=== PATIENT | male | born 1970 ===

== ENCOUNTER 2021-07-21 15:35 | Inpatient (IN) | payer BC ==
--- NOTE | 2021-08-03 15:07 | R.PREADM ---
PRE-ADMISSION SCREENING FORM SCREENING DATE AND TIME 08/03/2021 10:47 (CDT) ANTICIPATED REHAB ADMISSION DATE 08/03/2021 REFERRING FACILITY [facility] REFERRAL DATE AND TIME 07/19/2021 10:47 (CDT) ACUTE ADMIT DATE 07/14/2021 Previous Rehabilitation(s): No. REFERRING PHYSICIAN [facility] CLINICAL LIAISON Ghazal Helm PHYSICIAN REVIEWER Dr. Domingo Jordan M.D. MR# [id number] NAME VELIA GRESHAM ADDRESS [address] [facility] [place]IP [id number] DATE OF 1970 AGE 50 SSN# [id number] GENDER male MARITAL STATUS RACE white ADMIT FROM [facility] PRE-HOSPITAL LIVING SETTING 01 - Home (private home/apt. board/care, assisted living, detention, transitional living) HOME TYPE AND DETAILS Type of home: single family house # of levels in the residence: 1 # of steps within the residence: 0 # of steps to enter the residence: 0 PRE-HOSPITAL LIVING WITH Family/Relatives FAMILY SUPPORT Yes FAMILY SUPPORT DETAILS Patient lives with spouse PRIMARY FAMILY CONTACT NAME Yelena Gresham PRIMARY FAMILY CONTACT PHONE PRIMARY FAMILY CONTACT ALT. PHONE PRIMARY FAMILY CONTACT RELATIONSHIP Spouse PHONE PRIMARY FAMILY CONTACT ON ADM.? no IS PRIMARY FAMILY CONTACT AUTH. REP.? no 1ST EMERGENCY CONTACT Yelena Gresham 1ST CONTACT PHONE 1ST CONTACT ALT. PHONE 1ST CONTACT RELATIONSHIP Spouse PHONE 1ST CONTACT ON ADM. no IS 1ST CONTACT AUTH. REP.? no PHONE 2ND CONTACT ON ADM.? 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 No ANOTHER DEMOCRAT RESPONSIBLE? 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 INTERVENTIONS: - Pain Monitor for headaches Administer prescribed pain medications - Hypertension Monitor and treat with prescribed medications to maintain systolic blood pressure less than 160 as pe r physician recommendation Increase physical activity - Atrial Fibrillation Administer prescribed anticoagulants Vitals will be monitored regularly and medications administered as indicated by Physician - Pre Diabetes Monitor A1c levels - Hyperlipidemia Monitor LDL level and treat with prescribed statins - Sleep Apnea Respiratory management Monitor O2 Sat - Global Aphasia SUPERVISOR SEWING DEPARTMENT to assess and treat pt's communication deficits. - Small Bowel Distention Continue to monitor with serial abdominal exams and KUB's Continue bowel regimen and prescribed medications - Mitral Valve Endocarditis Administer antibiotics and cardiac medications Vital signs will be monitored regularly - GI Rest Monitor and Evaluate patient tolerance of PO intake Administer prescribed medications for GI discomfort RISK FOR COMPLICATIONS: - Pain Administer prescribed pain medication as needed Education patient on relaxation and deep breathing techniques Assist patient with frequent position changes at least every 2 hours - Stroke Monitor patient blood pressure Monitor and maintain patient pain level - Falls Provide assistive devices Educated pt on fall prevention strategies to reduce/eliminate fall risk Patient will be evaluated for Fall Precautions and will be placed on Fall Precautions as indicated pe r protocol. Maintain call light within patient reach for easy access to nursing assistance Provide assistance getting out of bed and with ambulation - DVT Active and Passive ROM exercises Administer anti-coagulants as indicated by physician and monitor for effectiveness. Assist patient with frequent position changes Elevate BLE - Aspiration Monitor for overt s/s of aspiration Will be assessed by our SUPERVISOR SEWING DEPARTMENT SUMMARY OF ACUTE HOSPITALIZATION: Pt. is a 50 yo white male. Pt. is a 50 yo Unknown dexterity white male. On 07/14/2021 Pt. presented to [facility] with sudden onset of right-side weakness. 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 His impairment category is Stroke 01 - Right Body (Left Brain) (01.2). Pre-morbidly, Pt. was independent/mod-I in Locomotion, Safety Awareness, Balance, Transfers Control, Self-Care, Endurance, Communication, Social Cognition, and Sphincter Control. Currently, he has deficits of Locomotion, Balance, Transfers Control, Communication, Self-Care, Endur ance, and Safety Awareness. Pt. is now referred to [facility] for acute in-patient rehabilitation in order to maximize patient's functional independence in activities of daily living, strength, ROM, and mobi lity. Patient has realistic goal of being discharged at assistance level 4-Kristie to reside at Home with Fam julian/Relatives. PAST MEDICAL HISTORY Prior CVA (Apr 2021) Essential (primary) hypertension (I10) Tobacco use (Z72.0) Chronic atrial fibrillation, unspecified (I48.20) Obesity, unspecified (E66.9) Obstructive sleep apnea (adult) (pediatric) (G47.33) CABG hypertrophic obstructive cardiomyopathy PAST SURGICAL HISTORY: myomectomy CABG Colonic Decompression MEDICATION ALLERGIES: No Known Drug Allergies (NKDA) ENVIRONMENTAL ALLERGIES: - Substance Allergies None Known - Other Allergies None Known CODE STATUS: Full code WEIGHT/HEIGHT/BMI: WEIGHT 266 lbs HEIGHT 5' 11" BMI 37.1 DIET: - Diet Type NPO (nothing by mouth) - Diet - Solid Texture N/A - Diet - Liquid Texture N/A - Tube Feed N/A SKIN DIAGRAM: Aching Head pain; level - 10. REVIEW OF SYSTEMS: - Gen Alert and awake Lying in bed No apparent distress Oriented to: person, time, and place - Vital Signs Temperature: 97.9 F SBP/DBP: 107/52 Pulse: 88 Resp: 4 Vital signs stable, afebrile - CVS RRR VITAL SIGNS Temperature: 97.9 F SBP/DBP: 107/52 Pulse: 88 Resp: 4 Vital signs stable, afebrile MEDICATIONS/TREATMENT: Other- See attached MAR (Medication Administration Record). CURRENT SPHINCTER CONTROL: Pre-hospital bladder status: unspecified # of bladder accidents in the last 7 days prior to screenin Pre-hospital bowel status: unspecified # of bowel accidents in the last 7 days prior to screenin Last Bowel Movement Date: 07/19/2021 CURRENT LOCOMOTION STATUS: distance walked 0 feet DETAILED CURRENT FUNCTIONAL STATUS: - Bladder accident frequency: 7-Ind - No accidents in the past 7 days - Bowel accident frequency: 7-Ind - No accidents in the past 7 days - Walking score based on distance walked: 0(N/A) - Wheelchair score based on distance traveled: 0(N/A) QI SCORES: - Self-Care A. Eating 03-Partial/moderate assistance B. Oral hygiene 03-Partial/moderate assistance C. Toileting hygiene 03-Partial/moderate assistance E. Shower/bathe self 03-Partial/moderate assistance F. Upper body dressing 03-Partial/moderate assistance G. Lower body dressing 03-Partial/moderate assistance H. Putting on/taking off footwear 03-Partial/moderate assistance - Mobility A. Roll left and right 02-Substantial/maximal assistance B. Sit to lying 03-Partial/moderate assistance C. Lying to sitting on side of bed 02-Substantial/maximal assistance D. Sit to stand 02-Substantial/maximal assistance E. Chair/[id number] transfer 02-Substantial/maximal assistance F. Toilet transfer 02-Substantial/maximal assistance G. Car transfer 02-Substantial/maximal assistance I. Walk 10 feet 88-Not attempted due to medical condition or safety concerns J. Walk 50 feet with two turns 88-Not attempted due to medical condition or safety concerns K. Walk 150 feet 88-Not attempted due to medical condition or safety concerns L. Walking 10 feet on uneven surfaces 88-Not attempted due to medical condition or safety concerns M. 1 step (curb) 88-Not attempted due to medical condition or safety concerns N. 4 steps 88-Not attempted due to medical condition or safety concerns O. 12 steps 88-Not attempted due to medical condition or safety concerns P. Picking up object 03-Partial/moderate assistance R. Wheel 50 feet with two turns 09-Not applicable S. Wheel 150 feet 09-Not applicable - Bladder and Bowel Bladder continence 0-Always continent Bowel continence 9-Not rated - Endurance Good - Balance Good - Safety Awareness Good CURRENT FUNC. DEFICITS: Self-Care and Mobility CURRENT / PREVIOUS ASSISTIVE DEVICES: Straight Cane Wheelchair CURRENT USE ASSISTIVE DEVICES: CPAP HISTORY OF FALLS. HAS THE PATIENT HAD TWO OR MORE FALLS IN THE PAST YEAR OR ANY FALL WITH INJURY IN T HE PAST YEAR?: No PRIOR SURGERY. DID THE PATIENT HAVE MAJOR SURGERY DURING THE 100 DAYS PRIOR TO ADMISSION?: Yes THERAPY NOTES FROM ACUTE CARE: [id number].pdf [id number].pdf SPECIAL NEEDS: - Safety Concerns Fall precautions needed due to Poor balance Skin breakdown precautions needed due to skin breakdown risk - Aspiration Concerns Precautions needed due avoid aspiration related infections PRECAUTIONS: - Weight Bearing Precaution WBAT right LE - Fall Precaution Bed alarm TABS alarm Wheel chair alarm PATIENT NEEDS ACTIVE AND ONGOING THERAPEUTIC INTERVENTION OF MULTIPLE THERAPY DISCIPLINES, INCLUDING: - Dietary and Nutrition Adequate Nutrition. Nutritional Education. Nutritional Supplements. Evaluate and Treat. - Occupational Therapy Cognitive Retraining. Patient needs Occupational Therapy for a daily minimum of 1.5 hours at least 5 out of 7 days, to improve Activities of Daily Living, including: Eating, Grooming, Bathing, Dressing, Toileting, Toilet Transfers, Community Reintegration, Higher functional activities, Adaptive Equipme nt, Splinting, Household Tasks, and Other activities as determined. Visual Perceptual Training. Evalu ate and Treat. Safety Awareness. UE ROM. UE Strengthening. - Speech Therapy Cognitive Training. Expressive Language Skills. Memory Strategies. Patient needs Speech Therapy for a daily minimum of 1.5 hours at least 5 out of 7 days, to improve: Swallowing, Cognition, Language Ski lls, and Compensatory Strategies. Receptive Language Skills. Speech Intelligibility Training. Evaluat e and Treat. Dysphagia Therapy. - Physical Therapy Patient needs Physical Therapy for a daily minimum of 1.5 hours at least 5 out of 7 days, to improve: Mobility, Strengthening, Transfers, Stretching, ROM, Endurance, Ability to manage stairs, Gait, and Balance. Evaluate and Treat. Wheelchair Management. Patient/Family Education. Safety Awareness. PATIENT NEEDS CLOSE MEDICAL SUPERVISION BY A REHABILITATION PHYSICIAN FOR: Coordination of Treatment Team Medical and Co-Morbidity Management Pain Management DVT Management PATIENT REQUIRES 24X7 REHAB NURSING FOR MEDICAL AND FUNCTIONAL MGT. OF THE FOLLOWING DEFICITS: Disease Management Medication Management Patient requires 24x7 Rehabilitation Nursing for: Pain Issues, Identifying and preventing risk factor s, Monitoring and reporting current medical conditions, Assisting with ambulation and transfer, Carmel ting with all ADL-s, Teaching patients about disease process and medications, Family teaching, Provid ing safe environment, Bowel and Bladder Issues, Skin Integrity, and Medication Management Providing Safe Environment Communication Transfers Pain Management PATIENT REQUIRES INTENSIVE, COORDINATED INTERDISCIPLINARY APPROACH TO REHAB: Patient needs Dietary and Nutrition Services for: Adequate Nutrition, Nutritional Supplements, and Nu tritional Education Patient needs Spring Machine Operator and/or Case Management for: Discharge Planning, Arranging Home Equipmen t or Services, and Family Interventions PATIENT REHAB POTENTIAL: Fiorella GRESHAM is able and expected to receive 3 hours of individualized therapy daily on at least 5 of every 7 days ChuckFlako YOUNGBLOODMELISSA's prognosis for significant practical improvement within a reasonable period of time nell ears Good Expected level of measurable improvement will be of a practical value to Fiorella GRESHAM's functional ca pacity or adaptations to impairments Has a viable Discharge Plan Medically appropriate; condition is sufficiently stable to participate in intensive rehab program DISCHARGE PLAN: - Estimated Length of Stay (days) 17. - Consensus on plan Discharge plan has been discussed with primary caregiver. Patient/Family is in agreement with the pushpa n. Primary caregiver is in agreement with the plan. - Patient/Family Goals Return home with assistance. - Planned Living Setting Upon Discharge Home, to live with Family/Relatives. Transitional Living. RECOMMENDED CARE LEVEL: IRF RECOMMENDATION DETAILS: Recommended Admission to Comprehensive Rehabilitation Program to Increase Functional Matheny SCREENER'S COMPLETENESS CONFIRMATION: - Screening Confirmation The patient data collection on this preadmission screening form is finished PHYSICIANS REVIEW AND ADMISSION DETERMINATION Admit - Based on my review of the Pre-Admission Screening results, in my medical judgment and experie nce, I concur with the findings and recommend admission to [facility], as this patient requires an IRF level of care. SIGNATURE PANEL: Clinical Liaison - [electronically] signed by Ghazal Helm on 08/03/2021 at 13:40 (CDT) [employer] - [electronically] signed by Olivier Allen PT on 08/03/2021 at 13:41 (CDT) Physician Reviewer - [electronically] signed by Dr. Domingo Jordan M.D. on 08/03/2021 at 15:06 (CDT )
--- OUTSIDE RECORDS SUMMARY | 2021-08-03 16:58 | XMS REPORT | Continuity of Care Document ---
:1970 Author Organization [facility] t Address [address] [place] [address] Care Team Providers Name Role Phone JUAN, Satish Primary Care Physician Unavailable Singer PIÑA Attending Clinician Yrn POST Attending Clinician Patrick POST Attending Clinician Teqwimuahilton PIÑA Attending Clinician WOODROW Attending Clinician Unavailable Satish Pringle MD Attending Clinician Trina Tierney MD Attending Clinician Lisa POST Attending Clinician Albert POST Attending Clinician Sandra Sheldon CRNA Attending Clinician YRN Admitting Clinician Unavailable Payers Payer Name Policy Type Policy Number Effective Date Expiration Date S ource Problems Condition Condition Condition Status Onset Resolution Last Treating Co mments Source Name Details Category Date Date Treatment Clinician Date Streptococ Streptococ Disease Active U nivers markus markus 4-14 ity of [place] Endocardit Endocardit Disease Active U nivers is of is of 14 ity of mitral mitral 00:00: [place] valve valve 00 Medical Branch Ileus Ileus Disease Active Overview: Univcallie s 07-14 Formattin ity of 00:00: g of this [place] 00 note Medical might be Branch different from the original. 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 ischemia CVA with a hemorrhag ic conversio n Obesity Obesity Disease Active Univers (BMI (BMI -08 ity of 30-39.9) 30-39.9) 00:00: [address] Branch Allergies, Adverse Reactions, Alerts Allergy Allergy Status Severity Reaction(s) Onset Inactive Treating Comm ents Source Name Type Date Date Clinician NO KNOWN Drug Active Univers ALLERGIE Class ity of S [facility] Family History Family Member Diagnosis Comments Start Date Stop Date Source Natural mother Hypertension [facility] Social History Social Habit Start Date Stop Date Quantity Comments Source Exposure to Not sure [facility] SARS-CoV-2 [facility] (event) [place] Alcohol intake 2021-07-21 2021-07-21 Ex-drinker [facility] 00:00:00 00:00:00 (finding) [facility] Tobacco use and 2021-07-19 2021-07-19 Former user [facility] ty of exposure 00:00:00 00:00:00 [facility] Sex Ass[birth year] At [birth year] Universit y of 00:00:00 00:00:00 [facility] Smoking Status Start Date Stop Date Source Former smoker 2021-07-19 00:00:00 2021-07-19 00:00:00 [facility] Medications Ordered Filled Start Stop Current Ordering Indication Dosage Frequency Signature Comments Components Source Medication Medication Date Date Medication? Clinician (SIG) Name Name metoprolol Yes 25mg 25 mg, Unive rs tartrate 4-15 Oral, BID, ity o f (LOPRESSOR) 01:00: First dose [place] tablet 25 00 on [facility] Medical mg 07/20/21 at Branch 1999, Until Discontinu ed, Routine ceFAZolin 0 2021- Yes 2000mg 2 g (2,000 Univers in 0.9% 4-14 04-24 mg), ity of sodium 18:15: 18:14 [place]venou [place] chloride 00 :00 s, Q8H Medical (ANCEF) 2 ABX, 30 Branch gram/100 mL doses, RTU 2 g First dose on [facility] 07/20/21 at 1315, Last dose on 07/30/21 at 0515, Administer over 30 Minutes
Reason for Anti-Infec tive: Documented Infection& lt;br>Docu mented Infection Site: Vascular<b r>Duration of Therapy: 14 days rivaroxaban 0 Yes 20mg Take 20 mg Univers (XARELTO 4-14 by mouth ity of ORAL) 17:01: daily. [address] metoprolol 0 Yes 100mg Take 100 Un marilu tartrate 4-14 mg by ity of 100 mg 17:01: mouth 2 [place] tablet (two) Medical times Branch daily. colchicine 0 Yes .6mg Take 0.6 Uni vers (MITIGARE) 4-14 mg by ity of 0.6 mg Cap 17:01: mouth 2 [place] 01 (two) Medical times Branch daily. losartan 50 2021-0 Yes 50mg Take 50 mg Univers mg tablet 4-14 by mouth ity of 17:01: daily. [address] furosemide 2021-0 Yes 40mg Take 40 mg U nivers (LASIX) 40 4-14 by mouth ity o f mg tablet 17:01: daily. [address] rivaroxaban 2021-0 Yes 20mg Take 20 mg Univers (XARELTO 4-14 by mouth ity of ORAL) 17:01: daily. [address] metoprolol 2021-0 Yes 100mg Take 100 Un marilu tartrate 4-14 mg by ity of 100 mg 17:01: mouth 2 [place] tablet 01 (two) Medical times Branch daily. colchicine 2021-0 Yes .6mg Take 0.6 Uni vers (MITIGARE) 4-14 mg by ity of 0.6 mg Cap 17:01: mouth 2 [place] 01 (two) Medical times Branch daily. losartan 50 2021-0 Yes 50mg Take 50 mg Univers mg tablet 4-14 by mouth ity of 17:01: daily. [address] furosemide 2021-0 Yes 40mg Take 40 mg U nivers (LASIX) 40 4-14 by mouth ity o f mg tablet 17:01: daily. [address] pantoprazol 0 Yes 40mg 40 mg, Univ ers e 4-14 Slow IV ity of (PROTONIX) 01:00: Push, [place] injection 00 Q12H, Medical 40 mg First dose Branch on Sat07/19/21 at 2000, Until Discontinu ed lidocaine 2021-0 Yes PRN, Univers 2% 4-13 Starting ity of (XYLOCAINE) 18:46: on Sat [place] 20 mg/mL (2 01 07/19/21 at Ia dical %) 1346, Branch injection Until Discontinu ed, Routine polyethylen 0 Yes 17g 17 g, Unive rs e glycol 4-13 Oral, BID, ity o f 3350 powder 16:30: First dose [place] 17 g 00 on Sat Medical 07/19/21 at Branch 1130, Until Discontinu ed, Routine ondansetron 0 Yes 4mg 4 mg, Slow Univers (ZOFRAN 4-13 IV Push, ity of (PF)) 06:34: Q6HPRN, [place] injection 4 43 Nausea and Me dical mg Vomiting Branch (N/V), Starting on Sat07/19/21 at 0134
Do ses of ondansetro n 16 mg and above need to be administer ed via IV piggyback. For Dose >=24mg ECG monitoring is advisable.
docusate 0 Yes 100mg 100 mg, Unive rs (COLACE) 50 4-11 Oral, ity of mg/5 mL 14:00: DAILY, [place] solution 00 First dose Medic al 100 mg on Sat Branch 07/17/21 at 0900, Until Discontinu ed, Routine acetaminoph 2021-0 Yes 650mg 650 mg, Un marilu en 4-11 Oral, ity of (TYLENOL) 04:43: Q4HPRN, [place] 160 mg/5 mL 30 Starting Medi markus oral liquid on Sat Branch 650 mg 07/16/21 at 2343, Until Discontinu ed, Routine, Pain (scale 4-6), Temp > 38.5 C D5W 0.9% Yes 1000mL at 75 [facility] s NaCl (NS) 4-10 mL/hr, ity of IV infusion 22:00: 1,000 mL, [place] 1,000 mL 00 IV Medical Infusion, Branch CONTINUOUS , Starting on 07/16/21 at 1700, Until Discontinu ed, Routine atorvastati Yes 40mg 40 mg, [facility] ers n (LIPITOR) 4-09 Oral, QHS, it y of tablet 40 02:00: [place] mg 00 on Fri Medical 07/14/21 at [place] 2100, Until Discontinu ed, Routine Sliding Yes Subcutaneo [facility] ers Scale 4-08 us, Q6H, ity of Insulin-Reg 23:00: First dose [place] ular + Fsbg 00 on Sat Medica l Testing 07/14/21 at [place] 1800, Until Discontinu ed, Routine glucagon Yes 1mg 1 mg, Univers (GLUCAGEN -08 Intramuscu ity of DIAGNOSTIC 20:48: lar, PRN, [place] KIT) 00 Starting Medical injection 1 on Sat Branch mg 07/14/21 at 1548, Until Discontinu ed, MARILUZ, Blood Glucose < or = 70 mg/dL and patient is unable to swallow or has mental changes. Vital Signs Vital Name Observation Time Observation Value Comments Source Systolic blood 2021-07-20 18:55:00 162 mm[Hg] [facility] Diastolic blood 2021-07-20 18:55:00 73 mm[Hg] [facility] rate 2021-07-20 18:55:00 103 /min [facility] Body temperature 2021-07-20 18:55:00 36.17 Halima [facility] Respiratory rate 2021-07-20 18:55:00 18 /min [facility] Oxygen saturation in 2021-07-20 18:55:00 98 /min [facility] Arterial blood by [facility] Pulse oximetry [place] Body height 2021-07-17 17:12:00 180.3 cm [facility] Body weight 2021-07-17 17:12:00 120.657 kg [facility] BMI 2021-07-17 17:12:00 37.10 kg/m2 [facility] Systolic blood 2021-07-21 12:45:00 155 mm[Hg] Univer sity of pressure [facility] Diastolic blood 2021-07-21 12:45:00 91 mm[Hg] Unive rsity of pressure [facility] Heart rate 2021-07-21 12:45:00 77 /min [facility] Body temperature 2021-07-21 12:45:00 36.61 Halima [facility] 2021-07-21 12:45:00 18 /min [facility] Oxygen saturation in 2021-07-21 12:45:00 97 /min [facility] Arterial blood by [facility] Pulse oximetry Branch Body height 2021-07-17 17:12:00 180.3 cm [facility] Body weight 2021-07-17 17:12:00 120.657 kg [facility] BMI 2021-07-17 17:12:00 37.10 kg/m2 [facility] Procedures Procedure Date / Time Performing Clinician Source Performed POCT GLUCOSE (AUTOMATED) 2021-07-21 17:14:00 Curry Dotson [facility] POCT GLUCOSE (AUTOMATED) 2021-07-21 11:09:00 Curry [facility] PO[facility] GLUCOSE (AUTOMATED) 2021-07-21 11:09:00 Curry [facility] PO[facility] GLUCOSE (AUTOMATED) 2021-07-21 07:25:00 Curry [facility] POCT GLUCOSE (AUTOMATED) 2021-07-21 07:25:00 Curry Dotson [facility] XR KUB 2021-07-21 02:04:00 [facility] XR KUB 2021-07-21 02:04:00 [facility] POCT GLUCOSE (AUTOMATED) 2021-07-21 01:29:00 TeqwimmarzenahCurry [facility] PO[facility] GLUCOSE (AUTOMATED) 2021-07-21 01:29:00 Teqwimuah, Curry [facility] PO[facility] GLUCOSE (AUTOMATED) 2021-07-20 22:02:00 Teqwimuah, Curry [facility] PO[facility] GLUCOSE (AUTOMATED) 2021-07-20 22:02:00 Teqwimuah, Curry [facility] PO[facility] GLUCOSE (AUTOMATED) 2021-07-20 20:46:00 Teqwimuah, Curry [facility] PO[facility] GLUCOSE (AUTOMATED) 2021-07-20 20:46:00 Teqwimuah, Curry Uni [facility] COLONOSCOPY 2021-07-20 19:33:00 Lisa [facility] [place] [facility] COLONOSCOPY 2021-07-20 19:33:00 Le, [facility] COLONOSCOPY (ENDO) 2021-07-20 19:13:11 Juan [place] [facility] COLONOSCOPY (ENDO) 2021-07-20 19:13:11 Juan [place] [facility] XR KUB 2021-07-20 18:19:49 Davon [facility] XR KUB 2021-07-20 18:19:49 Davon [facility] COVID-19 (ID NOW RAPID 2021-07-20 17:46:00 Le, [facility] TESTING) Medical Branch LAB ONLY COVID 2021-07-20 17:46:00 Le, [facility] COVID-19 (ID NOW RAPID 2021-07-20 17:46:00 Le, [facility] TESTING) Medical Branch LAB ONLY COVID 2021-07-20 17:46:00 Lisa [facility] CBC WITH DIFF 2021-07-20 16:50:00 Shaniqua Cardenas [facility] CBC WITH DIFF 2021-07-20 16:50:00 Ronald [facility] POCT GLUCOSE (AUTOMATED) 2021-07-20 16:18:00 Luis Fernando Nguyen Uni versity of [facility] POCT GLUCOSE (AUTOMATED) 2021-07-20 16:18:00 Luis Fernando Nguyen Uni versity [facility] XR KUB 2021-07-20 12:44:10 Ronald [facility] XR KUB 2021-07-20 12:44:10 Ronald [facility] POCT GLUCOSE (AUTOMATED) 2021-07-20 11:43:00 Luis Fernando Nguyen Uni versity of [facility] POCT GLUCOSE (AUTOMATED) 2021-07-20 11:43:00 Luis Fernando Nguyen Uni versity of [facility] POCT GLUCOSE (AUTOMATED) 2021-07-20 05:10:00 Luis Fernando Nguyen Uni versity of [facility] POCT GLUCOSE (AUTOMATED) 2021-07-20 05:10:00 Luis Fernando Nguyen Uni versity of [facility] POCT GLUCOSE (AUTOMATED) 2021-07-20 00:06:00 Luis Fernando Nguyen Uni versity of [facility] POCT GLUCOSE (AUTOMATED) 2021-07-20 00:06:00 Luis Fernando Nguyen Uni versity [facility] XR KUB 2021-07-19 23:32:13 Davon [facility] XR KUB 2021-07-19 23:32:13 Davon [facility] POCT GLUCOSE (AUTOMATED) 2021-07-19 17:04:00 Luis Fernando Nguyen Uni versity of [facility] POCT GLUCOSE (AUTOMATED) 2021-07-19 17:04:00 Luis Fernando Nguyen Uni versity [facility] BASIC METABOLIC PANEL (NA, 2021-07-19 16:52:00 Alex Medina [facility] K, CL, CO2, GLUCOSE, BUN, Medica l Branch CREATININE, CA) MAGNESIUM 2021-07-19 16:52:00 Alex Medina [facility] CBC WITH DIFF 2021-07-19 16:52:00 [facility] COMP. METABOLIC PANEL 2021-07-19 16:52:00 [facility] ([id number]) [facility] Branch MAGNESIUM 2021-07-19 16:52:00 Adam [facility] BASIC METABOLIC PANEL (NA, 2021-07-19 16:52:00 Alex Medina [facility] K, CL, CO2, GLUCOSE, BUN, Medica l Branch CREATININE, CA) COMP. METABOLIC PANEL 2021-07-19 16:52:00 [facility] ([id number]) [facility] CBC WITH DIFF 2021-07-19 16:52:00 [facility] POCT GLUCOSE (AUTOMATED) 2021-07-19 13:59:00 Luis Fernando Nguyen Uni [facility] POCT GLUCOSE (AUTOMATED) 2021-07-19 13:59:00 Luis Fernando Nguyen [facility] POCT GLUCOSE (AUTOMATED) 2021-07-19 11:06:00 Luis Fernando Nguyen [facility] POCT GLUCOSE (AUTOMATED) 2021-07-19 11:06:00 Luis Fernando Nguyen Uni [facility] PROTHROMBIN TIME / INR 2021-07-19 11:03:00 Venancio Seals [facility] ACTIVATED PARTIAL THRMPLAS 2021-07-19 11:03:00 Venancio Seals [facility] PROTHROMBIN TIME / INR 2021-07-19 11:03:00 Venancio Seals [facility] ACTIVATED PARTIAL THRMPLAS 2021-07-19 11:03:00 Venancio Seals [facility] POCT GLUCOSE (AUTOMATED) 2021-07-19 04:41:00 Luis Fernando Nguyen [facility] PO[facility] GLUCOSE (AUTOMATED) 2021-07-19 04:41:00 Luis Fernando Nguyen [facility] CT ABDOMEN PELVIS W 2021-07-18 23:20:55 [facility] ABDOMEN PELVIS W 2021-07-18 23:20:55 Adam Alex [facility] CONTRAST Medical Branch POCT GLUCOSE (AUTOMATED) 2021-07-18 22:56:00 Luis Fernando Nguyen [facility] POCT GLUCOSE (AUTOMATED) 2021-07-18 22:56:00 Luis Fernando [facility] SEDIMENTATION RATE 2021-07-18 18:51:00 Raphael Frye [facility] SEDIMENTATION RATE 2021-07-18 18:51:00 Raphael Frye [facility] BLOOD CULTURE SCREEN 2021-07-18 18:34:00 Medina Alex [facility] 2021-07-18 18:34:00 Adam Alex [facility] BLOOD CULT[facility] SCREEN 2021-07-18 18:33:00 Adam Alex [facility] BLOOD CULT[facility] SCREEN 2021-07-18 18:33:00 Medina Alex [facility] ANTI-NUCLEAR ANTIBODY 2021-07-18 18:32:00 Raphael Frye [facility] Medical [place] ANTI-NUCLEAR 2021-07-18 18:32:00 Melva [facility] [place] ANTIBODY-PATHOLOGIST Medical [facility] INTERPRETATION ANTI-NUCLEAR ANTIBODY 2021-07-18 18:32:00 [facility] [place] ANTI-NUCLEAR 2021-07-18 18:32:00 Melva [facility] [place] ANTIBODY-PATHOLOGIST Medical [facility] INTERPRETATION C-REACTIVE PROTEIN 2021-07-18 18:31:00 Raphael Frye [facility] C-REACTIVE PROTEIN 2021-07-18 18:31:00 [facility] (AUTOMATED) 2021-07-18 16:57:00 Luis Fernando [facility] POCT GLUCOSE (AUTOMATED) 2021-07-18 16:57:00 Luis Fernando Nguyen Uni versity of [place] [facility] POCT GLUCOSE (AUTOMATED) 2021-07-18 10:31:00 Luis Fernando Nguyen Uni versity of [facility] Branch POCT GLUCOSE (AUTOMATED) 2021-07-18 10:31:00 Luis Fernando Nguyen Uni versity of [place] Medical [facility] POCT GLUCOSE (AUTOMATED) 2021-07-18 06:04:00 Luis Fernando Nguyen Uni versity of [facility] Branch POCT GLUCOSE (AUTOMATED) 2021-07-18 06:04:00 Luis Fernando Nguyen Uni versity of [facility] Branch POCT GLUCOSE (AUTOMATED) 2021-07-17 22:23:00 Luis Fernando Nguyen Uni versity of [facility] POCT GLUCOSE (AUTOMATED) 2021-07-17 22:23:00 Luis Fernando Nguyen Uni versity of [facility] BLOOD CULTURE SCREEN 2021-07-17 21:03:00 Laurie Gita Univers ity of [facility] BLOOD CULTURE WORKUP 2021-07-17 21:03:00 Shijohn Gita Univers ity of [facility] BLOOD CULTURE SCREEN 2021-07-17 21:03:00 Shijohn Gita Univers ity of [facility] Branch BLOOD CULTURE WORKUP 2021-07-17 21:03:00 Shijohn Gita Univers ity of [facility] Branch BLOOD CULTURE SCREEN 2021-07-17 18:56:00 Shiue, Gita Univers ity of [facility] Branch BLOOD CULTURE WORKUP 2021-07-17 18:56:00 Shijohn Gita Univers ity [facility] GRAM POSITIVE BLOOD 2021-07-17 18:56:00 Laurie Gita Universi ty of [place] PATHOGENS DNA Medical Branch PROBE-ANAEROBIC BLOOD CULTURE SCREEN 2021-07-17 18:56:00 Shijohn Gita Univers ity of [facility] Branch BLOOD CULTURE WORKUP 2021-07-17 18:56:00 Shijohn Gita Univers ity of [facility] GRAM POSITIVE BLOOD 2021-07-17 18:56:00 Laurie Gita Universi ty of [place] PATHOGENS DNA Medical Branch PROBE-ANAEROBIC POCT GLUCOSE (AUTOMATED) 2021-07-17 17:13:00 Yared Pool versity of [facility] POCT GLUCOSE (AUTOMATED) 2021-07-17 17:13:00 Yared Pool [facility] TRANSESOPHAGEAL ECHO (JESS) 2021-07-17 17:06:15 Kenneth Jaime [facility] COMPLETE W/ DOPPLER AND Medical Branch COLOR TRANSESOPHAGEAL ECHO (JESS) 2021-07-17 17:06:15 Kenneth Jaime [facility] COMPLETE W/ DOPPLER AND Medical Branch COLOR TRANSTHORACIC ECHO (TTE) 2021-07-17 16:06:00 Viri Echols [facility] TRANSTHORACIC ECHO (TTE) 2021-07-17 16:06:00 Viri Echols [facility] BASIC METABOLIC PANEL (NA, 2021-07-17 09:35:00 [place]oulin, Bienvenido [facility] K, CL, CO2, GLUCOSE, BUN, Medica l Branch CREATININE, CA) CBC WITH DIFF 2021-07-17 09:35:00 [place], [facility] MAGNESIUM 2021-07-17 09:35:00 [place], [facility] PHOSPHORUS 2021-07-17 09:35:00 [place], [facility] PHOSPHORUS 2021-07-17 09:35:00 [place], [facility] MAGNESIUM 2021-07-17 09:35:00 [place], [facility] BASIC METABOLIC PANEL (NA, 2021-07-17 09:35:00 Moulin, Bienvenido [facility] K, CL, CO2, GLUCOSE, BUN, Medica l Branch CREATININE, CA) CBC WITH DIFF 2021-07-17 09:35:00 [place], [facility] POCT GLUCOSE (AUTOMATED) 2021-07-17 05:29:00 Yared [facility] POCT GLUCOSE (AUTOMATED) 2021-07-17 05:29:00 Yared [facility] POCT GLUCOSE (AUTOMATED) 2021-07-16 22:03:00 Yared [facility] POCT GLUCOSE (AUTOMATED) 2021-07-16 22:03:00 Yared Pool versity [facility] POCT GLUCOSE (AUTOMATED) 2021-07-16 16:25:00 Yared Pool [facility] POCT GLUCOSE (AUTOMATED) 2021-07-16 16:25:00 Yared Pool [facility] CT HEAD WO CONTRAST 2021-07-16 13:44:56 Yrn Yared [facility] CT HEAD WO CONTRAST 2021-07-16 13:44:56 Yared Pool [facility] PHOSPHORUS 2021-07-16 09:00:00 [facility] 2021-07-16 09:00:00 Addison [facility] BASIC METABOLIC PANEL (NA, 2021-07-16 09:00:00 Kenneth Jaime [facility] K, CL, CO2, GLUCOSE, BUN, Medica l Branch CREATININE, CA) CBC WITH DIFF 2021-07-16 09:00:00 Addison [facility] CBC WITH DIFF 2021-07-16 09:00:00 Addison [facility] PHOSPHORUS 2021-07-16 09:00:00 Addison [facility] MAGNESIUM 2021-07-16 09:00:00 Addison [facility] BASIC METABOLIC PANEL (NA, 2021-07-16 09:00:00 Kenneth Jaime [facility] K, CL, CO2, GLUCOSE, BUN, Medica l Branch CREATININE, CA) POCT GLUCOSE (AUTOMATED) 2021-07-16 06:41:00 Yared Pool [facility] POCT GLUCOSE (AUTOMATED) 2021-07-16 06:41:00 Yared Pool [facility] POCT GLUCOSE (AUTOMATED) 2021-07-15 22:50:00 Yared Pool [facility] POCT GLUCOSE (AUTOMATED) 2021-07-15 22:50:00 Yared Pool [facility] MAGNESIUM 2021-07-15 17:19:00 [facility]IC [facility]OLIC PANEL (NA, 2021-07-15 17:19:00 Kenneth Jaime [facility] K, CL, CO2, GLUCOSE, BUN, Medica l Branch CREATININE, CA) CBC WITH DIFF 2021-07-15 17:19:00 Desirae Jaime [facility] PROTHROMBIN TIME / INR 2021-07-15 17:19:00 [facility] 2021-07-15 17:19:00 Kenneth Jaime [facility] CBC WITH DIFF 2021-07-15 17:19:00 Desirae Jaime [facility] BASIC METABOLIC PANEL (NA, 2021-07-15 17:19:00 Kenneth Jaime [facility] K, CL, CO2, GLUCOSE, BUN, Medica l Branch CREATININE, CA) MAGNESIUM 2021-07-15 17:19:00 Andrea Jaimechanning [facility] PROTHROMBIN TIME / INR 2021-07-15 17:19:00 Desirae Jaime Un [facility] ACTIVATED PARTIAL THRMPLAS 2021-07-15 17:19:00 Kenneth Jaime [facility] POCT GLUCOSE (AUTOMATED) 2021-07-15 17:06:00 Yared Pool [facility] POCT GLUCOSE (AUTOMATED) 2021-07-15 17:06:00 Yared Pool [facility] MR BRAIN WO CONTRAST 2021-07-15 14:07:39 [facility] MR BRAIN WO CONTRAST 2021-07-15 14:07:39 [facility]ols [facility] CT HEAD WO CONTRAST 2021-07-15 09:51:20 Bienvenido Ness [facility] CT HEAD WO CONTRAST 2021-07-15 09:51:20 Bienvenido Ness [facility] PHOSPHORUS 2021-07-15 09:13:00 Viri Echols [facility] [place] [facility] MAGNESIUM 2021-07-15 09:13:00 Viri Echols [facility] [place] [facility] BASIC METABOLIC PANEL (NA, 2021-07-15 09:13:00 Onesimo [facility] K, CL, CO2, GLUCOSE, BUN, Medica l Branch CREATININE, CA) CBC WITHOUT DIFF 2021-07-15 09:13:00 Onesimo [facility] CBC WITHOUT DIFF 2021-07-15 09:13:00 Onesimo [facility] BASIC METABOLIC PANEL (NA, 2021-07-15 09:13:00 Onesimo [facility] K, CL, CO2, GLUCOSE, BUN, Medica l Branch CREATININE, CA) MAGNESIUM 2021-07-15 09:13:00 Onesimo [facility] PHOSPHORUS 2021-07-15 09:13:00 Onesimo [facility] POCT GLUCOSE (AUTOMATED) 2021-07-15 05:10:00 Yared Pool [facility] POCT GLUCOSE (AUTOMATED) 2021-07-15 05:10:00 Yared Pool [facility] MRSA / MSSA SCREEN BY PCR, 2021-07-15 02:51:00 Onesimo [facility] MRSA / MSSA SCREEN BY PCR, 2021-07-15 02:51:00 Onesimo [facility] HEPARIN ANTI-XA, 2021-07-15 02:47:00 Yrn [facility] UNFRACTIONATED HEPARIN [facility] B ranch HEPARIN ANTI-XA, 2021-07-15 02:47:00 Yrn [facility] UNFRACTIONATED HEPARIN Medical B ranch HEPARIN ANTI-XA, LOW 2021-07-14 22:55:00 Onesimo [facility] WEIGHT HEPARIN [facility] HEPARIN ANTI-XA, LOW 2021-07-14 22:55:00 Onesimo [facility] WEIGHT HEPARIN [facility] CT STROKE HEAD WO CONTRAST 2021-07-14 22:33:03 Onesimo [facility] CT STROKE HEAD WO CONTRAST 2021-07-14 22:33:03 Onesimo [facility] POCT GLUCOSE (AUTOMATED) 2021-07-14 20:01:00 Yared Pool [facility] POCT GLUCOSE (AUTOMATED) 2021-07-14 20:01:00 Yrn Yared [facility] POCT GLUCOSE (AUTOMATED) 2021-07-14 18:32:00 Lencho Benites [facility] POCT GLUCOSE (AUTOMATED) 2021-07-14 18:32:00 Lencho Benites [facility] HB ECG ROUTINE & RHYTHM 2021-07-14 18:30:39 Singer [facility] HB ECG ROUTINE & RHYTHM 2021-07-14 18:30:39 Singer [facility] CT STROKE ANGIOGRAM HEAD 2021-07-14 18:30:00 Singer Lencho [facility] CT STROKE ANGIOGRAM NECK 2021-07-14 18:30:00 Lencho Benites [facility] CT STROKE ANGIOGRAM HEAD 2021-07-14 18:30:00 Lencho Benites [facility] CT STROKE ANGIOGRAM NECK 2021-07-14 18:30:00 [facility] DIFF 2021-07-14 18:24:00 Singer [facility] GLYCOSYLATED HEMOGLOBIN 2021-07-14 18:24:00 Viri Echols [facility] CBC WITHOUT DIFF 2021-07-14 18:24:00 Singer [facility] GLYCOSYLATED HEMOGLOBIN 2021-07-14 18:24:00 Viri Echols [facility] TROPONIN I 2021-07-14 18:23:00 Lencho Benites [place] [facility] BASIC METABOLIC PANEL (NA, 2021-07-14 18:23:00 Lencho Benites [facility] K, CL, CO2, GLUCOSE, BUN, Medica l Branch CREATININE, CA) LIPID PANEL (69968)(TOTAL 2021-07-14 18:23:00 [facility], [facility] TRIGLYCERIDES, HDL) PROTHROMBIN TIME / INR 2021-07-14 18:23:00 Lencho Benites [facility] ACTIVATED PARTIAL THRMPLAS 2021-07-14 18:23:00 Lencho Benites [facility] PROTHROMBIN TIME / INR 2021-07-14 18:23:00 Lencho Benites [facility] ACTIVATED PARTIAL THRMPLAS 2021-07-14 18:23:00 Lencho Benitse [facility] TROPONIN I 2021-07-14 18:23:00 Singer [facility] BASIC METABOLIC PANEL (NA, 2021-07-14 18:23:00 Lencho Benites [facility] K, CL, CO2, GLUCOSE, BUN, Medica l Branch CREATININE, CA) LIPID PANEL (82821)(TOTAL 2021-07-14 18:23:00 [facility] HDL[facility] CT STROKE HEAD WO CONTRAST 2021-07-14 18:20:52 Lencho Benites [facility] CT STROKE HEAD WO CONTRAST 2021-07-14 18:20:52 Lencho Benites [facility] CRITICAL CARE 2021-07-14 18:07:00 Singer [facility] CRITICAL CARE 2021-07-14 18:07:00 Singer [facility] EMERGENCY SERVICES 2021-07-14 05:01:00 Doctor Unassigned, [facility] AGREEMENTS AND [facility] [place] [facility] AUTHORIZATIONS Encounters Start End Encounter Admission Attending Care Care Encounter Source Date/Time Date/Time Type Type Clinicians Facility Department ID 2021-07-14 [facility] Lencho Benites 1.2.840.7 [id number] Univers 13:08:00 Encounter YrnYared 37119.1.1 ity Luis Fernando Nguyen 3.104.2.7 [place] Curry [id number] Medical .8 Branch 2021-07-14 Inpatient U BLANK TROY [facility] [id number] Univers 13:08:00 ity of [facility] 2021-07-20 2021-07-20 Anesthesia Malathi Pringle 1.2.840.1 [id number] Univers 14:43:00 15:42:00 Event Elizabeth Tierney 26041.1.1 ity of 3.104.2.7 [place] .3.269691 Medica l .8 Branch 2021-07-20 2021-07-20 Surgery , [facility] 1.2.840.114 [id number] Univers 14:00:00 14:48:00 Critical access hospital 350.1.13.10 [place] [id number] [facility] 020 Branch (CLC) 2021-07-17 2021-07-17 Anesthesia Donaldazmiranda, Rovnat 1.2.840.1 [id number] Univers 11:30:00 11:52:00 Event Nancy Sheldon 55718.1.1 ity of 3.104.2.7 [place] .3.791789 Medica l .8 Branch 2021-07-14 2021-07-14 Travel 1.2.840.1 [id number] [id number] Univers 00:00:00 00:00:00 22312.1.1 350.1.13.10 ity of 3.104.2.[place].3.698 [place] .3.609[place] 084.8 Medica l .8 Branch Results Test Description Test Time Test Comments Results Result Comments Source POCT GLUCOSE (AUTOMATED) 2021-07-21 17:15:54 Test Item Value Reference Range Interpretation Comme nts POCT GLU (test code = 8194255207) 110 mg/dL 70-110 Lab Interpretation (test code = 72267-1) Normal [facility] GLUCOSE (AUTOMATED)2021-07-21 11:10:42 Test Item Value Reference Range Interpretation Comments POCT GLU (test code = 0166689425) 114 mg/dL 70-110 H Lab Interpretation (test code = Abnormal 21796-4) [facility] GLUCOSE (AUTOMATED)2021-07-21 11:10:42 Test Item Value Reference Range Interpretation Comments POCT GLU (test code = 8103545620) 114 mg/dL 70-110 H Lab Interpretation (test code = Abnormal 78332-9) [facility] [place] [facility]-07-21 07:26:58 Test Item Value Reference Range Interpretation Comments POCT GLU (test code = 5588536038) 112 mg/dL 70-110 H Lab Interpretation (test code = Abnormal 75712-1) [facility] Protocol - Transthoracic echo (TTE) 2021-07-21 05:03:38 Test Item Value Reference Range Interpretation Comments LVOT stroke volume (test 106.30 cm3 code = 2188808879) EF(Teich) (test code = 65.70 % 1202978800) LVIDD (test code = 6.00 cm 0554548606) LVIDS (test code = 3.80 cm 1701494134) IVS (test code = 1.13 cm 4939472513) LVPWD (test code = 1.00 cm 0388920923) LVOT diameter (test code 2.01 cm = 2657298257) FS (test code = 37 % 9570987794) MV Peak E Fly (test code 182.0 cm/s = 5677160145) MV Peak A Fly (test code 43.3 cm/s = 9445411221) E/A ratio (test code = ratio 9328835969) E wave decelartion time 0.28 s (test code = 7810114039) LA volume (BP) (test code 143.9 mL = 9218430266) LVOT peak fly (test code 198.9 cm/s = 7773809168) LVOT mn grad (test code = mmHg 8648667036) LAV(MOD-sp2) (test code = 125.20 mL 2024957183) LAV(MOD-sp4) (test code = 160.20 mL 0264512665) Aortic valve mean 153.3 cm/s velocity (test code = 5031575658) Ao peak fly (test code = 246.3 cm/s 2786099806) Ao VTI (test code = 42.1 cm 2761520162) AV LVOT peak gradient mmHg (test code = 3202054260) LVOT peak VTI (test code 33.4 cm = 3940736933) AV area by cont VTI (test 2.5 cm2 code = 3871037700) AV area peak fly (test 2.6 cm2 code = 1324154323) LV V1 mean (test code = 131.70 cm/s 7820951672) Ao max PG (test code = 24.30 mm[Hg] 4669867551) AV peak gradient (test mmHg code = 3815707804) AV valve area (test code 2.50 cm2 = 8146603473) AV mean gradient (test mmHg code = 7090270521) PW (test code = 1.00 cm 0.6-1.7 3605760250) EF - 2D (test code = 65.70 % 04048843) Interventricular Septum 1.13 cm Diastolic Thickness by 2D (test code = 7305256) MV stenosis pressure 1/2 48.9 ms time (test code = 0897798552) MV mean gradient (test mmHg code = 1534468041) MV peak gradient (test mmHg code = 5722948355) MV pk fly (test code = 191.8 cm/s 1051236965) MV valve area by 3.30 cm2 continuity eq (test code = 6587083701) MV VTI (test code = 32.5 cm 7404834511) MV V2 mean (test code = 138.10 cm/s 1438424407) Radiology Study observation (narrative) (test code = 90086-7) DENIA (test code = DENIA) ?Left?Ventricle: Left ventricle is mildly dilated. Normal wall thickness. Normal systolic function with a visually estimated EF of 60 - 65%. Unable to assess diastolic function due to arrhythmia. ?Mitral?Valve: Appears to have partial annuloplasty ring. ?Tricuspid?Valve: Insufficient regurgant jet to estimate RVSP. ?Left?Atrium: Saline contrast shows no shunt. VitalsHeight Weight BSA (Calculated - sq m) BP Pulse 5' 11" (1.803 m) 266 lb (120.7 kg) 2.46 sq meters 107/52 88 [facility] [place] [facility] - Transthoracic echo (TTE) 2021-07-21 05:03:38 Test Item Value Reference Range Interpretation Comments LVOT stroke volume (test 106.30 cm3 code = 0352737735) EF(Teich) (test code = 65.70 % 2688663654) LVIDD (test code = 6.00 cm 5916857681) LVIDS (test code = 3.80 cm 4413078320) IVS (test code = 1.13 cm 9919766096) LVPWD (test code = 1.00 cm 1151339269) LVOT diameter (test code 2.01 cm = 3899916249) FS (test code = 37 % 7041300827) MV Peak E Fly (test code 182.0 cm/s = 4232602685) MV Peak A Fly (test code 43.3 cm/s = 8230781323) E/A ratio (test code = ratio 0417488800) E wave decelartion time 0.28 s (test code = 7328558258) LA volume (BP) (test code 143.9 mL = 4748105547) LVOT peak fly (test code 198.9 cm/s = 6005251881) LVOT mn grad (test code = mmHg 1211354992) LAV(MOD-sp2) (test code = 125.20 mL 6551978966) LAV(MOD-sp4) (test code = 160.20 mL 8805261575) Aortic valve mean 153.3 cm/s velocity (test code = 7123205496) Ao peak fly (test code = 246.3 cm/s 5461864379) Ao VTI (test code = 42.1 cm 0884666787) AV LVOT peak gradient mmHg (test code = 6608221691) LVOT peak VTI (test code 33.4 cm = 0060849493) AV area by cont VTI (test 2.5 cm2 code = 3988854170) AV area peak fly (test 2.6 cm2 code = 4445433587) LV V1 mean (test code = 131.70 cm/s 5407700963) Ao max PG (test code = 24.30 mm[Hg] 6915891172) AV peak gradient (test mmHg code = 0113903143) AV valve area (test code 2.50 cm2 = 0702644937) AV mean gradient (test mmHg code = 5151625175) PW (test code = 1.00 cm 0.6-1.5 6350360378) EF - 2D (test code = 65.70 % 05570174) Interventricular Septum 1.13 cm Diastolic Thickness by 2D (test code = 0488665) MV stenosis pressure 1/2 48.9 ms time (test code = 3655299316) MV mean gradient (test mmHg code = 2824936300) MV peak gradient (test mmHg code = 6590794932) MV pk fly (test code = 191.8 cm/s 8570962298) MV valve area by 3.30 cm2 continuity eq (test code = 2390731700) MV VTI (test code = 32.5 cm 1589172373) MV V2 mean (test code = 138.10 cm/s 0008908376) Radiology Study observation (narrative) (test code = 95750-2) DENIA (test code = DENIA) ?Left?Ventricle: Left ventricle is mildly dilated. Normal wall thickness. Normal systolic function with a visually estimated EF of 60 - 65%. Unable to assess diastolic function due to arrhythmia. ?Mitral?Valve: Appears to have partial annuloplasty ring. ?Tricuspid?Valve: Insufficient regurgant jet to estimate RVSP. ?Left?Atrium: Saline contrast shows no shunt. VitalsHeight Weight BSA (Calculated - sq m) BP Pulse 5' 11" (1.803 m) 266 lb (120.7 kg) 2.46 sq meters 107/52 88 [facility] GLUCOSE (AUTOMATED)2021-07-21 01:30:49 Test Item Value Reference Range Interpretation Comments POCT GLU (test code = 1303320715) 113 mg/dL 70-110 H Lab Interpretation (test code = Abnormal 09277-7) [facility] GLUCOSE (AUTOMATED)2021-07-20 22:03:10 Test Item Value Reference Range Interpretation Comments POCT GLU (test code = 6454686725) 99 mg/dL 70-110 Lab Interpretation (test code = Normal 46700-6) [facility] GLUCOSE (AUTOMATED)2021-07-20 20:47:36 Test Item Value Reference Range Interpretation Comments POCT GLU (test code = 8711510376) 120 mg/dL 70-110 H Lab Interpretation (test code = Abnormal 89889-8) [facility] [place] [facility]CLE[facility]-PATHOLOGIST [id number] 20:44:55ANA - Pathologist InterpretationANA HEp-2 IIFA Pathologist Interpretation Report Patient Name: Velia Gresham ?? ?Antinuclear Antibody (CANDICE) Test (Anti-Cell Antibodies Test) Indirect Im munofluorescence Assay on HEp-2 Cells Screening titer: 1:80 (adults, > 18 years old), 1:40 (pediatrics, <= 18 years old)?Result: The antinuclear antibody (CANDICE) screen is negative on interpretation. Remarks:This patient has a negative antinuclear antibody (CANDICE) screening test. This suggests thatthe patient likely does not have a systemic autoimmune rheumatic disease that is strongly associatedwith a positive CANDICE, such as systemic lupus erythematosus (CANDICE positive in ~95-100%), systemic sclerosis (CANDICE positive in ~60-80%), or the following disorders in which CANDICE positivity is part of the diagnostic criteria: drug-induced lupus, autoimmune hepatitis, or mixed connective tissue disease. However, the CANDICE may be negative in rare cases of systemic lupus erythematosus and systemic sclerosis. The CANDICE may also be negative in ~20% of patients presenting with autoimmune hepatitis. Additionally, CANDICE positivity is less sensitive in the diagnosis of Sjogren's syndrome (~40-70%) and dermatomyositis/polymyositis (~30-80%). CANDICE is not useful for the diagnosis of rheumatoid arthritis, multiple sclerosis, idiopathic thrombocytopenic purpura, thyroid disease, discoid lupus, or fibromyalgia. (https://pubm ed.ncbi.nlm.nih.gov/58602320/, https://pubmed.ncbi.nlm.nih.gov/61505533/) ? ? Therefore, a diagnosiscannot be based exclusively on CANDICE detection and/or pattern and thus should be made via the integration of patient history, physical exam findings, and other diagnostic tests as clinically indicated. Lily Adams MD ?07/20/2021 ?3:44 [facility] LABORATORY SERVICESThe [facility] CampusANTI-NUCLEAR ANTIBODY-PATHOLOGIST [id number] 20:44:55ANA - Pathologist InterpretationANA HEp-2 II Pathologist Interpretation Report Patient Name: Velia Gresham ? ?Antinuclear Antibody (CANDICE) Test (Anti-Cell Antibodies Test) Indirect Immunofluorescence Assay on HEp-2 Cells Screening titer: 1:80 (adults, > 18 years old), 1:40 (pediatrics, <= 18 years old)?Result: The antinuclear antibody (CANDICE) screen is negative on interpretation. Remarks:This patient has a negative antinuclear antibody (CANDICE) screening test. This suggests that the patient likely does not have a systemic autoimmune rheumatic disease that is strongly associated with a positive CANDICE, such as systemic lupus erythematosus (CANDICE positive in ~95-100%), systemic sclerosis (CANDICE positive in ~60-80%), or the following disorders in which CANDICE positivity is part of the diagnostic criteria: drug-induced lupus, autoimmune hepatitis, or mixed connective tissue disease. However, the CANDICE may be negative in rare cases of systemic lupus erythematosus and systemic sclerosis. TheANA may also be negative in ~20% of patients presenting with autoimmune hepatitis. Additionally, ANApositivity is less sensitive in the diagnosis of Sjogren's syndrome (~40-70%) and dermatomyositis/polymyositis (~30-80%). CANDICE is not useful for the diagnosis of rheumatoid arthritis, multiple sclerosis, idiopathic thrombocytopenic purpura, thyroid disease, discoid lupus, or fibromyalgia. (https://pubmed.ncbi.nlm.nih.gov/18494732/, https://pubmed.ncbi.nlm.nih.gov/35496135/) ? ? Therefore, a diagnosis cannot be based exclusively on CANDICE detection and/or pattern and thus should be made via the integration of patient history, physical exam findings, and other diagnostic tests as clinically indicated. Lily Adams MD ?07/20/2021 ?3:44 [facility] SERVICESGeneral [facility] hospital WITH [id number] 16:56:56 Test Item Value Reference Range Interpretation Comments WBC (test code = See_Comment H [Automated 5168-2) message] The sy stem which generated this result transmitted reference range : 4.20 - 10.70 10*3/?L. The reference range was not used to interpret this result as normal/abnormal . RBC (test code = See_Comment [Automated 533-8) message] The sy stem which generated this result transmitted reference range : 4.26 - 5.52 10*6/?L. The reference range was not used to interpret this result as normal/abnormal . HGB (test code = 13.5 g/dL 12.2-16.4 718-7) HCT (test code = 42.6 % 38.4-49.3 4544-3) MCV (test code = 87.7 fL 81.7-95.6 787-2) MCH (test code = 27.8 pg 26.1-32.7 785-6) MCHC (test code = 31.7 g/dL 31.2-35.0 786-4) RDW-SD (test code = 44.1 fL 38.5-51.6 27558-8) RDW-CV (test code = 13.8 % 12.1-15.4 788-0) PLT (test code = See_Comment [Automated 777-3) message] The sy stem which generated this result transmitted reference range : 150 - 328 10*3/ ?L. The reference r brenda was not used to interpret this result as normal/abnormal . MPV (test code = 10.1 fL 9.8-13.0 56926-6) NRBC/100 WBC (test See_Comment [Automat ed code = 8402426346) message] The system which generated this result transmitted reference range : 0.0 - 10.0 /100 WBCs. The refer ence range was not u sed to interpret th is result as normal/abnormal . NRBC x10^3 (test code <0.01 See_Comment [Auto mated = 4649784346) message] The s ystem which generated this result transmitted reference range : 10*3/?L. The reference range was not used to interpret this result as normal/abnormal . GRAN MAT (NEUT) % 79.7 % (test code = 770-8) IMM GRAN % (test code 0.30 % = 9116582571) LYMPH % (test code = 9.5 % 736-9) MONO % (test code = 7.9 % 5905-5) EOS % (test code = 1.9 % 713-8) BASO % (test code = 0.7 % 706-2) GRAN MAT x10^3(ANC) 9.49 10*3/uL 1.99-6.95 H (test code = 5164756838) IMM GRAN x10^3 (test 0.04 10*3/uL 0.00-0.06 code = 2788731640) LYMPH x10^3 (test code 1.13 10*3/uL 1.09-3.23 = 731-0) MONO x10^3 (test code 0.94 10*3/uL 0.36-1.02 = 742-7) EOS x10^3 (test code = 0.23 10*3/uL 0.06-0.53 711-2) BASO x10^3 (test code 0.08 10*3/uL 0.01-0.09 = 704-7) Lab Interpretation Abnormal (test code = 30449-1) [facility] WITH [id number] 16:56:56 Test Item Value Reference Range Interpretation Comments WBC (test code = See_Comment H [Automated 4690-2) message] The sy stem which generated this result transmitted reference range : 4.20 - 10.70 10*3/?L. The reference range was not used to interpret this result as normal/abnormal . RBC (test code = See_Comment [Automated 789-8) message] The sy stem which generated this result transmitted reference range : 4.26 - 5.52 10*6/?L. The reference range was not used to interpret this result as normal/abnormal . HGB (test code = 13.5 g/dL 12.2-16.4 718-7) HCT (test code = 42.6 % 38.4-49.3 4544-3) MCV (test code = 87.7 fL 81.7-95.6 787-2) MCH (test code = 27.8 pg 26.1-32.7 785-6) MCHC (test code = 31.7 g/dL 31.2-35.0 786-4) RDW-SD (test code = 44.1 fL 38.5-51.6 96814-5) RDW-CV (test code = 13.8 % 12.1-15.4 788-0) PLT (test code = See_Comment [Automated 777-3) message] The sy stem which generated this result transmitted reference range : 150 - 328 10*3/ ?L. The reference r brenda was not used to interpret this result as normal/abnormal . MPV (test code = 10.1 fL 9.8-13.0 75772-8) NRBC/100 WBC (test See_Comment [Automat ed code = 2398914539) message] The system which generated this result transmitted reference range : 0.0 - 10.0 /100 WBCs. The refer ence range was not u sed to interpret th is result as normal/abnormal . NRBC x10^3 (test code <0.01 See_Comment [Auto mated = 7613158294) message] The s ystem which generated this result transmitted reference range : 10*3/?L. The reference range was not used to interpret this result as normal/abnormal . GRAN MAT (NEUT) % 79.7 % (test code = 770-8) IMM GRAN % (test code 0.30 % = 3296801528) LYMPH % (test code = 9.5 % 736-9) MONO % (test code = 7.9 % 5905-5) EOS % (test code = 1.9 % 713-8) BASO % (test code = 0.7 % 706-2) GRAN MAT x10^3(ANC) 9.49 10*3/uL 1.99-6.95 H (test code = 6124486829) IMM GRAN x10^3 (test 0.04 10*3/uL 0.00-0.06 code = 5587500864) LYMPH x10^3 (test code 1.13 10*3/uL 1.09-3.23 = 731-0) MONO x10^3 (test code 0.94 10*3/uL 0.36-1.02 = 742-7) EOS x10^3 (test code = 0.23 10*3/uL 0.06-0.53 711-2) BASO x10^3 (test code 0.08 10*3/uL 0.01-0.09 = 704-7) Lab Interpretation Abnormal (test code = 82435-2) [facility] GLUCOSE (AUTOMATED)2021-07-20 16:19:33 Test Item Value Reference Range Interpretation Comments POCT GLU (test code = 2768217753) 121 mg/dL 70-110 H Lab Interpretation (test code = Abnormal 90907-0) [facility] GLUCOSE (AUTOMATED)2021-07-20 11:44:24 Test Item Value Reference Range Interpretation Comments POCT GLU (test code = 9417905673) 133 mg/dL 70-110 H Lab Interpretation (test code = Abnormal 50313-0) [facility] GLUCOSE (AUTOMATED)2021-07-20 05:11:23 Test Item Value Reference Range Interpretation Comments POCT GLU (test code = 1263630805) 130 mg/dL 70-110 H Lab Interpretation (test code = Abnormal 34340-6) [facility] POSITIVE BLOOD PATHOGENS DNA [id number] 02:09:51 Test Item Value Reference Range Interpretation Comments Streptococcus species Positive Negative, See A (test code = 54170-3) Comment/Narrativ e DENIA (test code = DENIA) See blood culture result for additional information. Testing included eleven identification and three resistancemarker targets. Lab Interpretation Abnormal (test code = 96234-7) [facility] POSITIVE BLOOD PATHOGENS DNA [id number] 02:09:51 Test Item Value Reference Range Interpretation Comments Streptococcus species Positive Negative, See A (test code = 05967-3) Comment/Narrativ e DENIA (test code = DENIA) See blood culture result for additional information. Testing included eleven identification and three resistancemarker targets. Lab Interpretation Abnormal (test code = 16881-6) [facility] GLUCOSE (AUTOMATED)2021-07-20 00:07:57 Test Item Value Reference Range Interpretation Comments POCT GLU (test code = 7507438504) 125 mg/dL 70-110 H Lab Interpretation (test code = Abnormal 43185-6) [facility] [id number] 21:20:44 Test Item Value Reference Range Interpretation Comments CANDICE (test code = Negative Negative 3418977702) DENIA (test code = DENIA) Negative: ?No Anti-Nuclear Antibodies detected by IFA. Positive: ?CANDICE IFA screen performed with a 1:80 dilution in adults and a 1:40 dilution in pediatrics. ?A titer is performed and reported separately when the CANDICE is "Positive" or when "Cytoplasmic staining is observed." Negative: ?No Anti-Nuclear Antibodies detected by IFA. Positive: ?CANDICE IFA screen performed with a 1:80 dilution in adults and a 1:40 dilution in pediatrics. ?A titer is performed and reported separately when the CANDICE is "Positive" or when "Cytoplasmic staining is observed." Lab Interpretation (test Normal code = 54578-0) [facility] [id number] 21:20:44 Test Item Value Reference Range Interpretation Comments CANDICE (test code = Negative Negative 5465790777) DENIA (test code = DENIA) Negative: ?No Anti-Nuclear Antibodies detected by IFA. Positive: ?CANDICE IFA screen performed with a 1:80 dilution in adults and a 1:40 dilution in pediatrics. ?A titer is performed and reported separately when the CANDICE is "Positive" or when "Cytoplasmic staining is observed." Negative: ?No Anti-Nuclear Antibodies detected by IFA. Positive: ?CANDICE IFA screen performed with a 1:80 dilution in adults and a 1:40 dilution in pediatrics. ?A titer is performed and reported separately when the CANDICE is "Positive" or when "Cytoplasmic staining is observed." Lab Interpretation (test Normal code = 01862-5) [facility]19 17:26:14 Test Item Value Reference Range Interpretation Comments POCT GLU (test code = 0531487490) 141 mg/dL 70-110 H Lab Interpretation (test code = Abnormal 15920-0) [facility] 17:13:57 Test Item Value Reference Range Interpretation Comments MAGNESIUM (test code = 4601460569) 2.2 mg/dL 1.7-2.4 Lab Interpretation (test code = Normal 06961-4) [facility] (NA, K, CL, CO2, GLUCOSE, BUN, CREATININE, CA)2021-07-19 17:13:57 Test Item Value Reference Range Interpretation Comments NA (test code = 138 mmol/L 135-145 8172208541) K (test code = 3.9 mmol/L 3.5-5.0 8281645350) CL (test code = 104 mmol/L 98-108 8093812463) CO2 TOTAL (test code = 23 mmol/L 23-31 8170513985) AGAP (test code = 2-16 5126354830) BUN (test code = 15 mg/dL 7-23 4746449617) GLUCOSE (test code = 165 mg/dL 70-110 H 0524901489) CREATININE (test code = 0.61 mg/dL 0.60-1.25 6952681386) CALCIUM (test code = 8.8 mg/dL 8.6-10.6 3070886472) eGFR (test code = mL/min/1.73m2 6464378401) DENIA (test code = DENIA) Association of Glomerular Filtration Rate (GFR) and Staging of Kidney Disease* + --+ --+ ------+| GFR (mL/min/1.73 m2) ?| With Kidney Damage ?| ?Without Kidney Damage+ --------+ --------+ +| ?>90 ?| ?Stage one ?| ? Normal ?+ ---+ ---+ -------+| ?60-89 ?| ?Stage two ?| ? Decreased GFR ? + --+ --+ ------+| ?30-59 ?| ?Stage three ?| ? Stage three ? + --+ --+ ------+| ?15-29 ?| ?Stage four ? | ? Stage four ?+ ---+ ---+ -------+| ?<15 (or dialysis) ? ?| ?Stage five ? | ? Stage five ?+ ---+ ---+ -------+ *Each stage assumes the associated GFR level has been in effect for at least three months. ?Stages 1 to 5, with or without kidney disease, indicate chronic kidney disease. Notes: Determination of stages one and two (with eGFR >59mL/min/1.73 m2) requires estimation of kidney damage for at least three months as defined by structural or functional abnormalities of the kidney, manifested by either:Pathological abnormalities or Markers of kidney damage (including abnormalities in the composition of the blood or urine or abnormalities in imaging tests). Lab Interpretation Abnormal (test code = 55544-6) [facility] METABOLIC PANEL ([id number])2021-07-19 17:13:57 Test Item Value Reference Range Interpretation Comments NA (test code = 138 mmol/L 135-145 3817310087) K (test code = 3.9 mmol/L 3.5-5.0 6355430782) CL (test code = 104 mmol/L 98-108 3110809355) CO2 TOTAL (test code = 23 mmol/L 23-31 5284291255) AGAP (test code = 2-16 5252659121) BUN (test code = 15 mg/dL 7-23 2868347825) GLUCOSE (test code = 165 mg/dL 70-110 H 9092328480) CREATININE (test code = 0.61 mg/dL 0.60-1.25 3918194064) TOTAL BILI (test code = 0.8 mg/dL 0.1-1.6 4972997182) CALCIUM (test code = 8.8 mg/dL 8.6-10.6 0575186510) T PROTEIN (test code = 8.3 g/dL 6.3-8.2 H 1189577605) ALBUMIN (test code = 4.0 g/dL 3.5-5.0 9521889747) ALK PHOS (test code = 77 U/L 34-122 8693512858) ALTv (test code = 24 U/L 5-50 1742-6) AST(SGOT) (test code = 31 U/L 13-40 7257929401) eGFR (test code = mL/min/1.73m2 8508106762) DENIA (test code = DENIA) Association of Glomerular Filtration Rate (GFR) and Staging of Kidney Disease* + --+ --+ ------+| GFR (mL/min/1.73 m2) ?| With Kidney Damage ?| ?Without Kidney Damage+ --------+ --------+ +| ?>90 ?| ?Stage one ?| ? Normal ?+ ---+ ---+ -------+| ?60-89 ?| ?Stage two ?| ? Decreased GFR ? + --+ --+ ------+| ?30-59 ?| ?Stage three ?| ? Stage three ? + --+ --+ ------+| ?15-29 ?| ?Stage four ? | ? Stage four ?+ ---+ ---+ -------+| ?<15 (or dialysis) ? ?| ?Stage five ? | ? Stage five ?+ ---+ ---+ -------+ *Each stage assumes the associated GFR level has been in effect for at least three months. ?Stages 1 to 5, with or without kidney disease, indicate chronic kidney disease. Notes: Determination of stages one and two (with eGFR >59mL/min/1.73 m2) requires estimation of kidney damage for at least three months as defined by structural or functional abnormalities of the kidney, manifested by either:Pathological abnormalities or Markers of kidney damage (including abnormalities in the composition of the blood or urine or abnormalities in imaging tests). Lab Interpretation Abnormal (test code = 35978-7) [facility] (NA, K, CL, CO2, GLUCOSE, BUN, CREATININE, CA)2021-07-19 17:13:57 Test Item Value Reference Range Interpretation Comments NA (test code = 138 mmol/L 135-145 5992920212) K (test code = 3.9 mmol/L 3.5-5.0 8467313878) CL (test code = 104 mmol/L 98-108 9146318382) CO2 TOTAL (test code = 23 mmol/L 23-31 7374693901) AGAP (test code = 2-16 7126797741) BUN (test code = 15 mg/dL 7-23 6691643223) GLUCOSE (test code = 165 mg/dL 70-110 H 6992005165) CREATININE (test code = 0.61 mg/dL 0.60-1.25 2205454036) CALCIUM (test code = 8.8 mg/dL 8.6-10.6 0614528646) eGFR (test code = mL/min/1.73m2 2354330933) DENIA (test code = DENIA) Association of Glomerular Filtration Rate (GFR) and Staging of Kidney Disease* + --+ --+ ------+| GFR (mL/min/1.73 m2) ?| With Kidney Damage ?| ?Without Kidney Damage+ --------+ --------+ +| ?>90 ?| ?Stage one ?| ? Normal ?+ ---+ ---+ -------+| ?60-89 ?| ?Stage two ?| ? Decreased GFR ? + --+ --+ ------+| ?30-59 ?| ?Stage three ?| ? Stage three ? + --+ --+ ------+| ?15-29 ?| ?Stage four ? | ? Stage four ?+ ---+ ---+ -------+| ?<15 (or dialysis) ? ?| ?Stage five ? | ? Stage five ?+ ---+ ---+ -------+ *Each stage assumes the associated GFR level has been in effect for at least three months. ?Stages 1 to 5, with or without kidney disease, indicate chronic kidney disease. Notes: Determination of stages one and two (with eGFR >59mL/min/1.73 m2) requires estimation of kidney damage for at least three months as defined by structural or functional abnormalities of the kidney, manifested by either:Pathological abnormalities or Markers of kidney damage (including abnormalities in the composition of the blood or urine or abnormalities in imaging tests). Lab Interpretation Abnormal (test code = 21852-0) [facility]20[facility] 17:13:57 Test Item Value Reference Range Interpretation Comments MAGNESIUM (test code = 5568279298) 2.2 mg/dL 1.7-2.4 Lab Interpretation (test code = Normal 86067-3) [facility] METABOLIC PANEL ([id number])2021-07-19 17:13:57 Test Item Value Reference Range Interpretation Comments NA (test code = 138 mmol/L 135-145 4548575146) K (test code = 3.9 mmol/L 3.5-5.0 2387294891) CL (test code = 104 mmol/L 98-108 8824324314) CO2 TOTAL (test code = 23 mmol/L 23-31 9539562810) AGAP (test code = 2-16 2425666835) BUN (test code = 15 mg/dL 7-23 1431884761) GLUCOSE (test code = 165 mg/dL 70-110 H 8419191795) CREATININE (test code = 0.61 mg/dL 0.60-1.25 7714330034) TOTAL BILI (test code = 0.8 mg/dL 0.1-1.1 3676323490) CALCIUM (test code = 8.8 mg/dL 8.6-10.6 3532819407) T PROTEIN (test code = 8.3 g/dL 6.3-8.2 H 3881740966) ALBUMIN (test code = 4.0 g/dL 3.5-5.0 4094055176) ALK PHOS (test code = 77 U/L 34-122 6268156941) ALTv (test code = 24 U/L 5-50 1742-6) AST(SGOT) (test code = 31 U/L 13-40 9529097976) eGFR (test code = mL/min/1.73m2 5392974977) DENIA (test code = DENIA) Association of Glomerular Filtration Rate (GFR) and Staging of Kidney Disease* + --+ --+ ------+| GFR (mL/min/1.73 m2) ?| With Kidney Damage ?| ?Without Kidney Damage+ --------+ --------+ +| ?>90 ?| ?Stage one ?| ? Normal ?+ ---+ ---+ -------+| ?60-89 ?| ?Stage two ?| ? Decreased GFR ? + --+ --+ ------+| ?30-59 ?| ?Stage three ?| ? Stage three ? + --+ --+ ------+| ?15-29 ?| ?Stage four ? | ? Stage four ?+ ---+ ---+ -------+| ?<15 (or dialysis) ? ?| ?Stage five ? | ? Stage five ?+ ---+ ---+ -------+ *Each stage assumes the associated GFR level has been in effect for at least three months. ?Stages 1 to 5, with or without kidney disease, indicate chronic kidney disease. Notes: Determination of stages one and two (with eGFR >59mL/min/1.73 m2) requires estimation of kidney damage for at least three months as defined by structural or functional abnormalities of the kidney, manifested by either:Pathological abnormalities or Markers of kidney damage (including abnormalities in the composition of the blood or urine or abnormalities in imaging tests). Lab Interpretation Abnormal (test code = 22890-5) [facility] [id number] 16:58:57 Test Item Value Reference Range Interpretation Comments WBC (test code = See_Comment H [Automated 3219-2) message] The system which generated this result transmit luciano reference range : 4.20 - 10.70 10*3/?L. The reference range was not used to interpret this result as normal/abnormal . RBC (test code = See_Comment [Automated 460-9) message] The system which generated this result transmit luciano reference range : 4.26 - 5.52 10*6/?L. The reference range was not used to interpret this result as normal/abnormal . HGB (test code = 14.5 g/dL 12.2-16.4 718-7) HCT (test code = 44.9 % 38.4-49.3 4544-3) MCV (test code = 86.2 fL 81.7-95.6 787-2) MCH (test code = 27.8 pg 26.1-32.7 785-6) MCHC (test code = 32.3 g/dL 31.2-35.0 786-4) RDW-SD (test code = 43.5 fL 38.5-51.6 66242-4) RDW-CV (test code = 13.8 % 12.1-15.4 788-0) PLT (test code = See_Comment H [Automated 777-3) message] The system which generated this result transmit luciano reference range : 150 - 328 10*3/ ?L. The reference range was not u sed to interpret th is result as normal/abnormal . MPV (test code = 10.1 fL 9.8-13.0 52704-6) NRBC/100 WBC (test See_Comment [Automat ed code = 1766698147) message] The system which generated this result transmit luciano reference range : 0.0 - 10.0 /100 WBCs. The reference range was not used to interpret this result as normal/abnormal . NRBC x10^3 (test code <0.01 See_Comment [Auto mated = 6994230723) message] The system which generated this result transmit luciano reference range : 10*3/?L. The reference range was not used to interpret this result as normal/abnormal . GRAN MAT (NEUT) % 84.8 % (test code = 770-8) IMM GRAN % (test code 0.50 % = 5075521873) LYMPH % (test code = 6.8 % 736-9) MONO % (test code = 6.9 % 5905-5) EOS % (test code = 0.4 % 713-8) BASO % (test code = 0.6 % 706-2) GRAN MAT x10^3(ANC) 12.88 10*3/uL 1.99-6.95 H (test code = 1243278255) IMM GRAN x10^3 (test 0.07 10*3/uL 0.00-0.06 H code = 9954603412) LYMPH x10^3 (test code 1.04 10*3/uL 1.09-3.23 L = 731-0) MONO x10^3 (test code 1.05 10*3/uL 0.36-1.02 H = 742-7) EOS x10^3 (test code = 0.06 10*3/uL 0.06-0.53 711-2) BASO x10^3 (test code 0.09 10*3/uL 0.01-0.09 = 704-7) Lab Interpretation Abnormal (test code = 31878-4) [facility]-19 14:00:18 Test Item Value Reference Range Interpretation Comments POCT GLU (test code = 0098996938) 153 mg/dL 70-110 H Lab Interpretation (test code = Abnormal 75400-3) [facility]PROTHROM[facility] TIME / [id number] 11:24:14 Test Item Value Reference Range Interpretation Comments PROTIME PATIENT (test See_Comment H [Auto mated message] code = 5964-2) The system [employer] generated this result transmitted ref erence range: 10.1 - 1 2.6 Seconds. The reference range was not used to int erpret this result as normal/abnormal . INR (test code = 6301-6) Nor mal INR <1.1; Warfarin Therap eutic range 2.0 to 3. 0 or 2.5 to 3.5, dep ending upon the indica tions. Lab Interpretation (test Abnormal code = 83541-2) [facility]RM[facility] [id number] 11:24:14 Test Item Value Reference Range Interpretation Comments APTT Patient (test code See_Comment H [Au tomated message] = 3173-2) The system [employer] generated this result transmitted ref erence range: 26 - 36 Seconds. The reference range was not used to int erpret this result as normal/abnormal . Lab Interpretation (test Abnormal code = 01309-9) [facility]PROT[facility] / [id number] 11:24:14 Test Item Value Reference Range Interpretation Comments PROTIME PATIENT (test See_Comment H [Auto mated message] code = 5964-2) The system [employer] generated this result transmitted ref erence range: 10.1 - 1 2.6 Seconds. The reference range was not used to int erpret this result as normal/abnormal . INR (test code = 6301-6) Nor mal INR <1.1; Warfarin Therap eutic range 2.0 to 3. 0 or 2.5 to 3.5, dep ending upon the indica tions. Lab Interpretation (test Abnormal code = 82328-4) [facility] [id number] 11:24:14 Test Item Value Reference Range Interpretation Comments APTT Patient (test code See_Comment H [Au tomated message] = 3173-2) The system [employer] generated this result transmitted ref erence range: 26 - 36 Seconds. The reference range was not used to int erpret this result as normal/abnormal . Lab Interpretation (test Abnormal code = 86451-6) [facility] GLUCOSE (AUTOMATED)2021-07-19 11:08:07 Test Item Value Reference Range Interpretation Comments POCT GLU (test code = 5466877588) 147 mg/dL 70-110 H Lab Interpretation (test code = Abnormal 23300-8) [facility] GLUCOSE (AUTOMATED)2021-07-19 04:43:19 Test Item Value Reference Range Interpretation Comments POCT GLU (test code = 4924014937) 130 mg/dL 70-110 H Lab Interpretation (test code = Abnormal 30818-5) [facility] GLUCOSE (AUTOMATED)2021-07-18 22:57:59 Test Item Value Reference Range Interpretation Comments POCT GLU (test code = 3549412976) 129 mg/dL 70-110 H Lab Interpretation (test code = Abnormal 38024-6) [facility] [id number] 19:27:59 Test Item Value Reference Range Interpretation Comments CRP (test code = 1450131564) 4.9 mg/dL <1.0 H Lab Interpretation (test code = Abnormal 81305-2) [facility] [id number] 19:27:59 Test Item Value Reference Range Interpretation Comments CRP (test code = 9949099963) 4.9 mg/dL <1.0 H Lab Interpretation (test code = Abnormal 53773-7) [facility]SEDIMENTATION [id number] 19:16:34 Test Item Value Reference Range Interpretation Comments ESR (test code = See_Comment H [Automated message] 1297221668) The system [employer] generated this result transmitted ref erence range: 0 - 15 m m/HR. The reference r brenda was not used to interpret this result as normal/abnor mal. Lab Interpretation (test Abnormal code = 68667-4) [facility]SEDIMENT[facility] [id number] 19:16:34 Test Item Value Reference Range Interpretation Comments ESR (test code = See_Comment H [Automated message] 3017738514) The system [employer] generated this result transmitted ref erence range: 0 - 15 m m/HR. The reference r brenda was not used to interpret this result as normal/abnor mal. Lab Interpretation (test Abnormal code = 11098-9) [facility] GLUCOSE (AUTOMATED)2021-07-18 17:00:44 Test Item Value Reference Range Interpretation Comments POCT GLU (test code = 5993804812) 118 mg/dL 70-110 H Lab Interpretation (test code = Abnormal 22084-2) [facility] GLUCOSE (AUTOMATED)2021-07-18 10:32:57 Test Item Value Reference Range Interpretation Comments POCT GLU (test code = 9711246375) 134 mg/dL 70-110 H Lab Interpretation (test code = Abnormal 28783-0) [facility] GLUCOSE (AUTOMATED)2021-07-18 06:05:06 Test Item Value Reference Range Interpretation Comments POCT GLU (test code = 3283668007) 143 mg/dL 70-110 H Lab Interpretation (test code = Abnormal 50216-4) [facility] GLUCOSE (AUTOMATED)2021-07-17 22:25:06 Test Item Value Reference Range Interpretation Comments POCT GLU (test code = 4001068126) 105 mg/dL 70-110 Lab Interpretation (test code = Normal 00959-5) [facility] GLUCOSE (AUTOMATED)2021-07-17 17:14:54 Test Item Value Reference Range Interpretation Comments POCT GLU (test code = 8551442588) 116 mg/dL 70-110 H Lab Interpretation (test code = Abnormal 34764-0) [facility]PH[facility]2022-04-11 10:10:26 Test Item Value Reference Range Interpretation Comments PHOSPHORUS (test code = 2078043695) 2.9 mg/dL 2.5-5.0 Lab Interpretation (test code = Normal 01729-1) [facility] METABOLIC PANEL (NA, K, CL, CO2, GLUCOSE, BUN, CREATININE, CA)2021-07-17 10:10:26 Test Item Value Reference Range Interpretation Comments NA (test code = 134 mmol/L 135-145 L 8236073888) K (test code = 3.3 mmol/L 3.5-5.0 L 1234420489) CL (test code = 104 mmol/L 98-108 9357766853) CO2 TOTAL (test code = 24 mmol/L 23-31 6273630586) AGAP (test code = 2-16 5662151310) BUN (test code = 7 mg/dL 7-23 5318414286) GLUCOSE (test code = 145 mg/dL 70-110 H 1046106636) CREATININE (test code = 0.51 mg/dL 0.60-1.25 L 3836064434) CALCIUM (test code = 8.2 mg/dL 8.6-10.6 L 6425362193) eGFR (test code = mL/min/1.73m2 3477726382) DENIA (test code = DENIA) Association of Glomerular Filtration Rate (GFR) and Staging of Kidney Disease* + --+ --+ ------+| GFR (mL/min/1.73 m2) ?| With Kidney Damage ?| ?Without Kidney Damage+ --------+ --------+ +| ?>90 ?| ?Stage one ?| ? Normal ?+ ---+ ---+ -------+| ?60-89 ?| ?Stage two ?| ? Decreased GFR ? + --+ --+ ------+| ?30-59 ?| ?Stage three ?| ? Stage three ? + --+ --+ ------+| ?15-29 ?| ?Stage four ? | ? Stage four ?+ ---+ ---+ -------+| ?<15 (or dialysis) ? ?| ?Stage five ? | ? Stage five ?+ ---+ ---+ -------+ *Each stage assumes the associated GFR level has been in effect for at least three months. ?Stages 1 to 5, with or without kidney disease, indicate chronic kidney disease. Notes: Determination of stages one and two (with eGFR >59mL/min/1.73 m2) requires estimation of kidney damage for at least three months as defined by structural or functional abnormalities of the kidney, manifested by either:Pathological abnormalities or Markers of kidney damage (including abnormalities in the composition of the blood or urine or abnormalities in imaging tests). Lab Interpretation Abnormal (test code = 01645-1) [facility] 10:10:26 Test Item Value Reference Range Interpretation Comments MAGNESIUM (test code = 5505324366) 1.9 mg/dL 1.7-2.4 Lab Interpretation (test code = Normal 01918-1) [facility]2022-[facility]-11 10:10:26 Test Item Value Reference Range Interpretation Comments PHOSPHORUS (test code = 3978957213) 2.9 mg/dL 2.5-5.0 Lab Interpretation (test code = Normal 90164-0) [facility] WITH [id number] 10:01:05 Test Item Value Reference Range Interpretation Comments WBC (test code = See_Comment [Automated 6690-2) message] The sy stem which generated this result transmitted reference range : 4.20 - 10.70 10*3/?L. The reference range was not used to interpret this result as normal/abnormal . RBC (test code = See_Comment L [Automated 789-8) message] The sy stem which generated this result transmitted reference range : 4.26 - 5.52 10*6/?L. The reference range was not used to interpret this result as normal/abnormal . HGB (test code = 11.8 g/dL 12.2-16.4 L 718-7) HCT (test code = 37.0 % 38.4-49.3 L 4544-3) MCV (test code = 87.1 fL 81.7-95.6 787-2) MCH (test code = 27.8 pg 26.1-32.7 785-6) MCHC (test code = 31.9 g/dL 31.2-35.0 786-4) RDW-SD (test code = 44.1 fL 38.5-51.6 67163-5) RDW-CV (test code = 13.9 % 12.1-15.4 788-0) PLT (test code = See_Comment [Automated 777-3) message] The sy stem which generated this result transmitted reference range : 150 - 328 10*3/ ?L. The reference r brenda was not used to interpret this result as normal/abnormal . MPV (test code = 10.2 fL 9.8-13.0 80901-8) NRBC/100 WBC (test See_Comment [Automat ed code = 9530973318) message] The system which generated this result transmitted reference range : 0.0 - 10.0 /100 WBCs. The refer ence range was not u sed to interpret th is result as normal/abnormal . NRBC x10^3 (test code <0.01 See_Comment [Auto mated = 3273375905) message] The s ystem which generated this result transmitted reference range : 10*3/?L. The reference range was not used to interpret this result as normal/abnormal . GRAN MAT (NEUT) % 75.9 % (test code = 770-8) IMM GRAN % (test code 0.50 % = 9756902677) LYMPH % (test code = 12.1 % 736-9) MONO % (test code = 8.6 % 5905-5) EOS % (test code = 1.6 % 713-8) BASO % (test code = 1.3 % 706-2) GRAN MAT x10^3(ANC) 7.74 10*3/uL 1.99-6.95 H (test code = 6977154482) IMM GRAN x10^3 (test 0.05 10*3/uL 0.00-0.06 code = 0953481951) LYMPH x10^3 (test code 1.23 10*3/uL 1.09-3.23 = 731-0) MONO x10^3 (test code 0.88 10*3/uL 0.36-1.02 = 742-7) EOS x10^3 (test code = 0.16 10*3/uL 0.06-0.53 711-2) BASO x10^3 (test code 0.13 10*3/uL 0.01-0.09 H = 704-7) Lab Interpretation Abnormal (test code = 71881-4) [facility] GLUCOSE (AUTOMATED)2021-07-17 05:30:54 Test Item Value Reference Range Interpretation Comments POCT GLU (test code = 3456701648) 124 mg/dL 70-110 H Lab Interpretation (test code = Abnormal 74313-5) [facility] GLUCOSE (AUTOMATED)2021-07-16 22:13:11 Test Item Value Reference Range Interpretation Comments POCT GLU (test code = 5747687971) 108 mg/dL 70-110 Lab Interpretation (test code = Normal 96917-1) [facility] GLUCOSE (AUTOMATED)2021-07-16 16:36:18 Test Item Value Reference Range Interpretation Comments POCT GLU (test code = 0313896585) 123 mg/dL 70-110 H Lab Interpretation (test code = Abnormal 39084-6) [facility] METABOLIC PANEL (NA, K, CL, CO2, GLUCOSE, BUN, CREATININE, CA)2021-07-16 09:47:23 Test Item Value Reference Range Interpretation Comments NA (test code = 134 mmol/L 135-145 L 2591534983) K (test code = 3.7 mmol/L 3.5-5.0 Slight 4889115879) hemolysis CL (test code = 103 mmol/L 98-108 3663679388) CO2 TOTAL (test code 24 mmol/L 23-31 = 3244762856) AGAP (test code = 2-16 9518589342) BUN (test code = 9 mg/dL 7-23 Slight 5414364473) hemolysis GLUCOSE (test code = 115 mg/dL 70-110 H 9895430123) CREATININE (test code 0.58 mg/dL 0.60-1.25 L = 4763794374) CALCIUM (test code = 8.6 mg/dL 8.6-10.6 2795360797) eGFR (test code = mL/min/1.73m2 3759872607) DENIA (test code = DENIA) Association of Glomerular Filtration Rate (GFR) and Staging of Kidney Disease* + -----+ --------+ +| GFR (mL/min/1.73 m2) ?| With Kidney Damage ?| ?Without Kidney Damage+ +------- +---- --+| ?>90 ?| ?Stage one ?| ? Normal ?+ ------+ ---------+--------- +| ?60-89 ?| ?Stage two ?| ? Decreased GFR ? + -----+ --------+ +| ?30-59 ?| ?Stage three ?| ? Stage three ? + -----+ --------+ +| ?15-29 ?| ?Stage four ? | ? Stage four ?+ ------+ ---------+--------- +| ?<15 (or dialysis) ? ?| ?Stage five ? | ? Stage five ?+ ------+ ---------+--------- + *Each stage assumes the associated GFR level has been in effect for at least three months. ?Stages 1 to 5, with or without kidney disease, indicate chronic kidney disease. Notes: Determination of stages one and two (with eGFR >59mL/min/1.73 m2) requires estimation of kidney damage for at least three months as defined by structural or functional abnormalities of the kidney, manifested by either:Pathological abnormalities or Markers of kidney damage (including abnormalities in the composition of the blood or urine or abnormalities in imaging tests). Lab Interpretation Abnormal (test code = 49059-0) [facility] 09:26:22 Test Item Value Reference Range Interpretation Comments PHOSPHORUS (test code = 6109633468) 3.3 mg/dL 2.5-5.0 Lab Interpretation (test code = Normal 17375-7) [facility]MAG[facility]2022-04-10 09:26:22 Test Item Value Reference Range Interpretation Comments MAGNESIUM (test code = 7305454782) 2.0 mg/dL 1.7-2.4 Lab Interpretation (test code = Normal 76723-2) [facility] acute hospital WITH [id number] 09:13:43 Test Item Value Reference Range Interpretation Comments WBC (test code = See_Comment [Automated 7390-2) message] The sy stem which generated this result transmitted reference range : 4.20 - 10.70 10*3/?L. The reference range was not used to interpret this result as normal/abnormal . RBC (test code = See_Comment L [Automated 9-8) message] The sy stem which generated this result transmitted reference range : 4.26 - 5.52 10*6/?L. The reference range was not used to interpret this result as normal/abnormal . HGB (test code = 11.9 g/dL 12.2-16.4 L 718-7) HCT (test code = 36.6 % 38.4-49.3 L 4544-3) MCV (test code = 88.0 fL 81.7-95.6 787-2) MCH (test code = 28.6 pg 26.1-32.7 785-6) MCHC (test code = 32.5 g/dL 31.2-35.0 786-4) RDW-SD (test code = 43.2 fL 38.5-51.6 15336-4) RDW-CV (test code = 13.3 % 12.1-15.4 788-0) PLT (test code = See_Comment [Automated 777-3) message] The sy stem which generated this result transmitted reference range : 150 - 328 10*3/ ?L. The reference r brenda was not used to interpret this result as normal/abnormal . MPV (test code = 10.1 fL 9.8-13.0 98431-7) NRBC/100 WBC (test See_Comment [Automat ed code = 5282551689) message] The system which generated this result transmitted reference range : 0.0 - 10.0 /100 WBCs. The refer ence range was not u sed to interpret th is result as normal/abnormal . NRBC x10^3 (test code <0.01 See_Comment [Auto mated = 5235492758) message] The s ystem which generated this result transmitted reference range : 10*3/?L. The reference range was not used to interpret this result as normal/abnormal . GRAN MAT (NEUT) % 76.8 % (test code = 770-8) IMM GRAN % (test code 0.40 % = 8054084006) LYMPH % (test code = 12.9 % 736-9) MONO % (test code = 8.2 % 5905-5) EOS % (test code = 0.7 % 713-8) BASO % (test code = 1.0 % 706-2) GRAN MAT x10^3(ANC) 8.10 10*3/uL 1.99-6.95 H (test code = 0409539434) IMM GRAN x10^3 (test 0.04 10*3/uL 0.00-0.06 code = 2118868587) LYMPH x10^3 (test code 1.36 10*3/uL 1.09-3.23 = 731-0) MONO x10^3 (test code 0.86 10*3/uL 0.36-1.02 = 742-7) EOS x10^3 (test code = 0.07 10*3/uL 0.06-0.53 711-2) BASO x10^3 (test code 0.11 10*3/uL 0.01-0.09 H = 704-7) Lab Interpretation Abnormal (test code = 32374-4) [facility] GLUCOSE (AUTOMATED)2021-07-16 06:43:04 Test Item Value Reference Range Interpretation Comments POCT GLU (test code = 4904082040) 105 mg/dL 70-110 Lab Interpretation (test code = Normal 71783-0) [facility] GLUCOSE (AUTOMATED)2021-07-15 23:00:54 Test Item Value Reference Range Interpretation Comments POCT GLU (test code = 3136322083) 100 mg/dL 70-110 Lab Interpretation (test code = Normal 11793-7) [facility] Metabolic Panel (NA, K, CL, CO2, Glucose, BUN, Creatinine, CA)2021-07-15 17:57:56 Test Item Value Reference Range Interpretation Comments NA (test code = 136 mmol/L 135-145 0621926022) K (test code = 3.8 mmol/L 3.5-5.0 1573829338) CL (test code = 101 mmol/L 98-108 4461828212) CO2 TOTAL (test code = 24 mmol/L 23-31 9216656857) AGAP (test code = 2-16 0477105981) BUN (test code = 9 mg/dL 7-23 2325841753) GLUCOSE (test code = 111 mg/dL 70-110 H 0540494203) CREATININE (test code = 0.60 mg/dL 0.60-1.25 4420874166) CALCIUM (test code = 8.7 mg/dL 8.6-10.6 0800059766) eGFR (test code = mL/min/1.73m2 7070105291) DENIA (test code = DENIA) Association of Glomerular Filtration Rate (GFR) and Staging of Kidney Disease* + --+ --+ ------+| GFR (mL/min/1.73 m2) ?| With Kidney Damage ?| ?Without Kidney Damage+ --------+ --------+ +| ?>90 ?| ?Stage one ?| ? Normal ?+ ---+ ---+ -------+| ?60-89 ?| ?Stage two ?| ? Decreased GFR ? + --+ --+ ------+| ?30-59 ?| ?Stage three ?| ? Stage three ? + --+ --+ ------+| ?15-29 ?| ?Stage four ? | ? Stage four ?+ ---+ ---+ -------+| ?<15 (or dialysis) ? ?| ?Stage five ? | ? Stage five ?+ ---+ ---+ -------+ *Each stage assumes the associated GFR level has been in effect for at least three months. ?Stages 1 to 5, with or without kidney disease, indicate chronic kidney disease. Notes: Determination of stages one and two (with eGFR >59mL/min/1.73 m2) requires estimation of kidney damage for at least three months as defined by structural or functional abnormalities of the kidney, manifested by either:Pathological abnormalities or Markers of kidney damage (including abnormalities in the composition of the blood or urine or abnormalities in imaging tests). Lab Interpretation Abnormal (test code = 34260-9) [facility] CampusMagnesium2022-04-09 17:57:56 Test Item Value Reference Range Interpretation Comments MAGNESIUM (test code = 5971506804) 1.9 mg/dL 1.7-2.4 Lab Interpretation (test code = Normal 08275-5) [facility] CampusProthombin Time / [id number] 17:56:00 Test Item Value Reference Range Interpretation Comments PROTIME PATIENT (test See_Comment H [Auto mated message] code = 5964-2) The system [employer] generated this result transmitted ref erence range: 10.1 - 1 2.6 Seconds. The reference range was not used to int erpret this result as normal/abnormal . INR (test code = 6301-6) Nor mal INR <1.1; Warfarin Therap eutic range 2.0 to 3. 0 or 2.5 to 3.5, dep ending upon the indica tions. Lab Interpretation (test Abnormal code = 52269-0) [facility] CampusaPTT2022-04-09 17:56:00 Test Item Value Reference Range Interpretation Comments APTT Patient (test code See_Comment H [Au tomated message] = 3173-2) The system whic h generated this result transmitted ref erence range: 26 - 36 Seconds. The reference range was not used to int erpret this result as normal/abnormal . Lab Interpretation (test Abnormal code = 56563-5) General acute hospital with [id number] 17:36:35 Test Item Value Reference Range Interpretation Comments WBC (test code = See_Comment [Automated 6690-2) message] The sy stem which generated this result transmitted reference range : 4.20 - 10.70 10*3/?L. The reference range was not used to interpret this result as normal/abnormal . RBC (test code = See_Comment L [Automated 789-8) message] The sy stem which generated this result transmitted reference range : 4.26 - 5.52 10*6/?L. The reference range was not used to interpret this result as normal/abnormal . HGB (test code = 11.7 g/dL 12.2-16.4 L 718-7) HCT (test code = 36.0 % 38.4-49.3 L 4544-3) MCV (test code = 86.1 fL 81.7-95.6 787-2) MCH (test code = 28.0 pg 26.1-32.7 785-6) MCHC (test code = 32.5 g/dL 31.2-35.0 786-4) RDW-SD (test code = 43.0 fL 38.5-51.6 18047-5) RDW-CV (test code = 13.7 % 12.1-15.4 788-0) PLT (test code = See_Comment [Automated 777-3) message] The sy stem which generated this result transmitted reference range : 150 - 328 10*3/ ?L. The reference r brenda was not used to interpret this result as normal/abnormal . MPV (test code = 10.1 fL 9.8-13.0 93118-6) NRBC/100 WBC (test See_Comment [Automat ed code = 6122184591) message] The system which generated this result transmitted reference range : 0.0 - 10.0 /100 WBCs. The refer ence range was not u sed to interpret th is result as normal/abnormal . NRBC x10^3 (test code <0.01 See_Comment [Auto mated = 0952568015) message] The s ystem which generated this result transmitted reference range : 10*3/?L. The reference range was not used to interpret this result as normal/abnormal . GRAN MAT (NEUT) % 80.0 % (test code = 770-8) IMM GRAN % (test code 0.30 % = 2751165817) LYMPH % (test code = 10.6 % 736-9) MONO % (test code = 8.1 % 5905-5) EOS % (test code = 0.3 % 713-8) BASO % (test code = 0.7 % 706-2) GRAN MAT x10^3(ANC) 8.11 10*3/uL 1.99-6.95 H (test code = 9698092522) IMM GRAN x10^3 (test 0.03 10*3/uL 0.00-0.06 code = 6433704579) LYMPH x10^3 (test code 1.07 10*3/uL 1.09-3.23 L = 731-0) MONO x10^3 (test code 0.82 10*3/uL 0.36-1.02 = 742-7) EOS x10^3 (test code = 0.03 10*3/uL 0.06-0.53 L 711-2) BASO x10^3 (test code 0.07 10*3/uL 0.01-0.09 = 704-7) Lab Interpretation Abnormal (test code = 94588-5) [facility]2021-07-15 17:07:32 Test Item Value Reference Range Interpretation Comments POCT GLU (test code = 2974297256) 106 mg/dL 70-110 Lab Interpretation (test code = Normal 75202-0) [facility] CampusHEPARIN ANTI-XA, UNFRACTIONATED HEPARIN 2021-07-15 15:23:29 Test Item Value Reference Range Interpretation Comments Anti-Xa UFH (test code = See_Comment H [A utomated message] 3274-8) The system [employer] generated this result transmitted ref erence range: 0.30 - 0 .70 IU/mL. The refe rence range was not u sed to interpret this result as normal/abnor mal. Lab Interpretation (test Abnormal code = 88376-6) [facility]HEPARIN ANTI-XA, UNFRACTIONATED HEPARIN 2021-07-15 15:23:29 Test Item Value Reference Range Interpretation Comments Anti-Xa UFH (test code = See_Comment H [A utomated message] 3274-8) The system [employer] generated this result transmitted ref erence range: 0.30 - 0 .70 IU/mL. The refe rence range was not u sed to interpret this result as normal/abnor mal. Lab Interpretation (test Abnormal code = 17389-0) [facility]HEPAR[facility] ANTI-XA, LOW MOLECULAR WEIGHT HEPARIN 2021-07-15 09:49:19 Test Item Value Reference Range Interpretation Comments Anti-Xa LMWH (test See_Comment H [Automat ed code = 3271-4) message] The system which generated this result transmitted reference range : 0.60 - 1.00 IU/mL. The reference range was not used to interpret this result as normal/abnormal . DENIA (test code = DENIA) Therapeutic Range for twice daily administration. Lab Interpretation Abnormal (test code = 42615-2) [facility]HEPARIN ANTI-XA, LOW MOLECULAR WEIGHT HEPARIN 2021-07-15 09:49:19 Test Item Value Reference Range Interpretation Comments Anti-Xa LMWH (test See_Comment H [Automat ed code = 3271-4) message] The system which generated this result transmitted reference range : 0.60 - 1.00 IU/mL. The reference range was not used to interpret this result as normal/abnormal . DENIA (test code = DENIA) Therapeutic Range for twice daily administration. Lab Interpretation Abnormal (test code = 38676-5) [facility] METABOLIC PANEL (NA, K, CL, CO2, GLUCOSE, BUN, CREATININE, CA)2021-07-15 09:34:57 Test Item Value Reference Range Interpretation Comments NA (test code = 133 mmol/L 135-145 L 5291628723) K (test code = 3.1 mmol/L 3.5-5.0 L 9157324359) CL (test code = 100 mmol/L 98-108 3793133106) CO2 TOTAL (test code = 22 mmol/L 23-31 L 2251242242) AGAP (test code = 2-16 8198362786) BUN (test code = 10 mg/dL 7-23 0344042499) GLUCOSE (test code = 107 mg/dL 70-110 9281620864) CREATININE (test code = 0.70 mg/dL 0.60-1.25 2897575527) CALCIUM (test code = 8.7 mg/dL 8.6-10.6 4612857212) eGFR (test code = mL/min/1.73m2 3236914363) DENIA (test code = DENIA) Association of Glomerular Filtration Rate (GFR) and Staging of Kidney Disease* + --+ --+ ------+| GFR (mL/min/1.73 m2) ?| With Kidney Damage ?| ?Without Kidney Damage+ --------+ --------+ +| ?>90 ?| ?Stage one ?| ? Normal ?+ ---+ ---+ -------+| ?60-89 ?| ?Stage two ?| ? Decreased GFR ? + --+ --+ ------+| ?30-59 ?| ?Stage three ?| ? Stage three ? + --+ --+ ------+| ?15-29 ?| ?Stage four ? | ? Stage four ?+ ---+ ---+ -------+| ?<15 (or dialysis) ? ?| ?Stage five ? | ? Stage five ?+ ---+ ---+ -------+ *Each stage assumes the associated GFR level has been in effect for at least three months. ?Stages 1 to 5, with or without kidney disease, indicate chronic kidney disease. Notes: Determination of stages one and two (with eGFR >59mL/min/1.73 m2) requires estimation of kidney damage for at least three months as defined by structural or functional abnormalities of the kidney, manifested by either:Pathological abnormalities or Markers of kidney damage (including abnormalities in the composition of the blood or urine or abnormalities in imaging tests). Lab Interpretation Abnormal (test code = 19874-1) [facility]57 Test Item Value Reference Range Interpretation Comments MAGNESIUM (test code = 5480490784) 1.8 mg/dL 1.7-2.4 Lab Interpretation (test code = Normal 79303-5) [facility]PH[facility]2022-[facility]-09 09:34:57 Test Item Value Reference Range Interpretation Comments PHOSPHORUS (test code = 3432098208) 3.3 mg/dL 2.5-5.0 Lab Interpretation (test code = Normal 89185-2) [facility] CampusCBC WITHOUT [id number] 09:21:53 Test Item Value Reference Range Interpretation Comments WBC (test code = 6690-2) See_Comment H [A utomated message] The system [employer] generated this result transmit luciano reference range : 4.20 - 10.70 10*3/?L. The reference range was not used to interpret this result as normal/abnormal . RBC (test code = 789-8) See_Comment L [Au tomated message] The system [employer] generated this result transmit luciano reference range : 4.26 - 5.52 10* 6/?L. The reference r brenda was not used to interpret this result as normal/abnormal . HGB (test code = 718-7) 11.4 g/dL 12.2-16.4 L HCT (test code = 4544-3) 35.8 % 38.4-49.3 L MCH (test code = 785-6) 27.8 pg 26.1-32.7 MCV (test code = 787-2) 87.3 fL 81.7-95.6 MCHC (test code = 786-4) 31.8 g/dL 31.2-35.0 PLT (test code = 777-3) See_Comment [Au tomated message] The system [employer] generated this result transmit luciano reference range : 150 - 328 10*3/?L. The reference range was not used to interpret this result as normal/abnormal . MPV (test code = 9.8 fL 9.8-13.0 03141-7) RDW-CV (test code = 13.4 % 12.1-15.4 788-0) RDW-SD (test code = 42.9 fL 38.5-51.6 68377-4) NRBC x10^3 (test code = <0.01 See_Comment [Au tomated message] 1083808819) The system [employer] generated this result transmit luciano reference range : 10*3/?L. The reference range was not used to interpret this result as normal/abnormal . NRBC/100 WBC (test code See_Comment [Au tomated message] = 7797605531) [facility] this result transmit luciano reference range : 0.0 - 10.0 /100 WBC s. The reference r brenda was not used to interpret this result as normal/abnormal . IPF % (test code = 4744457982) Lab Interpretation (test Abnormal code = 36949-5) [facility] acute hospital WITHOUT [id number] 09:21:53 Test Item Value Reference Range Interpretation Comments WBC (test code = 6690-2) See_Comment H [A utomated message] The system [employer] generated this result transmit lucaino reference range : 4.20 - 10.70 10*3/?L. The reference range was not used to interpret this result as normal/abnormal . RBC (test code = 789-8) See_Comment L [Au tomated message] The system [employer] generated this result transmit luciano reference range : 4.26 - 5.52 10* 6/?L. The reference r brenda was not used to interpret this result as normal/abnormal . HGB (test code = 718-7) 11.4 g/dL 12.2-16.4 L HCT (test code = 4544-3) 35.8 % 38.4-49.3 L MCH (test code = 785-6) 27.8 pg 26.1-32.7 MCV (test code = 787-2) 87.3 fL 81.7-95.6 MCHC (test code = 786-4) 31.8 g/dL 31.2-35.0 PLT (test code = 777-3) See_Comment [Au tomated message] The system [employer] generated this result transmit luciano reference range : 150 - 328 10*3/?L. The reference range was not used to interpret this result as normal/abnormal . MPV (test code = 9.8 fL 9.8-13.0 65744-8) RDW-CV (test code = 13.4 % 12.1-15.4 788-0) RDW-SD (test code = 42.9 fL 38.5-51.6 64484-8) NRBC x10^3 (test code = <0.01 See_Comment [Au tomated message] 3133564012) The system [employer] generated this result transmit luciano reference range : 10*3/?L. The reference range was not used to interpret this result as normal/abnormal . NRBC/100 WBC (test code See_Comment [Au tomated message] = 6428830946) The system [employer] generated this result transmit luciano reference range : 0.0 - 10.0 /100 WBC s. The reference r brenda was not used to interpret this result as normal/abnormal . IPF % (test code = 2102029089) Lab Interpretation (test Abnormal code = 09545-6) [facility]2021-07-15 05:11:05 Test Item Value Reference Range Interpretation Comments POCT GLU (test code = 5288873379) 83 mg/dL 70-110 Lab Interpretation (test code = Normal 43757-0) [facility] CampusGLYCOSYLATED HEMOGLOBIN (A1C)2021-07-14 21:38:39 Test Item Value Reference Range Interpretation Comments HGB A1C (test code = 5.8 % 4.0-5.7 H 4548-4) DENIA (test code = DENIA) Reference RangesNormal: <5.7%Prediabetes: 5.7 - 6.4%Diabetes: > 6.5% Lab Interpretation (test Abnormal code = 90429-9) [facility] CampusGLYCOSYLATED HEMOGLOBIN (A1C)2021-07-14 21:38:39 Test Item Value Reference Range Interpretation Comments HGB A1C (test code = 5.8 % 4.0-5.7 H 4548-4) DENIA (test code = DENIA) Reference RangesNormal: <5.7%Prediabetes: 5.7 - 6.4%Diabetes: > 6.5% Lab Interpretation (test Abnormal code = 41513-4) [facility] (78255)(TOTAL CHOLESTEROL, TRIGLYCERIDES, HDL)2021-07-14 21:13:50 Test Item Value Reference Range Interpretation Comments CHOL (test code = 204 mg/dL 120-200 H 9478558194) HDL (test code = 32 mg/dL >40 L 6182047946) HDLC RATIO (test code = See_Comment H [Au tomated message] 4057617759) The system [employer] generated this result transmit luciano reference range : <=5.0. The refe rence range was not u sed to interpret th is result as normal/abnormal . TRIG (test code = 154 mg/dL 30-170 9928417251) LDL CHOL (test code = 141 mg/dL See_Comment [Auto mated message] 16610-1) The system [employer] generated this result transmit luciano reference range : <=160. The refe rence range was not u sed to interpret th is result as normal/abnormal . VLDL (test code = 31 mg/dL 5-60 6585041778) Lab Interpretation (test Abnormal code = 03800-7) [facility] LIPID PANEL (74040)(TOTAL CHOLESTEROL, TRIGLYCERIDES, HDL)2021-07-14 21:13:50 Test Item Value Reference Range Interpretation Comments CHOL (test code = 204 mg/dL 120-200 H 6508433782) HDL (test code = 32 mg/dL >40 L 6258692453) HDLC RATIO (test code = See_Comment H [Au tomated message] 0221521857) The system [employer] generated this result transmit luciano reference range : <=5.0. The refe rence range was not u sed to interpret th is result as normal/abnormal . TRIG (test code = 154 mg/dL 30-170 8457695453) LDL CHOL (test code = 141 mg/dL See_Comment [Auto mated message] 61563-2) The system [employer] generated this result transmit luciano reference range : <=160. The refe rence range was not u sed to interpret th is result as normal/abnormal . VLDL (test code = 31 mg/dL 5-60 8066290409) Lab Interpretation (test Abnormal code = 18882-2) [facility] GLUCOSE (AUTOMATED)2021-07-14 20:05:57 Test Item Value Reference Range Interpretation Comments POCT GLU (test code = 4889643428) 111 mg/dL 70-110 H Lab Interpretation (test code = Abnormal 14831-5) [facility] GLUCOSE (AUTOMATED)2021-07-14 20:01:54 Test Item Value Reference Range Interpretation Comments POCT GLU (test code = 3423512359) 116 mg/dL 70-110 H Lab Interpretation (test code = Abnormal 80324-2) [facility] I - Code [id number] 18:51:17 Test Item Value Reference Interpretation Comments Range TROPONIN I (test 0.006 ng/mL See_Comment [Automated code = 2279841716) message] The system which generated this result transmitted reference range : <=0.034. The reference range was not used to interpret this result as normal/abnormal . DENIA (test code = Reference (Normal) DENIA) Range (defined by the 99th percentile reference limit): <= 0.034 ng/mL Note: Cardiac troponin begins to rise 3-4 hours after the onset of ischemia. Repeat in 4-6 hours if the sample was drawn within 3-4 hours of the onset of the symptom and found normal. Diagnosis of myocardial injury is made with acute changes in cTn concentrations with at least one serial sample above the 99th percentile upper reference limit (URL), taken together with the patient's clinical presentation. Biotin has been reported to cause a negative bias, interpret results relative to patient's use of biotin. Lab Interpretation Normal (test code = 36697-2) [facility] I - Code [id number] 18:51:17 Test Item Value Reference Interpretation Comments Range TROPONIN I (test 0.006 ng/mL See_Comment [Automated code = 9348780310) message] The system which generated this result transmitted reference range : <=0.034. The reference range was not used to interpret this result as normal/abnormal . DENIA (test code = Reference (Normal) DENIA) Range (defined by the 99th percentile reference limit): <= 0.034 ng/mL Note: Cardiac troponin begins to rise 3-4 hours after the onset of ischemia. Repeat in 4-6 hours if the sample was drawn within 3-4 hours of the onset of the symptom and found normal. Diagnosis of myocardial injury is made with acute changes in cTn concentrations with at least one serial sample above the 99th percentile upper reference limit (URL), taken together with the patient's clinical presentation. Biotin has been reported to cause a negative bias, interpret results relative to patient's use of biotin. Lab Interpretation Normal (test code = 81191-5) [facility] (NA, K, CL, CO2, Glucose, BUN, Creatinine, CA) - Code [id number] 18:39:35 Test Item Value Reference Range Interpretation Comments NA (test code = 139 mmol/L 135-145 6852044474) K (test code = 4.4 mmol/L 3.5-5.0 1499446815) CL (test code = 100 mmol/L 98-108 1921632434) CO2 TOTAL (test code = 23 mmol/L 23-31 3262792490) AGAP (test code = 2-16 1010158864) BUN (test code = 14 mg/dL 7-23 6712158477) GLUCOSE (test code = 112 mg/dL 70-110 H 6231957616) CREATININE (test code = 0.77 mg/dL 0.60-1.25 5140445569) CALCIUM (test code = 9.1 mg/dL 8.6-10.6 3723893702) eGFR (test code = mL/min/1.73m2 7762210039) DENIA (test code = DENIA) Association of Glomerular Filtration Rate (GFR) and Staging of Kidney Disease* + --+ --+ ------+| GFR (mL/min/1.73 m2) ?| With Kidney Damage ?| ?Without Kidney Damage+ --------+ --------+ +| ?>90 ?| ?Stage one ?| ? Normal ?+ ---+ ---+ -------+| ?60-89 ?| ?Stage two ?| ? Decreased GFR ? + --+ --+ ------+| ?30-59 ?| ?Stage three ?| ? Stage three ? + --+ --+ ------+| ?15-29 ?| ?Stage four ? | ? Stage four ?+ ---+ ---+ -------+| ?<15 (or dialysis) ? ?| ?Stage five ? | ? Stage five ?+ ---+ ---+ -------+ *Each stage assumes the associated GFR level has been in effect for at least three months. ?Stages 1 to 5, with or without kidney disease, indicate chronic kidney disease. Notes: Determination of stages one and two (with eGFR >59mL/min/1.73 m2) requires estimation of kidney damage for at least three months as defined by structural or functional abnormalities of the kidney, manifested by either:Pathological abnormalities or Markers of kidney damage (including abnormalities in the composition of the blood or urine or abnormalities in imaging tests). Lab Interpretation Abnormal (test code = 79701-4) [facility] - Code [id number] 18:38:14 Test Item Value Reference Range Interpretation Comments APTT Patient (test See_Comment [Automat ed code = 3173-2) message] The system which generated this result transmitted reference range : 23 - 38 Seconds . The reference range was not used to interpr et this result as normal/abnormal . DENIA (test code = DENIA) The [facility] patient population mean normal value for aPTT is 30 seconds. Lab Interpretation Normal (test code = 37981-3) [facility]thrombin Time / INR - Code [id number] 18:36:13 Test Item Value Reference Range Interpretation Comments PROTIME PATIENT (test See_Comment H [Auto mated message] code = 5964-2) The system wh ich generated this result transmitted ref erence range: 12.0 - 1 4.7 Seconds. The reference range was not used to int erpret this result as normal/abnormal . INR (test code = 6301-6) Nor mal INR <1.1; Warfarin Therap eutic range 2.0 to 3. 0 or 2.5 to 3.5, dep ending upon the indica tions. Lab Interpretation (test Abnormal code = 79774-8) [facility]CBC without Diff - Code [id number] 18:28:14 Test Item Value Reference Range Interpretation Comments WBC (test code = See_Comment [Automated message] The 6690-2) system which ge nerated this result tra nsmitted reference range : 4.20 - 10.70 10*3/?L. The reference range was not used to interpr et this result as normal/abnormal . RBC (test code = See_Comment [Automated message] The 789-8) system which ge nerated this result tra nsmitted reference range : 4.26 - 5.52 10*6/?L. T he reference range was not used to interpr et this result as normal/abnormal . HGB (test code = 12.3 g/dL 12.2-16.4 718-7) HCT (test code = 38.4 % 38.4-49.3 4544-3) MCH (test code = 28.0 pg 26.1-32.7 785-6) MCV (test code = 87.3 fL 81.7-95.6 787-2) MCHC (test code = 32.0 g/dL 31.2-35.0 786-4) PLT (test code = See_Comment [Automated message] The 777-3) system which ge nerated this result tra nsmitted reference range : 150 - 328 10*3/?L. Th e reference range was not used to interpr et this result as normal/abnormal . MPV (test code = 10.5 fL 9.8-13.0 61073-4) RDW-CV (test code = 13.5 % 12.1-15.4 788-0) RDW-SD (test code = 43.0 fL 38.5-51.6 13042-1) NRBC x10^3 (test <0.01 See_Comment [Automated message] The code = 0935609975) system [facility] generated this result tra nsmitted reference range : 10*3/?L. The reference r brenda was not used to int erpret this result as normal/abnormal . NRBC/100 WBC (test See_Comment [Automat ed message] The code = 4694220613) system [facility] generated this result tra nsmitted reference range : 0.0 - 10.0 /100 WBCs. The reference range was not used to interpr et this result as normal/abnormal . IPF % (test code = 8813353124) [facility]
[2021-08-03 17:33] LABS: Protime INR 1.27
[2021-08-03] MEDS: WARFARIN SODIUM 5 MG TAB PO SCH (18:07)
[2021-08-03] MEDS: METOPROLOL TAR 25 MG TAB PO SCH (18:07)
[2021-08-03] MEDS: ATORVASTATIN 40 MG TAB PO SCH (20:02)
[2021-08-03 20:42] LABS: Urine Bilirubin Negative (Negative); Urine Blood 2+ (Negative); Urine Color Yellow (Yellow); Urine Glucose Negative (Negative); Urine Protein 2+ (Negative); Urine pH 7.5 (5.0-7.0)
[2021-08-03 21:05] LABS: Urine Microscopic Reflex ORDER UMIC
[2021-08-03 22:22] LABS: Urine Appearance HAZY (Clear)
[2021-08-03 22:23] LABS: Urine Amorphous Sediment 2+ /HPF (NONE SEEN); Urine Bacteria <20 /HPF (NONE SEEN)
[2021-08-03] MEDS: NA CHLORIDE 0.9% 0 ML ONE (23:12)
[2021-08-04] MEDS: CEFAZOLIN/SWI 2gm 2 GM/20 ML SYR IVP SCH ×3 (00:02→17:41)
[2021-08-04 04:23] LABS: Absolute Lymphocytes (CBC) 1.2 K/uL (0.7-4.9); Hematocrit 32.5 % (39.6-49.0); MPV 8.8 fL (7.6-11.3); RBC Red Blood Cell Count 3.77 M/uL (4.33-5.43)
[2021-08-04] MEDS: METOPROLOL TAR 25 MG TAB PO SCH ×2 (05:14→17:21)
[2021-08-04 05:23] LABS: Albumin 2.8 g/dL (3.4-5.0); BUN Blood Urea Nitrogen 8 mg/dL (7-18); Bicarbonate 29 mmol/L (21-32); Glomerular Filtration Rate > 90 mL/min (=/>90); Glucose Level 100 mg/dL (74-106); Magnesium 1.9 mg/dL (1.8-2.4); Potassium 3.4 mmol/L (3.5-5.1); Sodium Level 138 mmol/L (136-145)
[2021-08-04 05:41] LABS: Prealbumin 13.4 mg/dL (20-40)
[2021-08-04] MEDS: PANTOPRAZOLE 40MG TABLET PO SCH (07:19)
[2021-08-04] MEDS: lisinopriL 10 MG TAB PO SCH (07:19)
[2021-08-04] MEDS: ASPIRIN EC 81 MG TAB PO SCH (07:20)
[2021-08-04] MEDS: AMLODIPINE 10 MG TAB PO SCH (07:20)
--- NOTE | 2021-08-04 09:51 | P.RH.PN ---
Vital Signs: Last Vital Signs Temp 96.8 F 08/04/21 07:16 Pulse 70 08/04/21 07:20 Resp 16 08/04/21 07:16 BP 137/80 08/04/21 07:20 Pulse Ox 97 08/04/21 07:16 Laboratory: Laboratory Last Values WBC 7.0 K/uL (4.3-10.9) 08/04/21 04:03 RBC 3.77 M/uL (4.33-5.43) L 08/04/21 04:03 Hgb 10.8 g/dL (13.6-17.9) L 08/04/21 04:03 Hct 32.5 % (39.6-49.0) L 08/04/21 04:03 MCV 86.1 fL (80-100) 08/04/21 04:03 MCH 28.6 pg (27.0-35.0) 08/04/21 04:03 MCHC 33.2 g/dL (32.0-36.0) 08/04/21 04:03 RDW 14.4 % (12.1-15.2) 08/04/21 04:03 Plt Count 223 K/uL (152-406) 08/04/21 04:03 MPV 8.8 fL (7.6-11.3) 08/04/21 04:03 Neutrophils % 67.6 % (41.7-73.7) 08/04/21 04:03 Lymphocytes % 17.0 % (15.3-44.8) 08/04/21 04:03 Monocytes % 8.9 % (3.3-12.3) 08/04/21 04:03 Eosinophils % 5.0 % (0-4.4) H 08/04/21 04:03 Basophils % 1.5 % (0-1.3) H 08/04/21 04:03 Absolute Neutrophils 4.7 K/uL (1.8-8.0) 08/04/21 04:03 Absolute Lymphocytes 1.2 K/uL (0.7-4.9) 08/04/21 04:03 Absolute Monocytes 0.6 K/uL (0.1-1.3) 08/04/21 04:03 Absolute Eosinophils 0.3 K/uL (0-0.5) 08/04/21 04:03 Absolute Basophils 0.1 K/uL (0-0.5) 08/04/21 04:03 PT 14.0 SECONDS (9.5-12.5) H 08/03/21 17:20 INR 1.27 08/03/21 17:20 Sodium 138 mmol/L (136-145) 08/04/21 04:03 Potassium 3.4 mmol/L (3.5-5.1) L 08/04/21 04:03 Chloride 103 mmol/L (98-107) 08/04/21 04:03 Carbon Dioxide 29 mmol/L (21-32) 08/04/21 04:03 Anion Gap 9.4 mEq/L (5.0-15.0) 08/04/21 04:03 BUN 8 mg/dL (7-18) 08/04/21 04:03 Creatinine 0.62 mg/dL (0.55-1.3) 08/04/21 04:03 Estimated GFR > 90 mL/min (=/>90) 08/04/21 04:03 Glucose 100 mg/dL (74-106) 08/04/21 04:03 Calcium 8.9 mg/dL (8.5-10.1) 08/04/21 04:03 Magnesium 1.9 mg/dL (1.8-2.4) 08/04/21 04:03 Albumin 2.8 g/dL (3.4-5.0) L 08/04/21 04:03 Prealbumin 13.4 mg/dL (20-40) L 08/04/21 04:03 Urine Color Yellow (Yellow) 08/03/21 20:38 Urine Appearance Hazy (Clear) 08/03/21 20:38 Urine pH 7.5 (5.0-7.0) H 08/03/21 20:38 Ur Specific Harbert 1.020 (1.005-1.030) 08/03/21 20:38 Glucose (UA)(Auto) Negative (Negative) 08/03/21 20:38 Urine Ketones Negative (Negative) 08/03/21 20:38 Urine Blood 2+ (Negative) H 08/03/21 20:38 Urine Nitrite Negative (Negative) 08/03/21 20:38 Urine Bilirubin Negative (Negative) 08/03/21 20:38 Urine Urobilinogen 2.0 mg/dL (0.2-1.0) H 08/03/21 20:38 Ur Leukocyte Esterase Negative (Negative) 08/03/21 20:38 Urine RBC 5-10 /HPF (NONE SEEN) H 08/03/21 20:38 Urine WBC <5 /HPF (<5) 08/03/21 20:38 Ur Squamous Epith Cells <5 /HPF (NONE SEEN) 08/03/21 20:38 Ur Urothelial Cells Cancelled 08/03/21 19:30 Calcium Oxalate Crystal Cancelled 08/03/21 19:30 Uric Acid Crystals Cancelled 08/03/21 19:30 Triple Phos Crystals Cancelled 08/03/21 19:30 Other Crystals Cancelled 08/03/21 19:30 Amorphous Sediment 2+ /HPF (NONE SEEN) H 08/03/21 20:38 Glitter Cells Cancelled 08/03/21 19:30 Urine Bacteria <20 /HPF (NONE SEEN) 08/03/21 20:38 Hyaline Casts Cancelled 08/03/21 19:30 Fine Granular Casts Cancelled 08/03/21 19:30 Coarse Granular Casts Cancelled 08/03/21 19:30 Waxy Casts Cancelled 08/03/21 19:30 RBC Casts Cancelled 08/03/21 19:30 WBC Casts Cancelled 08/03/21 19:30 Urine Mucus Cancelled 08/03/21 19:30 Urine Other Cancelled 08/03/21 19:30 Urine Trichomonas Cancelled 08/03/21 19:30 Urine Yeast Cancelled 08/03/21 19:30 Ur Yeast w Hyphae Cancelled 08/03/21 19:30 Urine Yeast (Budding) Cancelled 08/03/21 19:30 Urine Sperm Cancelled 08/03/21 19:30 Urine Culture Reflexed Not needed 08/03/21 20:38 Urine Total Volume Cancelled 08/03/21 19:30 Urine Total Protein 2+ (Negative) H 08/03/21 20:38 SARS-CoV-2 Rap RNA(RT-PCR) Negative (NEGATIVE) 08/03/21 19:30 Weight: 266 lb Wound Present: No Closed Surgical Incision Present: No Negative Pressure Wound Therapy Present: No Physician Update: Walker 5' in parallel bars, wheelchair 25' max assistance for coordination. He has a magallon in for 14 days and it will be removed today. He is max assitance for tranfers, upper body dressing, total assistance for lower body dressing. Total loss of sensation on the right face, arm and leg. He as trace to 3/5 in the upper extremity. Right lower extremity is 2-3/5.He need total assistance with swallowing. Labs reviewed and are stable. He has low potassium and needs K replacement. Comment: no skin breakdown reported Summary: Patient's care plan and medical terminologist goals have been reviewed and revised as necessary. Please see the Rehabilitation Signature page for all necessary signatures.
[2021-08-04] MEDS ORDERED: SIMETHICONE 80 MG TAB PO PRN (10:36)
[2021-08-04] MEDS ORDERED: POTASSIUM 25 MEQ EFFERV TAB PO ONE (11:09)
--- NOTE | 2021-08-04 11:14 | R.HP ---
HISTORY AND PHYSICAL FACILITY: [facility] ENCOUNTER DATE AND TIME: 08/04/2021 11:08 (CDT) MR#: [id number] NAME VELIA TORRES ADDRESS: [address] [place] [address] CITY: [place] STATE: [place]IP [phone] PHONE: DATE OF : 1970 AGE: 50 ROOM NUMBER: [id number] N# [id number] GENDER: Male DEXTERITY Unknown dexterity MARITAL STATUS RACE White PRE-HOSPITAL LIVING SETTING 01 - Home (private home/apt. board/care, assisted living, detention, transitional living) PRE-HOSPITAL LIVING WITH Family/Relatives ENCOUNTER PHYSICIAN: Dr. Domingo Jordan M.D. REFERRING DOCTOR: CURTIS PATEL DATE OF ADMISSION: 08/03/2021 16:52 (CDT) REFERRING FACILITY [facility] HOME TYPE AND DETAILS: Type of home: single family house # of levels in the residence: 1 # of steps within the residence: 0 # of steps to enter the residence: 0 ONSET DATE: 07/14/2021 PRIMARY DIAGNOSIS-RELATED SURGERIES: No surgeries related to the primary diagnosis were performed. HISTORY OF PRESENT ILLNESS (HPI): Pt. is a 50 yo white male. Pt. is a 50 yo Unknown dexterity white male. On 07/14/2021 Pt. presented to [facility] with sudden onset of right-side weakness. On 07/14/2021 he was admitted to [facility] with diagnosis Cerebral infarction due to thrombosis of left middle cerebral artery (I63.312). His impairment category is Stroke 01 - Right Body (Left Brain) (01.2). Pre-morbidly, Pt. was independent/mod-I in Locomotion, Safety Awareness, Balance, Transfers Control, Self-Care, Endurance, Communication, Social Cognition, and Sphincter Control. Currently, he has deficits of Locomotion, Balance, Transfers Control, Communication, Self-Care, Endur ance, and Safety Awareness. Pt. is now referred to [facility] for acute in-patient rehabilitation in order to maximize patient's functional independence in activities of daily living, strength, ROM, and mobi lity. Patient has realistic goal of being discharged at assistance level 4-Kristie [facility]. MEDICATION ALLERGIES: No Known Drug Allergies (NKDA) ENVIRONMENTAL ALLERGIES: - Substance Allergies None Known - Other Allergies None Known PAST MEDICAL HISTORY: Prior CVA (Apr 2021) Essential (primary) hypertension (I10) Tobacco use (Z72.0) Chronic atrial fibrillation, unspecified (I48.20) Obesity, unspecified (E66.9) Obstructive sleep apnea (adult) (pediatric) (G47.33) CABG hypertrophic obstructive cardiomyopathy PAST SURGICAL HISTORY: myomectomy CABG Colonic Decompression SOCIAL HISTORY: - Home Living Family/Relatives REVIEW OF SYSTEMS: - Gen No Chills Fatigue No Fever - Eyes No Double Vision No itchiness - ENMT Difficulty Swallowing - CVS No Chest Discomfort No Chest Pain Fatigue No Weight Gain - Resp No Cough Shortness of Breath - GI Continent No Abdominal Pain No Constipation No Diarrhea - Continent No Kidney Pain No Painful Urination No Urinary Urgency - MSK Joint Pain Muscle Cramps Stiffness - Skin No Itching No Rash No Suspicious Lesions - Neuro Coordination Difficulty Difficulty with Concentration No Memory Loss No Seizures Weakness - Psych No Anxiety Depression No HIV Exposure No Persistent Infections No Seasonal Allergies - Endo No Cold/Heat Intolerance No Excessive Hunger No Excessive Thirst No Excessive Urination PHYSICAL EXAM - Gen Alert and awake Lying in bed No apparent distress Oriented to: person, time, and place - Skin No skin breakdown. Normacephalic - Eyes No abnormalities - ENMT No abnormalities - Neck No abnormalities No cervical adenopathy - CVS RRR - Chest No abnormalities - Resp Clear to auscultation - Abd Obese, soft, nontender - GI nondistended Deferred - Joyner catheter will be removed today. - Ext Mild right upper and lower extremity edema. - MSK 3/5 weakness in right upper and lower extremity. - Neuro 3/5 weakness in right upper and lower extremity, and dense right arm and leg numbness with neglect. - Psych Mild depression. VITAL SIGNS Temperature: 97.5 F SBP/DBP: 137/80 Pulse: 70 Resp: 15 NURSING: - Shower allowing shower - Bladder care per protocol - Skin care per protocol PRECAUTIONS: - Weight Bearing Precaution WBAT right LE - Fall Precaution Bed alarm TABS alarm Wheel chair alarm ACTIVITIES OOB only with supervision QI SCORES: - Self-Care A. Eating 03-Partial/moderate assistance B. Oral hygiene 03-Partial/moderate assistance C. Toileting hygiene 03-Partial/moderate assistance E. Shower/bathe self 03-Partial/moderate assistance F. Upper body dressing 03-Partial/moderate assistance G. Lower body dressing 03-Partial/moderate assistance H. Putting on/taking off footwear 03-Partial/moderate assistance - Mobility A. Roll left and right 02-Substantial/maximal assistance B. Sit to lying 03-Partial/moderate assistance C. Lying to sitting on side of bed 02-Substantial/maximal assistance D. Sit to stand 02-Substantial/maximal assistance E. Chair/rxw-aw-chajr transfer 02-Substantial/maximal assistance F. Toilet transfer 02-Substantial/maximal assistance G. Car transfer 02-Substantial/maximal assistance I. Walk 10 feet 88-Not attempted due to medical condition or safety concerns J. Walk 50 feet with two turns 88-Not attempted due to medical condition or safety concerns K. Walk 150 feet 88-Not attempted due to medical condition or safety concerns L. Walking 10 feet on uneven surfaces 88-Not attempted due to medical condition or safety concerns M. 1 step (curb) 88-Not attempted due to medical condition or safety concerns N. 4 steps 88-Not attempted due to medical condition or safety concerns O. 12 steps 88-Not attempted due to medical condition or safety concerns P. Picking up object 03-Partial/moderate assistance R. Wheel 50 feet with two turns 09-Not applicable S. Wheel 150 feet 09-Not applicable - Bladder and Bowel Bladder continence 0-Always continent Bowel continence 9-Not rated - Endurance Good - Balance Good - Safety Awareness Good CURRENT FUNC. DEFICITS: Self-Care and Mobility MEDICATIONS: - Other See attached MAR (Medication Administration Record) ASSESSMENT: Pt. is a 50 yo white male.Pt. is a 50 yo Unknown dexterity white male.On 07/14/2021 Pt. presented to [facility] with sudden onset of right-side weakness.On 07/14/2021 he was admitted to [facility] with diagnosis Cerebral infarction due to thrombosis of left middle cerebral artery (I63.312).Fl s impairment category is Stroke 01 - Right Body (Left Brain) (01.2).Pre-morbidly, Pt. was independen t/mod-I in Locomotion, Safety Awareness, Balance, Transfers Control, Self-Care, Endurance, Communicat ion, Social Cognition, and Sphincter Control.Currently, he has deficits of Locomotion, Balance, Trans fers Control, Communication, Self-Care, Endurance, and Safety Awareness.Pt. is now referred to [facility] for acute in-patient rehabilitation in order to maximize patient's functi onal independence in activities of daily living, strength, ROM, and mobility.- Rehab Goal Patient has realistic goal of being discharged at assistance level 4-Kristie to reside at Home with Fam julian/Relatives. for Dementia, TBI, Stroke, or others - Physical Therapy Inability to transfer - to improve, our physical therapists will perform initial evaluation of pt's s tatus upon admission and devise an individualized program for Bed mobility Need for home safety evaluation - to improve, our physical therapists will perform initial evaluation of pt's status upon admission and devise an individualized program for Home Evaluation Need in caregiver upon discharge - to improve, our physical therapists will perform initial evaluatio n of pt's status upon admission and devise an individualized program for Caregiver Training New precaution - to improve, our physical therapists will perform initial evaluation of pt's status u adi admission and devise an individualized program for Patient precaution education Edema - to improve, our physical therapists will perform initial evaluation of pt's status upon admi ssion and devise an individualized program for Elevation Training, and Lymphedema Therapy Poor balance - to improve, our physical therapists will perform initial evaluation of pt's status upo n admission and devise an individualized program for Balance Training Poor endurance - to improve, our physical therapists will perform initial evaluation of pt's status u adi admission and devise an individualized program for Endurance Training Achieving independence - to improve, our physical therapists will perform initial evaluation of pt's status upon admission and devise an individualized program for Community Reintegration Activities - Occupational Therapy ADL deficits - to improve, our occupation therapists will perform initial evaluation of pt's status u adi admission and devise an individualized program for Bathing, Bed mobility, Community Reintegration , Cooking, Dressing, Eating, Fine Motor Skills, Grooming, Homemaking, Kitchen Mobility, Laundry, Gayathri ent Education, Safety Awareness, Splinting - Positioning, Transfers(Toilet, Tub, Shower), and Wheel C hair Management Need for career information specialist - to improve, our occupation therapists will perform initial evaluation of pt's s tatus upon admission and devise an individualized program for Caregiver Training MEDICAL PLAN: - Diet Type Start NPO (nothing by mouth) - Diet - Liquid Texture Start N/A - Tube Feed Start N/A - Bladder care per protocol - Weight Bearing Precaution WBAT right LE - Fall Precaution Bed alarm TABS alarm Wheel chair alarm - Skin care per protocol - Other See attached MAR (Medication Administration Record) - Diet - Solid Texture Start Regular Start N/A - Shower shower DISCHARGE PLAN: - Estimated Length of Stay (days) 17. - Consensus on plan Discharge plan has been discussed with primary caregiver. Patient/Family is in agreement with the pushpa n. Primary caregiver is in agreement with the plan. - Patient/Family Goals Return home with assistance. - Planned Living Setting Upon Discharge Home, to live with Family/Relatives. Transitional Living. SIGNATURE PANEL: (CDT)
--- NOTE | 2021-08-04 11:14 | PAPE ---
POST ADMISSION PHYSICIAN EVALUATION PATIENT: [facility] MR# [id number] REFERRING DOCTOR CURTIS PATEL EVALUATION DATE AND TIME 08/04/2021 11:13 (CDT) NAME VELIA TORRES DATE OF 1970 AGE 50 PHONE N# [id number] GENDER male EVALUATING PHYSICIAN Dr. Domingo Jordan M.D. ADMISSION DIAGNOSIS: Cerebral infarction due to thrombosis of left middle cerebral artery (I63.312) Cerebral infarction, unspecified (I63.9) Large Left MCA Stroke with Hemorrhagic Conversion ONSET DATE 07/14/2021 POST-ADMISSION FUNCTIONAL/MEDICAL STATUS: - Bladder Same accident frequency: 7-Ind - No accidents in the past 7 days - Bowel Same accident frequency: 7-Ind - No accidents in the past 7 days - Walking Same score based on distance walked: 0(N/A) - Wheelchair Same score based on distance traveled: 0(N/A) STATUS CHANGE EVALUATION: No change in Functional or Medical Status is identified compared with Pre-Admission screening. PATIENT NEEDS CLOSE MEDICAL SUPERVISION BY A REHABILITATION PHYSICIAN FOR: Coordination of Treatment Team Medical and Co-Morbidity Management Pain Management DVT Management PATIENT REQUIRES 24X7 REHAB NURSING FOR MEDICAL AND FUNCTIONAL MGT. OF THE FOLLOWING DEFICITS: Disease Management Medication Management Patient requires 24x7 Rehabilitation Nursing for: Pain Issues, Identifying and preventing risk factor s, Monitoring and reporting current medical conditions, Assisting with ambulation and transfer, Carmel ting with all ADL-s, Teaching patients about disease process and medications, Family teaching, Provid ing safe environment, Bowel and Bladder Issues, Skin Integrity, and Medication Management Providing Safe Environment Communication Transfers Pain Management PATIENT REQUIRES INTENSIVE, COORDINATED INTERDISCIPLINARY APPROACH TO REHAB: Patient needs Dietary and Nutrition Services for: Adequate Nutrition, Nutritional Supplements, and Nu tritional Education Patient needs Clinical Exercise Specialist and/or Case Management for: Discharge Planning, Arranging Home Equipmen t or Services, and Family Interventions LIST OF IDENTIFIED AND POTENTIAL PROBLEMS: Alteration in leisure activities Aspiration, Actual or Potential Bladder, Incontinence Bowel, Incontinence Falls, Actual or Potential Infection, Actual or Potential Mobility Impaired Pain, Alteration in Comfort Self Care Deficit Skin Integrity, Actual or Potential Urinary Tract Infection (UTI), Actual or Potential RISK FOR COMPLICATIONS - Pain Administer prescribed pain medication as needed. Education patient on relaxation and deep breathing t echniques. Assist patient with frequent position changes at least every 2 hours. - Stroke Monitor patient blood pressure. Monitor and maintain patient pain level. - Falls Provide assistive devices. Educated pt on fall prevention strategies to reduce/eliminate fall risk. P atient will be evaluated for Fall Precautions and will be placed on Fall Precautions as indicated per protocol. Maintain call light within patient reach for easy access to nursing assistance. Provide as sistance getting out of bed and with ambulation. - DVT Active and Passive ROM exercises. Administer anti-coagulants as indicated by physician and monitor fo r effectiveness. Assist patient with frequent position changes. Elevate BLE. - Aspiration Monitor for overt s/s of aspiration. Will be assessed by our OBSTETRICAL ANESTHESIOLOGIST. INTERVENTIONS - Pain Monitor for headaches. Administer prescribed pain medications. - Hypertension Monitor and treat with prescribed medications to maintain systolic blood pressure less than 160 as pe r physician recommendation. Increase physical activity. - Atrial Fibrillation Administer prescribed anticoagulants. Vitals will be monitored regularly and medications administered as indicated by Physician. - Pre Diabetes Monitor A1c levels. - Hyperlipidemia Monitor LDL level and treat with prescribed statins. - Sleep Apnea Respiratory management. Monitor O2 Sat. - Global Aphasia OBSTETRICAL ANESTHESIOLOGIST to assess and treat pt's communication deficits. - Small Bowel Distention Continue to monitor with serial abdominal exams and KUB's. Continue bowel regimen and prescribed medi cations. - Mitral Valve Endocarditis Administer antibiotics and cardiac medications. Vital signs will be monitored regularly. - GI Rest Monitor and Evaluate patient tolerance of PO intake. Administer prescribed medications for GI discomf ort. PATIENT COULD BE AT RISK FOR COMPLICATIONS FROM ADVERSE MEDICAL CONDITIONS DUE TO HIS/HER COMORBIDITI ES AND THE RIGORS OF THE INTENSIVE REHABILLITATION PROGRAM. METHODS OR INTERVENTIONS TO AVOID COMPLIC ATIONS INCLUDE: - Deep Vein Thrombosis (DVT) Prophylaxis therapy for prevention . Sequential Compression Device (SCD). TE D Hose. - Bleeding Stroke patients assessed for lethargy or change in status. - Infection Clinical staff to assess and manage the signs and symptoms of infection including fever, redness, war mth, etc. - Urinary Tract Infection - Aspiration Clinical staff will assess and manage coughing, drooling, congestion. - Falls Patient will be evaluated for Fall Precautions and will be placed on Fall Precautions as indicated pe r protocol. - Skin Breakdown Nursing will assess skin daily using assessment tool and will place on Skin Breakdown Precautions as indicated per protocol. - Pain Clinical staff may employ non-medication methods such as massage, distraction, decrease stimulus, etc . as needed. Clinical staff will assess patient's pain level every shift per protocol to assess and e nsure pain management effectiveness. Medications will be given and the pain level re-assessed. PRELIMINARY PLAN OF CARE: - Physical Therapy Patient needs Physical Therapy for a daily minimum of 1.5 hours at least 5 out of 7 days, to improve: Mobility, Strengthening, Transfers, Stretching, ROM, Endurance, Ability to manage stairs, Gait, and Balance. - Speech Therapy Patient needs Speech Therapy for a daily minimum of 0.5 hours at least 5 out of 7 days, to improve: S wallowing, Cognition, Language Skills, and Compensatory Strategies. - Rehabilitation Nursing Patient requires 24x7 Rehabilitation Nursing for: Pain Issues, Identifying and preventing risk factor s, Monitoring and reporting current medical conditions, Assisting with ambulation and transfer, Carmel ting with all ADL-s, Teaching patients about disease process and medications, Family teaching, Provid ing safe environment, Bowel and Bladder Issues, Skin Integrity, and Medication Management. Patient needs Clinical Exercise Specialist and/or Case Management for: Discharge Planning, Arranging Home Equipmen t or Services, and Family Interventions. - Dietary and Nutrition Services Patient needs Dietary and Nutrition Services for: Adequate Nutrition, Nutritional Supplements, and Nu tritional Education. - Occupational Therapy Patient needs Occupational Therapy for a daily minimum of 1.5 hours at least 5 out of 7 days, to impr ove Activities of Daily Living, including: Eating, Grooming, Bathing, Dressing, Toileting, Toilet Tra nsfers, Community Reintegration, Higher functional activities, Adaptive Equipment, Splinting, Househo ld Tasks, and Other activities as determined. QI SCORES: - Self-Care A. Eating 03-Partial/moderate assistance B. Oral hygiene 03-Partial/moderate assistance C. Toileting hygiene 03-Partial/moderate assistance E. Shower/bathe self 03-Partial/moderate assistance F. Upper body dressing 03-Partial/moderate assistance G. Lower body dressing 03-Partial/moderate assistance H. Putting on/taking off footwear 03-Partial/moderate assistance - Mobility A. Roll left and right 02-Substantial/maximal assistance B. Sit to lying 03-Partial/moderate assistance C. Lying to sitting on side of bed 02-Substantial/maximal assistance D. Sit to stand 02-Substantial/maximal assistance E. Chair/[id number] transfer 02-Substantial/maximal assistance F. Toilet transfer 02-Substantial/maximal assistance G. Car transfer 02-Substantial/maximal assistance I. Walk 10 feet 88-Not attempted due to medical condition or safety concerns J. Walk 50 feet with two turns 88-Not attempted due to medical condition or safety concerns K. Walk 150 feet 88-Not attempted due to medical condition or safety concerns L. Walking 10 feet on uneven surfaces 88-Not attempted due to medical condition or safety concerns M. 1 step (curb) 88-Not attempted due to medical condition or safety concerns N. 4 steps 88-Not attempted due to medical condition or safety concerns O. 12 steps 88-Not attempted due to medical condition or safety concerns P. Picking up object 03-Partial/moderate assistance R. Wheel 50 feet with two turns 09-Not applicable S. Wheel 150 feet 09-Not applicable - Bladder and Bowel Bladder continence 0-Always continent Bowel continence 9-Not rated - Endurance Good - Balance Good - Safety Awareness Good POTENTIAL FUNCTIONAL GOALS FOR PATIENT TO ACHIEVE BY DISCHARGE: - Safety Precaution Patient will remain free from falls or injury at time of discharge. - Bed Mobility Patient will perform bed mobility at 4-Kristie level of assistance. - Transfers Patient will complete transfers from bed to chair at 4-Kristie level of assistance. - Mobility Patient will ambulate 150 ft with 4-Kristie level of assistance with RW. PATIENT REHAB POTENTIAL Fiorella TORRES is able and expected to receive 3 hours of individualized therapy daily on at least 5 of every 7 days Fiorella TORRES's prognosis for significant practical improvement within a reasonable period of time nell ears Good Expected level of measurable improvement will be of a practical value to Fiorella TORRES's functional ca pacity or adaptations to impairments Has a viable Discharge Plan Medically appropriate; condition is sufficiently stable to participate in intensive rehab program DISCHARGE PLAN: - Estimated Length of Stay (days) 17. - Consensus on plan Discharge plan has been discussed with primary caregiver. Patient/Family is in agreement with the pushpa n. Primary caregiver is in agreement with the plan. - Patient/Family Goals Return home with assistance. - Planned Living Setting Upon Discharge Home, to live with Family/Relatives. Transitional Living. CONCLUSION ON REHABILITATION NECESSITY: I have evaluated patient's pre-admission functional status and, comparing it to the patient's post-ad mission functional status now, I conclude that the pre-admission assessment was accurate. Patient's c ondition on admission supports the medical necessity of admission to IRF. It is safe to proceed with patient's therapy program. SIGNATURE PANEL: (CDT)
[2021-08-04] MEDS ORDERED: WARFARIN SODIUM 5 MG TAB PO SCH (17:00)
[2021-08-04] MEDS ORDERED: WARFARIN SODIUM 5 MG TAB PO ONE (17:00)
[2021-08-04] MEDS: WARFARIN SODIUM 5 MG TAB PO SCH (17:08)
[2021-08-04] MEDS: ATORVASTATIN 40 MG TAB PO SCH (20:32)
[2021-08-05] MEDS: CEFAZOLIN/SWI 2gm 2 GM/20 ML SYR IVP SCH ×3 (01:43→16:25)
[2021-08-05] MEDS: METOPROLOL TAR 25 MG TAB PO SCH ×2 (05:08→16:50)
[2021-08-05 07:04] LABS: Protime INR 1.66
[2021-08-05] MEDS: PANTOPRAZOLE 40MG TABLET PO SCH (07:31)
[2021-08-05] MEDS: AMLODIPINE 10 MG TAB PO SCH (07:37)
[2021-08-05] MEDS: ASPIRIN EC 81 MG TAB PO SCH (07:38)
[2021-08-05] MEDS: lisinopriL 10 MG TAB PO SCH (11:13)
[2021-08-05] MEDS: WARFARIN SODIUM 5 MG TAB PO SCH (16:25)
[2021-08-05] MEDS: ATORVASTATIN 40 MG TAB PO SCH (19:51)
[2021-08-06] MEDS: CEFAZOLIN/SWI 2gm 2 GM/20 ML SYR IVP SCH ×3 (00:59→16:30)
[2021-08-06] MEDS: METOPROLOL TAR 25 MG TAB PO SCH ×2 (05:12→16:58)
[2021-08-06 05:34] LABS: Protime INR 2.58
[2021-08-06] MEDS: PANTOPRAZOLE 40MG TABLET PO SCH ×2 (07:34→16:29)
[2021-08-06] MEDS: AMLODIPINE 10 MG TAB PO SCH (07:44)
[2021-08-06] MEDS: ASPIRIN EC 81 MG TAB PO SCH (07:44)
[2021-08-06] MEDS: lisinopriL 10 MG TAB PO SCH (07:44)
[2021-08-06] MEDS: WARFARIN SODIUM 5 MG TAB PO SCH (16:29)
[2021-08-06] MEDS: ATORVASTATIN 40 MG TAB PO SCH (19:56)
[2021-08-07] MEDS: CEFAZOLIN/SWI 2gm 2 GM/20 ML SYR IVP SCH ×3 (01:20→16:27)
[2021-08-07] MEDS: METOPROLOL TAR 25 MG TAB PO SCH ×2 (03:56→17:03)
[2021-08-07 05:20] LABS: Protime INR 2.39
[2021-08-07] MEDS: PANTOPRAZOLE 40MG TABLET PO SCH ×2 (07:32→16:18)
[2021-08-07] MEDS: lisinopriL 10 MG TAB PO SCH (07:33)
[2021-08-07] MEDS: ASPIRIN EC 81 MG TAB PO SCH (07:33)
[2021-08-07] MEDS: AMLODIPINE 10 MG TAB PO SCH (10:06)
[2021-08-07] MEDS ORDERED: MELATONIN 3 MG TABLET PO PRN (14:16)
[2021-08-07] MEDS: WARFARIN SODIUM 5 MG TAB PO SCH (16:19)
[2021-08-07] MEDS: ATORVASTATIN 40 MG TAB PO SCH (19:34)
[2021-08-07] MEDS: AMLODIPINE 5 MG TAB PO SCH (19:34)
[2021-08-07] MEDS: ACETAMINOPHEN 325 MG TABLET PO PRN (19:35)
[2021-08-07] MEDS ORDERED: ACETAMINOPHEN 325 MG TABLET ONE (19:37)
--- NOTE | 2021-08-07 19:59 | R.PN ---
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 Pt denied any Shortness of Breath. Labs reviewed and are stable. Wheelchair mobility 150' with mod to min assistance with 5 rest brakes. No overt aspiration with thin liquids by straw. VITAL SIGNS Temperature: 97.5 F SBP/DBP: 137/80 Pulse: 70 Resp: 15 MEDICATION ALLERGIES: No Known Drug Allergies (NKDA) ENVIRONMENTAL ALLERGIES: - Substance Allergies None Known - Other Allergies None Known NURSING: - Shower allowing shower - Bladder care per protocol - Skin care per protocol PRECAUTIONS: - Weight Bearing Precaution WBAT right LE - Fall Precaution Bed alarm TABS alarm Wheel chair alarm ACTIVITIES OOB only with supervision THERAPIES: - Dietary and Nutrition Adequate Nutrition. Nutritional Education. Nutritional Supplements. Evaluate and Treat. - Occupational Therapy Cognitive Retraining. Patient needs Occupational Therapy for a daily minimum of 1.5 hours at least 5 out of 7 days, to improve Activities of Daily Living, including: Eating, Grooming, Bathing, Dressing, Toileting, Toilet Transfers, Community Reintegration, Higher functional activities, Adaptive Equipme nt, Splinting, Household Tasks, and Other activities as determined. Visual Perceptual Training. Evalu ate and Treat. Safety Awareness. UE ROM. UE Strengthening. - Speech Therapy Cognitive Training. Expressive Language Skills. Memory Strategies. Patient needs Speech Therapy for a daily minimum of 1.5 hours at least 5 out of 7 days, to improve: Swallowing, Cognition, Language Ski lls, and Compensatory Strategies. Receptive Language Skills. Speech Intelligibility Training. Evaluat e and Treat. Dysphagia Therapy. - Physical Therapy Patient needs Physical Therapy for a daily minimum of 1.5 hours at least 5 out of 7 days, to improve: Mobility, Strengthening, Transfers, Stretching, ROM, Endurance, Ability to manage stairs, Gait, and Balance. Evaluate and Treat. Wheelchair Management. Patient/Family Education. Safety Awareness. PHYSICAL EXAM - Gen Alert and awake Lying in bed No apparent distress Oriented to: person, time, and place - Skin No skin breakdown. Normacephalic - Eyes No abnormalities - ENMT No abnormalities - Neck No abnormalities No cervical adenopathy - CVS RRR - Chest No abnormalities - Resp Clear to auscultation - Abd Obese, soft, nontender - GI nondistended Deferred - Joyner catheter will be removed today. - Ext Mild right upper and lower extremity edema. - MSK 3/5 weakness in right upper and lower extremity. - Neuro 3/5 weakness in right upper and lower extremity, and dense right arm and leg numbness with neglect. - Psych Mild depression. ASSESSMENT: Pt. is a 50 yo white male.Pt. is a 50 yo Unknown dexterity white male.On 07/14/2021 Pt. 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 was independen t/mod-I in Locomotion, Safety Awareness, Balance, Transfers Control, Self-Care, Endurance, Communicat ion, Social Cognition, and Sphincter Control.Currently, he has deficits of Locomotion, Balance, Trans fers Control, Communication, Self-Care, Endurance, and Safety Awareness.Pt. is now referred to [facility] for acute in-patient rehabilitation in order to maximize patient's functi onal independence in activities of daily living, strength, ROM, and mobility.- Rehab Goal Patient has realistic goal of being discharged at assistance level 4-Kristie to reside at Home with Fam julian/Relatives. MDM/PLAN: - Physical Therapy Inability to transfer - to improve, our physical therapists will perform initial evaluation of pt's status upon admission and devise an individualized program for Bed mobility Need for home safety evaluation - to improve, our physical therapists will perform initial evaluatio n of pt's status upon admission and devise an individualized program for Home Evaluation Need in caregiver upon discharge - to improve, our physical therapists will perform initial evaluati on of pt's status upon admission and devise an individualized program for Caregiver Training New precaution - to improve, our physical therapists will perform initial evaluation of pt's status upon admission and devise an individualized program for Patient precaution education Edema - to improve, our physical therapists will perform initial evaluation of pt's status upon admis pa and devise an individualized program for Elevation Training, and Lymphedema Therapy Poor balance - to improve, our physical therapists will perform initial evaluation of pt's status up on admission and devise an individualized program for Balance Training Poor endurance - to improve, our physical therapists will perform initial evaluation of pt's status upon admission and devise an individualized program for Endurance Training Achieving independence - to improve, our physical therapists will perform initial evaluation of pt's status upon admission and devise an individualized program for Community Reintegration Activities - Occupational Therapy ADL deficits - to improve, our occupation therapists will perform initial evaluation of pt's status upon admission and devise an individualized program for Bathing, Bed mobility, Community Reintegratio n, Cooking, Dressing, Eating, Fine Motor Skills, Grooming, Homemaking, Kitchen Mobility, Laundry, Pat ient Education, Safety Awareness, Splinting - Positioning, Transfers(Toilet, Tub, Shower), and Wheel Chair Management Need for care transitions manager - to improve, our occupation therapists will perform initial evaluation of pt's status upon admission and devise an individualized program for Caregiver Training - Other See attached MAR (Medication Administration Record) - Diet Type Continue NPO (nothing by mouth) - Diet - Liquid Texture Continue N/A - Tube Feed Continue N/A - Bladder care per protocol - Weight Bearing Precaution WBAT right LE - Fall Precaution Bed alarm TABS alarm Wheel chair alarm - Skin care per protocol - Diet - Solid Texture Continue Regular Continue N/A - Shower allowing shower for Dementia, TBI, Stroke, or others FUNCTIONAL STATUS: UPDATED AT WEEKLY TEAM CONFERENCE - Bladder Same accident frequency: 7-Ind - No accidents in the past 7 days - Bowel Same accident frequency: 7-Ind - No accidents in the past 7 days - Walking Same score based on distance walked: 0(N/A) - Wheelchair Same score based on distance traveled: 0(N/A) FUNCTIONAL STATUS: - Self-Care A. Eating Ind B. Grooming Kristie C. Bathing modA D. Dressing - Upper Kristie E. Dressing - Lower modA F. Toileting Kristie - Sphincter Control G. Bladder control sup H. Bowel control Kayode - Transfers Control I. Bed/Chair/Wheelchair modA J. Toilet Kristie K. Tub/Shower modA - Locomotion L. Walk/Wheelchair (B) Kristie M. Stairs modA - Communication N. Comprehension (B) sup O. Expression (B) Kristie - Social Cognition P. Social Interaction Ind Q. Problem Solving Ind R. Memory Ind - Endurance Fair - Balance Fair - Safety Awareness Fair QI SCORES: - Self-Care A. Eating 03-Partial/moderate assistance B. Oral hygiene 03-Partial/moderate assistance C. Toileting hygiene 03-Partial/moderate assistance E. Shower/bathe self 03-Partial/moderate assistance F. Upper body dressing 03-Partial/moderate assistance G. Lower body dressing 03-Partial/moderate assistance H. Putting on/taking off footwear 03-Partial/moderate assistance - Mobility A. Roll left and right 02-Substantial/maximal assistance B. Sit to lying 03-Partial/moderate assistance C. Lying to sitting on side of bed 02-Substantial/maximal assistance D. Sit to stand 02-Substantial/maximal assistance E. Chair/npx-fy-dhjyy transfer 02-Substantial/maximal assistance F. Toilet transfer 02-Substantial/maximal assistance G. Car transfer 02-Substantial/maximal assistance I. Walk 10 feet 88-Not attempted due to medical condition or safety concerns J. Walk 50 feet with two turns 88-Not attempted due to medical condition or safety concerns K. Walk 150 feet 88-Not attempted due to medical condition or safety concerns L. Walking 10 feet on uneven surfaces 88-Not attempted due to medical condition or safety concerns M. 1 step (curb) 88-Not attempted due to medical condition or safety concerns N. 4 steps 88-Not attempted due to medical condition or safety concerns O. 12 steps 88-Not attempted due to medical condition or safety concerns P. Picking up object 03-Partial/moderate assistance R. Wheel 50 feet with two turns 09-Not applicable S. Wheel 150 feet 09-Not applicable - Bladder and Bowel Bladder continence 0-Always continent Bowel continence 9-Not rated - Endurance Good - Balance Good - Safety Awareness Good CURRENT FUNC. DEFICITS: Self-Care and Mobility SIGNATURE PANEL: (CDT)
[2021-08-08] MEDS: CEFAZOLIN/SWI 2gm 2 GM/20 ML SYR IVP SCH ×3 (00:33→16:35)
[2021-08-08] MEDS: ACETAMINOPHEN 325 MG TABLET PO PRN ×2 (04:17→12:50)
[2021-08-08] MEDS: METOPROLOL TAR 25 MG TAB PO SCH ×2 (04:17→17:01)
[2021-08-08 05:11] LABS: Protime INR 2.16
[2021-08-08] MEDS: PANTOPRAZOLE 40MG TABLET PO SCH ×2 (07:24→16:35)
[2021-08-08] MEDS: AMLODIPINE 5 MG TAB PO SCH ×2 (07:41→20:08)
[2021-08-08] MEDS: ASPIRIN EC 81 MG TAB PO SCH (07:42)
[2021-08-08] MEDS: lisinopriL 10 MG TAB PO SCH ×2 (08:00→09:21)
--- NOTE | 2021-08-08 10:54 | RAD REPORT ---
EXAM DESCRIPTION: RAD - Barium Swallow Modified - 08/08/2021 10:16 am CLINICAL HISTORY: dysphagia COMPARISON: No comparisons TECHNIQUE: The patient was given liquid, semi-solid and solid forms of barium. Lateral view fluorosc opic imaging was performed in conjunction with speech pathology service. FINDINGS: Pharyngeal Residue: Trace to mild amount with thin barium in vallecula. 1 second swallow delay with thin, reduced epiglottic deflection, reduced hyolaryngeal excursion, mild esophageal dysmotility, and mild esophageal residue. Total fluoroscopy time: 2 minutes and 48 seconds.
[2021-08-08] MEDS ORDERED: DOCUSATE NA/SENNA CONC 1 TAB PO PRN (15:32)
[2021-08-08] MEDS: WARFARIN SODIUM 5 MG TAB PO SCH (16:36)
[2021-08-08] MEDS: LIDOCAINE 4% PATCH TOP SCH (17:04)
--- NOTE | 2021-08-08 18:14 | R.PN ---
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 Pt denied any Shortness of Breath. Labs reviewed and are stable. Wheelchair mobility 150' with mod to min assistance with 5 rest brakes. No overt aspiration with thin liquids by straw. INR is 2.16. Wheelchair mobility 50' with mod assistance. Ambulated 25' in parallel bars with moderate assistance. Ambulated 10' with platform walker and moderate assistance. VITAL SIGNS Temperature: 97.7 F SBP/DBP: 140/74 Pulse: 72 Resp: 16 MEDICATION ALLERGIES: No Known Drug Allergies (NKDA) ENVIRONMENTAL ALLERGIES: - Substance Allergies None Known - Other Allergies None Known NURSING: - Shower allowing shower - Bladder care per protocol - Skin care per protocol PRECAUTIONS: - Weight Bearing Precaution WBAT right LE - Fall Precaution Bed alarm TABS alarm Wheel chair alarm ACTIVITIES OOB only with supervision THERAPIES: - Dietary and Nutrition Adequate Nutrition. Nutritional Education. Nutritional Supplements. Evaluate and Treat. - Occupational Therapy Cognitive Retraining. Patient needs Occupational Therapy for a daily minimum of 1.5 hours at least 5 out of 7 days, to improve Activities of Daily Living, including: Eating, Grooming, Bathing, Dressing, Toileting, Toilet Transfers, Community Reintegration, Higher functional activities, Adaptive Equipme nt, Splinting, Household Tasks, and Other activities as determined. Visual Perceptual Training. Evalu ate and Treat. Safety Awareness. UE ROM. UE Strengthening. - Speech Therapy Cognitive Training. Expressive Language Skills. Memory Strategies. Patient needs Speech Therapy for a daily minimum of 1.5 hours at least 5 out of 7 days, to improve: Swallowing, Cognition, Language Ski lls, and Compensatory Strategies. Receptive Language Skills. Speech Intelligibility Training. Evaluat e and Treat. Dysphagia Therapy. - Physical Therapy Patient needs Physical Therapy for a daily minimum of 1.5 hours at least 5 out of 7 days, to improve: Mobility, Strengthening, Transfers, Stretching, ROM, Endurance, Ability to manage stairs, Gait, and Balance. Evaluate and Treat. Wheelchair Management. Patient/Family Education. Safety Awareness. PHYSICAL EXAM - Gen Alert and awake Lying in bed No apparent distress Oriented to: person, time, and place - Skin No skin breakdown. Normacephalic - Eyes No abnormalities - ENMT No abnormalities - Neck No abnormalities No cervical adenopathy - CVS RRR - Chest No abnormalities - Resp Clear to auscultation - Abd Obese, soft, nontender - GI nondistended Deferred - Joyner catheter will be removed today. - Ext Mild right upper and lower extremity edema. - MSK 3/5 weakness in right upper and lower extremity. - Neuro 3/5 weakness in right upper and lower extremity, and dense right arm and leg numbness with neglect. - Psych Mild depression. ASSESSMENT: Pt. is a 50 yo white male.Pt. is a 50 yo Unknown dexterity white male.On 07/14/2021 Pt. 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 was independen t/mod-I in Locomotion, Safety Awareness, Balance, Transfers Control, Self-Care, Endurance, Communicat ion, Social Cognition, and Sphincter Control.Currently, he has deficits of Locomotion, Balance, Trans fers Control, Communication, Self-Care, Endurance, and Safety Awareness.Pt. is now referred to [facility] for acute in-patient rehabilitation in order to maximize patient's functi onal independence in activities of daily living, strength, ROM, and mobility.- Rehab Goal Patient has realistic goal of being discharged at assistance level 4-Kristie to reside at Home with Fam julian/Relatives. MDM/PLAN: - Physical Therapy Inability to transfer - to improve, our physical therapists will perform initial evaluation of pt's status upon admission and devise an individualized program for Bed mobility Need for home safety evaluation - to improve, our physical therapists will perform initial evaluatio n of pt's status upon admission and devise an individualized program for Home Evaluation Need in caregiver upon discharge - to improve, our physical therapists will perform initial evaluati on of pt's status upon admission and devise an individualized program for Caregiver Training New precaution - to improve, our physical therapists will perform initial evaluation of pt's status upon admission and devise an individualized program for Patient precaution education Edema - to improve, our physical therapists will perform initial evaluation of pt's status upon admi ssion and devise an individualized program for Elevation Training, and Lymphedema Therapy Poor balance - to improve, our physical therapists will perform initial evaluation of pt's status up on admission and devise an individualized program for Balance Training Poor endurance - to improve, our physical therapists will perform initial evaluation of pt's status upon admission and devise an individualized program for Endurance Training Achieving independence - to improve, our physical therapists will perform initial evaluation of pt's status upon admission and devise an individualized program for Community Reintegration Activities - Occupational Therapy ADL deficits - to improve, our occupation therapists will perform initial evaluation of pt's status upon admission and devise an individualized program for Bathing, Bed mobility, Community Reintegratio n, Cooking, Dressing, Eating, Fine Motor Skills, Grooming, Homemaking, Kitchen Mobility, Laundry, Pat ient Education, Safety Awareness, Splinting - Positioning, Transfers(Toilet, Tub, Shower), and Wheel Chair Management Need for inspector health care facilities - to improve, our occupation therapists will perform initial evaluation of pt's status upon admission and devise an individualized program for Caregiver Training - Other See attached MAR (Medication Administration Record) - Diet Type Continue NPO (nothing by mouth) - Diet - Liquid Texture Continue N/A - Tube Feed Continue N/A - Bladder care per protocol - Weight Bearing Precaution WBAT right LE - Fall Precaution Bed alarm TABS alarm Wheel chair alarm - Skin care per protocol - Diet - Solid Texture Continue Regular Continue N/A - Shower allowing shower for Dementia, TBI, Stroke, or others FUNCTIONAL STATUS: UPDATED AT WEEKLY TEAM CONFERENCE - Bladder Same accident frequency: 7-Ind - No accidents in the past 7 days - Bowel Same accident frequency: 7-Ind - No accidents in the past 7 days - Walking Same score based on distance walked: 0(N/A) - Wheelchair Same score based on distance traveled: 0(N/A) FUNCTIONAL STATUS: - Self-Care A. Eating Ind B. Grooming Kristie C. Bathing modA D. Dressing - Upper Kristie E. Dressing - Lower modA F. Toileting Kristie - Sphincter Control G. Bladder control sup H. Bowel control Kayode - Transfers Control I. Bed/Chair/Wheelchair modA J. Toilet Kritsie K. Tub/Shower modA - Locomotion L. Walk/Wheelchair (B) Kristie M. Stairs modA - Communication N. Comprehension (B) sup O. Expression (B) Kristie - Social Cognition P. Social Interaction Ind Q. Problem Solving Ind R. Memory Ind - Endurance Fair - Balance Fair - Safety Awareness Fair QI SCORES: - Self-Care A. Eating 03-Partial/moderate assistance B. Oral hygiene 03-Partial/moderate assistance C. Toileting hygiene 03-Partial/moderate assistance E. Shower/bathe self 03-Partial/moderate assistance F. Upper body dressing 03-Partial/moderate assistance G. Lower body dressing 03-Partial/moderate assistance H. Putting on/taking off footwear 03-Partial/moderate assistance - Mobility A. Roll left and right 02-Substantial/maximal assistance B. Sit to lying 03-Partial/moderate assistance C. Lying to sitting on side of bed 02-Substantial/maximal assistance D. Sit to stand 02-Substantial/maximal assistance E. Chair/[id number] transfer 02-Substantial/maximal assistance F. Toilet transfer 02-Substantial/maximal assistance G. Car transfer 02-Substantial/maximal assistance I. Walk 10 feet 88-Not attempted due to medical condition or safety concerns J. Walk 50 feet with two turns 88-Not attempted due to medical condition or safety concerns K. Walk 150 feet 88-Not attempted due to medical condition or safety concerns L. Walking 10 feet on uneven surfaces 88-Not attempted due to medical condition or safety concerns M. 1 step (curb) 88-Not attempted due to medical condition or safety concerns N. 4 steps 88-Not attempted due to medical condition or safety concerns O. 12 steps 88-Not attempted due to medical condition or safety concerns P. Picking up object 03-Partial/moderate assistance R. Wheel 50 feet with two turns 09-Not applicable S. Wheel 150 feet 09-Not applicable - Bladder and Bowel Bladder continence 0-Always continent Bowel continence 9-Not rated - Endurance Good - Balance Good - Safety Awareness Good CURRENT FUNC. DEFICITS: Self-Care and Mobility SIGNATURE PANEL: ([facility])
[2021-08-08] MEDS: ATORVASTATIN 40 MG TAB PO SCH (20:08)
[2021-08-09] MEDS: CEFAZOLIN/SWI 2gm 2 GM/20 ML SYR IVP SCH ×3 (00:28→16:20)
[2021-08-09] MEDS: METOPROLOL TAR 25 MG TAB PO SCH ×2 (04:13→16:56)
[2021-08-09 05:10] LABS: Protime INR 2.27
[2021-08-09] MEDS: PANTOPRAZOLE 40MG TABLET PO SCH ×2 (07:27→16:20)
[2021-08-09] MEDS: ASPIRIN EC 81 MG TAB PO SCH (07:35)
[2021-08-09] MEDS: AMLODIPINE 5 MG TAB PO SCH ×2 (07:36→19:36)
[2021-08-09] MEDS: lisinopriL 10 MG TAB PO SCH (07:37)
[2021-08-09] MEDS: LIDOCAINE 4% PATCH TOP SCH (10:56)
[2021-08-09] MEDS: DOCUSATE NA/SENNA CONC 1 TAB PO SCH ×3 (13:39→20:10)
[2021-08-09] MEDS: WARFARIN SODIUM 5 MG TAB PO SCH (16:20)
--- NOTE | 2021-08-09 17:44 | R.PN ---
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 Pt denied any Shortness of Breath. Labs reviewed and are stable. Wheelchair mobility 150' with mod to min assistance with 5 rest brakes. No overt aspiration with thin liquids by straw. INR is 2.16. Wheelchair mobility 250' with standby assistance. Ambulated 56' with right platform walker and modera te assistance. VITAL SIGNS Temperature: 97.5 F SBP/DBP: 125/77 Pulse: 74 Resp: 16 MEDICATION ALLERGIES: No Known Drug Allergies (NKDA) ENVIRONMENTAL ALLERGIES: - Substance Allergies None Known - Other Allergies None Known NURSING: - Shower allowing shower - Bladder care per protocol - Skin care per protocol PRECAUTIONS: - Weight Bearing Precaution WBAT right LE - Fall Precaution Bed alarm TABS alarm Wheel chair alarm ACTIVITIES OOB only with supervision THERAPIES: - Dietary and Nutrition Adequate Nutrition. Nutritional Education. Nutritional Supplements. Evaluate and Treat. - Occupational Therapy Cognitive Retraining. Patient needs Occupational Therapy for a daily minimum of 1.5 hours at least 5 out of 7 days, to improve Activities of Daily Living, including: Eating, Grooming, Bathing, Dressing, Toileting, Toilet Transfers, Community Reintegration, Higher functional activities, Adaptive Equipme nt, Splinting, Household Tasks, and Other activities as determined. Visual Perceptual Training. Evalu ate and Treat. Safety Awareness. UE ROM. UE Strengthening. - Speech Therapy Cognitive Training. Expressive Language Skills. Memory Strategies. Patient needs Speech Therapy for a daily minimum of 1.5 hours at least 5 out of 7 days, to improve: Swallowing, Cognition, Language Ski lls, and Compensatory Strategies. Receptive Language Skills. Speech Intelligibility Training. Evaluat e and Treat. Dysphagia Therapy. - Physical Therapy Patient needs Physical Therapy for a daily minimum of 1.5 hours at least 5 out of 7 days, to improve: Mobility, Strengthening, Transfers, Stretching, ROM, Endurance, Ability to manage stairs, Gait, and Balance. Evaluate and Treat. Wheelchair Management. Patient/Family Education. Safety Awareness. PHYSICAL EXAM - Gen Alert and awake Lying in bed No apparent distress Oriented to: person, time, and place - Skin No skin breakdown. Normacephalic - Eyes No abnormalities - ENMT No abnormalities - Neck No abnormalities No cervical adenopathy - CVS RRR - Chest No abnormalities - Resp Clear to auscultation - Abd Obese, soft, nontender - GI nondistended Deferred - Joyner catheter will be removed today. - Ext Mild right upper and lower extremity edema. - MSK 3/5 weakness in right upper and lower extremity. - Neuro 3/5 weakness in right upper and lower extremity, and dense right arm and leg numbness with neglect. - Psych Mild depression. ASSESSMENT: Pt. is a 50 yo white male.Pt. is a 50 yo Unknown dexterity white male.On 07/14/2021 Pt. presented to [facility] with sudden onset of right-side weakness.On 07/14/2021 he was admitted to 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 was independen t/mod-I in Locomotion, Safety Awareness, Balance, Transfers Control, Self-Care, Endurance, Communicat ion, Social Cognition, and Sphincter Control.Currently, he has deficits of Locomotion, Balance, Trans fers Control, Communication, Self-Care, Endurance, and Safety Awareness.Pt. is now referred to [facility] for acute in-patient rehabilitation in order to maximize patient's functi onal independence in activities of daily living, strength, ROM, and mobility.- Rehab Goal Patient has realistic goal of being discharged at assistance level 4-Kristie to reside at Home with Fam julian/Relatives. MDM/PLAN: - Physical Therapy Inability to transfer - to improve, our physical therapists will perform initial evaluation of pt's status upon admission and devise an individualized program for Bed mobility Need for home safety evaluation - to improve, our physical therapists will perform initial evaluatio n of pt's status upon admission and devise an individualized program for Home Evaluation Need in caregiver upon discharge - to improve, our physical therapists will perform initial evaluati on of pt's status upon admission and devise an individualized program for Caregiver Training New precaution - to improve, our physical therapists will perform initial evaluation of pt's status upon admission and devise an individualized program for Patient precaution education Edema - to improve, our physical therapists will perform initial evaluation of pt's status upon admi ssion and devise an individualized program for Elevation Training, and Lymphedema Therapy Poor balance - to improve, our physical therapists will perform initial evaluation of pt's status up on admission and devise an individualized program for Balance Training Poor endurance - to improve, our physical therapists will perform initial evaluation of pt's status upon admission and devise an individualized program for Endurance Training Achieving independence - to improve, our physical therapists will perform initial evaluation of pt's status upon admission and devise an individualized program for Community Reintegration Activities - Occupational Therapy ADL deficits - to improve, our occupation therapists will perform initial evaluation of pt's status upon admission and devise an individualized program for Bathing, Bed mobility, Community Reintegratio n, Cooking, Dressing, Eating, Fine Motor Skills, Grooming, Homemaking, Kitchen Mobility, Laundry, Pat ient Education, Safety Awareness, Splinting - Positioning, Transfers(Toilet, Tub, Shower), and Wheel Chair Management Need for clinical care manager - to improve, our occupation therapists will perform initial evaluation of pt's status upon admission and devise an individualized program for Caregiver Training - Other See attached MAR (Medication Administration Record) - Diet Type Continue NPO (nothing by mouth) - Diet - Liquid Texture Continue N/A - Tube Feed Continue N/A - Bladder care per protocol - Weight Bearing Precaution WBAT right LE - Fall Precaution Bed alarm TABS alarm Wheel chair alarm - Skin care per protocol - Diet - Solid Texture Continue Regular Continue N/A - Shower allowing shower for Dementia, TBI, Stroke, or others FUNCTIONAL STATUS: UPDATED AT WEEKLY TEAM CONFERENCE - Bladder Same accident frequency: 7-Ind - No accidents in the past 7 days - Bowel Same accident frequency: 7-Ind - No accidents in the past 7 days - Walking Same score based on distance walked: 0(N/A) - Wheelchair Same score based on distance traveled: 0(N/A) FUNCTIONAL STATUS: - Self-Care A. Eating Ind B. Grooming Kristie C. Bathing modA D. Dressing - Upper Kristie E. Dressing - Lower modA F. Toileting Kristie - Sphincter Control G. Bladder control sup H. Bowel control Kayode - Transfers Control I. Bed/Chair/Wheelchair modA J. Toilet Kristie K. Tub/Shower modA - Locomotion L. Walk/Wheelchair (B) Kristie M. Stairs modA - Communication N. Comprehension (B) sup O. Expression (B) Kristie - Social Cognition P. Social Interaction Ind Q. Problem Solving Ind R. Memory Ind - Endurance Fair - Balance Fair - Safety Awareness Fair QI SCORES: - Self-Care A. Eating 03-Partial/moderate assistance B. Oral hygiene 03-Partial/moderate assistance C. Toileting hygiene 03-Partial/moderate assistance E. Shower/bathe self 03-Partial/moderate assistance F. Upper body dressing 03-Partial/moderate assistance G. Lower body dressing 03-Partial/moderate assistance H. Putting on/taking off footwear 03-Partial/moderate assistance - Mobility A. Roll left and right 02-Substantial/maximal assistance B. Sit to lying 03-Partial/moderate assistance C. Lying to sitting on side of bed 02-Substantial/maximal assistance D. Sit to stand 02-Substantial/maximal assistance E. Chair/[id number] transfer 02-Substantial/maximal assistance F. Toilet transfer 02-Substantial/maximal assistance G. Car transfer 02-Substantial/maximal assistance I. Walk 10 feet 88-Not attempted due to medical condition or safety concerns J. Walk 50 feet with two turns 88-Not attempted due to medical condition or safety concerns K. Walk 150 feet 88-Not attempted due to medical condition or safety concerns L. Walking 10 feet on uneven surfaces 88-Not attempted due to medical condition or safety concerns M. 1 step (curb) 88-Not attempted due to medical condition or safety concerns N. 4 steps 88-Not attempted due to medical condition or safety concerns O. 12 steps 88-Not attempted due to medical condition or safety concerns P. Picking up object 03-Partial/moderate assistance R. Wheel 50 feet with two turns 09-Not applicable S. Wheel 150 feet 09-Not applicable - Bladder and Bowel Bladder continence 0-Always continent Bowel continence 9-Not rated - Endurance Good - Balance Good - Safety Awareness Good CURRENT FUNC. DEFICITS: Self-Care and Mobility SIGNATURE PANEL: (CDT)
[2021-08-09] MEDS: ATORVASTATIN 40 MG TAB PO SCH (19:36)
[2021-08-10] MEDS: CEFAZOLIN/SWI 2gm 2 GM/20 ML SYR IVP SCH ×3 (00:06→16:43)
[2021-08-10 04:30] LABS: Absolute Lymphocytes (CBC) 1.1 K/uL (0.7-4.9); Hematocrit 33.2 % (39.6-49.0); Lymphocytes % 19.6 % (15.3-44.8); RBC Red Blood Cell Count 3.86 M/uL (4.33-5.43)
[2021-08-10 04:34] LABS: Protime INR 2.1
[2021-08-10 04:49] LABS: Albumin 3.1 g/dL (3.4-5.0); BUN Blood Urea Nitrogen 6 mg/dL (7-18); Bicarbonate 29 mmol/L (21-32); Glomerular Filtration Rate > 90 mL/min (=/>90); Glucose Level 95 mg/dL (74-106); Magnesium 1.8 mg/dL (1.8-2.4); Potassium 3.6 mmol/L (3.5-5.1); Prealbumin 12.5 mg/dL (20-40); Sodium Level 140 mmol/L (136-145)
[2021-08-10] MEDS: METOPROLOL TAR 25 MG TAB PO SCH ×2 (05:03→16:44)
[2021-08-10] MEDS: LIDOCAINE 4% PATCH TOP SCH (06:43)
[2021-08-10] MEDS: PANTOPRAZOLE 40MG TABLET PO SCH ×2 (06:44→16:43)
[2021-08-10] MEDS: ASPIRIN EC 81 MG TAB PO SCH (07:55)
[2021-08-10] MEDS: AMLODIPINE 5 MG TAB PO SCH ×2 (07:56→19:44)
[2021-08-10] MEDS: lisinopriL 10 MG TAB PO SCH (07:56)
[2021-08-10] MEDS: WARFARIN SODIUM 5 MG TAB PO SCH (16:44)
--- NOTE | 2021-08-10 18:09 | R.PN ---
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 Pt denied any Shortness of Breath. Labs reviewed and are stable. WBC 5.5, Hgb 11.1, INR 2.10. Prealbumin 12.5, K 3.6. Wheelchair mobili ty 150' with mod to min assistance with 5 rest brakes. No overt aspiration with thin liquids by straw . Covid-19 is negative. INR is 2.16. Wheelchair mobility 250' with standby assistance. Ambulated 56' with right platform walker and modera te assistance. VITAL SIGNS Temperature: 98.1 F SBP/DBP: 136/68 Pulse: 59 Resp: 16 MEDICATION ALLERGIES: No Known Drug Allergies (NKDA) ENVIRONMENTAL ALLERGIES: - Substance Allergies None Known - Other Allergies None Known NURSING: - Shower allowing shower - Bladder care per protocol - Skin care per protocol PRECAUTIONS: - Weight Bearing Precaution WBAT right LE - Fall Precaution Bed alarm TABS alarm Wheel chair alarm ACTIVITIES OOB only with supervision THERAPIES: - Dietary and Nutrition Adequate Nutrition. Nutritional Education. Nutritional Supplements. Evaluate and Treat. - Occupational Therapy Cognitive Retraining. Patient needs Occupational Therapy for a daily minimum of 1.5 hours at least 5 out of 7 days, to improve Activities of Daily Living, including: Eating, Grooming, Bathing, Dressing, Toileting, Toilet Transfers, Community Reintegration, Higher functional activities, Adaptive Equipme nt, Splinting, Household Tasks, and Other activities as determined. Visual Perceptual Training. Evalu ate and Treat. Safety Awareness. UE ROM. UE Strengthening. - Speech Therapy Cognitive Training. Expressive Language Skills. Memory Strategies. Patient needs Speech Therapy for a daily minimum of 1.5 hours at least 5 out of 7 days, to improve: Swallowing, Cognition, Language Ski lls, and Compensatory Strategies. Receptive Language Skills. Speech Intelligibility Training. Evaluat e and Treat. Dysphagia Therapy. - Physical Therapy Patient needs Physical Therapy for a daily minimum of 1.5 hours at least 5 out of 7 days, to improve: Mobility, Strengthening, Transfers, Stretching, ROM, Endurance, Ability to manage stairs, Gait, and Balance. Evaluate and Treat. Wheelchair Management. Patient/Family Education. Safety Awareness. PHYSICAL EXAM - Gen Alert and awake Lying in bed No apparent distress Oriented to: person, time, and place - Skin No skin breakdown. Normacephalic - Eyes No abnormalities - ENMT No abnormalities - Neck No abnormalities No cervical adenopathy - CVS RRR - Chest No abnormalities - Resp Clear to auscultation - Abd Obese, soft, nontender - GI nondistended Deferred - Joyner catheter will be removed today. - Ext Mild right upper and lower extremity edema. - MSK 3/5 weakness in right upper and lower extremity. - Neuro 3/5 weakness in right upper and lower extremity, and dense right arm and leg numbness with neglect. - Psych Mild depression. ASSESSMENT: Pt. is a 50 yo white male.Pt. is a 50 yo Unknown dexterity white male.On 07/14/2021 Pt. 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 was independen t/mod-I in Locomotion, Safety Awareness, Balance, Transfers Control, Self-Care, Endurance, Communicat ion, Social Cognition, and Sphincter Control.Currently, he has deficits of Locomotion, Balance, Trans fers Control, Communication, Self-Care, Endurance, and Safety Awareness.Pt. is now referred to [facility] for acute in-patient rehabilitation in order to maximize patient's functi onal independence in activities of daily living, strength, ROM, and mobility.- Rehab Goal Patient has realistic goal of being discharged at assistance level 4-Kristie to reside at Home with Fam julian/Relatives. MDM/PLAN: - Physical Therapy Inability to transfer - to improve, our physical therapists will perform initial evaluation of pt's status upon admission and devise an individualized program for Bed mobility Need for home safety evaluation - to improve, our physical therapists will perform initial evaluatio n of pt's status upon admission and devise an individualized program for Home Evaluation Need in caregiver upon discharge - to improve, our physical therapists will perform initial evaluati on of pt's status upon admission and devise an individualized program for Caregiver Training New precaution - to improve, our physical therapists will perform initial evaluation of pt's status upon admission and devise an individualized program for Patient precaution education Edema - to improve, our physical therapists will perform initial evaluation of pt's status upon admi ssion and devise an individualized program for Elevation Training, and Lymphedema Therapy Poor balance - to improve, our physical therapists will perform initial evaluation of pt's status up on admission and devise an individualized program for Balance Training Poor endurance - to improve, our physical therapists will perform initial evaluation of pt's status upon admission and devise an individualized program for Endurance Training Achieving independence - to improve, our physical therapists will perform initial evaluation of pt's status upon admission and devise an individualized program for Community Reintegration Activities - Occupational Therapy ADL deficits - to improve, our occupation therapists will perform initial evaluation of pt's status upon admission and devise an individualized program for Bathing, Bed mobility, Community Reintegratio n, Cooking, Dressing, Eating, Fine Motor Skills, Grooming, Homemaking, Kitchen Mobility, Laundry, Pat ient Education, Safety Awareness, Splinting - Positioning, Transfers(Toilet, Tub, Shower), and Wheel Chair Management Need for toddler caregiver - to improve, our occupation therapists will perform initial evaluation of pt's status upon admission and devise an individualized program for Caregiver Training - Other See attached MAR (Medication Administration Record) - Diet Type Continue NPO (nothing by mouth) - Diet - Liquid Texture Continue N/A - Tube Feed Continue N/A - Bladder care per protocol - Weight Bearing Precaution WBAT right LE - Fall Precaution Bed alarm TABS alarm Wheel chair alarm - Skin care per protocol - Diet - Solid Texture Continue Regular Continue N/A - Shower allowing shower for Dementia, TBI, Stroke, or others FUNCTIONAL STATUS: UPDATED AT WEEKLY TEAM CONFERENCE - Bladder Same accident frequency: 7-Ind - No accidents in the past 7 days - Bowel Same accident frequency: 7-Ind - No accidents in the past 7 days - Walking Same score based on distance walked: 0(N/A) - Wheelchair Same score based on distance traveled: 0(N/A) FUNCTIONAL STATUS: - Self-Care A. Eating Ind B. Grooming Kristie C. Bathing modA D. Dressing - Upper Kristie E. Dressing - Lower modA F. Toileting Kristie - Sphincter Control G. Bladder control sup H. Bowel control Kayode - Transfers Control I. Bed/Chair/Wheelchair modA J. Toilet Kristie K. Tub/Shower modA - Locomotion L. Walk/Wheelchair (B) Kristie M. Stairs modA - Communication N. Comprehension (B) sup O. Expression (B) Kristie - Social Cognition P. Social Interaction Ind Q. Problem Solving Ind R. Memory Ind - Endurance Fair - Balance Fair - Safety Awareness Fair QI SCORES: - Self-Care A. Eating 03-Partial/moderate assistance B. Oral hygiene 03-Partial/moderate assistance C. Toileting hygiene 03-Partial/moderate assistance E. Shower/bathe self 03-Partial/moderate assistance F. Upper body dressing 03-Partial/moderate assistance G. Lower body dressing 03-Partial/moderate assistance H. Putting on/taking off footwear 03-Partial/moderate assistance - Mobility A. Roll left and right 02-Substantial/maximal assistance B. Sit to lying 03-Partial/moderate assistance C. Lying to sitting on side of bed 02-Substantial/maximal assistance D. Sit to stand 02-Substantial/maximal assistance E. Chair/[id number] transfer 02-Substantial/maximal assistance F. Toilet transfer 02-Substantial/maximal assistance G. Car transfer 02-Substantial/maximal assistance I. Walk 10 feet 88-Not attempted due to medical condition or safety concerns J. Walk 50 feet with two turns 88-Not attempted due to medical condition or safety concerns K. Walk 150 feet 88-Not attempted due to medical condition or safety concerns L. Walking 10 feet on uneven surfaces 88-Not attempted due to medical condition or safety concerns M. 1 step (curb) 88-Not attempted due to medical condition or safety concerns N. 4 steps 88-Not attempted due to medical condition or safety concerns O. 12 steps 88-Not attempted due to medical condition or safety concerns P. Picking up object 03-Partial/moderate assistance R. Wheel 50 feet with two turns 09-Not applicable S. Wheel 150 feet 09-Not applicable - Bladder and Bowel Bladder continence 0-Always continent Bowel continence 9-Not rated - Endurance Good - Balance Good - Safety Awareness Good CURRENT FUN. DEFICITS: Self-Care and Mobility SIGNATURE PANEL: (CDT)
[2021-08-10] MEDS: MELATONIN 5 MG TABLET PO PRN (19:44)
[2021-08-10] MEDS: ATORVASTATIN 40 MG TAB PO SCH (19:44)
[2021-08-10] MEDS: DOCUSATE NA/SENNA CONC 1 TAB PO SCH (19:45)
[2021-08-11] MEDS: CEFAZOLIN/SWI 2gm 2 GM/20 ML SYR IVP SCH ×3 (00:04→17:27)
[2021-08-11] MEDS: METOPROLOL TAR 25 MG TAB PO SCH ×2 (05:05→17:28)
[2021-08-11 05:06] LABS: Protime INR 1.87
[2021-08-11] MEDS: PANTOPRAZOLE 40MG TABLET PO SCH (07:13)
[2021-08-11] MEDS: LIDOCAINE 4% PATCH TOP SCH (07:40)
[2021-08-11] MEDS: AMLODIPINE 5 MG TAB PO SCH ×2 (07:41→19:41)
[2021-08-11] MEDS: ACETAMINOPHEN 500 MG TAB PO PRN (07:42)
[2021-08-11] MEDS: ASPIRIN EC 81 MG TAB PO SCH (07:42)
[2021-08-11] MEDS: lisinopriL 10 MG TAB PO SCH ×2 (08:00→10:23)
--- NOTE | 2021-08-11 10:11 | P.RH.PN ---
Expected Discharge Date: 08/26/21 Discharge Disposition Plan: Home Family Support: Yes Heel Varnisher Goal: Mobility, Transfers, Self Care Vital Signs: Last Vital Signs Temp 97.6 F 08/11/21 07:34 Pulse 62 08/11/21 07:41 Resp 16 08/11/21 07:34 BP 129/77 08/11/21 07:41 Pulse Ox 100 08/11/21 07:34 Laboratory: Laboratory Last Values WBC 5.5 K/uL (4.3-10.9) D 08/10/21 04:15 RBC 3.86 M/uL (4.33-5.43) L 08/10/21 04:15 Hgb 11.1 g/dL (13.6-17.9) L 08/10/21 04:15 Hct 33.2 % (39.6-49.0) L 08/10/21 04:15 MCV 86.0 fL (80-100) 08/10/21 04:15 MCH 28.7 pg (27.0-35.0) 08/10/21 04:15 MCHC 33.4 g/dL (32.0-36.0) 08/10/21 04:15 RDW 15.4 % (12.1-15.2) H 08/10/21 04:15 Plt Count 174 K/uL (152-406) D 08/10/21 04:15 MPV 9.0 fL (7.6-11.3) 08/10/21 04:15 Neutrophils % 64.0 % (41.7-73.7) 08/10/21 04:15 Lymphocytes % 19.6 % (15.3-44.8) 08/10/21 04:15 Monocytes % 7.6 % (3.3-12.3) 08/10/21 04:15 Eosinophils % 6.9 % (0-4.4) H 08/10/21 04:15 Basophils % 1.9 % (0-1.3) H 08/10/21 04:15 Absolute Neutrophils 3.5 K/uL (1.8-8.0) 08/10/21 04:15 Absolute Lymphocytes 1.1 K/uL (0.7-4.9) 08/10/21 04:15 Absolute Monocytes 0.4 K/uL (0.1-1.3) 08/10/21 04:15 Absolute Eosinophils 0.4 K/uL (0-0.5) 08/10/21 04:15 Absolute Basophils 0.1 K/uL (0-0.5) 08/10/21 04:15 PT 20.8 SECONDS (9.5-12.5) H 08/11/21 04:20 INR 1.87 08/11/21 04:20 Sodium 140 mmol/L (136-145) 08/10/21 04:15 Potassium 3.6 mmol/L (3.5-5.1) 08/10/21 04:15 Chloride 106 mmol/L (98-107) 08/10/21 04:15 Carbon Dioxide 29 mmol/L (21-32) 08/10/21 04:15 Anion Gap 8.6 mEq/L (5.0-15.0) 08/10/21 04:15 BUN 6 mg/dL (7-18) L 08/10/21 04:15 Creatinine 0.75 mg/dL (0.55-1.3) 08/10/21 04:15 Estimated GFR > 90 mL/min (=/>90) 08/10/21 04:15 Glucose 95 mg/dL (74-106) 08/10/21 04:15 POC Glucose 84 mg/dL (65-120) 08/07/21 03:07 Calcium 8.9 mg/dL (8.5-10.1) 08/10/21 04:15 Magnesium 1.8 mg/dL (1.8-2.4) 08/10/21 04:15 Albumin 3.1 g/dL (3.4-5.0) L 08/10/21 04:15 Prealbumin 12.5 mg/dL (20-40) L 08/10/21 04:15 Urine Color Yellow (Yellow) 08/03/21 20:38 Urine Appearance Hazy (Clear) 08/03/21 20:38 Urine pH 7.5 (5.0-7.0) H 08/03/21 20:38 Ur Specific [place] 1.020 (1.005-1.030) 08/03/21 20:38 Glucose (UA)(Auto) Negative (Negative) 08/03/21 20:38 Urine Ketones Negative (Negative) 08/03/21 20:38 Urine Blood 2+ (Negative) H 08/03/21 20:38 Urine Nitrite Negative (Negative) 08/03/21 20:38 Urine Bilirubin Negative (Negative) 08/03/21 20:38 Urine Urobilinogen 2.0 mg/dL (0.2-1.0) H 08/03/21 20:38 Ur Leukocyte Esterase Negative (Negative) 08/03/21 20:38 Urine RBC 5-10 /HPF (NONE SEEN) H 08/03/21 20:38 Urine WBC <5 /HPF (<5) 08/03/21 20:38 Ur Squamous Epith Cells <5 /HPF (NONE SEEN) 08/03/21 20:38 Ur Urothelial Cells Cancelled 08/03/21 19:30 Calcium Oxalate Crystal Cancelled 08/03/21 19:30 Uric Acid Crystals Cancelled 08/03/21 19:30 Triple Phos Crystals Cancelled 08/03/21 19:30 Other Crystals Cancelled 08/03/21 19:30 Amorphous Sediment 2+ /HPF (NONE SEEN) H 08/03/21 20:38 Glitter Cells Cancelled 08/03/21 19:30 Urine Bacteria <20 /HPF (NONE SEEN) 08/03/21 20:38 Hyaline Casts Cancelled 08/03/21 19:30 Fine Granular Casts Cancelled 08/03/21 19:30 Coarse Granular Casts Cancelled 08/03/21 19:30 Waxy Casts Cancelled 08/03/21 19:30 RBC Casts Cancelled 08/03/21 19:30 WBC Casts Cancelled 08/03/21 19:30 Urine Mucus Cancelled 08/03/21 19:30 Urine Other Cancelled 08/03/21 19:30 Urine Trichomonas Cancelled 08/03/21 19:30 Urine Yeast Cancelled 08/03/21 19:30 Ur Yeast w Hyphae Cancelled 08/03/21 19:30 Urine Yeast (Budding) Cancelled 08/03/21 19:30 Urine Sperm Cancelled 08/03/21 19:30 Urine Culture Reflexed Not needed 08/03/21 20:38 Urine Total Volume Cancelled 08/03/21 19:30 Urine Total Protein 2+ (Negative) H 08/03/21 20:38 SARS-CoV-2 Rap RNA(RT-PCR) Negative (NEGATIVE) 08/10/21 07:38 Weight: 266 lb Wound Present: No Closed Surgical Incision Present: No Negative Pressure Wound Therapy Present: No Physician Update: Bed mobility CGA, supine to sit as well, sit to stand and platform walker 70'. Wheelchair 150' with SBA. He needs mod assistance in the shower, upper and lower body dress mod assistance, max assistance for foot wear. Will barrett E-stim. Doing very well with speech, better comprehension, expression making minimal progress. Comment: no skin breakdown reported Functional Improvement: Patient continues to show progress w/ gait tx., posture, hand placement, and safety awareness. Patient presents w/ slightly delayed processing, however shows good potential for continued progression. Patient presents w/ a very good attitude, and work ethic toward therapy. Summary: Patient's care plan and care home goals have been reviewed and revised as necessary. Please see the Rehabilitation Signature page for all necessary signatures.
[2021-08-11] MEDS: Pantoprazole (granules) 40 MG/BLIST PACKET FT SCH (16:40)
[2021-08-11] MEDS ORDERED: WARFARIN SODIUM 6 MG TAB PO SCH (17:00)
[2021-08-11] MEDS: lisinopriL 5 MG TAB PO SCH (19:41)
[2021-08-11] MEDS: ATORVASTATIN 40 MG TAB PO SCH (19:42)
[2021-08-11] MEDS: DOCUSATE NA/SENNA CONC 1 TAB PO SCH (19:42)
[2021-08-12] MEDS: CEFAZOLIN/SWI 2gm 2 GM/20 ML SYR IVP SCH ×3 (01:41→17:22)
[2021-08-12] MEDS: METOPROLOL TAR 25 MG TAB PO SCH ×2 (05:29→17:11)
[2021-08-12 06:57] LABS: Protime INR 1.66
[2021-08-12] MEDS: Pantoprazole (granules) 40 MG/BLIST PACKET FT SCH ×2 (07:54→16:47)
[2021-08-12] MEDS: ASPIRIN EC 81 MG TAB PO SCH (07:55)
[2021-08-12] MEDS: lisinopriL 5 MG TAB PO SCH ×2 (07:55→20:53)
[2021-08-12] MEDS: LIDOCAINE 4% PATCH TOP SCH (07:57)
[2021-08-12] MEDS: AMLODIPINE 5 MG TAB PO SCH ×2 (08:00→20:53)
[2021-08-12] MEDS ORDERED: WARFARIN SODIUM 4 MG TAB PO ONE (17:00)
--- NOTE | 2021-08-12 17:09 | R.PN ---
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 Pt denied any Shortness of Breath. Labs reviewed and are stable. WBC 5.5, Hgb 11.1, INR 2.10. Prealbumin 12.5, K 3.6. Wheelchair mobili ty 150' with mod to min assistance with 5 rest brakes. No overt aspiration with thin liquids by straw . Covid-19 is negative. INR is 1.66. Will give 8 mg coumadin today, then 6 mg daily. Ambulated 160' with right platform walker and moderate assistance. VITAL SIGNS Temperature: 98.4 F SBP/DBP: 119/58 Pulse: 65 Resp: 16 MEDICATION ALLERGIES: No Known Drug Allergies (NKDA) ENVIRONMENTAL ALLERGIES: - Substance Allergies None Known - Other Allergies None Known NURSING: - Shower allowing shower - Bladder care per protocol - Skin care per protocol PRECAUTIONS: - Weight Bearing Precaution WBAT right LE - Fall Precaution Bed alarm TABS alarm Wheel chair alarm ACTIVITIES OOB only with supervision THERAPIES: - Dietary and Nutrition Adequate Nutrition. Nutritional Education. Nutritional Supplements. Evaluate and Treat. - Occupational Therapy Cognitive Retraining. Patient needs Occupational Therapy for a daily minimum of 1.5 hours at least 5 out of 7 days, to improve Activities of Daily Living, including: Eating, Grooming, Bathing, Dressing, Toileting, Toilet Transfers, Community Reintegration, Higher functional activities, Adaptive Equipme nt, Splinting, Household Tasks, and Other activities as determined. Visual Perceptual Training. Evalu ate and Treat. Safety Awareness. UE ROM. UE Strengthening. - Speech Therapy Cognitive Training. Expressive Language Skills. Memory Strategies. Patient needs Speech Therapy for a daily minimum of 1.5 hours at least 5 out of 7 days, to improve: Swallowing, Cognition, Language Ski lls, and Compensatory Strategies. Receptive Language Skills. Speech Intelligibility Training. Evaluat e and Treat. Dysphagia Therapy. - Physical Therapy Patient needs Physical Therapy for a daily minimum of 1.5 hours at least 5 out of 7 days, to improve: Mobility, Strengthening, Transfers, Stretching, ROM, Endurance, Ability to manage stairs, Gait, and Balance. Evaluate and Treat. Wheelchair Management. Patient/Family Education. Safety Awareness. PHYSICAL EXAM - Gen Alert and awake Lying in bed No apparent distress Oriented to: person, time, and place - Skin No skin breakdown. Normacephalic - Eyes No abnormalities - ENMT No abnormalities - Neck No abnormalities No cervical adenopathy - CVS RRR - Chest No abnormalities - Resp Clear to auscultation - Abd Obese, soft, nontender - GI nondistended Deferred - Joyner catheter will be removed today. - Ext Mild right upper and lower extremity edema. - MSK 3/5 weakness in right upper and lower extremity. - Neuro 3/5 weakness in right upper and lower extremity, and dense right arm and leg numbness with neglect. - Psych Mild depression. ASSESSMENT: Pt. is a 50 yo white male.Pt. is a 50 yo Unknown dexterity white male.On 07/14/2021 Pt. 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 was independen t/mod-I in Locomotion, Safety Awareness, Balance, Transfers Control, Self-Care, Endurance, Communicat ion, Social Cognition, and Sphincter Control.Currently, he has deficits of Locomotion, Balance, Trans fers Control, Communication, Self-Care, Endurance, and Safety Awareness.Pt. is now referred to [facility] for acute in-patient rehabilitation in order to maximize patient's functi onal independence in activities of daily living, strength, ROM, and mobility.- Rehab Goal Patient has realistic goal of being discharged at assistance level 4-Kristie to reside at Home with Fam julian/Relatives. MDM/PLAN: - Physical Therapy Inability to transfer - to improve, our physical therapists will perform initial evaluation of pt's status upon admission and devise an individualized program for Bed mobility Need for home safety evaluation - to improve, our physical therapists will perform initial evaluatio n of pt's status upon admission and devise an individualized program for Home Evaluation Need in caregiver upon discharge - to improve, our physical therapists will perform initial evaluati on of pt's status upon admission and devise an individualized program for Caregiver Training New precaution - to improve, our physical therapists will perform initial evaluation of pt's status upon admission and devise an individualized program for Patient precaution education Edema - to improve, our physical therapists will perform initial evaluation of pt's status upon admi ssion and devise an individualized program for Elevation Training, and Lymphedema Therapy Poor balance - to improve, our physical therapists will perform initial evaluation of pt's status up on admission and devise an individualized program for Balance Training Poor endurance - to improve, our physical therapists will perform initial evaluation of pt's status upon admission and devise an individualized program for Endurance Training Achieving independence - to improve, our physical therapists will perform initial evaluation of pt's status upon admission and devise an individualized program for Community Reintegration Activities - Occupational Therapy ADL deficits - to improve, our occupation therapists will perform initial evaluation of pt's status upon admission and devise an individualized program for Bathing, Bed mobility, Community Reintegratio n, Cooking, Dressing, Eating, Fine Motor Skills, Grooming, Homemaking, Kitchen Mobility, Laundry, Pat ient Education, Safety Awareness, Splinting - Positioning, Transfers(Toilet, Tub, Shower), and Wheel Chair Management Need for medicare contact specialist - to improve, our occupation therapists will perform initial evaluation of pt's status upon admission and devise an individualized program for Caregiver Training - Other See attached MAR (Medication Administration Record) - Diet Type Continue NPO (nothing by mouth) - Diet - Liquid Texture Continue N/A - Tube Feed Continue N/A - Bladder care per protocol - Weight Bearing Precaution WBAT right LE - Fall Precaution Bed alarm TABS alarm Wheel chair alarm - Skin care per protocol - Diet - Solid Texture Continue Regular Continue N/A - Shower allowing shower for Dementia, TBI, Stroke, or others FUNCTIONAL STATUS: UPDATED AT WEEKLY TEAM CONFERENCE - Bladder Same accident frequency: 7-Ind - No accidents in the past 7 days - Bowel Same accident frequency: 7-Ind - No accidents in the past 7 days - Walking Same score based on distance walked: 0(N/A) - Wheelchair Same score based on distance traveled: 0(N/A) FUNCTIONAL STATUS: - Self-Care A. Eating Ind B. Grooming Kristie C. Bathing modA D. Dressing - Upper Kristie E. Dressing - Lower modA F. Toileting Kristie - Sphincter Control G. Bladder control sup H. Bowel control Kayode - Transfers Control I. Bed/Chair/Wheelchair modA J. Toilet Kristie K. Tub/Shower modA - Locomotion L. Walk/Wheelchair (B) Kristie M. Stairs modA - Communication N. Comprehension (B) sup O. Expression (B) Kristie - Social Cognition P. Social Interaction Ind Q. Problem Solving Ind R. Memory Ind - Endurance Fair - Balance Fair - Safety Awareness Fair QI SCORES: - Self-Care A. Eating 03-Partial/moderate assistance B. Oral hygiene 03-Partial/moderate assistance C. Toileting hygiene 03-Partial/moderate assistance E. Shower/bathe self 03-Partial/moderate assistance F. Upper body dressing 03-Partial/moderate assistance G. Lower body dressing 03-Partial/moderate assistance H. Putting on/taking off footwear 03-Partial/moderate assistance - Mobility A. Roll left and right 02-Substantial/maximal assistance B. Sit to lying 03-Partial/moderate assistance C. Lying to sitting on side of bed 02-Substantial/maximal assistance D. Sit to stand 02-Substantial/maximal assistance E. Chair/[id number] transfer 02-Substantial/maximal assistance F. Toilet transfer 02-Substantial/maximal assistance G. Car transfer 02-Substantial/maximal assistance I. Walk 10 feet 88-Not attempted due to medical condition or safety concerns J. Walk 50 feet with two turns 88-Not attempted due to medical condition or safety concerns K. Walk 150 feet 88-Not attempted due to medical condition or safety concerns L. Walking 10 feet on uneven surfaces 88-Not attempted due to medical condition or safety concerns M. 1 step (curb) 88-Not attempted due to medical condition or safety concerns N. 4 steps 88-Not attempted due to medical condition or safety concerns O. 12 steps 88-Not attempted due to medical condition or safety concerns P. Picking up object 03-Partial/moderate assistance R. Wheel 50 feet with two turns 09-Not applicable S. Wheel 150 feet 09-Not applicable - Bladder and Bowel Bladder continence 0-Always continent Bowel continence 9-Not rated - Endurance Good - Balance Good - Safety Awareness Good CURRENT [facility]. DEFICITS: Self-Care and Mobility SIGNATURE PANEL: (CDT)
[2021-08-12] MEDS: ATORVASTATIN 40 MG TAB PO SCH (20:53)
[2021-08-12] MEDS: DOCUSATE NA/SENNA CONC 1 TAB PO SCH (20:54)
[2021-08-13] MEDS: CEFAZOLIN/SWI 2gm 2 GM/20 ML SYR IVP SCH ×3 (00:03→16:59)
[2021-08-13 04:35] LABS: Protime INR 1.61
[2021-08-13] MEDS: METOPROLOL TAR 25 MG TAB PO SCH ×2 (05:03→17:09)
[2021-08-13] MEDS: AMLODIPINE 5 MG TAB PO SCH (08:00)
[2021-08-13] MEDS: Pantoprazole (granules) 40 MG/BLIST PACKET FT SCH ×2 (09:16→16:57)
[2021-08-13] MEDS: lisinopriL 5 MG TAB PO SCH ×2 (09:16→20:00)
[2021-08-13] MEDS: LIDOCAINE 4% PATCH TOP SCH (09:16)
[2021-08-13] MEDS: ASPIRIN EC 81 MG TAB PO SCH (09:17)
[2021-08-13] MEDS ORDERED: WARFARIN SODIUM 6 MG TAB PO SCH (17:00)
[2021-08-13] MEDS ORDERED: WARFARIN SODIUM 5 MG TAB PO ONE (17:00)
[2021-08-13] MEDS: DOCUSATE NA/SENNA CONC 1 TAB PO SCH (20:25)
[2021-08-13] MEDS: ATORVASTATIN 40 MG TAB PO SCH (20:25)
[2021-08-14] MEDS: CEFAZOLIN/SWI 2gm 2 GM/20 ML SYR IVP SCH ×3 (00:19→17:35)
[2021-08-14 04:53] LABS: Protime INR 1.78
[2021-08-14] MEDS: METOPROLOL TAR 25 MG TAB PO SCH ×2 (05:05→17:48)
[2021-08-14] MEDS: LIDOCAINE 4% PATCH TOP SCH ×2 (07:58→08:00)
[2021-08-14] MEDS: ASPIRIN EC 81 MG TAB PO SCH (07:58)
[2021-08-14] MEDS: Pantoprazole (granules) 40 MG/BLIST PACKET FT SCH ×2 (07:58→17:27)
[2021-08-14] MEDS: AMLODIPINE 5 MG TAB PO SCH (08:00)
[2021-08-14] MEDS: lisinopriL 5 MG TAB PO SCH ×2 (08:00→20:31)
[2021-08-14] MEDS: WARFARIN SODIUM 2 MG TAB PO SCH (17:27)
[2021-08-14] MEDS ORDERED: WATER FOR INJ,STERILE 10 ML IV SCH (18:00)
[2021-08-14] MEDS ORDERED: ALTEPLASE 2 MG/VIAL IV SCH (18:00)
--- NOTE | 2021-08-14 19:19 | R.PN ---
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 Pt denied any Shortness of Breath. Labs reviewed and are stable. WBC 5.5, Hgb 11.1, INR 2.10. Prealbumin 12.5, K 3.6. Wheelchair mobili ty 150' with mod to min assistance with 5 rest brakes. No overt aspiration with thin liquids by straw . Covid-19 is negative. INR is 1.78. Will give 7 mg coumadin daily. Ambulated 330' with right platform walker and moderate assistance. VITAL SIGNS Temperature: 97.8 F SBP/DBP: 131/91 Pulse: 64 Resp: 16 MEDICATION ALLERGIES: No Known Drug Allergies (NKDA) ENVIRONMENTAL ALLERGIES: - Substance Allergies None Known - Other Allergies None Known NURSING: - Shower allowing shower - Bladder care per protocol - Skin care per protocol PRECAUTIONS: - Weight Bearing Precaution WBAT right LE - Fall Precaution Bed alarm TABS alarm Wheel chair alarm ACTIVITIES OOB only with supervision THERAPIES: - Dietary and Nutrition Adequate Nutrition. Nutritional Education. Nutritional Supplements. Evaluate and Treat. - Occupational Therapy Cognitive Retraining. Patient needs Occupational Therapy for a daily minimum of 1.5 hours at least 5 out of 7 days, to improve Activities of Daily Living, including: Eating, Grooming, Bathing, Dressing, Toileting, Toilet Transfers, Community Reintegration, Higher functional activities, Adaptive Equipme nt, Splinting, Household Tasks, and Other activities as determined. Visual Perceptual Training. Evalu ate and Treat. Safety Awareness. UE ROM. UE Strengthening. - Speech Therapy Cognitive Training. Expressive Language Skills. Memory Strategies. Patient needs Speech Therapy for a daily minimum of 1.5 hours at least 5 out of 7 days, to improve: Swallowing, Cognition, Language Ski lls, and Compensatory Strategies. Receptive Language Skills. Speech Intelligibility Training. Evaluat e and Treat. Dysphagia Therapy. - Physical Therapy Patient needs Physical Therapy for a daily minimum of 1.5 hours at least 5 out of 7 days, to improve: Mobility, Strengthening, Transfers, Stretching, ROM, Endurance, Ability to manage stairs, Gait, and Balance. Evaluate and Treat. Wheelchair Management. Patient/Family Education. Safety Awareness. PHYSICAL EXAM - Gen Alert and awake Lying in bed No apparent distress Oriented to: person, time, and place - Skin No skin breakdown. Normacephalic - Eyes No abnormalities - ENMT No abnormalities - Neck No abnormalities No cervical adenopathy - CVS RRR - Chest No abnormalities - Resp Clear to auscultation - Abd Obese, soft, nontender - GI nondistended Deferred - Joyner catheter will be removed today. - Ext Mild right upper and lower extremity edema. - MSK 3/5 weakness in right upper and lower extremity. - Neuro 3/5 weakness in right upper and lower extremity, and dense right arm and leg numbness with neglect. - Psych Mild depression. ASSESSMENT: Pt. is a 50 yo white male.Pt. is a 50 yo Unknown dexterity white male.On 07/14/2021 Pt. 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 was independen t/mod-I in Locomotion, Safety Awareness, Balance, Transfers Control, Self-Care, Endurance, Communicat ion, Social Cognition, and Sphincter Control.Currently, he has deficits of Locomotion, Balance, Trans fers Control, Communication, Self-Care, Endurance, and Safety Awareness.Pt. is now referred to [facility] for acute in-patient rehabilitation in order to maximize patient's functi onal independence in activities of daily living, strength, ROM, and mobility.- Rehab Goal Patient has realistic goal of being discharged at assistance level 4-Kristie to reside at Home with Fam julian/Relatives. MDM/PLAN: - Physical Therapy Inability to transfer - to improve, our physical therapists will perform initial evaluation of pt's status upon admission and devise an individualized program for Bed mobility Need for home safety evaluation - to improve, our physical therapists will perform initial evaluatio n of pt's status upon admission and devise an individualized program for Home Evaluation Need in caregiver upon discharge - to improve, our physical therapists will perform initial evaluati on of pt's status upon admission and devise an individualized program for Caregiver Training New precaution - to improve, our physical therapists will perform initial evaluation of pt's status upon admission and devise an individualized program for Patient precaution education Edema - to improve, our physical therapists will perform initial evaluation of pt's status upon admi ssion and devise an individualized program for Elevation Training, and Lymphedema Therapy Poor balance - to improve, our physical therapists will perform initial evaluation of pt's status up on admission and devise an individualized program for Balance Training Poor endurance - to improve, our physical therapists will perform initial evaluation of pt's status upon admission and devise an individualized program for Endurance Training Achieving independence - to improve, our physical therapists will perform initial evaluation of pt's status upon admission and devise an individualized program for Community Reintegration Activities - Occupational Therapy ADL deficits - to improve, our occupation therapists will perform initial evaluation of pt's status upon admission and devise an individualized program for Bathing, Bed mobility, Community Reintegratio n, Cooking, Dressing, Eating, Fine Motor Skills, Grooming, Homemaking, Kitchen Mobility, Laundry, Pat ient Education, Safety Awareness, Splinting - Positioning, Transfers(Toilet, Tub, Shower), and Wheel Chair Management Need for healthcare recruiter - to improve, our occupation therapists will perform initial evaluation of pt's status upon admission and devise an individualized program for Caregiver Training - Other See attached MAR (Medication Administration Record) - Diet Type Continue NPO (nothing by mouth) - Diet - Liquid Texture Continue N/A - Tube Feed Continue N/A - Bladder care per protocol - Weight Bearing Precaution WBAT right LE - Fall Precaution Bed alarm TABS alarm Wheel chair alarm - Skin care per protocol - Diet - Solid Texture Continue Regular Continue N/A - Shower allowing shower for Dementia, TBI, Stroke, or others FUNCTIONAL STATUS: UPDATED AT WEEKLY TEAM CONFERENCE - Bladder Same accident frequency: 7-Ind - No accidents in the past 7 days - Bowel Same accident frequency: 7-Ind - No accidents in the past 7 days - Walking Same score based on distance walked: 0(N/A) - Wheelchair Same score based on distance traveled: 0(N/A) FUNCTIONAL STATUS: - Self-Care A. Eating Ind B. Grooming Kristie C. Bathing modA D. Dressing - Upper Kristie E. Dressing - Lower modA F. Toileting Kristie - Sphincter Control G. Bladder control sup H. Bowel control Kayode - Transfers Control I. Bed/Chair/Wheelchair modA J. Toilet Kristie K. Tub/Shower modA - Locomotion L. Walk/Wheelchair (B) Kristie M. Stairs modA - Communication N. Comprehension (B) sup O. Expression (B) Kristie - Social Cognition P. Social Interaction Ind Q. Problem Solving Ind R. Memory Ind - Endurance Fair - Balance Fair - Safety Awareness Fair QI SCORES: - Self-Care A. Eating 03-Partial/moderate assistance B. Oral hygiene 03-Partial/moderate assistance C. Toileting hygiene 03-Partial/moderate assistance E. Shower/bathe self 03-Partial/moderate assistance F. Upper body dressing 03-Partial/moderate assistance G. Lower body dressing 03-Partial/moderate assistance H. Putting on/taking off footwear 03-Partial/moderate assistance - Mobility A. Roll left and right 02-Substantial/maximal assistance B. Sit to lying 03-Partial/moderate assistance C. Lying to sitting on side of bed 02-Substantial/maximal assistance D. Sit to stand 02-Substantial/maximal assistance E. Chair/cdj-no-[id number] transfer 02-Substantial/maximal assistance F. Toilet transfer 02-Substantial/maximal assistance G. Car transfer 02-Substantial/maximal assistance I. Walk 10 feet 88-Not attempted due to medical condition or safety concerns J. Walk 50 feet with two turns 88-Not attempted due to medical condition or safety concerns K. Walk 150 feet 88-Not attempted due to medical condition or safety concerns L. Walking 10 feet on uneven surfaces 88-Not attempted due to medical condition or safety concerns M. 1 step (curb) 88-Not attempted due to medical condition or safety concerns N. 4 steps 88-Not attempted due to medical condition or safety concerns O. 12 steps 88-Not attempted due to medical condition or safety concerns P. Picking up object 03-Partial/moderate assistance R. Wheel 50 feet with two turns 09-Not applicable S. Wheel 150 feet 09-Not applicable - Bladder and Bowel Bladder continence 0-Always continent Bowel continence 9-Not rated - Endurance Good - Balance Good - Safety Awareness Good CURRENT FUN. DEFICITS: Self-Care and Mobility SIGNATURE PANEL: (CDT)
[2021-08-14] MEDS: DOCUSATE NA/SENNA CONC 1 TAB PO SCH ×2 (20:31→21:00)
[2021-08-14] MEDS: ATORVASTATIN 40 MG TAB PO SCH (20:31)
[2021-08-15] MEDS: CEFAZOLIN/SWI 2gm 2 GM/20 ML SYR IVP SCH ×3 (00:06→17:28)
[2021-08-15 04:54] LABS: Protime INR 2.14
[2021-08-15] MEDS: METOPROLOL TAR 25 MG TAB PO SCH ×2 (05:39→17:25)
[2021-08-15] MEDS: AMLODIPINE 5 MG TAB PO SCH (08:00)
[2021-08-15] MEDS: LIDOCAINE 4% PATCH TOP SCH (08:00)
[2021-08-15] MEDS: ASPIRIN EC 81 MG TAB PO SCH (08:02)
[2021-08-15] MEDS: lisinopriL 5 MG TAB PO SCH ×2 (08:02→20:24)
[2021-08-15] MEDS: Pantoprazole (granules) 40 MG/BLIST PACKET FT SCH ×2 (08:04→16:43)
--- NOTE | 2021-08-15 10:26 | ECHO ---
HEIGHT: 5 ft 11 in WEIGHT: 266 lb 0 oz DATE OF STUDY: 08/15/[address]: Domingo Jordan MD 2-DIMENSIONAL: YES M.MODE: YES DOPPLER: YES COLOR FLOW: YES TDS: NO PORTABLE: YES DEFINITY: NO BUBBLE STUDY: NO DIAGNOSIS: FOLLOWUP CARDIAC HISTORY: CATHERIZATION: YES SURGERY: YES PROSTHETIC VALVE: NO PACEMAKER: NO MEASUREMENTS (cm) DIASTOLIC (NORMALS) SYSTOLIC (NORMALS) IVSd 1.3 (0.6-1.2) LA Diam (1.9-4.0) LVEF 64% LVIDd 3.9 (3.5-5.7) LVIDs 2.6 (2.0-3.5) %FS 35% LVPWd 1.1 (0.6-1.2) Ao Diam 2.6 (2.0-3.7) 2 DIMENSIONAL ASSESSMENT: RIGHT ATRIUM: NORMAL LEFT ATRIUM: NORMAL RIGHT VENTRICLE: NORMAL LEFT VENTRICLE: NORMAL TRICUSPID VALVE: NORMAL MITRAL VALVE: MITRAL ANNULAR CALCIFICATION PULMONIC VALVE: NORMAL AORTIC VALVE: SCLEROSIS PERICARDIAL EFFUSION: NONE AORTIC ROOT: NORMAL LEFT VENTRICULAR WALL MOTION: NORMAL. DOPPLER/COLOR FLOW: NORMAL. COMMENTS: MITRAL ANNULAR CALCIFICATION. AORTIC SCLEROSIS. NORMAL LEFT VENTRICULAR SIZE AND FUNCTION. TECHNOLOGIST: RYAN PICKENS
[2021-08-15] MEDS: WARFARIN SODIUM 2 MG TAB PO SCH (16:44)
[2021-08-15] MEDS: ACETAMINOPHEN 500 MG TAB PO PRN (17:24)
--- NOTE | 2021-08-15 17:34 | R.PN ---
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 Pt denied any Shortness of Breath. Labs reviewed and are stable. WBC 5.5, Hgb 11.1, INR 2.10. Prealbumin 12.5, K 3.6. Covid-19 is negat bettina. INR is 2.14 on 7 mg coumadin daily. Ambulated 440' with right platform walker and moderate assistance. VITAL SIGNS Temperature: 98.2 F SBP/DBP: 120/69 Pulse: 75 Resp: 16 MEDICATION ALLERGIES: No Known Drug Allergies (NKDA) ENVIRONMENTAL ALLERGIES: - Substance Allergies None Known - Other Allergies None Known NURSING: - Shower allowing shower - Bladder care per protocol - Skin care per protocol PRECAUTIONS: - Weight Bearing Precaution WBAT right LE - Fall Precaution Bed alarm TABS alarm Wheel chair alarm ACTIVITIES OOB only with supervision THERAPIES: - Dietary and Nutrition Adequate Nutrition. Nutritional Education. Nutritional Supplements. Evaluate and Treat. - Occupational Therapy Cognitive Retraining. Patient needs Occupational Therapy for a daily minimum of 1.5 hours at least 5 out of 7 days, to improve Activities of Daily Living, including: Eating, Grooming, Bathing, Dressing, Toileting, Toilet Transfers, Community Reintegration, Higher functional activities, Adaptive Equipme nt, Splinting, Household Tasks, and Other activities as determined. Visual Perceptual Training. Evalu ate and Treat. Safety Awareness. UE ROM. UE Strengthening. - Speech Therapy Cognitive Training. Expressive Language Skills. Memory Strategies. Patient needs Speech Therapy for a daily minimum of 1.5 hours at least 5 out of 7 days, to improve: Swallowing, Cognition, Language Ski lls, and Compensatory Strategies. Receptive Language Skills. Speech Intelligibility Training. Evaluat e and Treat. Dysphagia Therapy. - Physical Therapy Patient needs Physical Therapy for a daily minimum of 1.5 hours at least 5 out of 7 days, to improve: Mobility, Strengthening, Transfers, Stretching, ROM, Endurance, Ability to manage stairs, Gait, and Balance. Evaluate and Treat. Wheelchair Management. Patient/Family Education. Safety Awareness. PHYSICAL EXAM - Gen Alert and awake Lying in bed No apparent distress Oriented to: person, time, and place - Skin No skin breakdown. Normacephalic - Eyes No abnormalities - ENMT No abnormalities - Neck No abnormalities No cervical adenopathy - CVS RRR - Chest No abnormalities - Resp Clear to auscultation - Abd Obese, soft, nontender - GI nondistended Deferred - Joyner catheter will be removed today. - Ext Mild right upper and lower extremity edema. - MSK 3/5 weakness in right upper and lower extremity. - Neuro 3/5 weakness in right upper and lower extremity, and dense right arm and leg numbness with neglect. - Psych Mild depression. ASSESSMENT: Pt. is a 50 yo white male.Pt. is a 50 yo Unknown dexterity white male.On 07/14/2021 Pt. 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 was independen t/mod-I in Locomotion, Safety Awareness, Balance, Transfers Control, Self-Care, Endurance, Communicat ion, Social Cognition, and Sphincter Control.Currently, he has deficits of Locomotion, Balance, Trans fers Control, Communication, Self-Care, Endurance, and Safety Awareness.Pt. is now referred to [facility] for acute in-patient rehabilitation in order to maximize patient's functi onal independence in activities of daily living, strength, ROM, and mobility.- Rehab Goal Patient has realistic goal of being discharged at assistance level 4-Kristie to reside at Home with Fam julian/Relatives. MDM/PLAN: - Physical Therapy Inability to transfer - to improve, our physical therapists will perform initial evaluation of pt's status upon admission and devise an individualized program for Bed mobility Need for home safety evaluation - to improve, our physical therapists will perform initial evaluatio n of pt's status upon admission and devise an individualized program for Home Evaluation Need in caregiver upon discharge - to improve, our physical therapists will perform initial evaluati on of pt's status upon admission and devise an individualized program for Caregiver Training New precaution - to improve, our physical therapists will perform initial evaluation of pt's status upon admission and devise an individualized program for Patient precaution education Edema - to improve, our physical therapists will perform initial evaluation of pt's status upon admi ssion and devise an individualized program for Elevation Training, and Lymphedema Therapy Poor balance - to improve, our physical therapists will perform initial evaluation of pt's status up on admission and devise an individualized program for Balance Training Poor endurance - to improve, our physical therapists will perform initial evaluation of pt's status upon admission and devise an individualized program for Endurance Training Achieving independence - to improve, our physical therapists will perform initial evaluation of pt's status upon admission and devise an individualized program for Community Reintegration Activities - Occupational Therapy ADL deficits - to improve, our occupation therapists will perform initial evaluation of pt's status upon admission and devise an individualized program for Bathing, Bed mobility, Community Reintegratio n, Cooking, Dressing, Eating, Fine Motor Skills, Grooming, Homemaking, Kitchen Mobility, Laundry, Pat ient Education, Safety Awareness, Splinting - Positioning, Transfers(Toilet, Tub, Shower), and Wheel Chair Management Need for healthcare administrator - to improve, our occupation therapists will perform initial evaluation of pt's status upon admission and devise an individualized program for Caregiver Training - Other See attached MAR (Medication Administration Record) - Diet Type Continue NPO (nothing by mouth) - Diet - Liquid Texture Continue N/A - Tube Feed Continue N/A - Bladder care per protocol - Weight Bearing Precaution WBAT right LE - Fall Precaution Bed alarm TABS alarm Wheel chair alarm - Skin care per protocol - Diet - Solid Texture Continue Regular Continue N/A - Shower allowing shower for Dementia, TBI, Stroke, or others FUNCTIONAL STATUS: UPDATED AT WEEKLY TEAM CONFERENCE - Bladder Same accident frequency: 7-Ind - No accidents in the past 7 days - Bowel Same accident frequency: 7-Ind - No accidents in the past 7 days - Walking Same score based on distance walked: 0(N/A) - Wheelchair Same score based on distance traveled: 0(N/A) FUNCTIONAL STATUS: - Self-Care A. Eating Ind B. Grooming Kristie C. Bathing modA D. Dressing - Upper Kristie E. Dressing - Lower modA F. Toileting Kristie - Sphincter Control G. Bladder control sup H. Bowel control Kayode - Transfers Control I. Bed/Chair/Wheelchair modA J. Toilet Kristie K. Tub/Shower modA - Locomotion L. Walk/Wheelchair (B) Kristie M. Stairs modA - Communication N. Comprehension (B) sup O. Expression (B) Kristie - Social Cognition P. Social Interaction Ind Q. Problem Solving Ind R. Memory Ind - Endurance Fair - Balance Fair - Safety Awareness Fair QI SCORES: - Self-Care A. Eating 03-Partial/moderate assistance B. Oral hygiene 03-Partial/moderate assistance C. Toileting hygiene 03-Partial/moderate assistance E. Shower/bathe self 03-Partial/moderate assistance F. Upper body dressing 03-Partial/moderate assistance G. Lower body dressing 03-Partial/moderate assistance H. Putting on/taking off footwear 03-Partial/moderate assistance - Mobility A. Roll left and right 02-Substantial/maximal assistance B. Sit to lying 03-Partial/moderate assistance C. Lying to sitting on side of bed 02-Substantial/maximal assistance D. Sit to stand 02-Substantial/maximal assistance E. Chair/[id number] transfer 02-Substantial/maximal assistance F. Toilet transfer 02-Substantial/maximal assistance G. Car transfer 02-Substantial/maximal assistance I. Walk 10 feet 88-Not attempted due to medical condition or safety concerns J. Walk 50 feet with two turns 88-Not attempted due to medical condition or safety concerns K. Walk 150 feet 88-Not attempted due to medical condition or safety concerns L. Walking 10 feet on uneven surfaces 88-Not attempted due to medical condition or safety concerns M. 1 step (curb) 88-Not attempted due to medical condition or safety concerns N. 4 steps 88-Not attempted due to medical condition or safety concerns O. 12 steps 88-Not attempted due to medical condition or safety concerns P. Picking up object 03-Partial/moderate assistance R. Wheel 50 feet with two turns 09-Not applicable S. Wheel 150 feet 09-Not applicable - Bladder and Bowel Bladder continence 0-Always continent Bowel continence 9-Not rated - Endurance Good - Balance Good - Safety Awareness Good CURRENT FUNC. DEFICITS: Self-Care and Mobility SIGNATURE PANEL: (CDT)
[2021-08-15] MEDS: DOCUSATE NA/SENNA CONC 1 TAB PO SCH (20:25)
[2021-08-15] MEDS: ATORVASTATIN 40 MG TAB PO SCH (20:25)
[2021-08-16] MEDS: CEFAZOLIN/SWI 2gm 2 GM/20 ML SYR IVP SCH ×3 (00:06→17:17)
[2021-08-16] MEDS: METOPROLOL TAR 25 MG TAB PO SCH ×2 (05:16→17:17)
[2021-08-16 05:36] LABS: Protime INR 1.88
[2021-08-16] MEDS: AMLODIPINE 5 MG TAB PO SCH (07:42)
[2021-08-16] MEDS: lisinopriL 5 MG TAB PO SCH ×2 (07:42→20:14)
[2021-08-16] MEDS: Pantoprazole (granules) 40 MG/BLIST PACKET FT SCH ×2 (07:42→17:16)
[2021-08-16] MEDS: ASPIRIN EC 81 MG TAB PO SCH (07:42)
[2021-08-16] MEDS: LIDOCAINE 4% PATCH TOP SCH (07:45)
[2021-08-16] MEDS ORDERED: WARFARIN SODIUM 3 MG TAB PO SCH (17:00)
[2021-08-16] MEDS ORDERED: WARFARIN SODIUM 5 MG TAB PO SCH (17:00)
--- NOTE | 2021-08-16 17:02 | R.PN ---
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 Pt denied any Shortness of Breath. Labs reviewed and are stable. WBC 5.5, Hgb 11.1, INR 2.10. Prealbumin 12.5, K 3.6. Covid-19 is negat bettina. INR is 1.88. Increase coumadin to 8 mg daily. Mobilized wheelchair 150' with SBA. Ambulated 440' with right platform walker and moderate assistance . VITAL SIGNS Temperature: 98.2 F SBP/DBP: 126/68 Pulse: 58 Resp: 16 MEDICATION ALLERGIES: No Known Drug Allergies (NKDA) ENVIRONMENTAL ALLERGIES: - Substance Allergies None Known - Other Allergies None Known NURSING: - Shower allowing shower - Bladder care per protocol - Skin care per protocol PRECAUTIONS: - Weight Bearing Precaution WBAT right LE - Fall Precaution Bed alarm TABS alarm Wheel chair alarm ACTIVITIES OOB only with supervision THERAPIES: - Dietary and Nutrition Adequate Nutrition. Nutritional Education. Nutritional Supplements. Evaluate and Treat. - Occupational Therapy Cognitive Retraining. Patient needs Occupational Therapy for a daily minimum of 1.5 hours at least 5 out of 7 days, to improve Activities of Daily Living, including: Eating, Grooming, Bathing, Dressing, Toileting, Toilet Transfers, Community Reintegration, Higher functional activities, Adaptive Equipme nt, Splinting, Household Tasks, and Other activities as determined. Visual Perceptual Training. Evalu ate and Treat. Safety Awareness. UE ROM. UE Strengthening. - Speech Therapy Cognitive Training. Expressive Language Skills. Memory Strategies. Patient needs Speech Therapy for a daily minimum of 1.5 hours at least 5 out of 7 days, to improve: Swallowing, Cognition, Language Ski lls, and Compensatory Strategies. Receptive Language Skills. Speech Intelligibility Training. Evaluat e and Treat. Dysphagia Therapy. - Physical Therapy Patient needs Physical Therapy for a daily minimum of 1.5 hours at least 5 out of 7 days, to improve: Mobility, Strengthening, Transfers, Stretching, ROM, Endurance, Ability to manage stairs, Gait, and Balance. Evaluate and Treat. Wheelchair Management. Patient/Family Education. Safety Awareness. PHYSICAL EXAM - Gen Alert and awake Lying in bed No apparent distress Oriented to: person, time, and place - Skin No skin breakdown. Normacephalic - Eyes No abnormalities - ENMT No abnormalities - Neck No abnormalities No cervical adenopathy - CVS RRR - Chest No abnormalities - Resp Clear to auscultation - Abd Obese, soft, nontender - GI nondistended Deferred - Joyner catheter will be removed today. - Ext Mild right upper and lower extremity edema. - MSK 3/5 weakness in right upper and lower extremity. - Neuro 3/5 weakness in right upper and lower extremity, and dense right arm and leg numbness with neglect. - Psych Mild depression. ASSESSMENT: Pt. is a 50 yo white male.Pt. is a 50 yo Unknown dexterity white male.On 07/14/2021 Pt. 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 was independen t/mod-I in Locomotion, Safety Awareness, Balance, Transfers Control, Self-Care, Endurance, Communicat ion, Social Cognition, and Sphincter Control.Currently, he has deficits of Locomotion, Balance, Trans fers Control, Communication, Self-Care, Endurance, and Safety Awareness.Pt. is now referred to [facility] for acute in-patient rehabilitation in order to maximize patient's functi onal independence in activities of daily living, strength, ROM, and mobility.- Rehab Goal Patient has realistic goal of being discharged at assistance level 4-Kristie to reside at Home with Fam julian/Relatives. MDM/PLAN: - Physical Therapy Inability to transfer - to improve, our physical therapists will perform initial evaluation of pt's status upon admission and devise an individualized program for Bed mobility Need for home safety evaluation - to improve, our physical therapists will perform initial evaluatio n of pt's status upon admission and devise an individualized program for Home Evaluation Need in caregiver upon discharge - to improve, our physical therapists will perform initial evaluati on of pt's status upon admission and devise an individualized program for Caregiver Training New precaution - to improve, our physical therapists will perform initial evaluation of pt's status upon admission and devise an individualized program for Patient precaution education Edema - to improve, our physical therapists will perform initial evaluation of pt's status upon admi ssion and devise an individualized program for Elevation Training, and Lymphedema Therapy Poor balance - to improve, our physical therapists will perform initial evaluation of pt's status up on admission and devise an individualized program for Balance Training Poor endurance - to improve, our physical therapists will perform initial evaluation of pt's status upon admission and devise an individualized program for Endurance Training Achieving independence - to improve, our physical therapists will perform initial evaluation of pt's status upon admission and devise an individualized program for Community Reintegration Activities - Occupational Therapy ADL deficits - to improve, our occupation therapists will perform initial evaluation of pt's status upon admission and devise an individualized program for Bathing, Bed mobility, Community Reintegratio n, Cooking, Dressing, Eating, Fine Motor Skills, Grooming, Homemaking, Kitchen Mobility, Laundry, Pat ient Education, Safety Awareness, Splinting - Positioning, Transfers(Toilet, Tub, Shower), and Wheel Chair Management Need for care management assistant - to improve, our occupation therapists will perform initial evaluation of pt's status upon admission and devise an individualized program for Caregiver Training - Other See attached MAR (Medication Administration Record) - Diet Type Continue NPO (nothing by mouth) - Diet - Liquid Texture Continue N/A - Tube Feed Continue N/A - Bladder care per protocol - Weight Bearing Precaution WBAT right LE - Fall Precaution Bed alarm TABS alarm Wheel chair alarm - Skin care per protocol - Diet - Solid Texture Continue Regular Continue N/A - Shower allowing shower for Dementia, TBI, Stroke, or others FUNCTIONAL STATUS: UPDATED AT WEEKLY TEAM CONFERENCE - Bladder Same accident frequency: 7-Ind - No accidents in the past 7 days - Bowel Same accident frequency: 7-Ind - No accidents in the past 7 days - Walking Same score based on distance walked: 0(N/A) - Wheelchair Same score based on distance traveled: 0(N/A) FUNCTIONAL STATUS: - Self-Care A. Eating Ind B. Grooming Kristie C. Bathing modA D. Dressing - Upper Kristie E. Dressing - Lower modA F. Toileting Kristie - Sphincter Control G. Bladder control sup H. Bowel control Kayode - Transfers Control I. Bed/Chair/Wheelchair modA J. Toilet Kristie K. Tub/Shower modA - Locomotion L. Walk/Wheelchair (B) Kristie M. Stairs modA - Communication N. Comprehension (B) sup O. Expression (B) Kristie - Social Cognition P. Social Interaction Ind Q. Problem Solving Ind R. Memory Ind - Endurance Fair - Balance Fair - Safety Awareness Fair QI SCORES: - Self-Care A. Eating 03-Partial/moderate assistance B. Oral hygiene 03-Partial/moderate assistance C. Toileting hygiene 03-Partial/moderate assistance E. Shower/bathe self 03-Partial/moderate assistance F. Upper body dressing 03-Partial/moderate assistance G. Lower body dressing 03-Partial/moderate assistance H. Putting on/taking off footwear 03-Partial/moderate assistance - Mobility A. Roll left and right 02-Substantial/maximal assistance B. Sit to lying 03-Partial/moderate assistance C. Lying to sitting on side of bed 02-Substantial/maximal assistance D. Sit to stand 02-Substantial/maximal assistance E. Chair/lrh-ni-pusum transfer 02-Substantial/maximal assistance F. Toilet transfer 02-Substantial/maximal assistance G. Car transfer 02-Substantial/maximal assistance I. Walk 10 feet 88-Not attempted due to medical condition or safety concerns J. Walk 50 feet with two turns 88-Not attempted due to medical condition or safety concerns K. Walk 150 feet 88-Not attempted due to medical condition or safety concerns L. Walking 10 feet on uneven surfaces 88-Not attempted due to medical condition or safety concerns M. 1 step (curb) 88-Not attempted due to medical condition or safety concerns N. 4 steps 88-Not attempted due to medical condition or safety concerns O. 12 steps 88-Not attempted due to medical condition or safety concerns P. Picking up object 03-Partial/moderate assistance R. Wheel 50 feet with two turns 09-Not applicable S. Wheel 150 feet 09-Not applicable - Bladder and Bowel Bladder continence 0-Always continent Bowel continence 9-Not rated - Endurance Good - Balance Good - Safety Awareness Good CURRENT FUNC. DEFICITS: Self-Care and Mobility SIGNATURE PANEL: (CDT)
[2021-08-16] MEDS: WARFARIN SODIUM 4 MG TAB PO SCH (17:54)
[2021-08-16] MEDS: ACETAMINOPHEN 500 MG TAB PO PRN (17:58)
[2021-08-16] MEDS: ATORVASTATIN 40 MG TAB PO SCH (20:13)
[2021-08-16] MEDS: DOCUSATE NA/SENNA CONC 1 TAB PO SCH (20:14)
[2021-08-17] MEDS: CEFAZOLIN/SWI 2gm 2 GM/20 ML SYR IVP SCH ×3 (00:43→17:05)
[2021-08-17] MEDS: METOPROLOL TAR 25 MG TAB PO SCH ×2 (05:27→17:04)
[2021-08-17 05:34] LABS: Absolute Lymphocytes (CBC) 1.1 K/uL (0.7-4.9); Hematocrit 32.8 % (39.6-49.0); Lymphocytes % 24.1 % (15.3-44.8); MPV 8.5 fL (7.6-11.3); RBC Red Blood Cell Count 3.83 M/uL (4.33-5.43)
[2021-08-17 05:35] LABS: Protime INR 1.75
[2021-08-17 06:05] LABS: Albumin 2.9 g/dL (3.4-5.0); Magnesium 1.7 mg/dL (1.8-2.4); Potassium 3.3 mmol/L (3.5-5.1); Prealbumin 13.6 mg/dL (20-40)
[2021-08-17 07:08] LABS: Blood Morphology Comment NOT SEEN (NOT SEEN); Platelet Estimate ADEQ
[2021-08-17] MEDS: Pantoprazole (granules) 40 MG/BLIST PACKET FT SCH ×2 (07:30→17:02)
[2021-08-17] MEDS: AMLODIPINE 5 MG TAB PO SCH (08:00)
[2021-08-17] MEDS: ASPIRIN EC 81 MG TAB PO SCH (08:14)
[2021-08-17] MEDS: LIDOCAINE 4% PATCH TOP SCH (08:14)
[2021-08-17] MEDS: lisinopriL 5 MG TAB PO SCH ×2 (08:15→20:30)
[2021-08-17] MEDS ORDERED: POTASSIUM 25 MEQ EFFERV TAB PO ONE (14:25)
[2021-08-17] MEDS ORDERED: WARFARIN SODIUM 4 MG TAB PO SCH ×2 (17:00→18:00)
[2021-08-17] MEDS: WARFARIN SODIUM 4 MG TAB PO SCH (17:02)
[2021-08-17] MEDS: ACETAMINOPHEN 500 MG TAB PO PRN (17:47)
--- NOTE | 2021-08-17 18:36 | R.PN ---
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 Pt denied any Shortness of Breath. Labs reviewed and are stable. WBC 4.7, Hgb 10.9, INR 2.10. Prealbumin 13.6, K 3.3. Covid-19 is negat bettina on 08/17/21. INR is 1.75. Increase coumadin to 10 mg daily. Mobilized wheelchair 350' with modified independence with right platform walker and moderate assistan ce. Mobilized wheelchair 200' with modified independence. VITAL SIGNS Temperature: 97.8 F SBP/DBP: 127/65 Pulse: 63 Resp: 15 MEDICATION ALLERGIES: No Known Drug Allergies (NKDA) ENVIRONMENTAL ALLERGIES: - Substance Allergies None Known - Other Allergies None Known NURSING: - Shower allowing shower - Bladder care per protocol - Skin care per protocol PRECAUTIONS: - Weight Bearing Precaution WBAT right LE - Fall Precaution Bed alarm TABS alarm Wheel chair alarm ACTIVITIES OOB only with supervision THERAPIES: - Dietary and Nutrition Adequate Nutrition. Nutritional Education. Nutritional Supplements. Evaluate and Treat. - Occupational Therapy Cognitive Retraining. Patient needs Occupational Therapy for a daily minimum of 1.5 hours at least 5 out of 7 days, to improve Activities of Daily Living, including: Eating, Grooming, Bathing, Dressing, Toileting, Toilet Transfers, Community Reintegration, Higher functional activities, Adaptive Equipme nt, Splinting, Household Tasks, and Other activities as determined. Visual Perceptual Training. Evalu ate and Treat. Safety Awareness. UE ROM. UE Strengthening. - Speech Therapy Cognitive Training. Expressive Language Skills. Memory Strategies. Patient needs Speech Therapy for a daily minimum of 1.5 hours at least 5 out of 7 days, to improve: Swallowing, Cognition, Language Ski lls, and Compensatory Strategies. Receptive Language Skills. Speech Intelligibility Training. Evaluat e and Treat. Dysphagia Therapy. - Physical Therapy Patient needs Physical Therapy for a daily minimum of 1.5 hours at least 5 out of 7 days, to improve: Mobility, Strengthening, Transfers, Stretching, ROM, Endurance, Ability to manage stairs, Gait, and Balance. Evaluate and Treat. Wheelchair Management. Patient/Family Education. Safety Awareness. PHYSICAL EXAM - Gen Alert and awake Lying in bed No apparent distress Oriented to: person, time, and place - Skin No skin breakdown. Normacephalic - Eyes No abnormalities - ENMT No abnormalities - Neck No abnormalities No cervical adenopathy - CVS RRR - Chest No abnormalities - Resp Clear to auscultation - Abd Obese, soft, nontender - GI nondistended Deferred - Joyner catheter will be removed today. - Ext Mild right upper and lower extremity edema. - MSK 3/5 weakness in right upper and lower extremity. - Neuro 3/5 weakness in right upper and lower extremity, and dense right arm and leg numbness with neglect. - Psych Mild depression. ASSESSMENT: Pt. is a 50 yo white male.Pt. is a 50 yo Unknown dexterity white male.On 07/14/2021 Pt. 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 was independen t/mod-I in Locomotion, Safety Awareness, Balance, Transfers Control, Self-Care, Endurance, Communicat ion, Social Cognition, and Sphincter Control.Currently, he has deficits of Locomotion, Balance, Trans fers Control, Communication, Self-Care, Endurance, and Safety Awareness.Pt. is now referred to [facility] for acute in-patient rehabilitation in order to maximize patient's functi onal independence in activities of daily living, strength, ROM, and mobility.- Rehab Goal Patient has realistic goal of being discharged at assistance level 4-Kristie to reside at Home with Fam julian/Relatives. MDM/PLAN: - Physical Therapy Inability to transfer - to improve, our physical therapists will perform initial evaluation of pt's status upon admission and devise an individualized program for Bed mobility Need for home safety evaluation - to improve, our physical therapists will perform initial evaluatio n of pt's status upon admission and devise an individualized program for Home Evaluation Need in caregiver upon discharge - to improve, our physical therapists will perform initial evaluati on of pt's status upon admission and devise an individualized program for Caregiver Training New precaution - to improve, our physical therapists will perform initial evaluation of pt's status upon admission and devise an individualized program for Patient precaution education Edema - to improve, our physical therapists will perform initial evaluation of pt's status upon admi ssion and devise an individualized program for Elevation Training, and Lymphedema Therapy Poor balance - to improve, our physical therapists will perform initial evaluation of pt's status up on admission and devise an individualized program for Balance Training Poor endurance - to improve, our physical therapists will perform initial evaluation of pt's status upon admission and devise an individualized program for Endurance Training Achieving independence - to improve, our physical therapists will perform initial evaluation of pt's status upon admission and devise an individualized program for Community Reintegration Activities - Occupational Therapy ADL deficits - to improve, our occupation therapists will perform initial evaluation of pt's status upon admission and devise an individualized program for Bathing, Bed mobility, Community Reintegratio n, Cooking, Dressing, Eating, Fine Motor Skills, Grooming, Homemaking, Kitchen Mobility, Laundry, Pat ient Education, Safety Awareness, Splinting - Positioning, Transfers(Toilet, Tub, Shower), and Wheel Chair Management Need for caregivers non medical - to improve, our occupation therapists will perform initial evaluation of pt's status upon admission and devise an individualized program for Caregiver Training - Other See attached MAR (Medication Administration Record) - Diet Type Continue NPO (nothing by mouth) - Diet - Liquid Texture Continue N/A - Tube Feed Continue N/A - Bladder care per protocol - Weight Bearing Precaution WBAT right LE - Fall Precaution Bed alarm TABS alarm Wheel chair alarm - Skin care per protocol - Diet - Solid Texture Continue Regular Continue N/A - Shower allowing shower for Dementia, TBI, Stroke, or others FUNCTIONAL STATUS: UPDATED AT WEEKLY TEAM CONFERENCE - Bladder Same accident frequency: 7-Ind - No accidents in the past 7 days - Bowel Same accident frequency: 7-Ind - No accidents in the past 7 days - Walking Same score based on distance walked: 0(N/A) - Wheelchair Same score based on distance traveled: 0(N/A) FUNCTIONAL STATUS: - Self-Care A. Eating Ind B. Grooming Kristie C. Bathing modA D. Dressing - Upper Kristie E. Dressing - Lower modA F. Toileting Kristie - Sphincter Control G. Bladder control sup H. Bowel control Kayode - Transfers Control I. Bed/Chair/Wheelchair modA J. Toilet Kristie K. Tub/Shower modA - Locomotion L. Walk/Wheelchair (B) Kristie M. Stairs modA - Communication N. Comprehension (B) sup O. Expression (B) Kristie - Social Cognition P. Social Interaction Ind Q. Problem Solving Ind R. Memory Ind - Endurance Fair - Balance Fair - Safety Awareness Fair QI SCORES: - Self-Care A. Eating 03-Partial/moderate assistance B. Oral hygiene 03-Partial/moderate assistance C. Toileting hygiene 03-Partial/moderate assistance E. Shower/bathe self 03-Partial/moderate assistance F. Upper body dressing 03-Partial/moderate assistance G. Lower body dressing 03-Partial/moderate assistance H. Putting on/taking off footwear 03-Partial/moderate assistance - Mobility A. Roll left and right 02-Substantial/maximal assistance B. Sit to lying 03-Partial/moderate assistance C. Lying to sitting on side of bed 02-Substantial/maximal assistance D. Sit to stand 02-Substantial/maximal assistance E. Chair/htl-ma-gnfhu transfer 02-Substantial/maximal assistance F. Toilet transfer 02-Substantial/maximal assistance G. Car transfer 02-Substantial/maximal assistance I. Walk 10 feet 88-Not attempted due to medical condition or safety concerns J. Walk 50 feet with two turns 88-Not attempted due to medical condition or safety concerns K. Walk 150 feet 88-Not attempted due to medical condition or safety concerns L. Walking 10 feet on uneven surfaces 88-Not attempted due to medical condition or safety concerns M. 1 step (curb) 88-Not attempted due to medical condition or safety concerns N. 4 steps 88-Not attempted due to medical condition or safety concerns O. 12 steps 88-Not attempted due to medical condition or safety concerns P. Picking up object 03-Partial/moderate assistance R. Wheel 50 feet with two turns 09-Not applicable S. Wheel 150 feet 09-Not applicable - Bladder and Bowel Bladder continence 0-Always continent Bowel continence 9-Not rated - Endurance Good - Balance Good - Safety Awareness Good CURRENT [facility]. DEFICITS: Self-Care and Mobility SIGNATURE PANEL: (CDT)
[2021-08-17] MEDS ORDERED: WARFARIN SODIUM 2 MG TAB PO ONE (18:40)
[2021-08-17] MEDS: MAGNESIUM OXIDE 400 MG TAB PO SCH (20:29)
[2021-08-17] MEDS: ATORVASTATIN 40 MG TAB PO SCH ×2 (20:29→20:30)
[2021-08-17] MEDS: DOCUSATE NA/SENNA CONC 1 TAB PO SCH (20:31)
[2021-08-18] MEDS: CEFAZOLIN/SWI 2gm 2 GM/20 ML SYR IVP SCH ×3 (00:34→16:20)
[2021-08-18] MEDS: METOPROLOL TAR 25 MG TAB PO SCH ×2 (05:16→16:21)
[2021-08-18 05:33] LABS: Protime INR 1.69
[2021-08-18] MEDS: Pantoprazole (granules) 40 MG/BLIST PACKET FT SCH ×2 (06:58→16:20)
[2021-08-18] MEDS: ASPIRIN EC 81 MG TAB PO SCH (07:24)
[2021-08-18] MEDS: MAGNESIUM OXIDE 400 MG TAB PO SCH ×2 (07:24→20:05)
[2021-08-18] MEDS: lisinopriL 5 MG TAB PO SCH (07:24)
[2021-08-18] MEDS: LIDOCAINE 4% PATCH TOP SCH (07:27)
[2021-08-18] MEDS: AMLODIPINE 5 MG TAB PO SCH (08:00)
--- NOTE | 2021-08-18 10:10 | P.RH.PN ---
Estimated Length of Stay: 23 Expected Discharge Date: 08/26/21 Discharge Disposition Plan: Home Family Support: Yes Halfway Goal: Mobility, Transfers, Self Care Vital Signs: Last Vital Signs Temp 97 F 08/18/21 07:17 Pulse 62 08/18/21 08:00 Resp 18 08/18/21 07:17 BP 116/71 08/18/21 08:00 Pulse Ox 98 08/18/21 07:17 Laboratory: Laboratory Last Values WBC 4.7 K/uL (4.3-10.9) D 08/17/21 05:05 RBC 3.83 M/uL (4.33-5.43) L 08/17/21 05:05 Hgb 10.9 g/dL (13.6-17.9) L 08/17/21 05:05 Hct 32.8 % (39.6-49.0) L 08/17/21 05:05 MCV 85.7 fL (80-100) 08/17/21 05:05 MCH 28.5 pg (27.0-35.0) 08/17/21 05:05 MCHC 33.3 g/dL (32.0-36.0) 08/17/21 05:05 RDW 15.3 % (12.1-15.2) H 08/17/21 05:05 Plt Count 189 K/uL (152-406) 08/17/21 05:05 MPV 8.5 fL (7.6-11.3) 08/17/21 05:05 Neutrophils % 54.9 % (41.7-73.7) 08/17/21 05:05 Lymphocytes % 24.1 % (15.3-44.8) 08/17/21 05:05 Monocytes % 8.7 % (3.3-12.3) 08/17/21 05:05 Eosinophils % 8.7 % (0-4.4) H 08/17/21 05:05 Basophils % 3.6 % (0-1.3) H 08/17/21 05:05 Absolute Neutrophils 2.6 K/uL (1.8-8.0) 08/17/21 05:05 Segmented Neutrophils 57 % (40-80) 08/17/21 05:05 Absolute Lymphocytes 1.1 K/uL (0.7-4.9) 08/17/21 05:05 Lymphocytes 23 % (15-42) 08/17/21 05:05 Monocytes 9 % (0-10) 08/17/21 05:05 Absolute Monocytes 0.4 K/uL (0.1-1.3) 08/17/21 05:05 Eosinophils 10 % (0-3) H 08/17/21 05:05 Absolute Eosinophils 0.4 K/uL (0-0.5) 08/17/21 05:05 Basophils 1 % (0-1) 08/17/21 05:05 Absolute Basophils 0.2 K/uL (0-0.5) 08/17/21 05:05 Platelet Estimate Adeq 08/17/21 05:05 Morphology Comment Not seen (NOT SEEN) 08/17/21 05:05 PT 18.8 SECONDS (9.5-12.5) H 08/18/21 04:20 INR 1.69 08/18/21 04:20 Sodium 144 mmol/L (136-145) 08/17/21 05:05 Potassium 3.6 mmol/L (3.5-5.1) 08/18/21 04:20 Chloride 110 mmol/L (98-107) H 08/17/21 05:05 Carbon Dioxide 26 mmol/L (21-32) 08/17/21 05:05 Anion Gap 11.3 mEq/L (5.0-15.0) 08/17/21 05:05 BUN 11 mg/dL (7-18) 08/17/21 05:05 Creatinine 0.60 mg/dL (0.55-1.3) 08/17/21 05:05 Estimated GFR > 90 mL/min (=/>90) 08/10/21 04:15 Est GFR (CKD-EPI) 118 ml/min (=/>90) 08/17/21 05:05 Glucose 89 mg/dL (74-106) 08/17/21 05:05 POC Glucose 95 mg/dL (65-120) 08/17/21 11:32 Calcium 8.2 mg/dL (8.5-10.1) L 08/17/21 05:05 Magnesium 1.7 mg/dL (1.8-2.4) L 08/17/21 05:05 Albumin 2.9 g/dL (3.4-5.0) L 08/17/21 05:05 Prealbumin 13.6 mg/dL (20-40) L 08/17/21 05:05 Urine Color Yellow (Yellow) 08/03/21 20:38 Urine Appearance Hazy (Clear) 08/03/21 20:38 Urine pH 7.5 (5.0-7.0) H 08/03/21 20:38 Ur Specific [place] 1.020 (1.005-1.030) 08/03/21 20:38 Glucose (UA)(Auto) Negative (Negative) 08/03/21 20:38 Urine Ketones Negative (Negative) 08/03/21 20:38 Urine Blood 2+ (Negative) H 08/03/21 20:38 Urine Nitrite Negative (Negative) 08/03/21 20:38 Urine Bilirubin Negative (Negative) 08/03/21 20:38 Urine Urobilinogen 2.0 mg/dL (0.2-1.0) H 08/03/21 20:38 Ur Leukocyte Esterase Negative (Negative) 08/03/21 20:38 Urine RBC 5-10 /HPF (NONE SEEN) H 08/03/21 20:38 Urine WBC <5 /HPF (<5) 08/03/21 20:38 Ur Squamous Epith Cells <5 /HPF (NONE SEEN) 08/03/21 20:38 Ur Urothelial Cells Cancelled 08/03/21 19:30 Calcium Oxalate Crystal Cancelled 08/03/21 19:30 Uric Acid Crystals Cancelled 08/03/21 19:30 Triple Phos Crystals Cancelled 08/03/21 19:30 Other Crystals Cancelled 08/03/21 19:30 Amorphous Sediment 2+ /HPF (NONE SEEN) H 08/03/21 20:38 Glitter Cells Cancelled 08/03/21 19:30 Urine Bacteria <20 /HPF (NONE SEEN) 08/03/21 20:38 Hyaline Casts Cancelled 08/03/21 19:30 Fine Granular Casts Cancelled 08/03/21 19:30 Coarse Granular Casts Cancelled 08/03/21 19:30 Waxy Casts Cancelled 08/03/21 19:30 RBC Casts Cancelled 08/03/21 19:30 WBC Casts Cancelled 08/03/21 19:30 Urine Mucus Cancelled 08/03/21 19:30 Urine Other Cancelled 08/03/21 19:30 Urine Trichomonas Cancelled 08/03/21 19:30 Urine Yeast Cancelled 08/03/21 19:30 Ur Yeast w Hyphae Cancelled 08/03/21 19:30 Urine Yeast (Budding) Cancelled 08/03/21 19:30 Urine Sperm Cancelled 08/03/21 19:30 Urine Culture Reflexed Not needed 08/03/21 20:38 Urine Total Volume Cancelled 08/03/21 19:30 Urine Total Protein 2+ (Negative) H 08/03/21 20:38 SARS-CoV-2 Rap RNA(RT-PCR) Negative (NEGATIVE) 08/17/21 05:09 Weight: 266 lb Wound Present: No Closed Surgical Incision Present: No Negative Pressure Wound Therapy Present: No Physician Update: He is making good progress with all therapy including right sided strength. Supervision with transfers. Walked 220' with supervision. Min assistance for bathing, upper body dressing. Min assistance for lower body dressing. He needs IV antibiotics up to next week. Making good progress with speech. Comment: no skin breakdown reported Functional Improvement: Patient continues to progress very well w/ therapy. Patient is currently Mod I w/ sit <> stand, and progressing toward Mod I w/ bed mobility. Patient continues to increase distance traveled w/ RW, and continues to complete task w/ good technique and safety awareness. Summary: Patient's care plan and oysterman goals have been reviewed and revised as necessary. Please see the Rehabilitation Signature page for all necessary signatures.
[2021-08-18] MEDS: ACETAMINOPHEN 500 MG TAB PO PRN (16:21)
[2021-08-18] MEDS: WARFARIN SODIUM 6 MG TAB PO SCH (16:21)
[2021-08-18] MEDS ORDERED: WARFARIN SODIUM 5 MG TAB PO SCH (17:00)
[2021-08-18] MEDS ORDERED: AMLODIPINE 2.5 MG TAB PO SCH (20:00)
[2021-08-18] MEDS: DOCUSATE NA/SENNA CONC 1 TAB PO SCH (20:05)
[2021-08-19] MEDS: CEFAZOLIN/SWI 2gm 2 GM/20 ML SYR IVP SCH ×3 (00:03→17:15)
[2021-08-19] MEDS: METOPROLOL TAR 25 MG TAB PO SCH ×2 (05:21→17:54)
[2021-08-19 05:32] LABS: Protime INR 1.95
[2021-08-19 05:47] VITALS: BMI 34.4
[2021-08-19] MEDS: Pantoprazole (granules) 40 MG/BLIST PACKET FT SCH ×2 (07:38→17:15)
[2021-08-19] MEDS: ASPIRIN EC 81 MG TAB PO SCH (07:42)
[2021-08-19] MEDS: MAGNESIUM OXIDE 400 MG TAB PO SCH ×2 (07:42→20:35)
[2021-08-19] MEDS: LIDOCAINE 4% PATCH TOP SCH (07:43)
[2021-08-19] MEDS: AMLODIPINE 5 MG TAB PO SCH (07:43)
[2021-08-19] MEDS: lisinopriL 5 MG TAB PO SCH (07:44)
[2021-08-19] MEDS: WARFARIN SODIUM 6 MG TAB PO SCH (17:15)
[2021-08-19] MEDS: ATORVASTATIN 40 MG TAB PO SCH (20:35)
[2021-08-19] MEDS: DOCUSATE NA/SENNA CONC 1 TAB PO SCH (20:36)
[2021-08-20] MEDS: CEFAZOLIN/SWI 2gm 2 GM/20 ML SYR IVP SCH ×3 (00:42→17:11)
[2021-08-20] MEDS: METOPROLOL TAR 25 MG TAB PO SCH ×2 (05:06→17:10)
[2021-08-20 06:05] LABS: Protime INR 2.16
[2021-08-20] MEDS: AMLODIPINE 5 MG TAB PO SCH (08:00)
[2021-08-20] MEDS: Pantoprazole (granules) 40 MG/BLIST PACKET FT SCH ×2 (08:38→17:11)
[2021-08-20] MEDS: lisinopriL 5 MG TAB PO SCH (08:49)
[2021-08-20] MEDS: ASPIRIN EC 81 MG TAB PO SCH (08:49)
[2021-08-20] MEDS: LIDOCAINE 4% PATCH TOP SCH (08:49)
[2021-08-20] MEDS: MAGNESIUM OXIDE 400 MG TAB PO SCH ×2 (08:51→20:32)
[2021-08-20] MEDS: WARFARIN SODIUM 6 MG TAB PO SCH (17:10)
[2021-08-20] MEDS ORDERED: clonazePAM 0.5 MG TAB PO ONE (19:31)
[2021-08-20] MEDS: ATORVASTATIN 40 MG TAB PO SCH (20:32)
[2021-08-20] MEDS: DOCUSATE NA/SENNA CONC 1 TAB PO SCH (20:32)
[2021-08-21] MEDS: CEFAZOLIN/SWI 2gm 2 GM/20 ML SYR IVP SCH ×3 (01:29→17:05)
[2021-08-21] MEDS: METOPROLOL TAR 25 MG TAB PO SCH ×2 (05:19→17:05)
[2021-08-21 05:41] LABS: Protime INR 2.21
[2021-08-21] MEDS: Pantoprazole (granules) 40 MG/BLIST PACKET FT SCH ×2 (07:05→17:05)
[2021-08-21] MEDS: MAGNESIUM OXIDE 400 MG TAB PO SCH ×2 (07:19→20:25)
[2021-08-21] MEDS: ASPIRIN EC 81 MG TAB PO SCH (07:20)
[2021-08-21] MEDS: lisinopriL 5 MG TAB PO SCH (07:20)
[2021-08-21] MEDS: AMLODIPINE 5 MG TAB PO SCH (08:00)
--- NOTE | 2021-08-21 08:59 | RAD REPORT ---
EXAM DESCRIPTION: CT - Head Brain Wo Cont - 08/21/2021 8:50 am CLINICAL HISTORY: Loss of hearing COMPARISON: None TECHNIQUE: Computed axial tomography of the head was obtained. IV contrast was not requested. All CT scans are performed using dose optimization technique as appropriate and may include automated exposure control or mA/KV adjustment according to patient size. FINDINGS: An intracranial bleed is not seen . The ventricles are normal in caliber. No extra-axial fluid collection is noted. 4 centimeter low-density area within the left cerebrum probably old infarction. 1.1 centimeter low-density area within the right centrum semiovale probably old infarction. Fluid within the sinuses/ mastoids is not seen. Middle ear appears clear IMPRESSION: No acute intracranial abnormality is seen. If patient's symptoms persist MRI of the bra in would be recommended.
[2021-08-21] MEDS: LIDOCAINE 4% PATCH TOP SCH (09:21)
[2021-08-21] MEDS: WARFARIN SODIUM 6 MG TAB PO SCH (17:06)
--- NOTE | 2021-08-21 19:14 | R.PN ---
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 Pt denied any Shortness of Breath. Labs reviewed and are stable. WBC 4.7, Hgb 10.9, INR 2.10. Prealbumin 13.6, K 3.3. Covid-19 is negat bettina on 08/17/21. INR is 2.21. Coumadin 10 mg daily. Ambulated 200' total with contact guard assistance using rt platform walker VITAL SIGNS Temperature: 97.8 F SBP/DBP: 124/61 Pulse: 61 Resp: 16 MEDICATION ALLERGIES: No Known Drug Allergies (NKDA) ENVIRONMENTAL ALLERGIES: - Substance Allergies None Known - Other Allergies None Known NURSING: - Shower allowing shower - Bladder care per protocol - Skin care per protocol PRECAUTIONS: - Weight Bearing Precaution WBAT right LE - Fall Precaution Bed alarm TABS alarm Wheel chair alarm ACTIVITIES OOB only with supervision THERAPIES: - Dietary and Nutrition Adequate Nutrition. Nutritional Education. Nutritional Supplements. Evaluate and Treat. - Occupational Therapy Cognitive Retraining. Patient needs Occupational Therapy for a daily minimum of 1.5 hours at least 5 out of 7 days, to improve Activities of Daily Living, including: Eating, Grooming, Bathing, Dressing, Toileting, Toilet Transfers, Community Reintegration, Higher functional activities, Adaptive Equipme nt, Splinting, Household Tasks, and Other activities as determined. Visual Perceptual Training. Evalu ate and Treat. Safety Awareness. UE ROM. UE Strengthening. - Speech Therapy Cognitive Training. Expressive Language Skills. Memory Strategies. Patient needs Speech Therapy for a daily minimum of 1.5 hours at least 5 out of 7 days, to improve: Swallowing, Cognition, Language Ski lls, and Compensatory Strategies. Receptive Language Skills. Speech Intelligibility Training. Evaluat e and Treat. Dysphagia Therapy. - Physical Therapy Patient needs Physical Therapy for a daily minimum of 1.5 hours at least 5 out of 7 days, to improve: Mobility, Strengthening, Transfers, Stretching, ROM, Endurance, Ability to manage stairs, Gait, and Balance. Evaluate and Treat. Wheelchair Management. Patient/Family Education. Safety Awareness. PHYSICAL EXAM - Gen Alert and awake Lying in bed No apparent distress Oriented to: person, time, and place - Skin No skin breakdown. Normacephalic - Eyes No abnormalities - ENMT No abnormalities - Neck No abnormalities No cervical adenopathy - CVS RRR - Chest No abnormalities - Resp Clear to auscultation - Abd Obese, soft, nontender - GI nondistended Deferred - Joyner catheter will be removed today. - Ext Mild right upper and lower extremity edema. - MSK 3/5 weakness in right upper and lower extremity. - Neuro 3/5 weakness in right upper and lower extremity, and dense right arm and leg numbness with neglect. - Psych Mild depression. ASSESSMENT: Pt. is a 50 yo white male.Pt. is a 50 yo Unknown dexterity white male.On 07/14/2021 Pt. 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 was independen t/mod-I in Locomotion, Safety Awareness, Balance, Transfers Control, Self-Care, Endurance, Communicat ion, Social Cognition, and Sphincter Control.Currently, he has deficits of Locomotion, Balance, Trans fers Control, Communication, Self-Care, Endurance, and Safety Awareness.Pt. is now referred to [facility] for acute in-patient rehabilitation in order to maximize patient's functi onal independence in activities of daily living, strength, ROM, and mobility.- Rehab Goal Patient has realistic goal of being discharged at assistance level 4-Kristie to reside at Home with Fam julian/Relatives. MDM/PLAN: - Physical Therapy Inability to transfer - to improve, our physical therapists will perform initial evaluation of pt's status upon admission and devise an individualized program for Bed mobility Need for home safety evaluation - to improve, our physical therapists will perform initial evaluatio n of pt's status upon admission and devise an individualized program for Home Evaluation Need in caregiver upon discharge - to improve, our physical therapists will perform initial evaluati on of pt's status upon admission and devise an individualized program for Caregiver Training New precaution - to improve, our physical therapists will perform initial evaluation of pt's status upon admission and devise an individualized program for Patient precaution education Edema - to improve, our physical therapists will perform initial evaluation of pt's status upon admi ssion and devise an individualized program for Elevation Training, and Lymphedema Therapy Poor balance - to improve, our physical therapists will perform initial evaluation of pt's status up on admission and devise an individualized program for Balance Training Poor endurance - to improve, our physical therapists will perform initial evaluation of pt's status upon admission and devise an individualized program for Endurance Training Achieving independence - to improve, our physical therapists will perform initial evaluation of pt's status upon admission and devise an individualized program for Community Reintegration Activities - Occupational Therapy ADL deficits - to improve, our occupation therapists will perform initial evaluation of pt's status upon admission and devise an individualized program for Bathing, Bed mobility, Community Reintegratio n, Cooking, Dressing, Eating, Fine Motor Skills, Grooming, Homemaking, Kitchen Mobility, Laundry, Pat ient Education, Safety Awareness, Splinting - Positioning, Transfers(Toilet, Tub, Shower), and Wheel Chair Management Need for child adolescent care - to improve, our occupation therapists will perform initial evaluation of pt's status upon admission and devise an individualized program for Caregiver Training - Other See attached MAR (Medication Administration Record) - Diet Type Continue NPO (nothing by mouth) - Diet - Liquid Texture Continue N/A - Tube Feed Continue N/A - Bladder care per protocol - Weight Bearing Precaution WBAT right LE - Fall Precaution Bed alarm TABS alarm Wheel chair alarm - Skin care per protocol - Diet - Solid Texture Continue Regular Continue N/A - Shower allowing shower for Dementia, TBI, Stroke, or others FUNCTIONAL STATUS: UPDATED AT WEEKLY TEAM CONFERENCE - Bladder Same accident frequency: 7-Ind - No accidents in the past 7 days - Bowel Same accident frequency: 7-Ind - No accidents in the past 7 days - Walking Same score based on distance walked: 0(N/A) - Wheelchair Same score based on distance traveled: 0(N/A) FUNCTIONAL STATUS: - Self-Care A. Eating Ind B. Grooming Kristie C. Bathing modA D. Dressing - Upper Kristie E. Dressing - Lower modA F. Toileting Kristie - Sphincter Control G. Bladder control sup H. Bowel control Kayode - Transfers Control I. Bed/Chair/Wheelchair modA J. Toilet Kristie K. Tub/Shower modA - Locomotion L. Walk/Wheelchair (B) Kristie M. Stairs modA - Communication N. Comprehension (B) sup O. Expression (B) Kristie - Social Cognition P. Social Interaction Ind Q. Problem Solving Ind R. Memory Ind - Endurance Fair - Balance Fair - Safety Awareness Fair QI SCORES: - Self-Care A. Eating 03-Partial/moderate assistance B. Oral hygiene 03-Partial/moderate assistance C. Toileting hygiene 03-Partial/moderate assistance E. Shower/bathe self 03-Partial/moderate assistance F. Upper body dressing 03-Partial/moderate assistance G. Lower body dressing 03-Partial/moderate assistance H. Putting on/taking off footwear 03-Partial/moderate assistance - Mobility A. Roll left and right 02-Substantial/maximal assistance B. Sit to lying 03-Partial/moderate assistance C. Lying to sitting on side of bed 02-Substantial/maximal assistance D. Sit to stand 02-Substantial/maximal assistance E. Chair/qxb-[id number] transfer 02-Substantial/maximal assistance F. Toilet transfer 02-Substantial/maximal assistance G. Car transfer 02-Substantial/maximal assistance I. Walk 10 feet 88-Not attempted due to medical condition or safety concerns J. Walk 50 feet with two turns 88-Not attempted due to medical condition or safety concerns K. Walk 150 feet 88-Not attempted due to medical condition or safety concerns L. Walking 10 feet on uneven surfaces 88-Not attempted due to medical condition or safety concerns M. 1 step (curb) 88-Not attempted due to medical condition or safety concerns N. 4 steps 88-Not attempted due to medical condition or safety concerns O. 12 steps 88-Not attempted due to medical condition or safety concerns P. Picking up object 03-Partial/moderate assistance R. Wheel 50 feet with two turns 09-Not applicable S. Wheel 150 feet 09-Not applicable - Bladder and Bowel Bladder continence 0-Always continent Bowel continence 9-Not rated - Endurance Good - Balance Good - Safety Awareness Good CURRENT FUNC. DEFICITS: Self-Care and Mobility SIGNATURE PANEL: (CDT)
[2021-08-21] MEDS: DOCUSATE NA/SENNA CONC 1 TAB PO SCH (20:25)
[2021-08-21] MEDS: ATORVASTATIN 40 MG TAB PO SCH (20:25)
[2021-08-22] MEDS: CEFAZOLIN/SWI 2gm 2 GM/20 ML SYR IVP SCH ×3 (00:07→17:01)
[2021-08-22 04:48] LABS: Protime INR 2.21
[2021-08-22] MEDS: METOPROLOL TAR 25 MG TAB PO SCH ×2 (05:03→16:59)
[2021-08-22] MEDS: LIDOCAINE 4% PATCH TOP SCH (06:57)
[2021-08-22] MEDS: Pantoprazole (granules) 40 MG/BLIST PACKET FT SCH ×2 (06:57→17:00)
[2021-08-22] MEDS: lisinopriL 5 MG TAB PO SCH (06:59)
[2021-08-22] MEDS: MAGNESIUM OXIDE 400 MG TAB PO SCH ×2 (07:00→19:35)
[2021-08-22] MEDS: ASPIRIN EC 81 MG TAB PO SCH (07:00)
[2021-08-22] MEDS: AMLODIPINE 5 MG TAB PO SCH (08:00)
[2021-08-22] MEDS: WARFARIN SODIUM 5 MG TAB PO SCH (17:00)
--- NOTE | 2021-08-22 18:14 | R.PN ---
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 Pt denied any Shortness of Breath. Labs reviewed and are stable. WBC 4.7, Hgb 10.9, INR 2.10. Prealbumin 13.6, K 3.3. Covid-19 is negat bettina on 08/17/21. INR is 2.21. Coumadin 10 mg daily. Ambulated 100' total with contact guard assistance using rt hemiwalker VITAL SIGNS Temperature: 97.4 F SBP/DBP: 120/66 Pulse: 63 Resp: 16 MEDICATION ALLERGIES: No Known Drug Allergies (NKDA) ENVIRONMENTAL ALLERGIES: - Substance Allergies None Known - Other Allergies None Known NURSING: - Shower allowing shower - Bladder care per protocol - Skin care per protocol PRECAUTIONS: - Weight Bearing Precaution WBAT right LE - Fall Precaution Bed alarm TABS alarm Wheel chair alarm ACTIVITIES OOB only with supervision THERAPIES: - Dietary and Nutrition Adequate Nutrition. Nutritional Education. Nutritional Supplements. Evaluate and Treat. - Occupational Therapy Cognitive Retraining. Patient needs Occupational Therapy for a daily minimum of 1.5 hours at least 5 out of 7 days, to improve Activities of Daily Living, including: Eating, Grooming, Bathing, Dressing, Toileting, Toilet Transfers, Community Reintegration, Higher functional activities, Adaptive Equipme nt, Splinting, Household Tasks, and Other activities as determined. Visual Perceptual Training. Evalu ate and Treat. Safety Awareness. UE ROM. UE Strengthening. - Speech Therapy Cognitive Training. Expressive Language Skills. Memory Strategies. Patient needs Speech Therapy for a daily minimum of 1.5 hours at least 5 out of 7 days, to improve: Swallowing, Cognition, Language Ski lls, and Compensatory Strategies. Receptive Language Skills. Speech Intelligibility Training. Evaluat e and Treat. Dysphagia Therapy. - Physical Therapy Patient needs Physical Therapy for a daily minimum of 1.5 hours at least 5 out of 7 days, to improve: Mobility, Strengthening, Transfers, Stretching, ROM, Endurance, Ability to manage stairs, Gait, and Balance. Evaluate and Treat. Wheelchair Management. Patient/Family Education. Safety Awareness. PHYSICAL EXAM - Gen Alert and awake Lying in bed No apparent distress Oriented to: person, time, and place - Skin No skin breakdown. Normacephalic - Eyes No abnormalities - ENMT No abnormalities - Neck No abnormalities No cervical adenopathy - CVS RRR - Chest No abnormalities - Resp Clear to auscultation - Abd Obese, soft, nontender - GI nondistended Deferred - Joyner catheter will be removed today. - Ext Mild right upper and lower extremity edema. - MSK 3/5 weakness in right upper and lower extremity. - Neuro 3/5 weakness in right upper and lower extremity, and dense right arm and leg numbness with neglect. - Psych Mild depression. ASSESSMENT: Pt. is a 50 yo white male.Pt. is a 50 yo Unknown dexterity white male.On 07/14/2021 Pt. 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 was independen t/mod-I in Locomotion, Safety Awareness, Balance, Transfers Control, Self-Care, Endurance, Communicat ion, Social Cognition, and Sphincter Control.Currently, he has deficits of Locomotion, Balance, Trans fers Control, Communication, Self-Care, Endurance, and Safety Awareness.Pt. is now referred to [facility] for acute in-patient rehabilitation in order to maximize patient's functi onal independence in activities of daily living, strength, ROM, and mobility.- Rehab Goal Patient has realistic goal of being discharged at assistance level 4-Kristie to reside at Home with Fam julian/Relatives. MDM/PLAN: - Physical Therapy Inability to transfer - to improve, our physical therapists will perform initial evaluation of pt's status upon admission and devise an individualized program for Bed mobility Need for home safety evaluation - to improve, our physical therapists will perform initial evaluatio n of pt's status upon admission and devise an individualized program for Home Evaluation Need in caregiver upon discharge - to improve, our physical therapists will perform initial evaluati on of pt's status upon admission and devise an individualized program for Caregiver Training New precaution - to improve, our physical therapists will perform initial evaluation of pt's status upon admission and devise an individualized program for Patient precaution education Edema - to improve, our physical therapists will perform initial evaluation of pt's status upon admi ssion and devise an individualized program for Elevation Training, and Lymphedema Therapy Poor balance - to improve, our physical therapists will perform initial evaluation of pt's status up on admission and devise an individualized program for Balance Training Poor endurance - to improve, our physical therapists will perform initial evaluation of pt's status upon admission and devise an individualized program for Endurance Training Achieving independence - to improve, our physical therapists will perform initial evaluation of pt's status upon admission and devise an individualized program for Community Reintegration Activities - Occupational Therapy ADL deficits - to improve, our occupation therapists will perform initial evaluation of pt's status upon admission and devise an individualized program for Bathing, Bed mobility, Community Reintegratio n, Cooking, Dressing, Eating, Fine Motor Skills, Grooming, Homemaking, Kitchen Mobility, Laundry, Pat ient Education, Safety Awareness, Splinting - Positioning, Transfers(Toilet, Tub, Shower), and Wheel Chair Management 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 - to improve, our occupation therapists will perform initial evaluation of pt's status upon admission and devise an individualized program for Caregiver Training - Other See attached MAR (Medication Administration Record) - Diet Type Continue NPO (nothing by mouth) - Diet - Liquid Texture Continue N/A - Tube Feed Continue N/A - Bladder care per protocol - Weight Bearing Precaution WBAT right LE - Fall Precaution Bed alarm TABS alarm Wheel chair alarm - Skin care per protocol - Diet - Solid Texture Continue Regular Continue N/A - Shower allowing shower for Dementia, TBI, Stroke, or others FUNCTIONAL STATUS: UPDATED AT WEEKLY TEAM CONFERENCE - Bladder Same accident frequency: 7-Ind - No accidents in the past 7 days - Bowel Same accident frequency: 7-Ind - No accidents in the past 7 days - Walking Same score based on distance walked: 0(N/A) - Wheelchair Same score based on distance traveled: 0(N/A) FUNCTIONAL STATUS: - Self-Care A. Eating Ind B. Grooming Kristie C. Bathing modA D. Dressing - Upper Kristie E. Dressing - Lower modA F. Toileting Kristie - Sphincter Control G. Bladder control sup H. Bowel control Kayode - Transfers Control I. Bed/Chair/Wheelchair modA J. Toilet Kristie K. Tub/Shower modA - Locomotion L. Walk/Wheelchair (B) Kristie M. Stairs modA - Communication N. Comprehension (B) sup O. Expression (B) Kristie - Social Cognition P. Social Interaction Ind Q. Problem Solving Ind R. Memory Ind - Endurance Fair - Balance Fair - Safety Awareness Fair QI SCORES: - Self-Care A. Eating 03-Partial/moderate assistance B. Oral hygiene 03-Partial/moderate assistance C. Toileting hygiene 03-Partial/moderate assistance E. Shower/bathe self 03-Partial/moderate assistance F. Upper body dressing 03-Partial/moderate assistance G. Lower body dressing 03-Partial/moderate assistance H. Putting on/taking off footwear 03-Partial/moderate assistance - Mobility A. Roll left and right 02-Substantial/maximal assistance B. Sit to lying 03-Partial/moderate assistance C. Lying to sitting on side of bed 02-Substantial/maximal assistance D. Sit to stand 02-Substantial/maximal assistance E. Chair/lic-vi-wfhgo transfer 02-Substantial/maximal assistance F. Toilet transfer 02-Substantial/maximal assistance G. Car transfer 02-Substantial/maximal assistance I. Walk 10 feet 88-Not attempted due to medical condition or safety concerns J. Walk 50 feet with two turns 88-Not attempted due to medical condition or safety concerns K. Walk 150 feet 88-Not attempted due to medical condition or safety concerns L. Walking 10 feet on uneven surfaces 88-Not attempted due to medical condition or safety concerns M. 1 step (curb) 88-Not attempted due to medical condition or safety concerns N. 4 steps 88-Not attempted due to medical condition or safety concerns O. 12 steps 88-Not attempted due to medical condition or safety concerns P. Picking up object 03-Partial/moderate assistance R. Wheel 50 feet with two turns 09-Not applicable S. Wheel 150 feet 09-Not applicable - Bladder and Bowel Bladder continence 0-Always continent Bowel continence 9-Not rated - Endurance Good - Balance Good - Safety Awareness Good CURRENT FUNC. DEFICITS: Self-Care and Mobility SIGNATURE PANEL: (CDT)
[2021-08-22] MEDS: ATORVASTATIN 40 MG TAB PO SCH (19:35)
[2021-08-22] MEDS: DOCUSATE NA/SENNA CONC 1 TAB PO SCH (19:36)
[2021-08-23] MEDS: CEFAZOLIN/SWI 2gm 2 GM/20 ML SYR IVP SCH ×3 (00:32→16:59)
[2021-08-23 05:01] LABS: Protime INR 2.24
[2021-08-23] MEDS: METOPROLOL TAR 25 MG TAB PO SCH ×2 (05:13→16:58)
[2021-08-23] MEDS: ASPIRIN EC 81 MG TAB PO SCH (07:06)
[2021-08-23] MEDS: lisinopriL 5 MG TAB PO SCH (07:06)
[2021-08-23] MEDS: Pantoprazole (granules) 40 MG/BLIST PACKET FT SCH ×2 (07:06→16:58)
[2021-08-23] MEDS: AMLODIPINE 5 MG TAB PO SCH (07:07)
[2021-08-23] MEDS: MAGNESIUM OXIDE 400 MG TAB PO SCH ×2 (07:08→19:16)
[2021-08-23] MEDS: LIDOCAINE 4% PATCH TOP SCH (07:09)
--- NOTE | 2021-08-23 15:21 | RAD REPORT ---
EXAM DESCRIPTION: RAD - Foot Left 2 View - 08/23/2021 3:03 pm CLINICAL HISTORY: pain and swelling COMPARISON: No comparisons FINDINGS: No acute fracture. No malalignment. No significant focal degenerative changes. IMPRESSION: No acute osseous abnormality involving the left foot.
--- NOTE | 2021-08-23 15:21 | RAD REPORT ---
EXAM DESCRIPTION: RAD - Foot Right 2 View - 08/23/2021 3:02 pm CLINICAL HISTORY: pain and swelling COMPARISON: Extrem Venous W Compress Kayode dated 07/13/2021No comparisons FINDINGS: No acute fracture. No malalignment. No significant focal degenerative changes. Bipartite m edial sesamoid IMPRESSION: No acute osseous abnormality involving the right foot.
[2021-08-23] MEDS: WARFARIN SODIUM 5 MG TAB PO SCH (16:58)
[2021-08-23] MEDS: ATORVASTATIN 40 MG TAB PO SCH (19:16)
[2021-08-23] MEDS: DOCUSATE NA/SENNA CONC 1 TAB PO SCH (19:17)
--- NOTE | 2021-08-23 20:29 | R.PN ---
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 Pt denied any Shortness of Breath. Labs reviewed and are stable. WBC 4.7, Hgb 10.9, INR 2.10. Prealbumin 13.6, K 3.3. Covid-19 is negat bettina on 08/17/21. INR is 2.24. Coumadin 10 mg daily. He has right bit toe swelling and pain. Uric acid level is normal at 5.5. Ambulated 460' with contact guard assistance using right platform walker. VITAL SIGNS Temperature: 97.6 F SBP/DBP: 113/56 Pulse: 61 Resp: 16 MEDICATION ALLERGIES: No Known Drug Allergies (NKDA) ENVIRONMENTAL ALLERGIES: - Substance Allergies None Known - Other Allergies None Known NURSING: - Shower allowing shower - Bladder care per protocol - Skin care per protocol PRECAUTIONS: - Weight Bearing Precaution WBAT right LE - Fall Precaution Bed alarm TABS alarm Wheel chair alarm ACTIVITIES OOB only with supervision THERAPIES: - Dietary and Nutrition Adequate Nutrition. Nutritional Education. Nutritional Supplements. Evaluate and Treat. - Occupational Therapy Cognitive Retraining. Patient needs Occupational Therapy for a daily minimum of 1.5 hours at least 5 out of 7 days, to improve Activities of Daily Living, including: Eating, Grooming, Bathing, Dressing, Toileting, Toilet Transfers, Community Reintegration, Higher functional activities, Adaptive Equipme nt, Splinting, Household Tasks, and Other activities as determined. Visual Perceptual Training. Evalu ate and Treat. Safety Awareness. UE ROM. UE Strengthening. - Speech Therapy Cognitive Training. Expressive Language Skills. Memory Strategies. Patient needs Speech Therapy for a daily minimum of 1.5 hours at least 5 out of 7 days, to improve: Swallowing, Cognition, Language Ski lls, and Compensatory Strategies. Receptive Language Skills. Speech Intelligibility Training. Evaluat e and Treat. Dysphagia Therapy. - Physical Therapy Patient needs Physical Therapy for a daily minimum of 1.5 hours at least 5 out of 7 days, to improve: Mobility, Strengthening, Transfers, Stretching, ROM, Endurance, Ability to manage stairs, Gait, and Balance. Evaluate and Treat. Wheelchair Management. Patient/Family Education. Safety Awareness. PHYSICAL EXAM - Gen Alert and awake Lying in bed No apparent distress Oriented to: person, time, and place - Skin No skin breakdown. Normacephalic - Eyes No abnormalities - ENMT No abnormalities - Neck No abnormalities No cervical adenopathy - CVS RRR - Chest No abnormalities - Resp Clear to auscultation - Abd Obese, soft, nontender - GI nondistended Deferred - Joyner catheter will be removed today. - Ext Mild right upper and lower extremity edema. - MSK 3/5 weakness in right upper and lower extremity. - Neuro 3/5 weakness in right upper and lower extremity, and dense right arm and leg numbness with neglect. - Psych Mild depression. ASSESSMENT: Pt. is a 50 yo white male.Pt. is a 50 yo Unknown dexterity white male.On 07/14/2021 Pt. 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 was independen t/mod-I in Locomotion, Safety Awareness, Balance, Transfers Control, Self-Care, Endurance, Communicat ion, Social Cognition, and Sphincter Control.Currently, he has deficits of Locomotion, Balance, Trans fers Control, Communication, Self-Care, Endurance, and Safety Awareness.Pt. is now referred to [facility] for acute in-patient rehabilitation in order to maximize patient's functi onal independence in activities of daily living, strength, ROM, and mobility.- Rehab Goal Patient has realistic goal of being discharged at assistance level 4-Kristie to reside at Home with Fam julian/Relatives. MDM/PLAN: - Physical Therapy Inability to transfer - to improve, our physical therapists will perform initial evaluation of pt's status upon admission and devise an individualized program for Bed mobility Need for home safety evaluation - to improve, our physical therapists will perform initial evaluatio n of pt's status upon admission and devise an individualized program for Home Evaluation Need in caregiver upon discharge - to improve, our physical therapists will perform initial evaluati on of pt's status upon admission and devise an individualized program for Caregiver Training New precaution - to improve, our physical therapists will perform initial evaluation of pt's status upon admission and devise an individualized program for Patient precaution education Edema - to improve, our physical therapists will perform initial evaluation of pt's status upon admi ssion and devise an individualized program for Elevation Training, and Lymphedema Therapy Poor balance - to improve, our physical therapists will perform initial evaluation of pt's status up on admission and devise an individualized program for Balance Training Poor endurance - to improve, our physical therapists will perform initial evaluation of pt's status upon admission and devise an individualized program for Endurance Training Achieving independence - to improve, our physical therapists will perform initial evaluation of pt's status upon admission and devise an individualized program for Community Reintegration Activities - Occupational Therapy ADL deficits - to improve, our occupation therapists will perform initial evaluation of pt's status upon admission and devise an individualized program for Bathing, Bed mobility, Community Reintegratio n, Cooking, Dressing, Eating, Fine Motor Skills, Grooming, Homemaking, Kitchen Mobility, Laundry, Pat ient Education, Safety Awareness, Splinting - Positioning, Transfers(Toilet, Tub, Shower), and Wheel Chair Management 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, our occupation therapists will perform initial evaluation of pt's status upon admission and devise an individualized program for Caregiver Training - Other See attached MAR (Medication Administration Record) - Diet Type Continue NPO (nothing by mouth) - Diet - Liquid Texture Continue N/A - Tube Feed Continue N/A - Bladder care per protocol - Weight Bearing Precaution WBAT right LE - Fall Precaution Bed alarm TABS alarm Wheel chair alarm - Skin care per protocol - Diet - Solid Texture Continue Regular Continue N/A - Shower allowing shower for Dementia, TBI, Stroke, or others FUNCTIONAL STATUS: UPDATED AT WEEKLY TEAM CONFERENCE - Bladder Same accident frequency: 7-Ind - No accidents in the past 7 days - Bowel Same accident frequency: 7-Ind - No accidents in the past 7 days - Walking Same score based on distance walked: 0(N/A) - Wheelchair Same score based on distance traveled: 0(N/A) FUNCTIONAL STATUS: - Self-Care A. Eating Ind B. Grooming Kristie C. Bathing modA D. Dressing - Upper Kristie E. Dressing - Lower modA F. Toileting Kristie - Sphincter Control G. Bladder control sup H. Bowel control Kayode - Transfers Control I. Bed/Chair/Wheelchair modA J. Toilet Kristie K. Tub/Shower modA - Locomotion L. Walk/Wheelchair (B) Kristie M. Stairs modA - Communication N. Comprehension (B) sup O. Expression (B) Kristie - Social Cognition P. Social Interaction Ind Q. Problem Solving Ind R. Memory Ind - Endurance Fair - Balance Fair - Safety Awareness Fair QI SCORES: - Self-Care A. Eating 03-Partial/moderate assistance B. Oral hygiene 03-Partial/moderate assistance C. Toileting hygiene 03-Partial/moderate assistance E. Shower/bathe self 03-Partial/moderate assistance F. Upper body dressing 03-Partial/moderate assistance G. Lower body dressing 03-Partial/moderate assistance H. Putting on/taking off footwear 03-Partial/moderate assistance - Mobility A. Roll left and right 02-Substantial/maximal assistance B. Sit to lying 03-Partial/moderate assistance C. Lying to sitting on side of bed 02-Substantial/maximal assistance D. Sit to stand 02-Substantial/maximal assistance E. Chair/[id number] transfer 02-Substantial/maximal assistance F. Toilet transfer 02-Substantial/maximal assistance G. Car transfer 02-Substantial/maximal assistance I. Walk 10 feet 88-Not attempted due to medical condition or safety concerns J. Walk 50 feet with two turns 88-Not attempted due to medical condition or safety concerns K. Walk 150 feet 88-Not attempted due to medical condition or safety concerns L. Walking 10 feet on uneven surfaces 88-Not attempted due to medical condition or safety concerns M. 1 step (curb) 88-Not attempted due to medical condition or safety concerns N. 4 steps 88-Not attempted due to medical condition or safety concerns O. 12 steps 88-Not attempted due to medical condition or safety concerns P. Picking up object 03-Partial/moderate assistance R. Wheel 50 feet with two turns 09-Not applicable S. Wheel 150 feet 09-Not applicable - Bladder and Bowel Bladder continence 0-Always continent Bowel continence 9-Not rated - Endurance Good - Balance Good - Safety Awareness Good CURRENT FUN. DEFICITS: Self-Care and Mobility SIGNATURE PANEL: (CDT)
[2021-08-24] MEDS: CEFAZOLIN/SWI 2gm 2 GM/20 ML SYR IVP SCH ×2 (00:51→08:55)
[2021-08-24] MEDS: METOPROLOL TAR 25 MG TAB PO SCH ×2 (04:57→16:54)
[2021-08-24 06:13] LABS: Absolute Lymphocytes (CBC) 1.2 K/uL (0.7-4.9); Hematocrit 33.5 % (39.6-49.0); Lymphocytes % 23.8 % (15.3-44.8); MPV 9.3 fL (7.6-11.3)
[2021-08-24 06:30] LABS: Protime INR 2.32
[2021-08-24 06:38] LABS: Albumin 3.3 g/dL (3.4-5.0); Magnesium 1.9 mg/dL (1.8-2.4); Potassium 3.7 mmol/L (3.5-5.1)
[2021-08-24] MEDS: lisinopriL 5 MG TAB PO SCH (08:00)
[2021-08-24] MEDS: AMLODIPINE 5 MG TAB PO SCH (08:00)
[2021-08-24] MEDS: LIDOCAINE 4% PATCH TOP SCH (08:02)
[2021-08-24] MEDS: MAGNESIUM OXIDE 400 MG TAB PO SCH ×2 (08:02→20:34)
[2021-08-24] MEDS: Pantoprazole (granules) 40 MG/BLIST PACKET FT SCH ×2 (08:02→16:50)
[2021-08-24] MEDS: ASPIRIN EC 81 MG TAB PO SCH (08:03)
--- NOTE | 2021-08-24 10:07 | P.RH.PN ---
Estimated Length of Stay: 23 Expected Discharge Date: 08/26/21 Discharge Disposition Plan: Home Family Support: Yes [facility] Goal: Mobility, Transfers, Self Care Vital Signs: Last Vital Signs Temp 97.8 F 08/24/21 07:16 Pulse 84 08/24/21 09:56 Resp 18 08/24/21 07:16 BP 110/67 08/24/21 09:56 Pulse Ox 96 08/24/21 07:16 Laboratory: Laboratory Last Values WBC 4.9 K/uL (4.3-10.9) 08/24/21 04:45 RBC 3.90 M/uL (4.33-5.43) L 08/24/21 04:45 Hgb 11.2 g/dL (13.6-17.9) L 08/24/21 04:45 Hct 33.5 % (39.6-49.0) L 08/24/21 04:45 MCV 85.9 fL (80-100) 08/24/21 04:45 MCH 28.6 pg (27.0-35.0) 08/24/21 04:45 MCHC 33.3 g/dL (32.0-36.0) 08/24/21 04:45 RDW 15.6 % (12.1-15.2) H 08/24/21 04:45 Plt Count 182 K/uL (152-406) 08/24/21 04:45 MPV 9.3 fL (7.6-11.3) 08/24/21 04:45 Neutrophils % 59.5 % (41.7-73.7) 08/24/21 04:45 Lymphocytes % 23.8 % (15.3-44.8) 08/24/21 04:45 Monocytes % 9.9 % (3.3-12.3) 08/24/21 04:45 Eosinophils % 4.5 % (0-4.4) H 08/24/21 04:45 Basophils % 2.3 % (0-1.3) H 08/24/21 04:45 Absolute Neutrophils 2.9 K/uL (1.8-8.0) 08/24/21 04:45 Segmented Neutrophils 57 % (40-80) 08/17/21 05:05 Absolute Lymphocytes 1.2 K/uL (0.7-4.9) 08/24/21 04:45 Lymphocytes 23 % (15-42) 08/17/21 05:05 Monocytes 9 % (0-10) 08/17/21 05:05 Absolute Monocytes 0.5 K/uL (0.1-1.3) 08/24/21 04:45 Eosinophils 10 % (0-3) H 08/17/21 05:05 Absolute Eosinophils 0.2 K/uL (0-0.5) 08/24/21 04:45 Basophils 1 % (0-1) 08/17/21 05:05 Absolute Basophils 0.1 K/uL (0-0.5) 08/24/21 04:45 Platelet Estimate Adeq 08/17/21 05:05 Morphology Comment Not seen (NOT SEEN) 08/17/21 05:05 PT 26.0 SECONDS (9.5-12.5) H 08/24/21 04:45 INR 2.32 08/24/21 04:45 Sodium 139 mmol/L (136-145) 08/24/21 04:45 Potassium 3.7 mmol/L (3.5-5.1) 08/24/21 04:45 Chloride 107 mmol/L (98-107) 08/24/21 04:45 Carbon Dioxide 27 mmol/L (21-32) 08/24/21 04:45 Anion Gap 8.7 mEq/L (5.0-15.0) 08/24/21 04:45 BUN 11 mg/dL (7-18) 08/24/21 04:45 Creatinine 0.72 mg/dL (0.55-1.3) 08/24/21 04:45 Estimated GFR > 90 mL/min (=/>90) 08/10/21 04:15 Est GFR (CKD-EPI) 111 ml/min (=/>90) 08/24/21 04:45 Glucose 96 mg/dL (74-106) 08/24/21 04:45 POC Glucose 95 mg/dL (65-120) 08/17/21 11:32 Uric Acid 5.5 mg/dL (3.5-7.2) 08/23/21 10:20 Calcium 8.8 mg/dL (8.5-10.1) 08/24/21 04:45 Magnesium 1.9 mg/dL (1.8-2.4) 08/24/21 04:45 Albumin 3.3 g/dL (3.4-5.0) L 08/24/21 04:45 Prealbumin 15.0 mg/dL (20-40) L 08/24/21 04:45 Urine Color Yellow (Yellow) 08/03/21 20:38 Urine Appearance Hazy (Clear) 08/03/21 20:38 Urine pH 7.5 (5.0-7.0) H 08/03/21 20:38 Ur Specific [place] 1.020 (1.005-1.030) 08/03/21 20:38 Glucose (UA)(Auto) Negative (Negative) 08/03/21 20:38 Urine Ketones Negative (Negative) 08/03/21 20:38 Urine Blood 2+ (Negative) H 08/03/21 20:38 Urine Nitrite Negative (Negative) 08/03/21 20:38 Urine Bilirubin Negative (Negative) 08/03/21 20:38 Urine Urobilinogen 2.0 mg/dL (0.2-1.0) H 08/03/21 20:38 Ur Leukocyte Esterase Negative (Negative) 08/03/21 20:38 Urine RBC 5-10 /HPF (NONE SEEN) H 08/03/21 20:38 Urine WBC <5 /HPF (<5) 08/03/21 20:38 Ur Squamous Epith Cells <5 /HPF (NONE SEEN) 08/03/21 20:38 Ur Urothelial Cells Cancelled 08/03/21 19:30 Calcium Oxalate Crystal Cancelled 08/03/21 19:30 Uric Acid Crystals Cancelled 08/03/21 19:30 Triple Phos Crystals Cancelled 08/03/21 19:30 Other Crystals Cancelled 08/03/21 19:30 Amorphous Sediment 2+ /HPF (NONE SEEN) H 08/03/21 20:38 Glitter Cells Cancelled 08/03/21 19:30 Urine Bacteria <20 /HPF (NONE SEEN) 08/03/21 20:38 Hyaline Casts Cancelled 08/03/21 19:30 Fine Granular Casts Cancelled 08/03/21 19:30 Coarse Granular Casts Cancelled 08/03/21 19:30 Waxy Casts Cancelled 08/03/21 19:30 RBC Casts Cancelled 08/03/21 19:30 WBC Casts Cancelled 08/03/21 19:30 Urine Mucus Cancelled 08/03/21 19:30 Urine Other Cancelled 08/03/21 19:30 Urine Trichomonas Cancelled 08/03/21 19:30 Urine Yeast Cancelled 08/03/21 19:30 Ur Yeast w Hyphae Cancelled 08/03/21 19:30 Urine Yeast (Budding) Cancelled 08/03/21 19:30 Urine Sperm Cancelled 08/03/21 19:30 Urine Culture Reflexed Not needed 08/03/21 20:38 Urine Total Volume Cancelled 08/03/21 19:30 Urine Total Protein 2+ (Negative) H 08/03/21 20:38 SARS-CoV-2 Rap RNA(RT-PCR) Negative (NEGATIVE) 08/24/21 04:50 Weight: 246 lb 9.6 oz Wound Present: No Closed Surgical Incision Present: No Negative Pressure Wound Therapy Present: No Physician Update: Bed mobility mod I, transfering well with platform walker. 260' with platform walker and SBA. Wheelchair 250' with SBA. He will require a resting right hand splint. CGA with ADLs, upper body dressing, footwear and showering. Comment: no skin breakdown. Functional Improvement: Patient has met all short-term and long-term goals at this time, w/ the exception of a car transfer. Goals will be updated to accommodate patient's current progression. Summary: Patient's care plan and alf goals have been reviewed and revised as necessary. Please see the Rehabilitation Signature page for all necessary signatures.
[2021-08-24] MEDS: WARFARIN SODIUM 5 MG TAB PO SCH (16:50)
[2021-08-24] MEDS: CEFAZOLIN 2 GM in NA CHLORIDE 0.9% 100 ML IVPB SCH (17:12)
[2021-08-24] MEDS: ATORVASTATIN 40 MG TAB PO SCH (20:33)
[2021-08-24] MEDS: DOCUSATE NA/SENNA CONC 1 TAB PO SCH (20:35)
[2021-08-24] MEDS ORDERED: NA CHLORIDE 0.9% 250 ML ONE (23:43)
[2021-08-25] MEDS: CEFAZOLIN 2 GM in NA CHLORIDE 0.9% 100 ML IVPB SCH ×3 (00:23→17:19)
[2021-08-25] MEDS: METOPROLOL TAR 25 MG TAB PO SCH ×2 (04:46→17:00)
[2021-08-25 05:19] LABS: Protime INR 2.22
[2021-08-25] MEDS: LIDOCAINE 4% PATCH TOP SCH (07:39)
[2021-08-25] MEDS: ASPIRIN EC 81 MG TAB PO SCH (07:39)
[2021-08-25] MEDS: MAGNESIUM OXIDE 400 MG TAB PO SCH ×2 (07:39→21:46)
[2021-08-25] MEDS: Pantoprazole (granules) 40 MG/BLIST PACKET FT SCH ×2 (07:39→16:29)
[2021-08-25] MEDS: AMLODIPINE 5 MG TAB PO SCH (07:44)
[2021-08-25] MEDS: lisinopriL 5 MG TAB PO SCH (07:45)
[2021-08-25] MEDS: NYSTATIN PWDR 100000 UNIT/GM TOP SCH ×2 (08:00→20:00)
[2021-08-25] MEDS: WARFARIN SODIUM 5 MG TAB PO SCH (16:29)
--- NOTE | 2021-08-25 16:40 | R.PN ---
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 Pt denied any Shortness of Breath. Labs reviewed and are stable. WBC 4.9, Hgb 11.2, INR 2.22. Prealbumin 15.0, K 3.7. Covid-19 is negat bettina on 08/24/21. INR is 2.24. Coumadin 10 mg daily. He has right bit toe swelling and pain. Uric acid level is normal at 5.5. Ambulated 1500' with contact guard assistance using right platform walker. VITAL SIGNS Temperature: 97.7 F SBP/DBP: 117/63 Pulse: 61 Resp: 16 MEDICATION ALLERGIES: No Known Drug Allergies (NKDA) ENVIRONMENTAL ALLERGIES: - Substance Allergies None Known - Other Allergies None Known NURSING: - Shower allowing shower - Bladder care per protocol - Skin care per protocol PRECAUTIONS: - Weight Bearing Precaution WBAT right LE - Fall Precaution Bed alarm TABS alarm Wheel chair alarm ACTIVITIES OOB only with supervision THERAPIES: - Dietary and Nutrition Adequate Nutrition. Nutritional Education. Nutritional Supplements. Evaluate and Treat. - Occupational Therapy Cognitive Retraining. Patient needs Occupational Therapy for a daily minimum of 1.5 hours at least 5 out of 7 days, to improve Activities of Daily Living, including: Eating, Grooming, Bathing, Dressing, Toileting, Toilet Transfers, Community Reintegration, Higher functional activities, Adaptive Equipme nt, Splinting, Household Tasks, and Other activities as determined. Visual Perceptual Training. Evalu ate and Treat. Safety Awareness. UE ROM. UE Strengthening. - Speech Therapy Cognitive Training. Expressive Language Skills. Memory Strategies. Patient needs Speech Therapy for a daily minimum of 1.5 hours at least 5 out of 7 days, to improve: Swallowing, Cognition, Language Ski lls, and Compensatory Strategies. Receptive Language Skills. Speech Intelligibility Training. Evaluat e and Treat. Dysphagia Therapy. - Physical Therapy Patient needs Physical Therapy for a daily minimum of 1.5 hours at least 5 out of 7 days, to improve: Mobility, Strengthening, Transfers, Stretching, ROM, Endurance, Ability to manage stairs, Gait, and Balance. Evaluate and Treat. Wheelchair Management. Patient/Family Education. Safety Awareness. PHYSICAL EXAM - Gen Alert and awake Lying in bed No apparent distress Oriented to: person, time, and place - Skin No skin breakdown. Normacephalic - Eyes No abnormalities - ENMT No abnormalities - Neck No abnormalities No cervical adenopathy - CVS RRR - Chest No abnormalities - Resp Clear to auscultation - Abd Obese, soft, nontender - GI nondistended Deferred - Joyner catheter will be removed today. - Ext Mild right upper and lower extremity edema. - MSK 3/5 weakness in right upper and lower extremity. - Neuro 3/5 weakness in right upper and lower extremity, and dense right arm and leg numbness with neglect. - Psych Mild depression. ASSESSMENT: Pt. is a 50 yo white male.Pt. is a 50 yo Unknown dexterity white male.On 07/14/2021 Pt. 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 was independen t/mod-I in Locomotion, Safety Awareness, Balance, Transfers Control, Self-Care, Endurance, Communicat ion, Social Cognition, and Sphincter Control.Currently, he has deficits of Locomotion, Balance, Trans fers Control, Communication, Self-Care, Endurance, and Safety Awareness.Pt. is now referred to [facility] for acute in-patient rehabilitation in order to maximize patient's functi onal independence in activities of daily living, strength, ROM, and mobility.- Rehab Goal Patient has realistic goal of being discharged at assistance level 4-Kristie to reside at Home with Fam julian/Relatives. MDM/PLAN: - Physical Therapy Inability to transfer - to improve, our physical therapists will perform initial evaluation of pt's status upon admission and devise an individualized program for Bed mobility Need for home safety evaluation - to improve, our physical therapists will perform initial evaluatio n of pt's status upon admission and devise an individualized program for Home Evaluation Need in caregiver upon discharge - to improve, our physical therapists will perform initial evaluati on of pt's status upon admission and devise an individualized program for Caregiver Training New precaution - to improve, our physical therapists will perform initial evaluation of pt's status upon admission and devise an individualized program for Patient precaution education Edema - to improve, our physical therapists will perform initial evaluation of pt's status upon admi ssion and devise an individualized program for Elevation Training, and Lymphedema Therapy Poor balance - to improve, our physical therapists will perform initial evaluation of pt's status up on admission and devise an individualized program for Balance Training Poor endurance - to improve, our physical therapists will perform initial evaluation of pt's status upon admission and devise an individualized program for Endurance Training Achieving independence - to improve, our physical therapists will perform initial evaluation of pt's status upon admission and devise an individualized program for Community Reintegration Activities - Occupational Therapy ADL deficits - to improve, our occupation therapists will perform initial evaluation of pt's status upon admission and devise an individualized program for Bathing, Bed mobility, Community Reintegratio n, Cooking, Dressing, Eating, Fine Motor Skills, Grooming, Homemaking, Kitchen Mobility, Laundry, Pat ient Education, Safety Awareness, Splinting - Positioning, Transfers(Toilet, Tub, Shower), and Wheel Chair Management 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 - to improve, our occupation therapists will perform initial evaluation of pt's status upon admission and devise an individualized program for Caregiver Training - Other See attached MAR (Medication Administration Record) - Diet Type Continue NPO (nothing by mouth) - Diet - Liquid Texture Continue N/A - Tube Feed Continue N/A - Bladder care per protocol - Weight Bearing Precaution WBAT right LE - Fall Precaution Bed alarm TABS alarm Wheel chair alarm - Skin care per protocol - Diet - Solid Texture Continue Regular Continue N/A - Shower allowing shower for Dementia, TBI, Stroke, or others FUNCTIONAL STATUS: UPDATED AT WEEKLY TEAM CONFERENCE - Bladder Same accident frequency: 7-Ind - No accidents in the past 7 days - Bowel Same accident frequency: 7-Ind - No accidents in the past 7 days - Walking Same score based on distance walked: 0(N/A) - Wheelchair Same score based on distance traveled: 0(N/A) FUNCTIONAL STATUS: - Self-Care A. Eating Ind B. Grooming Kristie C. Bathing modA D. Dressing - Upper Kristie E. Dressing - Lower modA F. Toileting Kristie - Sphincter Control G. Bladder control sup H. Bowel control Kayode - Transfers Control I. Bed/Chair/Wheelchair modA J. Toilet Kristie K. Tub/Shower modA - Locomotion L. Walk/Wheelchair (B) Kristie M. Stairs modA - Communication N. Comprehension (B) sup O. Expression (B) Kristie - Social Cognition P. Social Interaction Ind Q. Problem Solving Ind R. Memory Ind - Endurance Fair - Balance Fair - Safety Awareness Fair QI SCORES: - Self-Care A. Eating 03-Partial/moderate assistance B. Oral hygiene 03-Partial/moderate assistance C. Toileting hygiene 03-Partial/moderate assistance E. Shower/bathe self 03-Partial/moderate assistance F. Upper body dressing 03-Partial/moderate assistance G. Lower body dressing 03-Partial/moderate assistance H. Putting on/taking off footwear 03-Partial/moderate assistance - Mobility A. Roll left and right 02-Substantial/maximal assistance B. Sit to lying 03-Partial/moderate assistance C. Lying to sitting on side of bed 02-Substantial/maximal assistance D. Sit to stand 02-Substantial/maximal assistance E. Chair/[id number] transfer 02-Substantial/maximal assistance F. Toilet transfer 02-Substantial/maximal assistance G. Car transfer 02-Substantial/maximal assistance I. Walk 10 feet 88-Not attempted due to medical condition or safety concerns J. Walk 50 feet with two turns 88-Not attempted due to medical condition or safety concerns K. Walk 150 feet 88-Not attempted due to medical condition or safety concerns L. Walking 10 feet on uneven surfaces 88-Not attempted due to medical condition or safety concerns M. 1 step (curb) 88-Not attempted due to medical condition or safety concerns N. 4 steps 88-Not attempted due to medical condition or safety concerns O. 12 steps 88-Not attempted due to medical condition or safety concerns P. Picking up object 03-Partial/moderate assistance R. Wheel 50 feet with two turns 09-Not applicable S. Wheel 150 feet 09-Not applicable - Bladder and Bowel Bladder continence 0-Always continent Bowel continence 9-Not rated - Endurance Good - Balance Good - Safety Awareness Good CURRENT [facility]. DEFICITS: Self-Care and Mobility SIGNATURE PANEL: (CDT)
[2021-08-25] MEDS: DOCUSATE NA/SENNA CONC 1 TAB PO SCH (21:47)
[2021-08-25] MEDS: ATORVASTATIN 40 MG TAB PO SCH (21:47)
[2021-08-26] MEDS: CEFAZOLIN 2 GM in NA CHLORIDE 0.9% 100 ML IVPB SCH ×3 (00:31→17:23)
[2021-08-26] MEDS: METOPROLOL TAR 25 MG TAB PO SCH ×3 (05:35→17:24)
[2021-08-26 06:17] LABS: Protime INR 2.4
[2021-08-26] MEDS: LIDOCAINE 4% PATCH TOP SCH (07:31)
[2021-08-26] MEDS: Pantoprazole (granules) 40 MG/BLIST PACKET FT SCH ×2 (07:32→16:51)
[2021-08-26] MEDS: ASPIRIN EC 81 MG TAB PO SCH (07:32)
[2021-08-26] MEDS: lisinopriL 5 MG TAB PO SCH (07:33)
[2021-08-26] MEDS: NYSTATIN PWDR 100000 UNIT/GM TOP SCH ×2 (08:00→20:03)
[2021-08-26] MEDS: AMLODIPINE 5 MG TAB PO SCH (08:00)
[2021-08-26] MEDS: MAGNESIUM OXIDE 400 MG TAB PO SCH ×2 (09:06→19:56)
[2021-08-26] MEDS: WARFARIN SODIUM 5 MG TAB PO SCH (16:51)
[2021-08-26] MEDS: DOCUSATE NA/SENNA CONC 1 TAB PO SCH (19:56)
[2021-08-26] MEDS: ATORVASTATIN 40 MG TAB PO SCH (19:56)
[2021-08-26] MEDS ORDERED: NA CHLORIDE 0.9% 250 ML ONE (21:10)
[2021-08-27] MEDS: CEFAZOLIN 2 GM in NA CHLORIDE 0.9% 100 ML IVPB SCH ×4 (00:18→23:59)
[2021-08-27 05:03] LABS: Protime INR 2.46
[2021-08-27] MEDS: METOPROLOL TAR 25 MG TAB PO SCH ×2 (05:10→17:26)
[2021-08-27] MEDS: Pantoprazole (granules) 40 MG/BLIST PACKET FT SCH ×2 (07:06→16:29)
[2021-08-27] MEDS: LIDOCAINE 4% PATCH TOP SCH (07:07)
[2021-08-27] MEDS: MAGNESIUM OXIDE 400 MG TAB PO SCH ×2 (07:10→19:01)
[2021-08-27] MEDS: ASPIRIN EC 81 MG TAB PO SCH (07:11)
[2021-08-27] MEDS: lisinopriL 5 MG TAB PO SCH (07:11)
[2021-08-27] MEDS: AMLODIPINE 5 MG TAB PO SCH (07:12)
[2021-08-27] MEDS: NYSTATIN PWDR 100000 UNIT/GM TOP SCH ×2 (09:08→19:01)
[2021-08-27] MEDS: WARFARIN SODIUM 5 MG TAB PO SCH (16:30)
[2021-08-27] MEDS: DOCUSATE NA/SENNA CONC 1 TAB PO SCH (19:01)
[2021-08-27] MEDS: ATORVASTATIN 40 MG TAB PO SCH (19:01)
[2021-08-27] MEDS: MELATONIN 5 MG TABLET PO PRN (20:15)
[2021-08-28 04:16] LABS: Protime INR 2.54
[2021-08-28] MEDS: METOPROLOL TAR 25 MG TAB PO SCH ×2 (05:29→16:52)
[2021-08-28] MEDS: LIDOCAINE 4% PATCH TOP SCH (06:55)
[2021-08-28] MEDS: lisinopriL 5 MG TAB PO SCH (07:55)
[2021-08-28] MEDS: Pantoprazole (granules) 40 MG/BLIST PACKET FT SCH ×2 (07:55→16:52)
[2021-08-28] MEDS: NYSTATIN PWDR 100000 UNIT/GM TOP SCH ×2 (07:55→20:07)
[2021-08-28] MEDS: AMLODIPINE 5 MG TAB PO SCH (07:56)
[2021-08-28] MEDS: MAGNESIUM OXIDE 400 MG TAB PO SCH ×2 (07:56→20:07)
[2021-08-28] MEDS: ASPIRIN EC 81 MG TAB PO SCH (07:56)
[2021-08-28] MEDS: CEFAZOLIN 2 GM in NA CHLORIDE 0.9% 100 ML IVPB SCH (09:00)
[2021-08-28] MEDS: CEFAZOLIN 2 GM IN 0.9% NACL 2 GM/100 ML BAG IVPB SCH ×2 (09:23→17:06)
[2021-08-28] MEDS: WARFARIN SODIUM 5 MG TAB PO SCH (16:51)
--- NOTE | 2021-08-28 17:51 | R.PN ---
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 Pt denied any Shortness of Breath. Labs reviewed and are stable. WBC 4.9, Hgb 11.2, INR 2.22. Prealbumin 15.0, K 3.7. Covid-19 is negat bettina on 08/24/21. INR is 2.54. Coumadin 10 mg daily. He has right bit toe swelling and pain. Uric acid level is normal at 5.5. Ambulated 1500' with contact guard assistance using right platform walker. VITAL SIGNS Temperature: 97.8 F SBP/DBP: 103/65 Pulse: 64 Resp: 15 MEDICATION ALLERGIES: No Known Drug Allergies (NKDA) ENVIRONMENTAL ALLERGIES: - Substance Allergies None Known - Other Allergies None Known NURSING: - Shower allowing shower - Bladder care per protocol - Skin care per protocol PRECAUTIONS: - Weight Bearing Precaution WBAT right LE - Fall Precaution Bed alarm TABS alarm Wheel chair alarm ACTIVITIES OOB only with supervision THERAPIES: - Dietary and Nutrition Adequate Nutrition. Nutritional Education. Nutritional Supplements. Evaluate and Treat. - Occupational Therapy Cognitive Retraining. Patient needs Occupational Therapy for a daily minimum of 1.5 hours at least 5 out of 7 days, to improve Activities of Daily Living, including: Eating, Grooming, Bathing, Dressing, Toileting, Toilet Transfers, Community Reintegration, Higher functional activities, Adaptive Equipme nt, Splinting, Household Tasks, and Other activities as determined. Visual Perceptual Training. Evalu ate and Treat. Safety Awareness. UE ROM. UE Strengthening. - Speech Therapy Cognitive Training. Expressive Language Skills. Memory Strategies. Patient needs Speech Therapy for a daily minimum of 1.5 hours at least 5 out of 7 days, to improve: Swallowing, Cognition, Language Ski lls, and Compensatory Strategies. Receptive Language Skills. Speech Intelligibility Training. Evaluat e and Treat. Dysphagia Therapy. - Physical Therapy Patient needs Physical Therapy for a daily minimum of 1.5 hours at least 5 out of 7 days, to improve: Mobility, Strengthening, Transfers, Stretching, ROM, Endurance, Ability to manage stairs, Gait, and Balance. Evaluate and Treat. Wheelchair Management. Patient/Family Education. Safety Awareness. PHYSICAL EXAM - Gen Alert and awake Lying in bed No apparent distress Oriented to: person, time, and place - Skin No skin breakdown. Normacephalic - Eyes No abnormalities - ENMT No abnormalities - Neck No abnormalities No cervical adenopathy - CVS RRR - Chest No abnormalities - Resp Clear to auscultation - Abd Obese, soft, nontender - GI nondistended Deferred - Joyner catheter will be removed today. - Ext Mild right upper and lower extremity edema. - MSK 3/5 weakness in right upper and lower extremity. - Neuro 3/5 weakness in right upper and lower extremity, and dense right arm and leg numbness with neglect. - Psych Mild depression. ASSESSMENT: Pt. is a 50 yo white male.Pt. is a 50 yo Unknown dexterity white male.On 07/14/2021 Pt. 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 was independen t/mod-I in Locomotion, Safety Awareness, Balance, Transfers Control, Self-Care, Endurance, Communicat ion, Social Cognition, and Sphincter Control.Currently, he has deficits of Locomotion, Balance, Trans fers Control, Communication, Self-Care, Endurance, and Safety Awareness.Pt. is now referred to [facility] for acute in-patient rehabilitation in order to maximize patient's functi onal independence in activities of daily living, strength, ROM, and mobility.- Rehab Goal Patient has realistic goal of being discharged at assistance level 4-Kristie to reside at Home with Fam julian/Relatives. MDM/PLAN: - Physical Therapy Inability to transfer - to improve, our physical therapists will perform initial evaluation of pt's status upon admission and devise an individualized program for Bed mobility Need for home safety evaluation - to improve, our physical therapists will perform initial evaluatio n of pt's status upon admission and devise an individualized program for Home Evaluation Need in caregiver upon discharge - to improve, our physical therapists will perform initial evaluati on of pt's status upon admission and devise an individualized program for Caregiver Training New precaution - to improve, our physical therapists will perform initial evaluation of pt's status upon admission and devise an individualized program for Patient precaution education Edema - to improve, our physical therapists will perform initial evaluation of pt's status upon admi ssion and devise an individualized program for Elevation Training, and Lymphedema Therapy Poor balance - to improve, our physical therapists will perform initial evaluation of pt's status up on admission and devise an individualized program for Balance Training Poor endurance - to improve, our physical therapists will perform initial evaluation of pt's status upon admission and devise an individualized program for Endurance Training Achieving independence - to improve, our physical therapists will perform initial evaluation of pt's status upon admission and devise an individualized program for Community Reintegration Activities - Occupational Therapy ADL deficits - to improve, our occupation therapists will perform initial evaluation of pt's status upon admission and devise an individualized program for Bathing, Bed mobility, Community Reintegratio n, Cooking, Dressing, Eating, Fine Motor Skills, Grooming, Homemaking, Kitchen Mobility, Laundry, Pat ient Education, Safety Awareness, Splinting - Positioning, Transfers(Toilet, Tub, Shower), and Wheel Chair Management Need for caretaker - to improve, our occupation therapists will perform initial evaluation of pt's status upon admission and devise an individualized program for Caregiver Training - Other See attached MAR (Medication Administration Record) - Diet Type Continue NPO (nothing by mouth) - Diet - Liquid Texture Continue N/A - Tube Feed Continue N/A - Bladder care per protocol - Weight Bearing Precaution WBAT right LE - Fall Precaution Bed alarm TABS alarm Wheel chair alarm - Skin care per protocol - Diet - Solid Texture Continue Regular Continue N/A - Shower allowing shower for Dementia, TBI, Stroke, or others FUNCTIONAL STATUS: UPDATED AT WEEKLY TEAM CONFERENCE - Bladder Same accident frequency: 7-Ind - No accidents in the past 7 days - Bowel Same accident frequency: 7-Ind - No accidents in the past 7 days - Walking Same score based on distance walked: 0(N/A) - Wheelchair Same score based on distance traveled: 0(N/A) FUNCTIONAL STATUS: - Self-Care A. Eating Ind B. Grooming Kristie C. Bathing modA D. Dressing - Upper Kristie E. Dressing - Lower modA F. Toileting Kristie - Sphincter Control G. Bladder control sup H. Bowel control Kayode - Transfers Control I. Bed/Chair/Wheelchair modA J. Toilet Kristie K. Tub/Shower modA - Locomotion L. Walk/Wheelchair (B) Kristie M. Stairs modA - Communication N. Comprehension (B) sup O. Expression (B) Kristie - Social Cognition P. Social Interaction Ind Q. Problem Solving Ind R. Memory Ind - Endurance Fair - Balance Fair - Safety Awareness Fair QI SCORES: - Self-Care A. Eating 03-Partial/moderate assistance B. Oral hygiene 03-Partial/moderate assistance C. Toileting hygiene 03-Partial/moderate assistance E. Shower/bathe self 03-Partial/moderate assistance F. Upper body dressing 03-Partial/moderate assistance G. Lower body dressing 03-Partial/moderate assistance H. Putting on/taking off footwear 03-Partial/moderate assistance - Mobility A. Roll left and right 02-Substantial/maximal assistance B. Sit to lying 03-Partial/moderate assistance C. Lying to sitting on side of bed 02-Substantial/maximal assistance D. Sit to stand 02-Substantial/maximal assistance E. Chair/[id number] transfer 02-Substantial/maximal assistance F. Toilet transfer 02-Substantial/maximal assistance G. Car transfer 02-Substantial/maximal assistance I. Walk 10 feet 88-Not attempted due to medical condition or safety concerns J. Walk 50 feet with two turns 88-Not attempted due to medical condition or safety concerns K. Walk 150 feet 88-Not attempted due to medical condition or safety concerns L. Walking 10 feet on uneven surfaces 88-Not attempted due to medical condition or safety concerns M. 1 step (curb) 88-Not attempted due to medical condition or safety concerns N. 4 steps 88-Not attempted due to medical condition or safety concerns O. 12 steps 88-Not attempted due to medical condition or safety concerns P. Picking up object 03-Partial/moderate assistance R. Wheel 50 feet with two turns 09-Not applicable S. Wheel 150 feet 09-Not applicable - Bladder and Bowel Bladder continence 0-Always continent Bowel continence 9-Not rated - Endurance Good - Balance Good - Safety Awareness Good CURRENT FUN. DEFICITS: Self-Care and Mobility SIGNATURE PANEL: (CDT)
[2021-08-28] MEDS: ATORVASTATIN 40 MG TAB PO SCH (20:07)
[2021-08-28] MEDS: DOCUSATE NA/SENNA CONC 1 TAB PO SCH (20:08)
[2021-08-28] MEDS: MELATONIN 5 MG TABLET PO PRN (20:09)
[2021-08-29] MEDS: CEFAZOLIN 2 GM IN 0.9% NACL 2 GM/100 ML BAG IVPB SCH ×3 (00:43→16:36)
[2021-08-29] MEDS: METOPROLOL TAR 25 MG TAB PO SCH ×2 (05:05→17:13)
[2021-08-29 05:47] LABS: Protime INR 2.51
[2021-08-29] MEDS: Pantoprazole (granules) 40 MG/BLIST PACKET FT SCH ×2 (07:43→16:36)
[2021-08-29] MEDS: LIDOCAINE 4% PATCH TOP SCH (07:43)
[2021-08-29] MEDS: ASPIRIN EC 81 MG TAB PO SCH (07:44)
[2021-08-29] MEDS: MAGNESIUM OXIDE 400 MG TAB PO SCH ×2 (07:44→20:05)
[2021-08-29] MEDS: lisinopriL 5 MG TAB PO SCH (07:44)
[2021-08-29] MEDS: NYSTATIN PWDR 100000 UNIT/GM TOP SCH ×2 (07:46→20:05)
[2021-08-29] MEDS: AMLODIPINE 5 MG TAB PO SCH (08:00)
[2021-08-29] MEDS: DULOXETINE 20 MG CAP PO SCH (16:35)
[2021-08-29] MEDS: WARFARIN SODIUM 5 MG TAB PO SCH (16:36)
--- NOTE | 2021-08-29 18:05 | R.PN ---
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 Pt denied any Shortness of Breath. Labs reviewed and are stable. WBC 4.9, Hgb 11.2, INR 2.22. Prealbumin 15.0, K 3.7. Covid-19 is negat bettina on 08/24/21. INR is 2.51. Coumadin 10 mg daily. He has right bit toe swelling and pain. Uric acid level is normal at 5.5. Ambulated 1500' with contact guard assistance using right platform walker. VITAL SIGNS Temperature: 97.8 F SBP/DBP: 127/60 Pulse: 71 Resp: 16 MEDICATION ALLERGIES: No Known Drug Allergies (NKDA) ENVIRONMENTAL ALLERGIES: - Substance Allergies None Known - Other Allergies None Known NURSING: - Shower allowing shower - Bladder care per protocol - Skin care per protocol PRECAUTIONS: - Weight Bearing Precaution WBAT right LE - Fall Precaution Bed alarm TABS alarm Wheel chair alarm ACTIVITIES OOB only with supervision THERAPIES: - Dietary and Nutrition Adequate Nutrition. Nutritional Education. Nutritional Supplements. Evaluate and Treat. - Occupational Therapy Cognitive Retraining. Patient needs Occupational Therapy for a daily minimum of 1.5 hours at least 5 out of 7 days, to improve Activities of Daily Living, including: Eating, Grooming, Bathing, Dressing, Toileting, Toilet Transfers, Community Reintegration, Higher functional activities, Adaptive Equipme nt, Splinting, Household Tasks, and Other activities as determined. Visual Perceptual Training. Evalu ate and Treat. Safety Awareness. UE ROM. UE Strengthening. - Speech Therapy Cognitive Training. Expressive Language Skills. Memory Strategies. Patient needs Speech Therapy for a daily minimum of 1.5 hours at least 5 out of 7 days, to improve: Swallowing, Cognition, Language Ski lls, and Compensatory Strategies. Receptive Language Skills. Speech Intelligibility Training. Evaluat e and Treat. Dysphagia Therapy. - Physical Therapy Patient needs Physical Therapy for a daily minimum of 1.5 hours at least 5 out of 7 days, to improve: Mobility, Strengthening, Transfers, Stretching, ROM, Endurance, Ability to manage stairs, Gait, and Balance. Evaluate and Treat. Wheelchair Management. Patient/Family Education. Safety Awareness. PHYSICAL EXAM - Gen Alert and awake Lying in bed No apparent distress Oriented to: person, time, and place - Skin No skin breakdown. Normacephalic - Eyes No abnormalities - ENMT No abnormalities - Neck No abnormalities No cervical adenopathy - CVS RRR - Chest No abnormalities - Resp Clear to auscultation - Abd Obese, soft, nontender - GI nondistended Deferred - Joyner catheter will be removed today. - Ext Mild right upper and lower extremity edema. - MSK 3/5 weakness in right upper and lower extremity. - Neuro 3/5 weakness in right upper and lower extremity, and dense right arm and leg numbness with neglect. - Psych Mild depression. ASSESSMENT: Pt. is a 50 yo white male.Pt. is a 50 yo Unknown dexterity white male.On 07/14/2021 Pt. 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 was independen t/mod-I in Locomotion, Safety Awareness, Balance, Transfers Control, Self-Care, Endurance, Communicat ion, Social Cognition, and Sphincter Control.Currently, he has deficits of Locomotion, Balance, Trans fers Control, Communication, Self-Care, Endurance, and Safety Awareness.Pt. is now referred to [facility] for acute in-patient rehabilitation in order to maximize patient's functi onal independence in activities of daily living, strength, ROM, and mobility.- Rehab Goal Patient has realistic goal of being discharged at assistance level 4-Kristie to reside at Home with Fam julian/Relatives. MDM/PLAN: - Physical Therapy Inability to transfer - to improve, our physical therapists will perform initial evaluation of pt's status upon admission and devise an individualized program for Bed mobility Need for home safety evaluation - to improve, our physical therapists will perform initial evaluatio n of pt's status upon admission and devise an individualized program for Home Evaluation Need in caregiver upon discharge - to improve, our physical therapists will perform initial evaluati on of pt's status upon admission and devise an individualized program for Caregiver Training New precaution - to improve, our physical therapists will perform initial evaluation of pt's status upon admission and devise an individualized program for Patient precaution education Edema - to improve, our physical therapists will perform initial evaluation of pt's status upon admi ssion and devise an individualized program for Elevation Training, and Lymphedema Therapy Poor balance - to improve, our physical therapists will perform initial evaluation of pt's status up on admission and devise an individualized program for Balance Training Poor endurance - to improve, our physical therapists will perform initial evaluation of pt's status upon admission and devise an individualized program for Endurance Training Achieving independence - to improve, our physical therapists will perform initial evaluation of pt's status upon admission and devise an individualized program for Community Reintegration Activities - Occupational Therapy ADL deficits - to improve, our occupation therapists will perform initial evaluation of pt's status upon admission and devise an individualized program for Bathing, Bed mobility, Community Reintegratio n, Cooking, Dressing, Eating, Fine Motor Skills, Grooming, Homemaking, Kitchen Mobility, Laundry, Pat ient Education, Safety Awareness, Splinting - Positioning, Transfers(Toilet, Tub, Shower), and Wheel Chair Management Need for home health care case manager - to improve, our occupation therapists will perform initial evaluation of pt's status upon admission and devise an individualized program for Caregiver Training - Other See attached MAR (Medication Administration Record) - Diet Type Continue NPO (nothing by mouth) - Diet - Liquid Texture Continue N/A - Tube Feed Continue N/A - Bladder care per protocol - Weight Bearing Precaution WBAT right LE - Fall Precaution Bed alarm TABS alarm Wheel chair alarm - Skin care per protocol - Diet - Solid Texture Continue Regular Continue N/A - Shower allowing shower for Dementia, TBI, Stroke, or others FUNCTIONAL STATUS: UPDATED AT WEEKLY TEAM CONFERENCE - Bladder Same accident frequency: 7-Ind - No accidents in the past 7 days - Bowel Same accident frequency: 7-Ind - No accidents in the past 7 days - Walking Same score based on distance walked: 0(N/A) - Wheelchair Same score based on distance traveled: 0(N/A) FUNCTIONAL STATUS: - Self-Care A. Eating Ind B. Grooming Kristie C. Bathing modA D. Dressing - Upper Kristie E. Dressing - Lower modA F. Toileting Kristie - Sphincter Control G. Bladder control sup H. Bowel control Kayode - Transfers Control I. Bed/Chair/Wheelchair modA J. Toilet Kristie K. Tub/Shower modA - Locomotion L. Walk/Wheelchair (B) Kristie M. Stairs modA - Communication N. Comprehension (B) sup O. Expression (B) Kristie - Social Cognition P. Social Interaction Ind Q. Problem Solving Ind R. Memory Ind - Endurance Fair - Balance Fair - Safety Awareness Fair QI SCORES: - Self-Care A. Eating 03-Partial/moderate assistance B. Oral hygiene 03-Partial/moderate assistance C. Toileting hygiene 03-Partial/moderate assistance E. Shower/bathe self 03-Partial/moderate assistance F. Upper body dressing 03-Partial/moderate assistance G. Lower body dressing 03-Partial/moderate assistance H. Putting on/taking off footwear 03-Partial/moderate assistance - Mobility A. Roll left and right 02-Substantial/maximal assistance B. Sit to lying 03-Partial/moderate assistance C. Lying to sitting on side of bed 02-Substantial/maximal assistance D. Sit to stand 02-Substantial/maximal assistance E. Chair/[id number] transfer 02-Substantial/maximal assistance F. Toilet transfer 02-Substantial/maximal assistance G. Car transfer 02-Substantial/maximal assistance I. Walk 10 feet 88-Not attempted due to medical condition or safety concerns J. Walk 50 feet with two turns 88-Not attempted due to medical condition or safety concerns K. Walk 150 feet 88-Not attempted due to medical condition or safety concerns L. Walking 10 feet on uneven surfaces 88-Not attempted due to medical condition or safety concerns M. 1 step (curb) 88-Not attempted due to medical condition or safety concerns N. 4 steps 88-Not attempted due to medical condition or safety concerns O. 12 steps 88-Not attempted due to medical condition or safety concerns P. Picking up object 03-Partial/moderate assistance R. Wheel 50 feet with two turns 09-Not applicable S. Wheel 150 feet 09-Not applicable - Bladder and Bowel Bladder continence 0-Always continent Bowel continence 9-Not rated - Endurance Good - Balance Good - Safety Awareness Good CURRENT FUN. DEFICITS: Self-Care and Mobility SIGNATURE PANEL: (CDT)
[2021-08-29] MEDS ORDERED: clonazePAM 0.5 MG TAB PO PRN (18:40)
[2021-08-29] MEDS ORDERED: ONDANSETRON 4 MG (ODT) TAB PO ONE (19:04)
[2021-08-29] MEDS ORDERED: ONDANSETRON 4 MG (ODT) TAB ONE (19:12)
[2021-08-29] MEDS: ATORVASTATIN 40 MG TAB PO SCH (20:05)
[2021-08-29] MEDS: DOCUSATE NA/SENNA CONC 1 TAB PO SCH (20:06)
[2021-08-30] MEDS: METOPROLOL TAR 25 MG TAB PO SCH ×2 (05:12→17:04)
[2021-08-30 05:47] LABS: Protime INR 2.28
[2021-08-30] MEDS: LIDOCAINE 4% PATCH TOP SCH (07:19)
[2021-08-30] MEDS: Pantoprazole (granules) 40 MG/BLIST PACKET FT SCH ×2 (07:51→16:29)
[2021-08-30] MEDS: AMLODIPINE 5 MG TAB PO SCH ×2 (08:00→08:25)
[2021-08-30] MEDS: ASPIRIN EC 81 MG TAB PO SCH (08:24)
[2021-08-30] MEDS: MAGNESIUM OXIDE 400 MG TAB PO SCH ×2 (08:24→19:50)
[2021-08-30] MEDS: DULOXETINE 20 MG CAP PO SCH (08:25)
[2021-08-30] MEDS: lisinopriL 5 MG TAB PO SCH (08:25)
[2021-08-30] MEDS: NYSTATIN PWDR 100000 UNIT/GM TOP SCH ×2 (08:26→19:51)
[2021-08-30] MEDS: WARFARIN SODIUM 5 MG TAB PO SCH (16:29)
--- NOTE | 2021-08-30 17:49 | R.PN ---
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 Pt denied any Shortness of Breath. Labs reviewed and are stable. WBC 4.9, Hgb 11.2, INR 2.22. Prealbumin 15.0, K 3.7. Covid-19 is negat bettina on 08/24/21. INR is 2.28. Coumadin 10 mg daily. He has right big toe decreased swelling and pain. Uric acid level is normal at 5.5. Bed mobility and therapeutic exercises done with supervision. VITAL SIGNS Temperature: 97.2 F SBP/DBP: 118/63 Pulse: 72 Resp: 16 MEDICATION ALLERGIES: No Known Drug Allergies (NKDA) ENVIRONMENTAL ALLERGIES: - Substance Allergies None Known - Other Allergies None Known NURSING: - Shower allowing shower - Bladder care per protocol - Skin care per protocol PRECAUTIONS: - Weight Bearing Precaution WBAT right LE - Fall Precaution Bed alarm TABS alarm Wheel chair alarm ACTIVITIES OOB only with supervision THERAPIES: - Dietary and Nutrition Adequate Nutrition. Nutritional Education. Nutritional Supplements. Evaluate and Treat. - Occupational Therapy Cognitive Retraining. Patient needs Occupational Therapy for a daily minimum of 1.5 hours at least 5 out of 7 days, to improve Activities of Daily Living, including: Eating, Grooming, Bathing, Dressing, Toileting, Toilet Transfers, Community Reintegration, Higher functional activities, Adaptive Equipme nt, Splinting, Household Tasks, and Other activities as determined. Visual Perceptual Training. Evalu ate and Treat. Safety Awareness. UE ROM. UE Strengthening. - Speech Therapy Cognitive Training. Expressive Language Skills. Memory Strategies. Patient needs Speech Therapy for a daily minimum of 1.5 hours at least 5 out of 7 days, to improve: Swallowing, Cognition, Language Ski lls, and Compensatory Strategies. Receptive Language Skills. Speech Intelligibility Training. Evaluat e and Treat. Dysphagia Therapy. - Physical Therapy Patient needs Physical Therapy for a daily minimum of 1.5 hours at least 5 out of 7 days, to improve: Mobility, Strengthening, Transfers, Stretching, ROM, Endurance, Ability to manage stairs, Gait, and Balance. Evaluate and Treat. Wheelchair Management. Patient/Family Education. Safety Awareness. PHYSICAL EXAM - Gen Alert and awake Lying in bed No apparent distress Oriented to: person, time, and place - Skin No skin breakdown. Normacephalic - Eyes No abnormalities - ENMT No abnormalities - Neck No abnormalities No cervical adenopathy - CVS RRR - Chest No abnormalities - Resp Clear to auscultation - Abd Obese, soft, nontender - GI nondistended Deferred - Joyner catheter will be removed today. - Ext Mild right upper and lower extremity edema. - MSK 3/5 weakness in right upper and lower extremity. - Neuro 3/5 weakness in right upper and lower extremity, and dense right arm and leg numbness with neglect. - Psych Mild depression. ASSESSMENT: Pt. is a 50 yo white male.Pt. is a 50 yo Unknown dexterity white male.On 07/14/2021 Pt. 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 was independen t/mod-I in Locomotion, Safety Awareness, Balance, Transfers Control, Self-Care, Endurance, Communicat ion, Social Cognition, and Sphincter Control.Currently, he has deficits of Locomotion, Balance, Trans fers Control, Communication, Self-Care, Endurance, and Safety Awareness.Pt. is now referred to [facility] for acute in-patient rehabilitation in order to maximize patient's functi onal independence in activities of daily living, strength, ROM, and mobility.- Rehab Goal Patient has realistic goal of being discharged at assistance level 4-Kristie to reside at Home with Fam julian/Relatives. MDM/PLAN: - Physical Therapy Inability to transfer - to improve, our physical therapists will perform initial evaluation of pt's status upon admission and devise an individualized program for Bed mobility Need for home safety evaluation - to improve, our physical therapists will perform initial evaluatio n of pt's status upon admission and devise an individualized program for Home Evaluation Need in caregiver upon discharge - to improve, our physical therapists will perform initial evaluati on of pt's status upon admission and devise an individualized program for Caregiver Training New precaution - to improve, our physical therapists will perform initial evaluation of pt's status upon admission and devise an individualized program for Patient precaution education Edema - to improve, our physical therapists will perform initial evaluation of pt's status upon admi ssion and devise an individualized program for Elevation Training, and Lymphedema Therapy Poor balance - to improve, our physical therapists will perform initial evaluation of pt's status up on admission and devise an individualized program for Balance Training Poor endurance - to improve, our physical therapists will perform initial evaluation of pt's status upon admission and devise an individualized program for Endurance Training Achieving independence - to improve, our physical therapists will perform initial evaluation of pt's status upon admission and devise an individualized program for Community Reintegration Activities - Occupational Therapy ADL deficits - to improve, our occupation therapists will perform initial evaluation of pt's status upon admission and devise an individualized program for Bathing, Bed mobility, Community Reintegratio n, Cooking, Dressing, Eating, Fine Motor Skills, Grooming, Homemaking, Kitchen Mobility, Laundry, Pat ient Education, Safety Awareness, Splinting - Positioning, Transfers(Toilet, Tub, Shower), and Wheel Chair Management Need for housekeeper child care - to improve, our occupation therapists will perform initial evaluation of pt's status upon admission and devise an individualized program for Caregiver Training - Other See attached MAR (Medication Administration Record) - Diet Type Continue NPO (nothing by mouth) - Diet - Liquid Texture Continue N/A - Tube Feed Continue N/A - Bladder care per protocol - Weight Bearing Precaution WBAT right LE - Fall Precaution Bed alarm TABS alarm Wheel chair alarm - Skin care per protocol - Diet - Solid Texture Continue Regular Continue N/A - Shower allowing shower for Dementia, TBI, Stroke, or others FUNCTIONAL STATUS: UPDATED AT WEEKLY TEAM CONFERENCE - Bladder Same accident frequency: 7-Ind - No accidents in the past 7 days - Bowel Same accident frequency: 7-Ind - No accidents in the past 7 days - Walking Same score based on distance walked: 0(N/A) - Wheelchair Same score based on distance traveled: 0(N/A) FUNCTIONAL STATUS: - Self-Care A. Eating Ind B. Grooming Kristie C. Bathing modA D. Dressing - Upper Kristie E. Dressing - Lower modA F. Toileting Kristie - Sphincter Control G. Bladder control sup H. Bowel control Kayode - Transfers Control I. Bed/Chair/Wheelchair modA J. Toilet Kristie K. Tub/Shower modA - Locomotion L. Walk/Wheelchair (B) Kristie M. Stairs modA - Communication N. Comprehension (B) sup O. Expression (B) Kristie - Social Cognition P. Social Interaction Ind Q. Problem Solving Ind R. Memory Ind - Endurance Fair - Balance Fair - Safety Awareness Fair QI SCORES: - Self-Care A. Eating 03-Partial/moderate assistance B. Oral hygiene 03-Partial/moderate assistance C. Toileting hygiene 03-Partial/moderate assistance E. Shower/bathe self 03-Partial/moderate assistance F. Upper body dressing 03-Partial/moderate assistance G. Lower body dressing 03-Partial/moderate assistance H. Putting on/taking off footwear 03-Partial/moderate assistance - Mobility A. Roll left and right 02-Substantial/maximal assistance B. Sit to lying 03-Partial/moderate assistance C. Lying to sitting on side of bed 02-Substantial/maximal assistance D. Sit to stand 02-Substantial/maximal assistance E. Chair/[id number] transfer 02-Substantial/maximal assistance F. Toilet transfer 02-Substantial/maximal assistance G. Car transfer 02-Substantial/maximal assistance I. Walk 10 feet 88-Not attempted due to medical condition or safety concerns J. Walk 50 feet with two turns 88-Not attempted due to medical condition or safety concerns K. Walk 150 feet 88-Not attempted due to medical condition or safety concerns L. Walking 10 feet on uneven surfaces 88-Not attempted due to medical condition or safety concerns M. 1 step (curb) 88-Not attempted due to medical condition or safety concerns N. 4 steps 88-Not attempted due to medical condition or safety concerns O. 12 steps 88-Not attempted due to medical condition or safety concerns P. Picking up object 03-Partial/moderate assistance R. Wheel 50 feet with two turns 09-Not applicable S. Wheel 150 feet 09-Not applicable - Bladder and Bowel Bladder continence 0-Always continent Bowel continence 9-Not rated - Endurance Good - Balance Good - Safety Awareness Good CURRENT [facility]. DEFICITS: Self-Care and Mobility SIGNATURE PANEL: (CDT)
[2021-08-30] MEDS: ATORVASTATIN 40 MG TAB PO SCH (19:50)
[2021-08-30] MEDS: MELATONIN 5 MG TABLET PO PRN (19:50)
[2021-08-30] MEDS: DOCUSATE NA/SENNA CONC 1 TAB PO SCH (19:50)
[2021-08-31 04:10] LABS: Absolute Lymphocytes (CBC) 1.2 K/uL (0.7-4.9); Hematocrit 33.7 % (39.6-49.0); Lymphocytes % 24.9 % (15.3-44.8); MPV 8.9 fL (7.6-11.3)
[2021-08-31 04:11] LABS: Protime INR 2.16
[2021-08-31 04:33] LABS: Albumin 3.3 g/dL (3.4-5.0); Magnesium 1.9 mg/dL (1.8-2.4); Potassium 3.8 mmol/L (3.5-5.1); Prealbumin 12.5 mg/dL (20-40)
[2021-08-31] MEDS: METOPROLOL TAR 25 MG TAB PO SCH ×2 (05:12→17:25)
[2021-08-31] MEDS: Pantoprazole (granules) 40 MG/BLIST PACKET FT SCH ×2 (07:19→16:25)
[2021-08-31] MEDS: AMLODIPINE 5 MG TAB PO SCH (07:51)
[2021-08-31] MEDS: ASPIRIN EC 81 MG TAB PO SCH (07:51)
[2021-08-31] MEDS: DULOXETINE 20 MG CAP PO SCH (07:51)
[2021-08-31] MEDS: LIDOCAINE 4% PATCH TOP SCH (07:51)
[2021-08-31] MEDS: MAGNESIUM OXIDE 400 MG TAB PO SCH ×2 (07:52→19:41)
[2021-08-31] MEDS: NYSTATIN PWDR 100000 UNIT/GM TOP SCH ×2 (10:10→19:42)
[2021-08-31] MEDS: lisinopriL 5 MG TAB PO SCH (12:28)
[2021-08-31] MEDS: WARFARIN SODIUM 5 MG TAB PO SCH (17:25)
--- NOTE | 2021-08-31 17:52 | R.PN ---
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 Pt denied any Shortness of Breath. Labs reviewed and are stable. WBC 4.9, Hgb 11.0, INR 2.16. Prealbumin 12.5, K 3.8. Covid-19 is negat bettina on 08/31/21. INR is 2.28. Coumadin 10 mg daily. He has right big toe decreased swelling and pain. Uric acid level is normal at 5.5. Bed mobility and therapeutic exercises done with modified independence. Ambulated 500' with right platform walker and supervision. VITAL SIGNS Temperature: 97.6 F SBP/DBP: 128/68 Pulse: 65 Resp: 16 MEDICATION ALLERGIES: No Known Drug Allergies (NKDA) ENVIRONMENTAL ALLERGIES: - Substance Allergies None Known - Other Allergies None Known NURSING: - Shower allowing shower - Bladder care per protocol - Skin care per protocol PRECAUTIONS: - Weight Bearing Precaution WBAT right LE - Fall Precaution Bed alarm TABS alarm Wheel chair alarm ACTIVITIES OOB only with supervision THERAPIES: - Dietary and Nutrition Adequate Nutrition. Nutritional Education. Nutritional Supplements. Evaluate and Treat. - Occupational Therapy Cognitive Retraining. Patient needs Occupational Therapy for a daily minimum of 1.5 hours at least 5 out of 7 days, to improve Activities of Daily Living, including: Eating, Grooming, Bathing, Dressing, Toileting, Toilet Transfers, Community Reintegration, Higher functional activities, Adaptive Equipme nt, Splinting, Household Tasks, and Other activities as determined. Visual Perceptual Training. Evalu ate and Treat. Safety Awareness. UE ROM. UE Strengthening. - Speech Therapy Cognitive Training. Expressive Language Skills. Memory Strategies. Patient needs Speech Therapy for a daily minimum of 1.5 hours at least 5 out of 7 days, to improve: Swallowing, Cognition, Language Ski lls, and Compensatory Strategies. Receptive Language Skills. Speech Intelligibility Training. Evaluat e and Treat. Dysphagia Therapy. - Physical Therapy Patient needs Physical Therapy for a daily minimum of 1.5 hours at least 5 out of 7 days, to improve: Mobility, Strengthening, Transfers, Stretching, ROM, Endurance, Ability to manage stairs, Gait, and Balance. Evaluate and Treat. Wheelchair Management. Patient/Family Education. Safety Awareness. PHYSICAL EXAM - Gen Alert and awake Lying in bed No apparent distress Oriented to: person, time, and place - Skin No skin breakdown. Normacephalic - Eyes No abnormalities - ENMT No abnormalities - Neck No abnormalities No cervical adenopathy - CVS RRR - Chest No abnormalities - Resp Clear to auscultation - Abd Obese, soft, nontender - GI nondistended Deferred - Joyner catheter will be removed today. - Ext Mild right upper and lower extremity edema. - MSK 3/5 weakness in right upper and lower extremity. - Neuro 3/5 weakness in right upper and lower extremity, and dense right arm and leg numbness with neglect. - Psych Mild depression. ASSESSMENT: Pt. is a 50 yo white male.Pt. is a 50 yo Unknown dexterity white male.On 07/14/2021 Pt. 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 was independen t/mod-I in Locomotion, Safety Awareness, Balance, Transfers Control, Self-Care, Endurance, Communicat ion, Social Cognition, and Sphincter Control.Currently, he has deficits of Locomotion, Balance, Trans fers Control, Communication, Self-Care, Endurance, and Safety Awareness.Pt. is now referred to [facility] for acute in-patient rehabilitation in order to maximize patient's functi onal independence in activities of daily living, strength, ROM, and mobility.- Rehab Goal Patient has realistic goal of being discharged at assistance level 4-Kristie to reside at Home with Fam julian/Relatives. MDM/PLAN: - Physical Therapy Inability to transfer - to improve, our physical therapists will perform initial evaluation of pt's status upon admission and devise an individualized program for Bed mobility Need for home safety evaluation - to improve, our physical therapists will perform initial evaluatio n of pt's status upon admission and devise an individualized program for Home Evaluation Need in caregiver upon discharge - to improve, our physical therapists will perform initial evaluati on of pt's status upon admission and devise an individualized program for Caregiver Training New precaution - to improve, our physical therapists will perform initial evaluation of pt's status upon admission and devise an individualized program for Patient precaution education Edema - to improve, our physical therapists will perform initial evaluation of pt's status upon admi ssion and devise an individualized program for Elevation Training, and Lymphedema Therapy Poor balance - to improve, our physical therapists will perform initial evaluation of pt's status up on admission and devise an individualized program for Balance Training Poor endurance - to improve, our physical therapists will perform initial evaluation of pt's status upon admission and devise an individualized program for Endurance Training Achieving independence - to improve, our physical therapists will perform initial evaluation of pt's status upon admission and devise an individualized program for Community Reintegration Activities - Occupational Therapy ADL deficits - to improve, our occupation therapists will perform initial evaluation of pt's status upon admission and devise an individualized program for Bathing, Bed mobility, Community Reintegratio n, Cooking, Dressing, Eating, Fine Motor Skills, Grooming, Homemaking, Kitchen Mobility, Laundry, Pat ient Education, Safety Awareness, Splinting - Positioning, Transfers(Toilet, Tub, Shower), and Wheel Chair Management Need for healthcare network consultant - to improve, our occupation therapists will perform initial evaluation of pt's status upon admission and devise an individualized program for Caregiver Training - Other See attached MAR (Medication Administration Record) - Diet Type Continue NPO (nothing by mouth) - Diet - Liquid Texture Continue N/A - Tube Feed Continue N/A - Bladder care per protocol - Weight Bearing Precaution WBAT right LE - Fall Precaution Bed alarm TABS alarm Wheel chair alarm - Skin care per protocol - Diet - Solid Texture Continue Regular Continue N/A - Shower allowing shower for Dementia, TBI, Stroke, or others FUNCTIONAL STATUS: UPDATED AT WEEKLY TEAM CONFERENCE - Bladder Same accident frequency: 7-Ind - No accidents in the past 7 days - Bowel Same accident frequency: 7-Ind - No accidents in the past 7 days - Walking Same score based on distance walked: 0(N/A) - Wheelchair Same score based on distance traveled: 0(N/A) FUNCTIONAL STATUS: - Self-Care A. Eating Ind B. Grooming Kristie C. Bathing modA D. Dressing - Upper Kristie E. Dressing - Lower modA F. Toileting Kristie - Sphincter Control G. Bladder control sup H. Bowel control Kayode - Transfers Control I. Bed/Chair/Wheelchair modA J. Toilet Kristie K. Tub/Shower modA - Locomotion L. Walk/Wheelchair (B) Kristie M. Stairs modA - Communication N. Comprehension (B) sup O. Expression (B) Kristie - Social Cognition P. Social Interaction Ind Q. Problem Solving Ind R. Memory Ind - Endurance Fair - Balance Fair - Safety Awareness Fair QI SCORES: - Self-Care A. Eating 03-Partial/moderate assistance B. Oral hygiene 03-Partial/moderate assistance C. Toileting hygiene 03-Partial/moderate assistance E. Shower/bathe self 03-Partial/moderate assistance F. Upper body dressing 03-Partial/moderate assistance G. Lower body dressing 03-Partial/moderate assistance H. Putting on/taking off footwear 03-Partial/moderate assistance - Mobility A. Roll left and right 02-Substantial/maximal assistance B. Sit to lying 03-Partial/moderate assistance C. Lying to sitting on side of bed 02-Substantial/maximal assistance D. Sit to stand 02-Substantial/maximal assistance E. Chair/[id number] transfer 02-Substantial/maximal assistance F. Toilet transfer 02-Substantial/maximal assistance G. Car transfer 02-Substantial/maximal assistance I. Walk 10 feet 88-Not attempted due to medical condition or safety concerns J. Walk 50 feet with two turns 88-Not attempted due to medical condition or safety concerns K. Walk 150 feet 88-Not attempted due to medical condition or safety concerns L. Walking 10 feet on uneven surfaces 88-Not attempted due to medical condition or safety concerns M. 1 step (curb) 88-Not attempted due to medical condition or safety concerns N. 4 steps 88-Not attempted due to medical condition or safety concerns O. 12 steps 88-Not attempted due to medical condition or safety concerns P. Picking up object 03-Partial/moderate assistance R. Wheel 50 feet with two turns 09-Not applicable S. Wheel 150 feet 09-Not applicable - Bladder and Bowel Bladder continence 0-Always continent Bowel continence 9-Not rated - Endurance Good - Balance Good - Safety Awareness Good CURRENT [facility]. DEFICITS: Self-Care and Mobility SIGNATURE PANEL: (CDT)
[2021-08-31] MEDS ORDERED: DOCUSATE NA/SENNA CONC 1 TAB PO PRN (19:34)
[2021-08-31] MEDS: MELATONIN 5 MG TABLET PO PRN (19:41)
[2021-08-31] MEDS: ATORVASTATIN 40 MG TAB PO SCH (19:41)
[2021-08-31] MEDS ORDERED: GABAPENTIN 100 MG CAP PO SCH (21:00)
[2021-09-01 05:24] LABS: Protime INR 2.86
[2021-09-01] MEDS: METOPROLOL TAR 25 MG TAB PO SCH ×2 (05:38→18:26)
[2021-09-01] MEDS: lisinopriL 5 MG TAB PO SCH (08:48)
[2021-09-01] MEDS: DULOXETINE 20 MG CAP PO SCH (08:49)
[2021-09-01] MEDS: ASPIRIN EC 81 MG TAB PO SCH (08:49)
[2021-09-01] MEDS: PANTOPRAZOLE 40MG TABLET PO SCH ×2 (08:49→17:42)
[2021-09-01] MEDS: MAGNESIUM OXIDE 400 MG TAB PO SCH ×2 (08:49→21:03)
[2021-09-01] MEDS: AMLODIPINE 5 MG TAB PO SCH (08:49)
[2021-09-01] MEDS: LIDOCAINE 4% PATCH TOP SCH (08:50)
[2021-09-01] MEDS: NYSTATIN PWDR 100000 UNIT/GM TOP SCH ×2 (08:51→21:03)
--- NOTE | 2021-09-01 09:57 | P.RH.PN ---
Estimated Length of Stay: 36 Expected Discharge Date: 09/08/21 Discharge Disposition Plan: Home Family Support: Yes Retirement Goal: Mobility, Transfers, Self Care Vital Signs: Last Vital Signs Temp 97.2 F 09/01/21 08:00 Pulse 61 09/01/21 08:49 Resp 14 09/01/21 08:00 BP 133/60 09/01/21 08:49 Pulse Ox 97 09/01/21 08:00 Laboratory: Laboratory Last Values WBC 4.9 K/uL (4.3-10.9) 08/31/21 03:50 RBC 3.90 M/uL (4.33-5.43) L 08/31/21 03:50 Hgb 11.0 g/dL (13.6-17.9) L 08/31/21 03:50 Hct 33.7 % (39.6-49.0) L 08/31/21 03:50 MCV 86.4 fL (80-100) 08/31/21 03:50 MCH 28.1 pg (27.0-35.0) 08/31/21 03:50 MCHC 32.5 g/dL (32.0-36.0) 08/31/21 03:50 RDW 15.1 % (12.1-15.2) 08/31/21 03:50 Plt Count 199 K/uL (152-406) 08/31/21 03:50 MPV 8.9 fL (7.6-11.3) 08/31/21 03:50 Neutrophils % 62.6 % (41.7-73.7) 08/31/21 03:50 Lymphocytes % 24.9 % (15.3-44.8) 08/31/21 03:50 Monocytes % 8.1 % (3.3-12.3) 08/31/21 03:50 Eosinophils % 4.1 % (0-4.4) 08/31/21 03:50 Basophils % 0.3 % (0-1.3) 08/31/21 03:50 Absolute Neutrophils 3.1 K/uL (1.8-8.0) 08/31/21 03:50 Segmented Neutrophils 57 % (40-80) 08/17/21 05:05 Absolute Lymphocytes 1.2 K/uL (0.7-4.9) 08/31/21 03:50 Lymphocytes 23 % (15-42) 08/17/21 05:05 Monocytes 9 % (0-10) 08/17/21 05:05 Absolute Monocytes 0.4 K/uL (0.1-1.3) 08/31/21 03:50 Eosinophils 10 % (0-3) H 08/17/21 05:05 Absolute Eosinophils 0.2 K/uL (0-0.5) 08/31/21 03:50 Basophils 1 % (0-1) 08/17/21 05:05 Absolute Basophils 0.0 K/uL (0-0.5) 08/31/21 03:50 Platelet Estimate Adeq 08/17/21 05:05 Morphology Comment Not seen (NOT SEEN) 08/17/21 05:05 PT 32.1 SECONDS (9.5-12.5) H 09/01/21 04:35 INR 2.86 09/01/21 04:35 Sodium 140 mmol/L (136-145) 08/31/21 03:50 Potassium 3.8 mmol/L (3.5-5.1) 08/31/21 03:50 Chloride 107 mmol/L (98-107) 08/31/21 03:50 Carbon Dioxide 29 mmol/L (21-32) 08/31/21 03:50 Anion Gap 7.8 mEq/L (5.0-15.0) 08/31/21 03:50 BUN 8 mg/dL (7-18) 08/31/21 03:50 Creatinine 0.72 mg/dL (0.55-1.3) 08/31/21 03:50 Estimated GFR > 90 mL/min (=/>90) 08/10/21 04:15 Est GFR (CKD-EPI) 111 ml/min (=/>90) 08/31/21 03:50 Glucose 97 mg/dL (74-106) 08/31/21 03:50 POC Glucose 95 mg/dL (65-120) 08/17/21 11:32 Uric Acid 5.5 mg/dL (3.5-7.2) 08/23/21 10:20 Calcium 9.0 mg/dL (8.5-10.1) 08/31/21 03:50 Magnesium 1.9 mg/dL (1.8-2.4) 08/31/21 03:50 Albumin 3.3 g/dL (3.4-5.0) L 08/31/21 03:50 Prealbumin 12.5 mg/dL (20-40) L 08/31/21 03:50 Urine Color Yellow (Yellow) 08/03/21 20:38 Urine Appearance Hazy (Clear) 08/03/21 20:38 Urine pH 7.5 (5.0-7.0) H 08/03/21 20:38 Ur Specific [place] 1.020 (1.005-1.030) 08/03/21 20:38 Glucose (UA)(Auto) Negative (Negative) 08/03/21 20:38 Urine Ketones Negative (Negative) 08/03/21 20:38 Urine Blood 2+ (Negative) H 08/03/21 20:38 Urine Nitrite Negative (Negative) 08/03/21 20:38 Urine Bilirubin Negative (Negative) 08/03/21 20:38 Urine Urobilinogen 2.0 mg/dL (0.2-1.0) H 08/03/21 20:38 Ur Leukocyte Esterase Negative (Negative) 08/03/21 20:38 Urine RBC 5-10 /HPF (NONE SEEN) H 08/03/21 20:38 Urine WBC <5 /HPF (<5) 08/03/21 20:38 Ur Squamous Epith Cells <5 /HPF (NONE SEEN) 08/03/21 20:38 Ur Urothelial Cells Cancelled 08/03/21 19:30 Calcium Oxalate Crystal Cancelled 08/03/21 19:30 Uric Acid Crystals Cancelled 08/03/21 19:30 Triple Phos Crystals Cancelled 08/03/21 19:30 Other Crystals Cancelled 08/03/21 19:30 Amorphous Sediment 2+ /HPF (NONE SEEN) H 08/03/21 20:38 Glitter Cells Cancelled 08/03/21 19:30 Urine Bacteria <20 /HPF (NONE SEEN) 08/03/21 20:38 Hyaline Casts Cancelled 08/03/21 19:30 Fine Granular Casts Cancelled 08/03/21 19:30 Coarse Granular Casts Cancelled 08/03/21 19:30 Waxy Casts Cancelled 08/03/21 19:30 RBC Casts Cancelled 08/03/21 19:30 WBC Casts Cancelled 08/03/21 19:30 Urine Mucus Cancelled 08/03/21 19:30 Urine Other Cancelled 08/03/21 19:30 Urine Trichomonas Cancelled 08/03/21 19:30 Urine Yeast Cancelled 08/03/21 19:30 Ur Yeast w Hyphae Cancelled 08/03/21 19:30 Urine Yeast (Budding) Cancelled 08/03/21 19:30 Urine Sperm Cancelled 08/03/21 19:30 Urine Culture Reflexed Not needed 08/03/21 20:38 Urine Total Volume Cancelled 08/03/21 19:30 Urine Total Protein 2+ (Negative) H 08/03/21 20:38 SARS-CoV-2 Rap RNA(RT-PCR) Negative (NEGATIVE) 08/31/21 03:56 Weight: 246 lb 9.6 oz Wound Present: No Closed Surgical Incision Present: No Negative Pressure Wound Therapy Present: No Physician Update: Labs reviwed and are stable. Bed mobility is Selene, also sit to stand. CGA 500' with platform walker. Fall recovery was CGA. SBA for ADLs, and transfers. E-stim is working well. Reading and auditory comprehension are better. Writing is better. Swallowing is good. Comment: no skin breakdown. Functional Improvement: Patient has met all short-term and long-term goals, w/ the exception of a car transfer. Patient continues to demonstrate good technique, and overall safety awareness. Summary: Patient's care plan and keno terminal operator goals have been reviewed and revised as necessary. Please see the Rehabilitation Signature page for all necessary signatures.
[2021-09-01] MEDS: WARFARIN SODIUM 5 MG TAB PO SCH (17:42)
[2021-09-01] MEDS: ATORVASTATIN 40 MG TAB PO SCH (21:03)
[2021-09-01] MEDS: MELATONIN 5 MG TABLET PO PRN (22:23)
[2021-09-02] MEDS: METOPROLOL TAR 25 MG TAB PO SCH ×2 (05:26→17:08)
[2021-09-02 06:04] LABS: Protime INR 2.61
[2021-09-02] MEDS: lisinopriL 5 MG TAB PO SCH (08:00)
[2021-09-02] MEDS: AMLODIPINE 5 MG TAB PO SCH (08:00)
[2021-09-02] MEDS: LIDOCAINE 4% PATCH TOP SCH (08:40)
[2021-09-02] MEDS: DULOXETINE 20 MG CAP PO SCH (08:41)
[2021-09-02] MEDS: ASPIRIN EC 81 MG TAB PO SCH (08:41)
[2021-09-02] MEDS: PANTOPRAZOLE 40MG TABLET PO SCH ×2 (08:41→17:03)
[2021-09-02] MEDS: MAGNESIUM OXIDE 400 MG TAB PO SCH ×2 (08:42→19:51)
[2021-09-02] MEDS: NYSTATIN PWDR 100000 UNIT/GM TOP SCH ×2 (09:45→19:52)
[2021-09-02] MEDS: WARFARIN SODIUM 5 MG TAB PO SCH (17:03)
[2021-09-02] MEDS: ATORVASTATIN 40 MG TAB PO SCH (19:51)
[2021-09-02] MEDS: MELATONIN 5 MG TABLET PO PRN (19:53)
[2021-09-02] MEDS: ACETAMINOPHEN 500 MG TAB PO PRN (22:44)
[2021-09-03] MEDS: METOPROLOL TAR 25 MG TAB PO SCH ×2 (05:25→17:07)
[2021-09-03] MEDS: PANTOPRAZOLE 40MG TABLET PO SCH ×2 (07:05→16:42)
[2021-09-03] MEDS: ASPIRIN EC 81 MG TAB PO SCH (07:40)
[2021-09-03] MEDS: DULOXETINE 20 MG CAP PO SCH (07:40)
[2021-09-03] MEDS: MAGNESIUM OXIDE 400 MG TAB PO SCH ×2 (07:40→20:12)
[2021-09-03] MEDS: lisinopriL 5 MG TAB PO SCH (07:40)
[2021-09-03] MEDS: LIDOCAINE 4% PATCH TOP SCH (07:40)
[2021-09-03] MEDS: AMLODIPINE 5 MG TAB PO SCH (07:41)
[2021-09-03 08:10] LABS: Protime INR 2.65
[2021-09-03] MEDS: NYSTATIN PWDR 100000 UNIT/GM TOP SCH ×2 (09:23→20:12)
[2021-09-03] MEDS: WARFARIN SODIUM 5 MG TAB PO SCH (16:41)
[2021-09-03] MEDS: MELATONIN 5 MG TABLET PO PRN (20:12)
[2021-09-03] MEDS: ATORVASTATIN 40 MG TAB PO SCH (20:12)
[2021-09-03] MEDS: ACETAMINOPHEN 500 MG TAB PO PRN (20:25)
[2021-09-04] MEDS: METOPROLOL TAR 25 MG TAB PO SCH ×2 (05:10→16:51)
[2021-09-04 05:31] LABS: Protime INR 3.1
[2021-09-04] MEDS: PANTOPRAZOLE 40MG TABLET PO SCH ×2 (06:46→16:20)
[2021-09-04] MEDS: LIDOCAINE 4% PATCH TOP SCH (07:36)
[2021-09-04] MEDS: MAGNESIUM OXIDE 400 MG TAB PO SCH ×2 (07:36→19:54)
[2021-09-04] MEDS: ASPIRIN EC 81 MG TAB PO SCH (07:36)
[2021-09-04] MEDS: AMLODIPINE 5 MG TAB PO SCH (07:37)
[2021-09-04] MEDS: lisinopriL 5 MG TAB PO SCH ×2 (07:38→08:00)
[2021-09-04] MEDS: NYSTATIN PWDR 100000 UNIT/GM TOP SCH ×2 (07:39→19:54)
[2021-09-04] MEDS: DULOXETINE 20 MG CAP PO SCH ×3 (07:39→19:53)
[2021-09-04] MEDS: ATORVASTATIN 40 MG TAB PO SCH (19:54)
[2021-09-05] MEDS: ACETAMINOPHEN 500 MG TAB PO PRN (00:22)
[2021-09-05] MEDS: METOPROLOL TAR 25 MG TAB PO SCH ×2 (05:02→16:50)
[2021-09-05 05:29] LABS: Protime INR 2.63
[2021-09-05] MEDS: PANTOPRAZOLE 40MG TABLET PO SCH ×2 (08:11→16:36)
[2021-09-05] MEDS: lisinopriL 5 MG TAB PO SCH (08:36)
[2021-09-05] MEDS: MAGNESIUM OXIDE 400 MG TAB PO SCH ×2 (08:36→21:07)
[2021-09-05] MEDS: ASPIRIN EC 81 MG TAB PO SCH (08:37)
[2021-09-05] MEDS: NYSTATIN PWDR 100000 UNIT/GM TOP SCH ×2 (08:37→21:07)
[2021-09-05] MEDS: LIDOCAINE 4% PATCH TOP SCH (08:37)
[2021-09-05] MEDS: AMLODIPINE 5 MG TAB PO SCH (13:06)
[2021-09-05] MEDS: WARFARIN SODIUM 4 MG TAB PO SCH (16:37)
[2021-09-05] MEDS: WARFARIN SODIUM 5 MG TAB PO SCH (16:37)
[2021-09-05] MEDS ORDERED: WARFARIN SODIUM 3 MG TAB PO SCH ×2 (17:00)
--- NOTE | 2021-09-05 18:37 | R.PN ---
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 Pt denied any Shortness of Breath. Labs reviewed and are stable. WBC 4.9, Hgb 11.0, INR 2.16. Prealbumin 12.5, K 3.8. Covid-19 is negat bettina on 08/31/21. INR is 2.63. Coumadin decreased to 9 mg daily. He has right big toe decreased swelling and pain. Uric acid level is normal at 5.5. Bed mobility and therapeutic exercises done with modified independence. Ambulated 750' with right platform walker and supervision. VITAL SIGNS Temperature: 97.8 F SBP/DBP: 134/71 Pulse: 75 Resp: 16 MEDICATION ALLERGIES: No Known Drug Allergies (NKDA) ENVIRONMENTAL ALLERGIES: - Substance Allergies None Known - Other Allergies None Known NURSING: - Shower allowing shower - Bladder care per protocol - Skin care per protocol PRECAUTIONS: - Weight Bearing Precaution WBAT right LE - Fall Precaution Bed alarm TABS alarm Wheel chair alarm ACTIVITIES OOB only with supervision THERAPIES: - Dietary and Nutrition Adequate Nutrition. Nutritional Education. Nutritional Supplements. Evaluate and Treat. - Occupational Therapy Cognitive Retraining. Patient needs Occupational Therapy for a daily minimum of 1.5 hours at least 5 out of 7 days, to improve Activities of Daily Living, including: Eating, Grooming, Bathing, Dressing, Toileting, Toilet Transfers, Community Reintegration, Higher functional activities, Adaptive Equipme nt, Splinting, Household Tasks, and Other activities as determined. Visual Perceptual Training. Evalu ate and Treat. Safety Awareness. UE ROM. UE Strengthening. - Speech Therapy Cognitive Training. Expressive Language Skills. Memory Strategies. Patient needs Speech Therapy for a daily minimum of 1.5 hours at least 5 out of 7 days, to improve: Swallowing, Cognition, Language Ski lls, and Compensatory Strategies. Receptive Language Skills. Speech Intelligibility Training. Evaluat e and Treat. Dysphagia Therapy. - Physical Therapy Patient needs Physical Therapy for a daily minimum of 1.5 hours at least 5 out of 7 days, to improve: Mobility, Strengthening, Transfers, Stretching, ROM, Endurance, Ability to manage stairs, Gait, and Balance. Evaluate and Treat. Wheelchair Management. Patient/Family Education. Safety Awareness. PHYSICAL EXAM - Gen Alert and awake Lying in bed No apparent distress Oriented to: person, time, and place - Skin No skin breakdown. Normacephalic - Eyes No abnormalities - ENMT No abnormalities - Neck No abnormalities No cervical adenopathy - CVS RRR - Chest No abnormalities - Resp Clear to auscultation - Abd Obese, soft, nontender - GI nondistended Deferred - Joyner catheter will be removed today. - Ext Mild right upper and lower extremity edema. - MSK 3/5 weakness in right upper and lower extremity. - Neuro 3/5 weakness in right upper and lower extremity, and dense right arm and leg numbness with neglect. - Psych Mild depression. ASSESSMENT: Pt. is a 50 yo white male.Pt. is a 50 yo Unknown dexterity white male.On 07/14/[address] [facility] with sudden onset of right-side weakness.On 07/14/2021 he was admitted to 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 was independen t/mod-I in Locomotion, Safety Awareness, Balance, Transfers Control, Self-Care, Endurance, Communicat ion, Social Cognition, and Sphincter Control.Currently, he has deficits of Locomotion, Balance, Trans fers Control, Communication, Self-Care, Endurance, and Safety Awareness.Pt. is now referred to [facility] for acute in-patient rehabilitation in order to maximize patient's functi onal independence in activities of daily living, strength, ROM, and mobility.- Rehab Goal Patient has realistic goal of being discharged at assistance level 4-Kristie to reside at Home with Fam julian/Relatives. MDM/PLAN: - Physical Therapy Inability to transfer - to improve, our physical therapists will perform initial evaluation of pt's status upon admission and devise an individualized program for Bed mobility Need for home safety evaluation - to improve, our physical therapists will perform initial evaluatio n of pt's status upon admission and devise an individualized program for Home Evaluation Need in caregiver upon discharge - to improve, our physical therapists will perform initial evaluati on of pt's status upon admission and devise an individualized program for Caregiver Training New precaution - to improve, our physical therapists will perform initial evaluation of pt's status upon admission and devise an individualized program for Patient precaution education Edema - to improve, our physical therapists will perform initial evaluation of pt's status upon admi ssion and devise an individualized program for Elevation Training, and Lymphedema Therapy Poor balance - to improve, our physical therapists will perform initial evaluation of pt's status up on admission and devise an individualized program for Balance Training Poor endurance - to improve, our physical therapists will perform initial evaluation of pt's status upon admission and devise an individualized program for Endurance Training Achieving independence - to improve, our physical therapists will perform initial evaluation of pt's status upon admission and devise an individualized program for Community Reintegration Activities - Occupational Therapy ADL deficits - to improve, our occupation therapists will perform initial evaluation of pt's status upon admission and devise an individualized program for Bathing, Bed mobility, Community Reintegratio n, Cooking, Dressing, Eating, Fine Motor Skills, Grooming, Homemaking, Kitchen Mobility, Laundry, Pat ient Education, Safety Awareness, Splinting - Positioning, Transfers(Toilet, Tub, Shower), and Wheel Chair Management Need for in home caregiver - to improve, our occupation therapists will perform initial evaluation of pt's status upon admission and devise an individualized program for Caregiver Training - Other See attached MAR (Medication Administration Record) - Diet Type Continue NPO (nothing by mouth) - Diet - Liquid Texture Continue N/A - Tube Feed Continue N/A - Bladder care per protocol - Weight Bearing Precaution WBAT right LE - Fall Precaution Bed alarm TABS alarm Wheel chair alarm - Skin care per protocol - Diet - Solid Texture Continue Regular Continue N/A - Shower allowing shower for Dementia, TBI, Stroke, or others FUNCTIONAL STATUS: UPDATED AT WEEKLY TEAM CONFERENCE - Bladder Same accident frequency: 7-Ind - No accidents in the past 7 days - Bowel Same accident frequency: 7-Ind - No accidents in the past 7 days - Walking Same score based on distance walked: 0(N/A) - Wheelchair Same score based on distance traveled: 0(N/A) FUNCTIONAL STATUS: - Self-Care A. Eating Ind B. Grooming Kristie C. Bathing modA D. Dressing - Upper Kristie E. Dressing - Lower modA F. Toileting Kristie - Sphincter Control G. Bladder control sup H. Bowel control Kayode - Transfers Control I. Bed/Chair/Wheelchair modA J. Toilet Kristie K. Tub/Shower modA - Locomotion L. Walk/Wheelchair (B) Kristie M. Stairs modA - Communication N. Comprehension (B) sup O. Expression (B) Kristie - Social Cognition P. Social Interaction Ind Q. Problem Solving Ind R. Memory Ind - Endurance Fair - Balance Fair - Safety Awareness Fair QI SCORES: - Self-Care A. Eating 03-Partial/moderate assistance B. Oral hygiene 03-Partial/moderate assistance C. Toileting hygiene 03-Partial/moderate assistance E. Shower/bathe self 03-Partial/moderate assistance F. Upper body dressing 03-Partial/moderate assistance G. Lower body dressing 03-Partial/moderate assistance H. Putting on/taking off footwear 03-Partial/moderate assistance - Mobility A. Roll left and right 02-Substantial/maximal assistance B. Sit to lying 03-Partial/moderate assistance C. Lying to sitting on side of bed 02-Substantial/maximal assistance D. Sit to stand 02-Substantial/maximal assistance E. Chair/[id number] transfer 02-Substantial/maximal assistance F. Toilet transfer 02-Substantial/maximal assistance G. Car transfer 02-Substantial/maximal assistance I. Walk 10 feet 88-Not attempted due to medical condition or safety concerns J. Walk 50 feet with two turns 88-Not attempted due to medical condition or safety concerns K. Walk 150 feet 88-Not attempted due to medical condition or safety concerns L. Walking 10 feet on uneven surfaces 88-Not attempted due to medical condition or safety concerns M. 1 step (curb) 88-Not attempted due to medical condition or safety concerns N. 4 steps 88-Not attempted due to medical condition or safety concerns O. 12 steps 88-Not attempted due to medical condition or safety concerns P. Picking up object 03-Partial/moderate assistance R. Wheel 50 feet with two turns 09-Not applicable S. Wheel 150 feet 09-Not applicable - Bladder and Bowel Bladder continence 0-Always continent Bowel continence 9-Not rated - Endurance Good - Balance Good - Safety Awareness Good CURRENT FUNC. DEFICITS: Self-Care and Mobility SIGNATURE PANEL: (CDT)
[2021-09-05] MEDS: GABAPENTIN 100 MG CAP PO SCH (21:00)
[2021-09-05] MEDS: ATORVASTATIN 40 MG TAB PO SCH (21:07)
[2021-09-05] MEDS: MELATONIN 5 MG TABLET PO PRN (21:07)
[2021-09-05] MEDS: DULOXETINE 20 MG CAP PO SCH (21:07)
[2021-09-06 05:31] LABS: Protime INR 2.32
[2021-09-06] MEDS: METOPROLOL TAR 25 MG TAB PO SCH ×2 (05:50→16:59)
[2021-09-06] MEDS: LIDOCAINE 4% PATCH TOP SCH (06:13)
[2021-09-06] MEDS: PANTOPRAZOLE 40MG TABLET PO SCH ×2 (07:21→16:57)
[2021-09-06] MEDS: ASPIRIN EC 81 MG TAB PO SCH (07:39)
[2021-09-06] MEDS: NYSTATIN PWDR 100000 UNIT/GM TOP SCH ×2 (07:39→20:00)
[2021-09-06] MEDS: MAGNESIUM OXIDE 400 MG TAB PO SCH ×2 (07:39→20:24)
[2021-09-06] MEDS: lisinopriL 5 MG TAB PO SCH (08:00)
--- NOTE | 2021-09-06 08:07 | RAD REPORT ---
EXAM DESCRIPTION: US - Lower Extremity Arterial Bilat - 09/06/2021 5:51 am CLINICAL HISTORY: feeling of numbness on left lower leg Pain, claudication COMPARISON: No comparisons TECHNIQUE: Bilateral lower extremity arterial Doppler examination was performed with waveform tracin g and velocity measurements. FINDINGS: Triphasic waveforms seen on the right from the level of the common femoral artery to the distal super ficial femoral artery. Right popliteal artery, posterior tibial artery and dorsalis pedis artery are blunted and monophasic. Triphasic waveforms are seen throughout the left lower extremity arterial system. No occlusion is seen. IMPRESSION: Significant waveform and flow velocity changes seen involving the right lower extremity arterial system at the level of the distal SFA or proximal popliteal artery. This likely indicates th e presence of a flow-limiting stenosis at this level.
[2021-09-06] MEDS: AMLODIPINE 5 MG TAB PO SCH (12:00)
[2021-09-06] MEDS: WARFARIN SODIUM 5 MG TAB PO SCH (16:57)
[2021-09-06] MEDS: WARFARIN SODIUM 4 MG TAB PO SCH (16:59)
--- NOTE | 2021-09-06 17:27 | R.PN ---
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 Pt denied any Shortness of Breath. Labs reviewed and are stable. WBC 4.9, Hgb 11.0, INR 2.16. Prealbumin 12.5, K 3.8. Covid-19 is negat bettina on 08/31/21. INR is 2.32. Coumadin 9 mg daily. He has mild right lower extremity swelling and stasis changes. WILL of the right lower extremity suggests stenosis at the superficial femoral to popliteal junction. Bed mobility and therapeutic exercises done with modified independence. Ambulated 750' with right platform walker and supervision. VITAL SIGNS Temperature: 97.5 F SBP/DBP: 114/57 Pulse: 72 Resp: 15 MEDICATION ALLERGIES: No Known Drug Allergies (NKDA) ENVIRONMENTAL ALLERGIES: - Substance Allergies None Known - Other Allergies None Known NURSING: - Shower allowing shower - Bladder care per protocol - Skin care per protocol PRECAUTIONS: - Weight Bearing Precaution WBAT right LE - Fall Precaution Bed alarm TABS alarm Wheel chair alarm ACTIVITIES OOB only with supervision THERAPIES: - Dietary and Nutrition Adequate Nutrition. Nutritional Education. Nutritional Supplements. Evaluate and Treat. - Occupational Therapy Cognitive Retraining. Patient needs Occupational Therapy for a daily minimum of 1.5 hours at least 5 out of 7 days, to improve Activities of Daily Living, including: Eating, Grooming, Bathing, Dressing, Toileting, Toilet Transfers, Community Reintegration, Higher functional activities, Adaptive Equipme nt, Splinting, Household Tasks, and Other activities as determined. Visual Perceptual Training. Evalu ate and Treat. Safety Awareness. UE ROM. UE Strengthening. - Speech Therapy Cognitive Training. Expressive Language Skills. Memory Strategies. Patient needs Speech Therapy for a daily minimum of 1.5 hours at least 5 out of 7 days, to improve: Swallowing, Cognition, Language Ski lls, and Compensatory Strategies. Receptive Language Skills. Speech Intelligibility Training. Evaluat e and Treat. Dysphagia Therapy. - Physical Therapy Patient needs Physical Therapy for a daily minimum of 1.5 hours at least 5 out of 7 days, to improve: Mobility, Strengthening, Transfers, Stretching, ROM, Endurance, Ability to manage stairs, Gait, and Balance. Evaluate and Treat. Wheelchair Management. Patient/Family Education. Safety Awareness. PHYSICAL EXAM - Gen Alert and awake Lying in bed No apparent distress Oriented to: person, time, and place - Skin No skin breakdown. Normacephalic - Eyes No abnormalities - ENMT No abnormalities - Neck No abnormalities No cervical adenopathy - CVS RRR - Chest No abnormalities - Resp Clear to auscultation - Abd Obese, soft, nontender - GI nondistended Deferred - Joyner catheter will be removed today. - Ext Mild right upper and lower extremity edema. - MSK 3/5 weakness in right upper and lower extremity. - Neuro 3/5 weakness in right upper and lower extremity, and dense right arm and leg numbness with neglect. - Psych Mild depression. ASSESSMENT: Pt. is a 50 yo white male.Pt. is a 50 yo Unknown dexterity white male.On 07/14/2021 Pt. 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 was independen t/mod-I in Locomotion, Safety Awareness, Balance, Transfers Control, Self-Care, Endurance, Communicat ion, Social Cognition, and Sphincter Control.Currently, he has deficits of Locomotion, Balance, Trans fers Control, Communication, Self-Care, Endurance, and Safety Awareness.Pt. is now referred to [facility] for acute in-patient rehabilitation in order to maximize patient's functi onal independence in activities of daily living, strength, ROM, and mobility.- Rehab Goal Patient has realistic goal of being discharged at assistance level 4-Kristie to reside at Home with Fam julian/Relatives. MDM/PLAN: - Physical Therapy Inability to transfer - to improve, our physical therapists will perform initial evaluation of pt's status upon admission and devise an individualized program for Bed mobility Need for home safety evaluation - to improve, our physical therapists will perform initial evaluatio n of pt's status upon admission and devise an individualized program for Home Evaluation Need in caregiver upon discharge - to improve, our physical therapists will perform initial evaluati on of pt's status upon admission and devise an individualized program for Caregiver Training New precaution - to improve, our physical therapists will perform initial evaluation of pt's status upon admission and devise an individualized program for Patient precaution education Edema - to improve, our physical therapists will perform initial evaluation of pt's status upon admi ssion and devise an individualized program for Elevation Training, and Lymphedema Therapy Poor balance - to improve, our physical therapists will perform initial evaluation of pt's status up on admission and devise an individualized program for Balance Training Poor endurance - to improve, our physical therapists will perform initial evaluation of pt's status upon admission and devise an individualized program for Endurance Training Achieving independence - to improve, our physical therapists will perform initial evaluation of pt's status upon admission and devise an individualized program for Community Reintegration Activities - Occupational Therapy ADL deficits - to improve, our occupation therapists will perform initial evaluation of pt's status upon admission and devise an individualized program for Bathing, Bed mobility, Community Reintegratio n, Cooking, Dressing, Eating, Fine Motor Skills, Grooming, Homemaking, Kitchen Mobility, Laundry, Pat ient Education, Safety Awareness, Splinting - Positioning, Transfers(Toilet, Tub, Shower), and Wheel Chair Management Need for care tech - to improve, our occupation therapists will perform initial evaluation of pt's status upon admission and devise an individualized program for Caregiver Training - Other See attached MAR (Medication Administration Record) - Diet Type Continue NPO (nothing by mouth) - Diet - Liquid Texture Continue N/A - Tube Feed Continue N/A - Bladder care per protocol - Weight Bearing Precaution WBAT right LE - Fall Precaution Bed alarm TABS alarm Wheel chair alarm - Skin care per protocol - Diet - Solid Texture Continue Regular Continue N/A - Shower allowing shower for Dementia, TBI, Stroke, or others FUNCTIONAL STATUS: UPDATED AT WEEKLY TEAM CONFERENCE - Bladder Same accident frequency: 7-Ind - No accidents in the past 7 days - Bowel Same accident frequency: 7-Ind - No accidents in the past 7 days - Walking Same score based on distance walked: 0(N/A) - Wheelchair Same score based on distance traveled: 0(N/A) FUNCTIONAL STATUS: - Self-Care A. Eating Ind B. Grooming Kristie C. Bathing modA D. Dressing - Upper Kristie E. Dressing - Lower modA F. Toileting Kristie - Sphincter Control G. Bladder control sup H. Bowel control Kayode - Transfers Control I. Bed/Chair/Wheelchair modA J. Toilet Kristie K. Tub/Shower modA - Locomotion L. Walk/Wheelchair (B) Kristie M. Stairs modA - Communication N. Comprehension (B) sup O. Expression (B) Kristie - Social Cognition P. Social Interaction Ind Q. Problem Solving Ind R. Memory Ind - Endurance Fair - Balance Fair - Safety Awareness Fair QI SCORES: - Self-Care A. Eating 03-Partial/moderate assistance B. Oral hygiene 03-Partial/moderate assistance C. Toileting hygiene 03-Partial/moderate assistance E. Shower/bathe self 03-Partial/moderate assistance F. Upper body dressing 03-Partial/moderate assistance G. Lower body dressing 03-Partial/moderate assistance H. Putting on/taking off footwear 03-Partial/moderate assistance - Mobility A. Roll left and right 02-Substantial/maximal assistance B. Sit to lying 03-Partial/moderate assistance C. Lying to sitting on side of bed 02-Substantial/maximal assistance D. Sit to stand 02-Substantial/maximal assistance E. Chair/[id number] transfer 02-Substantial/maximal assistance F. Toilet transfer 02-Substantial/maximal assistance G. Car transfer 02-Substantial/maximal assistance I. Walk 10 feet 88-Not attempted due to medical condition or safety concerns J. Walk 50 feet with two turns 88-Not attempted due to medical condition or safety concerns K. Walk 150 feet 88-Not attempted due to medical condition or safety concerns L. Walking 10 feet on uneven surfaces 88-Not attempted due to medical condition or safety concerns M. 1 step (curb) 88-Not attempted due to medical condition or safety concerns N. 4 steps 88-Not attempted due to medical condition or safety concerns O. 12 steps 88-Not attempted due to medical condition or safety concerns P. Picking up object 03-Partial/moderate assistance R. Wheel 50 feet with two turns 09-Not applicable S. Wheel 150 feet 09-Not applicable - Bladder and Bowel Bladder continence 0-Always continent Bowel continence 9-Not rated - Endurance Good - Balance Good - Safety Awareness Good CURRENT FUNC. DEFICITS: Self-Care and Mobility SIGNATURE PANEL: (CDT)
[2021-09-06] MEDS: DULOXETINE 20 MG CAP PO SCH (20:21)
[2021-09-06] MEDS: ACETAMINOPHEN 500 MG TAB PO PRN (20:21)
[2021-09-06] MEDS: ATORVASTATIN 40 MG TAB PO SCH (20:24)
[2021-09-06] MEDS: GABAPENTIN 100 MG CAP PO SCH (20:25)
[2021-09-06] MEDS: MELATONIN 5 MG TABLET PO PRN (22:36)
[2021-09-07] MEDS: ACETAMINOPHEN 500 MG TAB PO PRN ×3 (03:38→20:04)
[2021-09-07 04:46] LABS: Absolute Lymphocytes (CBC) 1.1 K/uL (0.7-4.9); MPV 8.9 fL (7.6-11.3)
[2021-09-07 04:48] LABS: Protime INR 2.59
[2021-09-07 04:56] LABS: Hematocrit 34.4 % (39.6-49.0); Lymphocytes % 20.3 % (15.3-44.8); RBC Red Blood Cell Count 3.98 M/uL (4.33-5.43)
[2021-09-07 05:07] LABS: Albumin 3.4 g/dL (3.4-5.0); Magnesium 1.9 mg/dL (1.8-2.4); Potassium 3.8 mmol/L (3.5-5.1); Prealbumin 15.6 mg/dL (20-40)
[2021-09-07] MEDS: METOPROLOL TAR 25 MG TAB PO SCH ×2 (05:40→17:10)
[2021-09-07] MEDS: LIDOCAINE 4% PATCH TOP SCH (06:49)
[2021-09-07] MEDS: PANTOPRAZOLE 40MG TABLET PO SCH ×2 (07:26→16:43)
[2021-09-07] MEDS: ASPIRIN EC 81 MG TAB PO SCH (07:37)
[2021-09-07] MEDS: lisinopriL 5 MG TAB PO SCH ×2 (07:37→08:00)
[2021-09-07] MEDS: MAGNESIUM OXIDE 400 MG TAB PO SCH ×2 (07:37→20:05)
[2021-09-07] MEDS: NYSTATIN PWDR 100000 UNIT/GM TOP SCH ×2 (08:49→20:04)
[2021-09-07] MEDS: AMLODIPINE 5 MG TAB PO SCH (12:00)
[2021-09-07] MEDS: WARFARIN SODIUM 4 MG TAB PO SCH (16:43)
[2021-09-07] MEDS: WARFARIN SODIUM 5 MG TAB PO SCH (16:44)
--- NOTE | 2021-09-07 19:07 | R.PN ---
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 Pt denied any Shortness of Breath. Labs reviewed and are stable. WBC 5.5, Hgb 11.3, INR 2.59. Prealbumin 15.6, K 3.8. Covid-19 is negat bettina on 08/31/21. INR is 2.32. Coumadin 9 mg daily. He has mild right lower extremity swelling and stasis changes. WILL of the right lower extremity suggests stenosis at the superficial femoral to popliteal junction. Bed mobility and therapeutic exercises done with modified independence. Ambulated 750' with right platform walker and supervision. VITAL SIGNS Temperature: 98.4 F SBP/DBP: 132/60 Pulse: 64 Resp: 16 MEDICATION ALLERGIES: No Known Drug Allergies (NKDA) ENVIRONMENTAL ALLERGIES: - Substance Allergies None Known - Other Allergies None Known NURSING: - Shower allowing shower - Bladder care per protocol - Skin care per protocol PRECAUTIONS: - Weight Bearing Precaution WBAT right LE - Fall Precaution Bed alarm TABS alarm Wheel chair alarm ACTIVITIES OOB only with supervision THERAPIES: - Dietary and Nutrition Adequate Nutrition. Nutritional Education. Nutritional Supplements. Evaluate and Treat. - Occupational Therapy Cognitive Retraining. Patient needs Occupational Therapy for a daily minimum of 1.5 hours at least 5 out of 7 days, to improve Activities of Daily Living, including: Eating, Grooming, Bathing, Dressing, Toileting, Toilet Transfers, Community Reintegration, Higher functional activities, Adaptive Equipme nt, Splinting, Household Tasks, and Other activities as determined. Visual Perceptual Training. Evalu ate and Treat. Safety Awareness. UE ROM. UE Strengthening. - Speech Therapy Cognitive Training. Expressive Language Skills. Memory Strategies. Patient needs Speech Therapy for a daily minimum of 1.5 hours at least 5 out of 7 days, to improve: Swallowing, Cognition, Language Ski lls, and Compensatory Strategies. Receptive Language Skills. Speech Intelligibility Training. Evaluat e and Treat. Dysphagia Therapy. - Physical Therapy Patient needs Physical Therapy for a daily minimum of 1.5 hours at least 5 out of 7 days, to improve: Mobility, Strengthening, Transfers, Stretching, ROM, Endurance, Ability to manage stairs, Gait, and Balance. Evaluate and Treat. Wheelchair Management. Patient/Family Education. Safety Awareness. PHYSICAL EXAM - Gen Alert and awake Lying in bed No apparent distress Oriented to: person, time, and place - Skin No skin breakdown. Normacephalic - Eyes No abnormalities - ENMT No abnormalities - Neck No abnormalities No cervical adenopathy - CVS RRR - Chest No abnormalities - Resp Clear to auscultation - Abd Obese, soft, nontender - GI nondistended Deferred - Joyner catheter will be removed today. - Ext Mild right upper and lower extremity edema. - MSK 3/5 weakness in right upper and lower extremity. - Neuro 3/5 weakness in right upper and lower extremity, and dense right arm and leg numbness with neglect. - Psych Mild depression. ASSESSMENT: Pt. is a 50 yo white male.Pt. is a 50 yo Unknown dexterity white male.On 07/14/2021 Pt. 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 was independen t/mod-I in Locomotion, Safety Awareness, Balance, Transfers Control, Self-Care, Endurance, Communicat ion, Social Cognition, and Sphincter Control.Currently, he has deficits of Locomotion, Balance, Trans fers Control, Communication, Self-Care, Endurance, and Safety Awareness.Pt. is now referred to [facility] for acute in-patient rehabilitation in order to maximize patient's functi onal independence in activities of daily living, strength, ROM, and mobility.- Rehab Goal Patient has realistic goal of being discharged at assistance level 4-Kristie to reside at Home with Fam julian/Relatives. MDM/PLAN: - Physical Therapy Inability to transfer - to improve, our physical therapists will perform initial evaluation of pt's status upon admission and devise an individualized program for Bed mobility Need for home safety evaluation - to improve, our physical therapists will perform initial evaluatio n of pt's status upon admission and devise an individualized program for Home Evaluation Need in caregiver upon discharge - to improve, our physical therapists will perform initial evaluati on of pt's status upon admission and devise an individualized program for Caregiver Training New precaution - to improve, our physical therapists will perform initial evaluation of pt's status upon admission and devise an individualized program for Patient precaution education Edema - to improve, our physical therapists will perform initial evaluation of pt's status upon admi ssion and devise an individualized program for Elevation Training, and Lymphedema Therapy Poor balance - to improve, our physical therapists will perform initial evaluation of pt's status up on admission and devise an individualized program for Balance Training Poor endurance - to improve, our physical therapists will perform initial evaluation of pt's status upon admission and devise an individualized program for Endurance Training Achieving independence - to improve, our physical therapists will perform initial evaluation of pt's status upon admission and devise an individualized program for Community Reintegration Activities - Occupational Therapy ADL deficits - to improve, our occupation therapists will perform initial evaluation of pt's status upon admission and devise an individualized program for Bathing, Bed mobility, Community Reintegratio n, Cooking, Dressing, Eating, Fine Motor Skills, Grooming, Homemaking, Kitchen Mobility, Laundry, Pat ient Education, Safety Awareness, Splinting - Positioning, Transfers(Toilet, Tub, Shower), and Wheel Chair Management Need for adult care manager - to improve, our occupation therapists will perform initial evaluation of pt's status upon admission and devise an individualized program for Caregiver Training - Other See attached MAR (Medication Administration Record) - Diet Type Continue NPO (nothing by mouth) - Diet - Liquid Texture Continue N/A - Tube Feed Continue N/A - Bladder care per protocol - Weight Bearing Precaution WBAT right LE - Fall Precaution Bed alarm TABS alarm Wheel chair alarm - Skin care per protocol - Diet - Solid Texture Continue Regular Continue N/A - Shower allowing shower for Dementia, TBI, Stroke, or others FUNCTIONAL STATUS: UPDATED AT WEEKLY TEAM CONFERENCE - Bladder Same accident frequency: 7-Ind - No accidents in the past 7 days - Bowel Same accident frequency: 7-Ind - No accidents in the past 7 days - Walking Same score based on distance walked: 0(N/A) - Wheelchair Same score based on distance traveled: 0(N/A) FUNCTIONAL STATUS: - Self-Care A. Eating Ind B. Grooming Kristie C. Bathing modA D. Dressing - Upper Kristie E. Dressing - Lower modA F. Toileting Kristie - Sphincter Control G. Bladder control sup H. Bowel control Kayode - Transfers Control I. Bed/Chair/Wheelchair modA J. Toilet Kristie K. Tub/Shower modA - Locomotion L. Walk/Wheelchair (B) Kristie M. Stairs modA - Communication N. Comprehension (B) sup O. Expression (B) Kristie - Social Cognition P. Social Interaction Ind Q. Problem Solving Ind R. Memory Ind - Endurance Fair - Balance Fair - Safety Awareness Fair QI SCORES: - Self-Care A. Eating 03-Partial/moderate assistance B. Oral hygiene 03-Partial/moderate assistance C. Toileting hygiene 03-Partial/moderate assistance E. Shower/bathe self 03-Partial/moderate assistance F. Upper body dressing 03-Partial/moderate assistance G. Lower body dressing 03-Partial/moderate assistance H. Putting on/taking off footwear 03-Partial/moderate assistance - Mobility A. Roll left and right 02-Substantial/maximal assistance B. Sit to lying 03-Partial/moderate assistance C. Lying to sitting on side of bed 02-Substantial/maximal assistance D. Sit to stand 02-Substantial/maximal assistance E. Chair/[id number] transfer 02-Substantial/maximal assistance F. Toilet transfer 02-Substantial/maximal assistance G. Car transfer 02-Substantial/maximal assistance I. Walk 10 feet 88-Not attempted due to medical condition or safety concerns J. Walk 50 feet with two turns 88-Not attempted due to medical condition or safety concerns K. Walk 150 feet 88-Not attempted due to medical condition or safety concerns L. Walking 10 feet on uneven surfaces 88-Not attempted due to medical condition or safety concerns M. 1 step (curb) 88-Not attempted due to medical condition or safety concerns N. 4 steps 88-Not attempted due to medical condition or safety concerns O. 12 steps 88-Not attempted due to medical condition or safety concerns P. Picking up object 03-Partial/moderate assistance R. Wheel 50 feet with two turns 09-Not applicable S. Wheel 150 feet 09-Not applicable - Bladder and Bowel Bladder continence 0-Always continent Bowel continence 9-Not rated - Endurance Good - Balance Good - Safety Awareness Good CURRENT FUNC. DEFICITS: Self-Care and Mobility SIGNATURE PANEL: (CDT)
[2021-09-07] MEDS: GABAPENTIN 100 MG CAP PO SCH (20:04)
[2021-09-07] MEDS: ATORVASTATIN 40 MG TAB PO SCH (20:05)
[2021-09-07] MEDS: DULOXETINE 20 MG CAP PO SCH (20:05)
[2021-09-07] MEDS: MELATONIN 5 MG TABLET PO PRN (20:07)
[2021-09-08 04:55] LABS: Protime INR 2.93
[2021-09-08] MEDS: METOPROLOL TAR 25 MG TAB PO SCH (05:22)
[2021-09-08] MEDS: LIDOCAINE 4% PATCH TOP SCH (06:29)
[2021-09-08] MEDS: PANTOPRAZOLE 40MG TABLET PO SCH (07:29)
[2021-09-08] MEDS: NYSTATIN PWDR 100000 UNIT/GM TOP SCH (07:31)
[2021-09-08] MEDS: MAGNESIUM OXIDE 400 MG TAB PO SCH (07:32)
[2021-09-08] MEDS: ASPIRIN EC 81 MG TAB PO SCH (07:33)
[2021-09-08 07:34] VITALS: BP 136/72
[2021-09-08] MEDS: lisinopriL 5 MG TAB PO SCH (07:34)
[2021-09-08 07:57] VITALS: TEMP 96.2
--- NOTE | 2021-09-08 09:55 | P.RH.PN ---
Estimated Length of Stay: 35 Expected Discharge Date: 09/08/21 Discharge Disposition Plan: Home Family Support: Yes [facility] Goal: Mobility, Transfers, Self Care Vital Signs: Last Vital Signs Temp 96.2 F L 09/08/21 07:57 Pulse 60 09/08/21 07:57 Resp 17 09/08/21 07:57 BP 136/72 09/08/21 07:57 Pulse Ox 97 09/08/21 07:57 Laboratory: Laboratory Last Values WBC 5.5 K/uL (4.3-10.9) 09/07/21 04:20 RBC 3.98 M/uL (4.33-5.43) L 09/07/21 04:20 Hgb 11.3 g/dL (13.6-17.9) L 09/07/21 04:20 Hct 34.4 % (39.6-49.0) L 09/07/21 04:20 MCV 86.5 fL (80-100) 09/07/21 04:20 MCH 28.4 pg (27.0-35.0) 09/07/21 04:20 MCHC 32.8 g/dL (32.0-36.0) 09/07/21 04:20 RDW 15.5 % (12.1-15.2) H 09/07/21 04:20 Plt Count 189 K/uL (152-406) 09/07/21 04:20 MPV 8.9 fL (7.6-11.3) 09/07/21 04:20 Neutrophils % 66.6 % (41.7-73.7) 09/07/21 04:20 Lymphocytes % 20.3 % (15.3-44.8) 09/07/21 04:20 Monocytes % 9.5 % (3.3-12.3) 09/07/21 04:20 Eosinophils % 3.4 % (0-4.4) 09/07/21 04:20 Basophils % 0.2 % (0-1.3) 09/07/21 04:20 Absolute Neutrophils 3.7 K/uL (1.8-8.0) 09/07/21 04:20 Segmented Neutrophils 57 % (40-80) 08/17/21 05:05 Absolute Lymphocytes 1.1 K/uL (0.7-4.9) 09/07/21 04:20 Lymphocytes 23 % (15-42) 08/17/21 05:05 Monocytes 9 % (0-10) 08/17/21 05:05 Absolute Monocytes 0.5 K/uL (0.1-1.3) 09/07/21 04:20 Eosinophils 10 % (0-3) H 08/17/21 05:05 Absolute Eosinophils 0.2 K/uL (0-0.5) 09/07/21 04:20 Basophils 1 % (0-1) 08/17/21 05:05 Absolute Basophils 0.0 K/uL (0-0.5) 09/07/21 04:20 Platelet Estimate Adeq 08/17/21 05:05 Morphology Comment Not seen (NOT SEEN) 08/17/21 05:05 PT 33.0 SECONDS (9.5-12.5) H 09/08/21 04:40 INR 2.93 09/08/21 04:40 Sodium 139 mmol/L (136-145) 09/07/21 04:20 Potassium 3.8 mmol/L (3.5-5.1) 09/07/21 04:20 Chloride 107 mmol/L (98-107) 09/07/21 04:20 Carbon Dioxide 27 mmol/L (21-32) 09/07/21 04:20 Anion Gap 8.8 mEq/L (5.0-15.0) 09/07/21 04:20 BUN 9 mg/dL (7-18) 09/07/21 04:20 Creatinine 0.78 mg/dL (0.55-1.3) 09/07/21 04:20 Estimated GFR > 90 mL/min (=/>90) 08/10/21 04:15 Est GFR (CKD-EPI) 109 ml/min (=/>90) 09/07/21 04:20 Glucose 108 mg/dL (74-106) H 09/07/21 04:20 POC Glucose 95 mg/dL (65-120) 08/17/21 11:32 Uric Acid 5.5 mg/dL (3.5-7.2) 08/23/21 10:20 Calcium 9.2 mg/dL (8.5-10.1) 09/07/21 04:20 Magnesium 1.9 mg/dL (1.8-2.4) 09/07/21 04:20 Magnesium Cancelled 09/07/21 04:20 Albumin 3.4 g/dL (3.4-5.0) 09/07/21 04:20 Prealbumin 15.6 mg/dL (20-40) L 09/07/21 04:20 Urine Color Yellow (Yellow) 08/03/21 20:38 Urine Appearance Hazy (Clear) 08/03/21 20:38 Urine pH 7.5 (5.0-7.0) H 08/03/21 20:38 Ur Specific [place] 1.020 (1.005-1.030) 08/03/21 20:38 Glucose (UA)(Auto) Negative (Negative) 08/03/21 20:38 Urine Ketones Negative (Negative) 08/03/21 20:38 Urine Blood 2+ (Negative) H 08/03/21 20:38 Urine Nitrite Negative (Negative) 08/03/21 20:38 Urine Bilirubin Negative (Negative) 08/03/21 20:38 Urine Urobilinogen 2.0 mg/dL (0.2-1.0) H 08/03/21 20:38 Ur Leukocyte Esterase Negative (Negative) 08/03/21 20:38 Urine RBC 5-10 /HPF (NONE SEEN) H 08/03/21 20:38 Urine WBC <5 /HPF (<5) 08/03/21 20:38 Ur Squamous Epith Cells <5 /HPF (NONE SEEN) 08/03/21 20:38 Ur Urothelial Cells Cancelled 08/03/21 19:30 Calcium Oxalate Crystal Cancelled 08/03/21 19:30 Uric Acid Crystals Cancelled 08/03/21 19:30 Triple Phos Crystals Cancelled 08/03/21 19:30 Other Crystals Cancelled 08/03/21 19:30 Amorphous Sediment 2+ /HPF (NONE SEEN) H 08/03/21 20:38 Glitter Cells Cancelled 08/03/21 19:30 Urine Bacteria <20 /HPF (NONE SEEN) 08/03/21 20:38 Hyaline Casts Cancelled 08/03/21 19:30 Fine Granular Casts Cancelled 08/03/21 19:30 Coarse Granular Casts Cancelled 08/03/21 19:30 Waxy Casts Cancelled 08/03/21 19:30 RBC Casts Cancelled 08/03/21 19:30 WBC Casts Cancelled 08/03/21 19:30 Urine Mucus Cancelled 08/03/21 19:30 Urine Other Cancelled 08/03/21 19:30 Urine Trichomonas Cancelled 08/03/21 19:30 Urine Yeast Cancelled 08/03/21 19:30 Ur Yeast w Hyphae Cancelled 08/03/21 19:30 Urine Yeast (Budding) Cancelled 08/03/21 19:30 Urine Sperm Cancelled 08/03/21 19:30 Urine Culture Reflexed Not needed 08/03/21 20:38 Urine Total Volume Cancelled 08/03/21 19:30 Urine Total Protein 2+ (Negative) H 08/03/21 20:38 SARS-CoV-2 Rap RNA(RT-PCR) Negative (NEGATIVE) 08/31/21 03:56 Weight: 246 lb 9.6 oz Wound Present: No Closed Surgical Incision Present: No Negative Pressure Wound Therapy Present: No Physician Update: Labs were reviewed. Bed mobility, sit to stand, transferring, ambulating 750' with SBA. 25 steps at CGA. Mod I grooming, bathing, upper, and lower body dressing. Standby assistance with bathing. Doing well with reading comprehension and expression. More movement on the right face. Comment: no skin breakdown. Functional Improvement: Patient has met all short-term and long-term goals, w/ the exception of a car transfer. Patient continues to demonstrate good technique, and overall safety awareness. Summary: Patient's care plan and intermediate project manager goals have been reviewed and revised as necessary. Please see the Rehabilitation Signature page for all necessary signatures.
--- NOTE | 2021-09-08 18:32 | R.DS ---
DISCHARGE SUMMARY FACILITY [facility] MR# [id number] NAME VELIA TORRES ADDRESS [address] [facility] [place]IP [address] PHONE DATE OF 1970 AGE 50 ROOM NUMBER [id number] N# [id number] GENDER Male DEXTERITY Unknown dexterity MARITAL STATUS RACE White ENCOUNTER PHYSICIAN Dr. Domingo Jordan M.D. REFERRING DOCTOR DR. 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 Cerebral infarction, unspecified (I63.9). Large Left MCA Stroke with Hemorrhagic Conversion. DATE OF ADMISSION 08/03/2021 16:52 (CDT) MEDICATION ALLERGIES: No Known Drug Allergies (NKDA) ENVIRONMENTAL ALLERGIES: - Substance Allergies None Known - Other Allergies None Known DISCHARGE MEDICATIONS: Other- ContinueSee attached MAR (Medication Administration Record). NURSING: - Shower allowing shower - Bladder care per protocol - Skin care per protocol PRECAUTIONS: - Weight Bearing Precaution WBAT right LE - Fall Precaution Bed alarm TABS alarm Wheel chair alarm ACTIVITIES OOB only with supervision THERAPIES: - Dietary and Nutrition Adequate Nutrition Nutritional Education Nutritional Supplements Evaluate and Treat - Occupational Therapy Cognitive Retraining Patient needs Occupational Therapy for a daily minimum of 1.5 hours at least 5 out of 7 days, to impr ove Activities of Daily Living, including: Eating, Grooming, Bathing, Dressing, Toileting, Toilet Tra nsfers, Community Reintegration, Higher functional activities, Adaptive Equipment, Splinting, Househo ld Tasks, and Other activities as determined Visual Perceptual Training Evaluate and Treat Safety Awareness UE ROM UE Strengthening - Speech Therapy Cognitive Training Expressive Language Skills Memory Strategies Patient needs Speech Therapy for a daily minimum of 1.5 hours at least 5 out of 7 days, to improve: S wallowing, Cognition, Language Skills, and Compensatory Strategies Receptive Language Skills Speech Intelligibility Training Evaluate and Treat Dysphagia Therapy - Physical Therapy Patient needs Physical Therapy for a daily minimum of 1.5 hours at least 5 out of 7 days, to improve: Mobility, Strengthening, Transfers, Stretching, ROM, Endurance, Ability to manage stairs, Gait, and Balance Evaluate and Treat Wheelchair Management Patient/Family Education Safety Awareness HISTORY OF PRESENT ILLNESS: Pt. is a 50 yo white male.Pt. is a 50 yo Unknown dexterity white male.On 07/14/2021 Pt. 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 was independen t/mod-I in Locomotion, Safety Awareness, Balance, Transfers Control, Self-Care, Endurance, Communicat ion, Social Cognition, and Sphincter Control.Currently, he has deficits of Locomotion, Balance, Trans fers Control, Communication, Self-Care, Endurance, and Safety Awareness.Pt. is now referred to [facility] for acute in-patient rehabilitation in order to maximize patient's functi onal independence in activities of daily living, strength, ROM, and mobility.- Rehab Goal Patient has realistic goal of being discharged at assistance level 4-Kristie to reside at Home with Fam julian/Relatives. DIET - LIQUID TEXTURE: On 07/19/2021 Pt was changed to N/A Diet - Liquid Texture. DIET - SOLID TEXTURE: On 07/19/2021 Pt was changed to N/A Diet - Solid Texture. On 08/04/2021 Pt was changed from N/A Diet - Solid Texture to Regular. Pt was downgraded from Regular Diet - Solid Texture to N/A. On 08/07/2021 Pt was changed from N/A Diet - Solid Texture to Regular. On 08/08/2021 Pt was changed from N/A Diet - Solid Texture to Regular. On 08/09/2021 Pt was changed from N/A Diet - Solid Texture to Regular. On 08/10/2021 Pt was changed from N/A Diet - Solid Texture to Regular. On 08/12/2021 Pt was changed from N/A Diet - Solid Texture to Regular. On 08/14/2021 Pt was changed from N/A Diet - Solid Texture to Regular. On 08/15/2021 Pt was changed from N/A Diet - Solid Texture to Regular. On 08/16/2021 Pt was changed from N/A Diet - Solid Texture to Regular. On 08/17/2021 Pt was changed from N/A Diet - Solid Texture to Regular. On 08/21/2021 Pt was changed from N/A Diet - Solid Texture to Regular. On 08/22/2021 Pt was changed from N/A Diet - Solid Texture to Regular. On 08/23/2021 Pt was changed from N/A Diet - Solid Texture to Regular. On 08/25/2021 Pt was changed from N/A Diet - Solid Texture to Regular. On 08/28/2021 Pt was changed from N/A Diet - Solid Texture to Regular. On 08/29/2021 Pt was changed from N/A Diet - Solid Texture to Regular. On 08/30/2021 Pt was changed from N/A Diet - Solid Texture to Regular. On 08/31/2021 Pt was changed from N/A Diet - Solid Texture to Regular. On 09/05/2021 Pt was changed from N/A Diet - Solid Texture to Regular. On 09/06/2021 Pt was changed from N/A Diet - Solid Texture to Regular. On 09/07/2021 Pt was changed from N/A Diet - Solid Texture to Regular. DIET TYPE: On 07/19/2021 Pt was changed to NPO (nothing by mouth) Diet Type. FALL PRECAUTION: On 07/19/2021 the following precautions were added for the patient: Fall Precaution - Wheel chair ala rm, Fall Precaution - Bed alarm, and Fall Precaution - TABS alarm. On 08/07/2021 the following precautions were added for the patient: Fall Precaution - Bed alarm, Fal l Precaution - TABS alarm, and Fall Precaution - Wheel chair alarm. The following precautions were removed for the patient: Fall Precaution - Bed alarm, Fall Precaution - TABS alarm, Fall Precaution - Wheel chair alarm, Fall Precaution - Bed alarm, Fall Precaution - T ABS alarm, and Fall Precaution - Wheel chair alarm. On 07/19/2021 the following precautions were added for the patient: Weight Bearing Precaution - WBAT right LE. On 08/04/2021 the following precautions were added for the patient: Weight Bearing Precaution - WBAT right LE. On 08/07/2021 the following precautions were removed for the patient: Weight Bearing Precaution - WB AT right LE. On 08/08/2021 the following precautions were added for the patient: Weight Bearing Precaution - WBAT right LE. TUBE FEED: On 07/19/2021 Pt was changed to N/A Tube Feed. WEIGHT BEARING PRECAUTION: DISCHARGE PHYSICAL EXAM - Gen Alert and awake Lying in bed No apparent distress Oriented to: person, time, and place - Skin No skin breakdown. Normacephalic - Eyes No abnormalities - ENMT No abnormalities - Neck No abnormalities No cervical adenopathy - CVS RRR - Chest No abnormalities - Resp Clear to auscultation - Abd Obese, soft, nontender - GI nondistended Deferred - Joyner catheter will be removed today. - Ext Mild right upper and lower extremity edema. - MSK 3/5 weakness in right upper and lower extremity. - Neuro 3/5 weakness in right upper and lower extremity, and dense right arm and leg numbness with neglect. - Psych Mild depression. FUNCTIONAL STATUS: - Self-Care A. Eating 7-Ind B. Grooming 6-Kayode C. Bathing 6-Kayode D. Dressing - Upper 6-Kayode E. Dressing - Lower 6-Kayode F. Toileting 6-Kayode - Sphincter Control G. Bladder control 6-Kayode H. Bowel control 6-Kayode - Transfers Control I. Bed/Chair/Wheelchair 6-Kayode J. Toilet 6-Kayode K. Tub/Shower 6-Kayode - Locomotion L. Walk/Wheelchair (B) 6-Kayode M. Stairs 5-sup - Communication N. Comprehension (B) 5-sup O. Expression (B) 5-sup - Social Cognition P. Social Interaction 7-Ind Q. Problem Solving 7-Ind R. Memory 7-Ind - Endurance Good - Balance Good - Safety Awareness Good QI SCORES: - Self-Care A. Eating 03-Partial/moderate assistance B. Oral hygiene 03-Partial/moderate assistance C. Toileting hygiene 03-Partial/moderate assistance E. Shower/bathe self 03-Partial/moderate assistance F. Upper body dressing 03-Partial/moderate assistance G. Lower body dressing 03-Partial/moderate assistance H. Putting on/taking off footwear 03-Partial/moderate assistance - Mobility A. Roll left and right 02-Substantial/maximal assistance B. Sit to lying 03-Partial/moderate assistance C. Lying to sitting on side of bed 02-Substantial/maximal assistance D. Sit to stand 02-Substantial/maximal assistance E. Chair/[id number]-[id number] transfer 02-Substantial/maximal assistance F. Toilet transfer 02-Substantial/maximal assistance G. Car transfer 02-Substantial/maximal assistance I. Walk 10 feet 88-Not attempted due to medical condition or safety concerns J. Walk 50 feet with two turns 88-Not attempted due to medical condition or safety concerns K. Walk 150 feet 88-Not attempted due to medical condition or safety concerns L. Walking 10 feet on uneven surfaces 88-Not attempted due to medical condition or safety concerns M. 1 step (curb) 88-Not attempted due to medical condition or safety concerns N. 4 steps 88-Not attempted due to medical condition or safety concerns O. 12 steps 88-Not attempted due to medical condition or safety concerns P. Picking up object 03-Partial/moderate assistance R. Wheel 50 feet with two turns 09-Not applicable S. Wheel 150 feet 09-Not applicable - Bladder and Bowel Bladder continence 0-Always continent Bowel continence 9-Not rated - Endurance Good - Balance Good - Safety Awareness Good DISCHARGE INSTRUCTIONS: - Followup The patient will continue with INR-PT Weekly. - N/A Coumadin 9 mg daily. DISCHARGE PLAN, FOLLOW UP CARE PROVISIONS: - Estimated Length of Stay (days) 17. - Consensus on plan Discharge plan has been discussed with primary caregiver. Patient/Family is in agreement with the pushpa n. Primary caregiver is in agreement with the plan. - Patient/Family Goals Return home with assistance. - Planned Living Setting Upon Discharge Home, to live with Family/Relatives. Transitional Living. SIGNATURE PANEL: (CDT)
== END 2021-09-08 09:40 | disposition home health service (06) | DRG 57 ==
LOC: 5TH 08-03 16:52
PROVIDERS: ADMIT Psychiatry & Neurology Neurology with Special Qualifications in Child Neurology; ATTEND Psychiatry & Neurology Neurology with Special Qualifications in Child Neurology
DX: I69.351 Hemiplegia and hemiparesis following cerebral infarction affecting right dominant side (principal); I48.20 Chronic atrial fibrillation, unspecified; I42.1 Obstructive hypertrophic cardiomyopathy; I01.1 Acute rheumatic endocarditis; I10 Essential (primary) hypertension; G47.33 Obstructive sleep apnea (adult) (pediatric); E66.9 Obesity, unspecified; Z68.34 Body mass index [BMI] 34.0-34.9, adult; E87.6 Hypokalemia; M79.674 Pain in right toe(s); M79.89 Other specified soft tissue disorders; I70.201 Unspecified atherosclerosis of native arteries of extremities, right leg; I69.320 Aphasia following cerebral infarction; Z95.1 Presence of aortocoronary bypass graft; Z20.822 Contact with and (suspected) exposure to COVID-19
CPT/HCPCS: 36415; 70450; 74230; 80048; 81003; 81015; 82040; 82947; 83735; 84132; 84134; 84550; 85025; 85610; 87086; 87088; 92507; 92523; 92526; 92610; 92611; 93306; 93925; 97032; 97110; 97112; 97116; 97129; 97130; 97161; 97165; 97530; 97542; J0690; J2001; J2997; J7050; U0003